=== PATIENT | female | born 1935 | race Caucasian/White ===

== ENCOUNTER → 2016-09-19 | Outpatient (REF) | payer MEDICARE, BC ==
[~2016-09-19] MED LIST: ASPI1TAB PO; CALC600T33 PO; CORE3.12 PO; DEXA2TA PO; Decadron PO; GABA-282 PO; INDA125TA PO; LESC80TA PO; METF1000 PO; MULTCAP PO; NITR4TASL SL; OMEP20CA3 PO; OS-CTAB6 PO; POTA99TA PO; PRAV40TA2 PO; TOLT1CAP PO; TRAN4TAB4 PO
[2016-09-19 13:12] LABS: ALBUMIN 3.3 GM/DL (3.2-5.2); ANION GAP 10 MEQ/L (8-16); BASO # 0.1 K/mm3 (0.0-0.2); BLOOD UREA NITROGEN 23 MG/DL (7-18); CALCIUM LEVEL 9.1 MG/DL (8.8-10.2); CARBON DIOXIDE LEVEL 32 MEQ/L (21-32); CHLORIDE LEVEL 99 MEQ/L (98-107); CREATININE FOR GFR 0.92 MG/DL (0.55-1.02); EOS # 0.2 K/mm3 (0.0-0.50); EOS % 4.2 % (0.0-3.0); GLOMERULAR FILTRATION RATE > 60.0 (>32); GLUCOSE, FASTING 83 MG/DL (83-110); LARGE UNSTAINED CELL # 0.2 K/mm3 (0.0-0.4); LARGE UNSTAINED CELL % 2.8 % (0.0-4.0); LYMPH # 1.7 K/mm3 (1.5-4.5); LYMPH % 27.4 % (24.0-44.0); MEAN CORPUSCULAR HEMOGLOBIN 30.7 pg (27.0-33.0); MEAN CORPUSCULAR HGB CONC 32.5 g/dl (32.0-36.5); MEAN CORPUSCULAR VOLUME 94.6 fl (80.0-96.0); MONO # 0.5 K/mm3 (0.0-0.8); MONO % 8.1 % (0.0-5.0); NEUTROPHILS # 3.2 K/mm3 (1.8-7.7); NEUTROPHILS % 56.5 % (36.0-66.0); PHOSPHORUS LEVEL 3.2 MG/DL (2.5-4.9); PLATELET COUNT, AUTOMATED 249 k/mm3 (150-450); POTASSIUM SERUM 3.8 MEQ/L (3.5-5.1); RED CELL DISTRIBUTION WIDTH 15.3 % (11.5-14.5); SODIUM LEVEL 141 MEQ/L (136-145); WHITE BLOOD COUNT 5.6 K/mm3 (4.0-10.0)
== END ==
LOC: M LABDRAW1 11:30
PROVIDERS: ATTEND Physician Assistant
DX: I49.5 Sick sinus syndrome (principal); I10 Essential (primary) hypertension

== ENCOUNTER 2016-10-15 12:29 | Inpatient (IN) | payer MEDICARE, BC ==
[~2016-10-15] VITALS: Ht 162.6 cm; Wt 70.6 kg
[~2016-10-15 12:29] MED LIST changes: +ASPI32ECTA PO; +ASPIRIN ENTERIC 325 MG TAB PO SCH; +CALCTAB29 PO; +VITA100037 PO
[2016-10-15] MEDS ORDERED: LR 1,000 ML IV ONE (12:45)
[2016-10-15] MEDS ORDERED: ceFAZolin SOD 1 GM in D5W MINI-BAG PLUS 50 ML IV ONE (13:00)
[2016-10-15] MEDS ORDERED: VANCOMYCIN 1000 MG/20 ML VIAL (J3370) As Ordered ONE (14:22)
[2016-10-15] MEDS ORDERED: LIDOCAINE 1% SDV INJ 30 ML VIAL As Ordered ONE (14:22)
[2016-10-15] MEDS ORDERED: ISOVUE-300 61% 50ML VIAL (Q9967) As Ordered ONE (14:22)
[2016-10-15] MEDS ORDERED: NEOSPORIN TOP OINT 15GM As Ordered ONE (14:24)
[2016-10-15] MEDS ORDERED: MIDAZOLAM INJ 2 MG/2 ML VIAL (J2250) As Ordered ONE (15:12)
[2016-10-15] MEDS ORDERED: fentaNYL 100 MCG/2 ML INJECTION (J3010) As Ordered ONE (15:12)
[2016-10-15] MEDS ORDERED: PROPOFOL 200 MG/20 ML VIAL As Ordered ONE (15:13)
[2016-10-15] MEDS ORDERED: LIDOCAINE 2% INJ 100 MG/5 ML SDV (FOR ANES.) As Ordered ONE (15:13)
[2016-10-15] MEDS ORDERED: ONDANSETRON 4MG/2ML VIAL (J2405) IV PRN (17:30)
[2016-10-15] MEDS ORDERED: LR 1,000 ML IV SCH (17:30)
[2016-10-15] MEDS ORDERED: guaiFENesin ER 600 MG TAB PO PRN (17:30)
[2016-10-15] MEDS ORDERED: fentaNYL 100 MCG/2 ML INJECTION (J3010) IV PRN (17:30)
[2016-10-15] MEDS ORDERED: ACETAMINOPHEN TAB 650MG DOSE (2X325MG) PO PRN (17:30)
[2016-10-15] MEDS ORDERED: NITROGLYCERIN 0.4 MG SUBL TABLET SL PRN (17:30)
--- NOTE | 2016-10-15 17:53 | REP ---
CHEST, ONE VIEW: REASON: Postop evaluation. PRIORS: None. There is a dual chamber bipolar pace maker device with leads which appear contiguous and appropriate. There is mild cardiomegaly. The technique utilized in obtaining the radiograph has magnified the cardiac silhouette and accentuated the interstitial markings. There is a diffuse increase in the interstitial markings of the lung gonzalez without a patchy opacity or pleural effusion. The osseous structures are within normal limits for the patient's age. IMPRESSION: 1. Pace maker device as described above. 2. Cardiomegaly. 3. Interstitial fibrotic changes however, correlate clinically to rule out the possibility of acute disease, superimposed on chronic change. Signed by Rehan Duran DO 10/15/2016 06:06 P
[2016-10-15 17:55] VITALS: BP 171/86
--- NOTE | 2016-10-15 17:57 | RO ---
DATE OF PROCEDURE: 10/15/2016 PREPROCEDURE DIAGNOSIS: Sick sinus syndrome. POSTPROCEDURE DIAGNOSIS: Sick sinus syndrome. FINDINGS: Sick sinus syndrome. PROCEDURE: Implantation of a permanent dual-chamber pacemaker ([employer]). SURGEON: Juliocesar Humphrey MD REFERRAL NURSE: None. ANESTHESIA: Lidocaine 1% local/monitored anesthetic care. ESTIMATED BLOOD LOSS: Less than 10 mL. No blood products replaced. No drains. No complications. DESCRIPTION OF PROCEDURE: The patient was prepped and draped over the left pectoral region. 3M Ioban film was applied. Lidocaine 1% was used for local anesthetic. A left subclavian venogram was performed using a total volume of 15 mL consisting of three-quarters contrast and one-quarter normal saline, which was injected by an antecubital vein. The left subclavian venogram was used in real time as a guide to get into the left subclavian vein with the micropuncture needle. This was then guidewire exchanged for a guidewire that came with one of the 8-Italian sheaths. Next, an incision approximately 2-1/2 to 3 inches in length was made with a PEAK PlasmaBlade, 1 cm below the skin entry site of the guidewire and approximately parallel to the left clavicle. The PEAK PlasmaBlade was used to dissect through the fatty layer and the fibrous Tiffanie's fascia. The pacemaker pocket was then formed in a caudal direction using blunt dissection using two fingers to separate the prepectoral fascia from the Tiffanie's fascia. Next, the guidewire was pulled through the skin into the incision site. Next, I used another micropuncture needle and entered the left subclavian vein a few centimeters lateral to the first guidewire at the level of the pectoral muscle using the first guidewire as a fluoroscopic marker. This was then guidewire exchanged for the guidewire that came with the other 8-Italian sheath. An 8-Italian sheath was placed over the more lateral of the guidewires and was used for vein access for the right ventricle lead. The right ventricle lead was placed into the right ventricle apex position under fluoroscopic guidance near the apex and was secured with a total of eight turns. This position was found to be electrically and anatomically satisfactory. No diaphragm stimulation on the ventricle lead at 10 volts high output with palpation of the diaphragm on both sides. Next, the 8-Italian sheath was broken apart and removed, and the ventricle lead was secured using three individual sutures consisting of #0 Ethibond to secure it to the pectoral muscle. Next, the other 8-Italian sheath was placed over the more medial of the guidewires and was used for vein access for the atrial lead. The atrial lead was placed into the right atrial appendage position with the help of a preformed J-stylet and was secured with a total of 10 turns. This position was found to be electrically and anatomically satisfactory. The atrial lead was tested at 10 volts high output and no diaphragm stimulation could be palpated on either side. The 8-Italian sheath was then broken apart and the atrial lead was secured to the pectoral muscle using the supplied tie-down sleeve using three individual sutures consisting of #0 Ethibond. Next, another #0 Ethibond suture was placed to the pectoral muscle to serve as the tie-down for the pacemaker pulse generator. The pacemaker pulse generator was then connected to the respective pins on the pacemaker leads and each one was secured by tightening the set screws with the hex screwdriver. A TYRX antimicrobial sac was cut into six pieces and placed into the bottom of the pacemaker pocket. Next, the excess lead material was coiled underneath the pacemaker pulse generator and placed along with pacemaker pulse generator into the pacemaker pocket with the pulse generator on top and excess lead material below. The pulse generator was then secured to the pectoral muscle with the previously placed #0 Ethibond sutures. The deep layer was closed using individual sutures consisting of #2-0 Vicryl. Some additional #2-0 Vicryl sutures were used to close the more superficial layer. The skin was closed using trini. The patient tolerated the procedure well without any immediate complications. The pacemaker pulse generator implanted was a [employer] MRI, model #[id number] with serial #[id number]. The right atrial lead implanted was a [employer] Tendril MRI with serial #[id number] with serial #[id number]. Final testing in the operating room with the PSA analyzer for the right atrial lead showed a capture threshold of 0.9 volts at 0.4 milliseconds with P wave amplitude of 2.5 millivolts and a lead impedance of 486 ohms. The right ventricle lead implanted was a [employer] Tendril MRI, model [id number] with serial #[id number]. Final testing in the operating room for the right ventricle lead showed a capture threshold of 0.5 volts at 0.4 milliseconds with R wave amplitude of 11.8 millivolts and lead impedance of 746 ohms. Copy To: Dr. Freddy Rubin
--- NOTE | 2016-10-15 18:00 | REP ---
FLUORO GUIDANCE: HISTORY: Sick sinus syndrome. Fluoroscopy of 3 minutes and 34 seconds has been provided to Dr. Juliocesar Humphrey during dual chamber bipolar pacemaker device placement. The image has been submitted to the department of radiology for review. The limited image shows the imaged portion of the leads to be contiguous and appropriate. Unreviewed
[2016-10-15 18:50] VITALS: BP 167/77
[2016-10-15 19:30] VITALS: BP 162/69
[2016-10-15 20:00] VITALS: BP 155/67
[2016-10-15] MEDS: TOLTERODINE TARTRATE 2 MG LA CAP (DETROL LA) PO SCH (20:54)
[2016-10-15] MEDS: ASCORBIC ACID 250 MG TAB PO SCH (20:54)
[2016-10-15] MEDS: VITAMIN D 1,000 INTERNATIONAL UNITS TABLET PO SCH (20:54)
[2016-10-15] MEDS: MULTIVITAMINS/MINERALS THERAP 1 TAB PO SCH (20:54)
[2016-10-15] MEDS: INDAPAMIDE 1.25MG TABLET PO SCH (20:55)
[2016-10-15] MEDS: TRANDOLAPRIL 1 MG TAB PO SCH (20:55)
[2016-10-15] MEDS ORDERED: PRAVASTATIN 20 MG TAB PO SCH (21:00)
[2016-10-15] MEDS: CALCIUM/VITAMIN D 500 MG TAB PO SCH (22:28)
--- NOTE | 2016-10-15 22:42 | ECGEPIP ---
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-T abnormalities. Electronically Signed On 10-15-2016 22:42:19 EDT by Juliocesar Humphrey
--- NOTE | 2016-10-15 23:03 | REP ---
Clinical: Pacemaker placement. Technique: Intraoperative fluoroscopic imaging. Findings: Single fluoroscopic image demonstrates dual lead pacemaker wires overlying the right atrium and ventricle. Fluoroscopic time 3 minutes 34 seconds. Impression: Pacemaker leads overlying the right atrium and ventricle. Signed by Martell Fiore MD 10/15/2016 10:55 P
[2016-10-16] VITALS: BP 133/59
[2016-10-16 04:00] VITALS: BP 142/66
[2016-10-16 07:20] VITALS: BP 149/70
[2016-10-16 08:00] VITALS: BP 149/70
[2016-10-16] MEDS ORDERED: metFORMIN (GLUCOPHAGE) 1000 MG TABLET PO SCH (08:00)
--- NOTE | 2016-10-16 08:49 | REP ---
PA and lateral chest: A comparison is 10/15/2016. The interstitial coarsening identified on the comparison study has improved. There are no focal infiltrates or effusions. There is no pneumothorax. Cardiac size is normal. There is a dual-chamber pacemaker with the pacing tips in satisfactory locations. There are surgical skin trini adjacent to the pacemaker pack. These findings are unchanged. Ya, mediastinum, bony thorax are unremarkable. Impression: No acute cardiopulmonary findings. Signed by Jose A Schaefer MD 10/16/2016 08:40 A
[2016-10-16] MEDS: INDAPAMIDE 1.25MG TABLET PO SCH (08:57)
[2016-10-16] MEDS: TOLTERODINE TARTRATE 2 MG LA CAP (DETROL LA) PO SCH (08:57)
[2016-10-16 08:58] VITALS: BP 149/70
[2016-10-16] MEDS: TRANDOLAPRIL 1 MG TAB PO SCH (08:58)
[2016-10-16] MEDS: ASCORBIC ACID 250 MG TAB PO SCH (08:58)
[2016-10-16] MEDS: CALCIUM/VITAMIN D 500 MG TAB PO SCH (08:58)
[2016-10-16] MEDS: VITAMIN D 1,000 INTERNATIONAL UNITS TABLET PO SCH (08:58)
[2016-10-16] MEDS: MULTIVITAMINS/MINERALS THERAP 1 TAB PO SCH (08:58)
[2016-10-16] MEDS ORDERED: ASPIRIN ENTERIC 325 MG TAB PO SCH (09:00)
[2016-10-16 12:00] VITALS: BP 162/73
== END 2016-10-16 16:59 | disposition home or self-care (01) | DRG 244 ==
LOC: M SDC 12:29 → M ICU 17:45 → M SDC 19:24 → M ICU 19:25
PROVIDERS: ADMIT Internal Medicine Cardiovascular Disease; ATTEND Internal Medicine Cardiovascular Disease
PROC: 02HK0JZ Insertion of Pacemaker Lead into Right Ventricle, Open Approach (ICD-10-PCS; 2016-10-15)
PROC: 0JH606Z Insertion of Pacemaker, Dual Chamber into Chest Subcutaneous Tissue and Fascia, Open Approach (ICD-10-PCS; principal; 2016-10-15 14:00)
DX: I49.5 Sick sinus syndrome (principal)

== ENCOUNTER → 2017-01-07 | Outpatient (REF) | payer MEDICARE, BC ==
[~2017-01-07] MED LIST changes: +ASPI325T24 PO; -ASPI32ECTA PO; -ASPIRIN ENTERIC 325 MG TAB PO SCH; -CALC600T33 PO; +CALC600T36 PO; -METF1000 PO; +METF10004 PO; -TRAN4TAB4 PO; +TRAN4TAB8 PO; -VITA100037 PO; +VITA100067 PO
[2017-01-07 14:19] LABS: CREATININE FOR GFR 0.96 MG/DL (0.55-1.02); GLOMERULAR FILTRATION RATE 59.4 (>32)
== END ==
LOC: M LABDRAW1 13:43
PROVIDERS: ATTEND Psychiatry & Neurology Neurology
DX: N18.9 Chronic kidney disease, unspecified (principal)

== ENCOUNTER → 2017-01-09 | Outpatient (CLI) | payer MEDICARE, BC ==
--- NOTE | 2017-01-09 11:48 | REP ---
MRI BRAIN WITHOUT AND WITH CONTRAST: HISTORY: Meningioma. CONTRAST: ProHance 7 mL. COMPARISON: MR 11/11/[address] 11/13/2014. The patient is status post left parietal craniotomy. A small area of increased signal intensity on T2-weighted images is present in the posterior left parietal lobe. There is dilatation of the overlying cortical sulci. This represents gliosis and encephalomalacia. Scattered punctate areas of increased signal intensity on T2-weighted images are present in the periventricular and subcortical white matter. This represents small vessel ischemic disease. There is no intraparenchymal hemorrhage, infarct or midline shift. The ventricular system and cortical sulci are dilated consistent with minimal volume loss. There is no extracerebral collection. A small focus of extra-axial enhancement is present overlying the posterior left parietal lobe at the vertex. This represents a residual meningioma. The meningioma measures 1.4 cm in transverse by 2.5 cm in AP by 0.6 cm in cephalocaudal dimensions. The meningioma abuts the superior sagittal sinus. The sinuses are clear. IMPRESSION: 1. Left parietal lobe encephalomalacia. 2. Minimal small vessel ischemic disease. 3. Minimal volume loss. 4. Small residual left parietal parasagittal meningioma as described above. Signed by Charlie Coffman MD 01/09/2017 11:59 A
== END ==
LOC: M RAD 09:17
PROVIDERS: ATTEND Psychiatry & Neurology Neurology
DX: D32.0 Benign neoplasm of cerebral meninges (principal); G40.209 Localization-related (focal) (partial) symptomatic epilepsy and epileptic syndromes with complex partial seizures, not intractable, without status epilepticus
CPT/HCPCS: 70553; A9576

== ENCOUNTER → 2019-08-02 | Outpatient (REF) | payer MEDICARE, BC ==
[~2019-08-02] MED LIST changes: +ASPI-255 PO; -ASPI1TAB PO; -ASPI325T24 PO; +ASPI81TA26 PO; +CALCD50TA PO; +CHOL100029 PO; -GABA-282 PO; +GABA-843 PO; +LEVE500T5 PO; +OMEP1CAP73 PO; -OMEP20CA3 PO; -TOLT1CAP PO; +TOLT4CAP3 PO; +TRAN1TAB49 PO; -TRAN4TAB8 PO
[2019-08-02 17:09] LABS: IRON (FE) 132 UG/DL (50-170); PERCENT SATURATION 36.7 % (13.2-45.0); TOTAL IRON BINDING CAPACITY 360 UG/DL (250-450)
[2019-08-02 17:11] LABS: FOLATE > 24.0 NG/ML; VITAMIN B12 LEVEL 540 PG/ML
== END ==
LOC: M LAB REF 15:57
PROVIDERS: ATTEND Family Medicine
DX: D64.9 Anemia, unspecified (principal)

== ENCOUNTER → 2020-01-06 | Outpatient (REF) | payer MEDICARE, BC ==
[~2020-01-06] MED LIST changes: +CYCL5TAB PO; +FLUV80TAB PO; -LESC80TA PO
[2020-01-06 15:09] LABS: BASO # 0.1 10^3/uL (0.0-0.2); BASO % 0.9 % (0.0-1.0); EOS # 0.3 10^3/uL (0.0-0.5); EOS % 3.9 % (0.0-3.0); LYMPH # 2.6 10^3/uL (1.5-5.0); LYMPH % 32.7 % (24.0-44.0); MEAN CORPUSCULAR HGB CONC 32.4 g/dl (32.0-36.5); MEAN CORPUSCULAR VOLUME 95.8 fl (80.0-96.0); NEUTROPHILS % 50.2 % (36.0-66.0); PLATELET COUNT, AUTOMATED 198 10^3/uL (150-450); RED BLOOD COUNT 3.55 10^6/uL (4.00-5.40)
[2020-01-06 15:53] LABS: BILIRUBIN,TOTAL 0.4 MG/DL (0.2-1.0); CHOLESTEROL RISK RATIO 2.789 (<5); CREATININE FOR GFR 1.1 MG/DL (0.55-1.30); GLOMERULAR FILTRATION RATE 50.4 (>32); POTASSIUM SERUM 3.8 MEQ/L (3.5-5.1); TOTAL PROTEIN 6.5 GM/DL (6.4-8.2)
== END ==
LOC: M LABDRWAD 13:31
PROVIDERS: ATTEND Psychiatry & Neurology Neurology
DX: I25.10 Atherosclerotic heart disease of native coronary artery without angina pectoris (principal)

== ENCOUNTER → 2020-05-16 | Outpatient (REF) | payer MEDICARE, BC ==
[2020-05-16 16:59] LABS: CALCIUM LEVEL 10.3 MG/DL (8.8-10.2); CREATININE FOR GFR 1.16 MG/DL (0.55-1.30); GLOMERULAR FILTRATION RATE 47.4 (>32); MAGNESIUM LEVEL 1.7 MG/DL (1.8-2.4); POTASSIUM SERUM 3.9 MEQ/L (3.5-5.1)
== END ==
LOC: M LABDRWAD 16:06
PROVIDERS: ATTEND Physician Assistant
DX: I48.0 Paroxysmal atrial fibrillation (principal); I50.42 Chronic combined systolic (congestive) and diastolic (congestive) heart failure

== ENCOUNTER → 2020-06-12 | Outpatient (REF) | payer MEDICARE, BC ==
[~2020-06-12] MED LIST changes: +GABA-282 PO; -GABA-843 PO; -TRAN1TAB49 PO; +TRAN1TAB56 PO
[2020-06-12 13:51] LABS: CALCIUM LEVEL 10.4 MG/DL (8.8-10.2); CREATININE FOR GFR 1.02 MG/DL (0.55-1.30); MAGNESIUM LEVEL 1.6 MG/DL (1.8-2.4)
== END ==
LOC: M LABDRWAD 12:35
PROVIDERS: ATTEND Physician Assistant
DX: I48.0 Paroxysmal atrial fibrillation (principal); I50.42 Chronic combined systolic (congestive) and diastolic (congestive) heart failure

== ENCOUNTER → 2020-07-26 | Outpatient (REF) | payer MEDICARE, BC ==
[2020-07-26 13:53] LABS: CALCIUM LEVEL 9.6 MG/DL (8.8-10.2); CREATININE FOR GFR 1.17 MG/DL (0.55-1.30); GLOMERULAR FILTRATION RATE 46.8 (>32); MAGNESIUM LEVEL 1.8 MG/DL (1.8-2.4); POTASSIUM SERUM 3.9 MEQ/L (3.5-5.1)
== END ==
LOC: M LABDRWAD 12:22
PROVIDERS: ATTEND Physician Assistant
DX: I48.0 Paroxysmal atrial fibrillation (principal); I50.42 Chronic combined systolic (congestive) and diastolic (congestive) heart failure

== ENCOUNTER → 2020-08-23 | Outpatient (CLI) | payer MEDICARE, BC ==
--- NOTE | 2020-08-23 13:51 | REP ---
INDICATION: SOB. COMPARISON: PA and lateral chest dated 10/16/2016. TECHNIQUE: Upright PA and lateral chest. FINDINGS: There is chronic bilateral interstitial coarsening, not significantly changed taking into consideration differences in radiographic penetration. However, there are new small bilateral pleural effusions as an interval change. There are no focal infiltrates. Cardiac size is normal, unchanged. There is a dual chamber pacemaker, unchanged. IMPRESSION: New small bilateral pleural effusions. Chronic interstitial coarsening. Pacemaker. <Electronically signed by Jose A Schaefer > 08/23/20 [id number]
== END ==
LOC: M ADAMS 12:22
PROVIDERS: ATTEND Physician Assistant
DX: J90 Pleural effusion, not elsewhere classified (principal); R06.02 Shortness of breath; Z95.0 Presence of cardiac pacemaker

== ENCOUNTER → 2020-08-23 | Outpatient (REF) | payer MEDICARE, BC ==
[2020-08-23 17:52] LABS: CALCIUM LEVEL 9.6 MG/DL (8.8-10.2); CREATININE FOR GFR 0.99 MG/DL (0.55-1.30); GLOMERULAR FILTRATION RATE 56.8 (>32); MAGNESIUM LEVEL 1.7 MG/DL (1.8-2.4); POTASSIUM SERUM 4.7 MEQ/L (3.5-5.1)
== END ==
LOC: M LABDRWAD 16:30 → M LAB REF 16:30
PROVIDERS: ATTEND Physician Assistant
DX: R06.02 Shortness of breath (principal)

== ENCOUNTER → 2020-09-18 | Outpatient (REF) | payer MEDICARE, BC ==
[2020-09-18 12:57] LABS: HEMATOCRIT 37.9 % (36.0-47.0); HEMOGLOBIN 11.8 g/dl (12.0-15.5); MEAN CORPUSCULAR HEMOGLOBIN 31.1 pg (27.0-33.0); MEAN CORPUSCULAR HGB CONC 31.1 g/dl (32.0-36.5); PLATELET COUNT, AUTOMATED 209 10^3/uL (150-450); RED BLOOD COUNT 3.79 10^6/uL (4.00-5.40)
[2020-09-18 13:41] LABS: CALCIUM LEVEL 9.9 MG/DL (8.8-10.2); CREATININE FOR GFR 1.06 MG/DL (0.55-1.30); GLOMERULAR FILTRATION RATE 52.4 (>32)
== END ==
LOC: M LABDRWAD 12:26
PROVIDERS: ATTEND Physician Assistant
DX: I48.0 Paroxysmal atrial fibrillation (principal); I50.42 Chronic combined systolic (congestive) and diastolic (congestive) heart failure; R06.02 Shortness of breath

== ENCOUNTER → 2020-12-26 | Outpatient (REF) | payer MEDICARE, BC ==
[~2020-12-26] MED LIST changes: +ATEN50TA2 PO; +DIGO0.123 PO; +ECOT81TA5 PO; +ELIQ5TAB PO; +ENTR1TAB PO; +MAGN400C PO; +MULT1TAB7 PO; +TORS10TA3 PO
[2020-12-26 14:10] LABS: CALCIUM LEVEL 9.3 MG/DL (8.8-10.2); CREATININE FOR GFR 1.02 MG/DL (0.55-1.30); GLOMERULAR FILTRATION RATE 54.8 (>32); MAGNESIUM LEVEL 2.3 MG/DL (1.8-2.4); POTASSIUM SERUM 4.5 MEQ/L (3.5-5.1)
== END ==
LOC: M LABDRWAD 12:39
PROVIDERS: ATTEND Physician Assistant
DX: I48.0 Paroxysmal atrial fibrillation (principal); I50.42 Chronic combined systolic (congestive) and diastolic (congestive) heart failure

== ENCOUNTER → 2021-02-07 | Outpatient (REF) | payer MEDICARE, BC ==
[2021-02-07 15:01] LABS: CREATININE FOR GFR 1.22 MG/DL (0.55-1.30); GLOMERULAR FILTRATION RATE 44.6 (>32)
== END ==
LOC: M LABDRWAD 12:23
PROVIDERS: ATTEND Psychiatry & Neurology Neurology
DX: I10 Essential (primary) hypertension (principal)

== ENCOUNTER → 2021-02-15 | Outpatient (CLI) | payer MEDICARE, BC ==
[~2021-02-15] MED LIST changes: +ISOVUE-370 76% 100ML VIAL As Ordered ONE
--- NOTE | 2021-02-15 13:42 | REPVR ---
PROCEDURE INFORMATION: Exam: CT Head Without And With Contrast Exam date and time: 02/15/2021 1:09 PM Age: 85 years old Clinical indication: Pain; Headache; Additional info: Local-rel symptc epi w cmplx prt seiz, not ntrct, w/. History of surgery for meningioma. TECHNIQUE: Imaging protocol: Computed tomography of the head without and with intravenous contrast. Radiation optimization: All CT scans at this facility use at least one of these dose optimization techniques: automated exposure control; mA and/or kV adjustment per patient size (includes targeted exams where dose is matched to clinical indication); or iterative reconstruction. Contrast material: ISOVUE 370; Contrast volume: 75 ml; Contrast route: INTRAVENOUS (IV); COMPARISON: 1. CT Head W/O FOLL BY WITH CONTR 01/13/2018 10:05 AM 2. MRI-Brain W/O FOLL BY WITH 01/09/2017 9:42:55 AM FINDINGS: Brain: Examination again demonstrates the patient to be status post left parietal craniotomy for surgical resection meningioma with stable appearance of postsurgical hypodense encephalomalacia and gliosis in the adjacent right left parietal lobe. Stable appearance of small residual extra-axial dural-based enhancing meningioma measuring approximately 1.5 x 1.5 x 0.6 cm in the left high parietal parasagittal region abutting the superior sagittal sinus, best appreciated on coronal image 23. No significant mass effect or midline shift is seen. No acute infarction, acute hemorrhage or midline shift is seen. There is mild ill-defined patchy hypodensity within the bilateral cerebral periventricular white matter, consistent with chronic microvascular ischemic changes. There is mild diffuse cerebral atrophy present, consistent with this patient's age. Cerebral ventricles: The ventricular system demonstrates mild diffuse compensatory enlargement. Paranasal sinuses: Visualized sinuses are unremarkable. No fluid levels. Mastoid air cells: Visualized mastoid air cells are well aerated. Vasculature: There is atherosclerotic calcification of the bilateral cavernous carotid arteries. Bones/joints: Unremarkable. No acute fracture. Soft tissues: Unremarkable. IMPRESSION: 1. Examination again demonstrates the patient to be status post left parietal craniotomy for surgical resection meningioma with stable appearance of postsurgical hypodense encephalomalacia and gliosis in the adjacent right left parietal lobe. Stable appearance of small residual extra-axial dural-based enhancing meningioma measuring approximately 1.5 x 1.5 x 0.6 cm in the left high parietal parasagittal region abutting the superior sagittal sinus, best appreciated on coronal image 23. No significant mass effect or midline shift is seen. 2. No acute infarction, acute hemorrhage or midline shift is seen. Electronically signed by: John Mcnally On 02/15/2021 13:42:28 PM
== END ==
LOC: M RAD 12:53
PROVIDERS: ATTEND Psychiatry & Neurology Neurology
DX: G40.209 Localization-related (focal) (partial) symptomatic epilepsy and epileptic syndromes with complex partial seizures, not intractable, without status epilepticus (principal); D32.0 Benign neoplasm of cerebral meninges
CPT/HCPCS: 70470; Q9967

== ENCOUNTER → 2021-02-22 | Outpatient (CLI) | payer MEDICARE, BC ==
[~2021-02-22] MED LIST changes: -ISOVUE-370 76% 100ML VIAL As Ordered ONE
--- NOTE | 2021-02-22 13:30 | REP ---
INDICATION: SOB. COMPARISON: 11/19/2020 TECHNIQUE: PA and lateral FINDINGS: The cardiomediastinal silhouette is unchanged. Dual chamber bipolar pacemaker device status quo. A new right lower lobe opacity has developed since the last exam with CP angle blunting. There is no significant change in appearance of the left lung. The osseous structures are stable and intact. IMPRESSION: Right pleural effusion. Underlying etiology uncertain. Follow-up is recommended. <Electronically signed by Rehan Duran > 02/22/21 [id number]
== END ==
LOC: M WUC 13:04
PROVIDERS: ATTEND Family Medicine
DX: R91.8 Other nonspecific abnormal finding of lung field (principal); J91.8 Pleural effusion in other conditions classified elsewhere; R06.02 Shortness of breath

== ENCOUNTER → 2021-03-09 | Outpatient (CLI) | payer MEDICARE, BC ==
--- NOTE | 2021-03-09 13:36 | REP ---
INDICATION: RT PLEURAL EFFUSION F/U ABN CXR COMPARISON: 10/20/2006 the latest prior TECHNIQUE: Standard helical technique without intravenous contrast FINDINGS: There is no evidence of mediastinal or hilar adenopathy. There is a large right and a small left pleural effusion. There is no pericardial effusion. There is no significant change in appearance of the imaged upper abdomen. The imaged osseous structures shows spinal degenerative changes increased from the prior exam. There is a proximal right 8th rib lesion which is unchanged. Evaluation of the lung gonzalez shows a small amount of intra fissural fluid bilaterally right greater than left. Respiratory motion artifact obscures the fine detail. There is no evidence of a spiculated lung nodule. There is an opacity in the right lower lobe abutting the pleural effusion with air bronchograms consistent with atelectasis. IMPRESSION: Bilateral pleural effusions and other lung field changes as described above. <Electronically signed by Rehan Duran > 03/09/21 [id number]
== END ==
LOC: M PLAIMG 12:30
PROVIDERS: ATTEND Family Medicine
DX: J90 Pleural effusion, not elsewhere classified (principal); R91.8 Other nonspecific abnormal finding of lung field

== ENCOUNTER 2021-03-13 19:36 | Inpatient (IN) | payer MEDICARE, BC ==
[~2021-03-13] VITALS: Ht 157.5 cm; Wt 67.2 kg
--- OUTSIDE RECORDS SUMMARY | 2021-03-13 19:42 | CCD | Continuity of Care Document ---
Author Organization Unknown Address Unknown Phone Unavailable Care Team Providers Care Parts Processor Name Role Phone Freddy Boston MD AUTM [phone] Smith Will MD AUTM [phone] Problems Active Problems Provider Date Coronary arteriosclerosis Juliocesar Humphrey MD Onset: 2011 Old myocardial infarction Juliocesar Humphrey MD Onset: 2011 Benign essential hypertension Juliocesar Humphrey MD Onset: Electrocardiogram abnormal Juliocesar Humphrey MD Onset: 08/27 Mitral valve disorder Delia Dover PA-C Onset: 11/12/2012 Pure hypercholesterolemia Delia Dover PA-C Onset: 2012 Essential hypertension Delia Dover PA-C Onset: 5 Mitral leaflet abnormality Delia Dover PA-C Onset: 05/17 Sinus node dysfunction TERELL StephensP-C Onset: 10/24/19 17 Cardiac pacemaker in situ ZA Mccoy-C Onset: 2016 Dietary management surveillance Delia Dover PA-C Onset: 11/04/2016 Aortic valve disorder Delia Dover PA-C Onset: 06/07/2019 Persistent atrial fibrillation Delia Dover PA-C Onset: 0 09/26/2020 Chronic combined systolic and diastolic heart failure Delia Dover PA-C Onset: 09/26/2020 Social History Type Date Description Comments Sex Unknown Tobacco Use Start: Unknown End: Unknown Former Cigarette Smo ker 1ppd for 35 years, quit 1997 ETOH Use Rarely consumes alcohol Tobacco Use Start: Unknown End: Unknown Patient is a former smoker up to 1ppd from age 26, quit 1997 Smoking Status Reviewed: 12/27/20 Patient is a former smoker up to 1ppd from age 26, quit 1997 Exercise Type/Frequency Does gardening 3 times a week in season Exercise Type/Frequency Does housework daily Exercise Limitations Fatigue in legs whe n walking long distances Exercise Limitations Weakness in legs Allergies and adverse reactions Description No Known Drug Allergies Medications Active Medications SIG Qnty Indications Ordering Provide r Date Torsemide 10mg Tablets 4 by mouth every day 360tabs I50.42 Juliocesar Humphrey MD 08/24/2020 Entresto 24-26mg Tablets 1 by mouth twice a day 180tabs I50.42 Joaquin Alfonso MD 05/24/2020 Magnesium Oxide -MG Supplement 400mg Capsules 1 by mouth twice a day 180caps Joaquin Alfonso MD 03/02/2020 Digoxin 125mcg Tablets 1 by mouth every day 90tabs I48.0 Juliocesar Humphrey MD 02/15/2020 Stool Softener 100mg Capsules 1 by mouth twice every day as needed Unknown 2019 Atenolol 50mg Tablets 1 by mouth every day 90tabs Juliocesar Humphrey MD 02/07/[address] 1 by mouth every day I25.10 Joaquin Alfonso MD 02/03/2020 Eliquis 5mg Tablets 1 by mouth twice a day 180tabs I48.0 Juliocesar Humphrey MD 02/03/2020 Pravastatin Sodium 20mg Tablets 1 by mouth every night at bedtime Freddy Boston MD 05/28/19 18 Levetiracetam 500mg Tablets 1 tablet bid Unknown 05/06/2017 Vitamin D 2000Unit Tablets 1 po qd Unknown 06/16/2013 Calcium 600 + D [id number] Tab lets 1 po bid Unknown 06/16/2013 Metformin HCL 1000mg Tablets 1 po bid Freddy Boston MD 02/14/2011 Multi-Vitamin Tablets 1 PO D Dorian Riojas MD 08/24/2007 Nitrostat 0.4mg Tablets Sub 1 sl every 5min x3 as needed for chest pain 25tabs I25.10 Joaquin Alfonso MD 08/25/2006 Immunizations Description No Information Available Vital Signs Date Vital Result Comment 12/27/2020 9:36am Weight 147.00 lb Height 64 inches 5'4" BMI (Body Mass Index) 25.2 kg/m2 Heart Rate 76 /min Irregular Respiratory Rate 16 /min BP Systolic Right Arm 128 mmHg sitting, regular c uff BP Diastolic Right Arm 76 mmHg sitting, regular cuff 09/26/2020 12:21pm Weight 149.00 lb Home Weight 149lb Height 64 inches 5'4" BMI (Body Mass Index) 25.6 kg/m2 Heart Rate 56 /min Irregular Respiratory Rate 16 /min BP Systolic Right Arm 136 mmHg sitting, regular c uff BP Diastolic Right Arm 64 mmHg sitting, regular cuff BP Systolic Left Arm 132 mmHg sitting BP Diastolic Left Arm 64 mmHg sitting Results Test Acquired Date Facility Test Result H/L Range Note Microalbumin/Creatinine Urine 02/22/2021 [facility] Import Microalbumin Urine 271.5 mg/L High 1.3-20.0 Urine Creatinine 89.5 mg/dL 30.0-125.0 Microalb/Creat Ratio 303.4 ug/mg High 0.0-30.0 Comprehensive Chem Profile 02/22/2021 [facility] CC D Import Glucose 94 mg/dL 74-99 1 BUN 22 mg/dL High 7-18 Creatinine 1.3 mg/dL 0.6-1.3 Sodium 143 mEq/L 136-145 Potassium 3.7 mEq/L 3.5-5.1 Chloride 101 mEq/L 98-107 Carbon Dioxide 36 mEq/L High 21-32 Calcium 9.8 mg/dL 8.5-10.1 Alk. Phosphatase 63 mg/dL 46-116 Total Bilirubin 0.5 mg/dL 0.2-1.0 Ast (Sgot) 22 U/L 15-37 Alt (SGPT) 23 U/L 12-78 Albumin 3.6 g/dL 3.4-5.0 Total Protein 6.3 g/dL Low 6.4-8.2 A/G Ratio 1.33 CALC 1.00-1.90 GFR 39 mL/min Low GFR 47 mL/min Low 2 Basic Metabolic Profile 12/26/2020 [facility] [phone] Glucose, Fasting 131 mg/dL High 70-100 Blood Urea Nitrogen 20 mg/dL High 7-18 Creatinine For GFR 1.02 mg/dL Normal 0.55-1.30 Glomerular Filtration Rate 54.8 Normal >32 3 Sodium Level 140 mEq/L Normal 136-145 Potassium Serum 4.5 mEq/L Normal 3.5-5.1 Chloride Level 105 mEq/L Normal 98-107 Carbon Dioxide Level 30 mEq/L Normal 21-32 Anion Gap 5 mEq/L Low 8-16 Calcium Level 9.3 mg/dL Normal 8.8-10.2 Laboratory test finding 12/26/2020 [facility] [phone] Magnesium Level 2.3 mg/dL Normal 1.8-2.4 NT-Pro BNP 6360 pg/mL High <450 Basic Metabolic Profile 09/18/2020 [facility] [phone] Glucose, Fasting 92 mg/dL Normal 70-100 Blood Urea Nitrogen 22 mg/dL High 7-18 Creatinine For GFR 1.06 mg/dL Normal 0.55-1.30 Glomerular Filtration Rate 52.4 Normal >32 4 Sodium Level 144 mEq/L Normal 136-145 Potassium Serum 4.0 mEq/L Normal 3.5-5.1 Chloride Level 105 mEq/L Normal 98-107 Carbon Dioxide Level 33 mEq/L High 21-32 Anion Gap 6 mEq/L Low 8-16 Calcium Level 9.9 mg/dL Normal 8.8-10.2 Laboratory test finding 09/18/2020 [facility] [phone] Magnesium Level 2.0 mg/dL Normal 1.8-2.4 NT-Pro BNP 4551 pg/mL High <450 Complete Blood Count 09/18/2020 [facility] [phone] White Blood Count 8.0 10 Normal 4.0-10.0 Red Blood Count 3.79 10 Low 4.00-5.40 Hemoglobin 11.8 g/dL Low 12.0-15.5 Hematocrit 37.9 % Normal 36.0-47.0 Mean Corpuscular Volume 100.0 fl High 80.0-96.0 Mean Corpuscular Hemoglobin 31.1 pg Normal 27.0-33.0 Mean Corpuscular HGB Conc 31.1 g/dL Low 32.0-36.5 Red Cell Distribution Width 17.2 % High 11.5-14.5 Platelet Count, Automated 209 10 Normal 150-450 Nucleated Red Blood Cell % 0.0 % Normal 0-0 1 100-125 mg/dL PRE-DIABET ES/FASTING >126 mg/dL DIABETES/FASTING 2 CHRONIC KIDNEY DISEASE STAGI NG PER NKF STAGE I & II GFR >= 60 NORMAL TO MILDLY DECREASED STAGE III GFR 30-59 MODERATELY DECREASED STAGE IV GFR 15-29 SEVERELY DECREASED STAGE V GFR <15 VERY LITTLE GFR LEFT ESRD GFR <15 ON SURFACE SUPERVISOR 3 Units are mL/min/1.73 m2 Chronic Kidney Disease Staging per NKF: Stage I & II GFR >=60 Normal to Mildly Decreased Stage III GFR 30-59 Moderately Decreased Stage IV GFR 15-29 Severely Decreased Stage V GFR <15 Very Little GFR Left ESRD GFR <15 on SURFACE SUPERVISOR 4 Units are mL/min/1.73 m2 Chronic Kidney Disease Staging per NKF: Stage I & II GFR >=60 Normal to Mildly Decreased Stage III GFR 30-59 Moderately Decreased Stage IV GFR 15-29 Severely Decreased Stage V GFR <15 Very Little GFR Left ESRD GFR <15 on SURFACE SUPERVISOR Procedures Date Code Description Status 12/27/2020 88461 Office/Outpatient Established Lo w MDM 20-29 Min Completed 12/27/2020 61254 Pacer Interrogation Any Leads Co mpleted 09/26/2020 54720 Office/Outpatient Established Mo d MDM 30-39 Min Completed 09/26/2020 03464 Echocardiogram 2-D Doppler Color Completed Medical Devices Description No Information Available Encounters Type Date Location Provider Dx Diagnosis Office Visit 12/27/2020 9:30a Main Office Delai Dover PA-C I50.4 2 Chronic combined systolic and diastolic hrt fail I49.5 Sick sinus syndrome Office Visit 09/26/2020 12:30p Main Office Delia Dover PA-C I50.4 2 Chronic combined systolic and diastolic hrt fail I48.11 Longstanding persistent atri al fibrillation I25.10 Athscl heart disease of emily ve coronary artery w/o ang pctrs I25.2 Old myocardial infarction I10 Essential (primary) hyperten jackie I34.0 Nonrheumatic mitral (valve) insufficiency I35.8 Other nonrheumatic aortic va lve disorders R94.31 Abnormal electrocardiogram [ ECG] [EKG] E78.00 Pure hypercholesterolemia, u nspecified I49.5 Sick sinus syndrome Z71.3 Dietary counseling and surve illance Assessments Date Code Description Provider 12/27/2020 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 CHARLES MccoyC 12/27/2020 I49.5 Sick sinus syndrome CHARLES PereraC 09/26/2020 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 CHARLES MccoyC 09/26/2020 I48.11 Longstanding persistent atrial f ibrillation CHARLES MccoyC 09/26/2020 I25.10 Atherosclerotic heart disease of [place] coronary artery with CHARLES MccoyC 09/26/2020 I25.2 Old myocardial infarction CHARLES MccoyC 09/26/2020 I10 Essential (primary) hypertension CHARLES MccoyC 09/26/2020 I34.0 Nonrheumatic mitral (valve) insu fficiency CHARLES MccoyC 09/26/2020 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 CHARLES MccoyC 09/26/2020 R94.31 Abnormal electrocardiogram [ECG] [EKG] CHARLES MccoyC 09/26/2020 E78.00 Pure hypercholesterolemia, unspe cified CHARLES MccoyC 09/26/2020 I49.5 Sick sinus syndrome CHARLES PereraC 09/26/2020 Z71.3 Dietary counseling and surveilla nce Delia Dover PA-C Plan of Treatment Future Appointment(s):* 07/02/2021 12:45 pm - Delia Dover PA-C at Main Office * 03/29/2021 1:30 pm - Delia Dover PA-C at Main Office 12/27/2020 - Delia Dover PA-C* I50.42 Chronic combined systolic (congestive) and diastolic (congestive) heart failure* New Labs:* Basic Metabolic Profile, Scheduled: 03/26/21 * Magnesium Level, Scheduled: 03/26/21 * NT-Pro BNP, Scheduled: 03/26/21 * Recommendations:* Follow a low sodium diet and 1500cc/24 hour fluid restriction and do daily weights. Call the office with weight gain of 3 lbs or more. * I49.5 Sick sinus syndrome * All * Follow up:* 3 month follow up. 6 month pacer/CV. Functional Status Functional Condition Comment Date Status Independent with all ADL's Activ e Mental Status Description No Information Available Referrals Description No Information Available
--- OUTSIDE RECORDS SUMMARY | 2021-03-13 19:42 | CCD | Continuity of Care Document ---
Author Organization Unknown Address Unknown Phone Unavailable Care Team Providers Care Chief Accountant Name Role Phone Freddy Boston MD AUTM [phone] Smith Will MD AUTM [phone] Juliocesar Stewart MD AUTM [phone] Nia Cline MD AUTM [phone] Problems Active Problems Provider Date Trigeminal neuralgia Freddy Boston M.D. Onset: 09/30/2014 Urinary incontinence Onset: 10/11/2008 Thyroid nodule Onset: 05/14/2008 Benign essential hypertension Onset: Vitamin D deficiency Onset: 05/14/2008 Diverticular disease Onset: 12/03/2007 Cartilage disorder Onset: 12/03/2007 Non-Hodgkin's lymphoma (clinical) Onset: Coronary arteriosclerosis Onset: 000 Type 2 diabetes mellitus Onset: 00 Hyperlipidemia Onset: Benign neoplasm of cerebral meninges Freddy Boston M.D. On set: 03/06/2015 Social History Type Date Description Comments Sex Unknown Tobacco Use Start: Unknown End: Unknown Former Cigarette Smo ker 1 Pack Daily Quit in 1981 ETOH Use Never used alcohol Tobacco Use Start: Unknown End: Unknown Patient is a former smoker Allergies and adverse reactions Active Allergies Criticality Reaction | Severity Comments Date Aspirin Unable to assess criticality Mild 08/19/2012 Lipitor Unable to assess criticality muscle aches 09/30/2014 Crestor Unable to assess criticality Moderate 08/19/2012 Pravachol Unable to assess criticality muscle aches 09/30/2014 Zocor Unable to assess criticality Moderate 08/19/2012 Zetia Unable to assess criticality Moderate 08/19/2012 Inactive Allergies NKDA Unable to assess criticality 09/06/2014 Medications Active Medications SIG Qnty Indications Ordering Provide r Date Pravachol 20mg Tablets 1 by mouth every day 90tabs Freddy Boston M.D. 07/01/2017 Nystatin [id number] Suspension swish and spit 1 teaspoon 4 times daily 150ml B37.0 Dave Aguayo [facility] 09/02/2016 Levetiracetam 500mg Tablets P O bid Freddy Boston M.D. 05/29/2016 Calcium 600 600mg Tablets 1 p o bid Freddy Boston M.D. 03/06/2015 Multivitamins Capsules 1 by mouth every day Freddy Boston M.D. 03/06/2015 Metformin HCL 1000mg Tablets take one tablet by mouth twice a day 180tabs Freddy Boston M.D. 09/30/2014 Nitrostat 0.4mg Tablets Sub one under tongue every 5 minutes x 3 as needed for chest discomfort 25tabs Dave Aguayo [facility] 09/06/2014 Vitamin D 2000Unit Capsules 1 by mouth every day Dave Aguayo [facility] 09/06/2014 Entresto 24-26mg Tablets 1 twice daily by mouth Unknown Eliquis 5mg Tablets take one tablet by mouth twice a day Unknown Magnesium Oxide (Elemental) 400mg Tablets take one by mouth three times a day Unknown Torsemide 10mg Tablets 1 by mouth every day Unknown Digoxin 125mcg Tablets 1 by mouth every day Unknown Atenolol 50mg Tablets 1 by mouth every day Unknown Melatonin ER 10mg Tablets ER 1 by mouth at bedtime as needed Unknown Aspirin 81 Low Dose 81mg Chewtabs 1 by mouth every day Unknown Medications Administered in Office Medication SIG Qnty Indications Ordering Provider Date Covid-19 vaccine, Unspecified Inj ection Unknown 08/07/2020 Covid-19 vaccine, Unspecified Inj ection Unknown 07/05/2020 Immunizations CPT Code Status Date Vaccine Lot # U-Flu Refused 02/22/2021 Influenza,Unspecified 70729 Refused 03/14/2014 Influenza Virus Vaccine 37895 Refused 03/03/2013 Influenza Virus Vaccine 08642 Refused 02/05/2012 Pneumovax 23 [id number] Refused 02/05/2012 Influenza Virus Vaccine 41270 Refused 12/27/2010 Influenza Virus Vaccine 06446 Refused 05/19/2004 Adacel- Tetanus Diphtheria P ertussis Vital Signs Date Vital Result Comment 02/22/2021 10:43am BP Systolic 150 mmHg BP Diastolic 60 mmHg BP Systolic Recheck 137 mmHg BP Diastolic Recheck 68 mmHg Heart Rate 51 /min Height 63 inches 5'3" Weight 148.00 lb O2 % BldC Oximetry 96 % RM Air BMI (Body Mass Index) 26.2 kg/m2 10/09/2020 11:47am BP Systolic 160 mmHg BP Diastolic 72 mmHg Heart Rate 78 /min irregular Height 63 inches 5'3" Weight 152.00 lb BMI (Body Mass Index) 26.9 kg/m2 Results Test Acquired Date Facility Test Result H/L Range Note Laboratory test finding 02/22/2021 [facility] [employer] [facility]: [place] [address] [phone] B-Type Natiuretic Peptide <pending> A1c <pending> Basic Metabolic Profile 12/26/[address] [address] [phone] Glucose, Fasting 131 mg/dL High 70-100 Blood Urea Nitrogen 20 mg/dL High 7-18 Creatinine For GFR 1.02 mg/dL Normal 0.55-1.30 Glomerular Filtration Rate 54.8 Normal >32 1 Sodium Level 140 mEq/L Normal 136-145 Potassium Serum 4.5 mEq/L Normal 3.5-5.1 Chloride Level 105 mEq/L Normal 98-107 Carbon Dioxide Level 30 mEq/L Normal 21-32 Anion Gap 5 mEq/L Low 8-16 Calcium Level 9.3 mg/dL Normal 8.8-10.2 Laboratory test finding 12/26/[address] [address] [phone] Magnesium Level 2.3 mg/dL Normal 1.8-2.4 NT-Pro BNP 6360 pg/mL High <450 CBC With Differential 11/06/[address] [address] [phone] White Blood Count 9.6 10 Normal 4.0-10.0 Red Blood Count 3.88 10 Low 4.00-5.40 Hemoglobin 13.2 g/dL Normal 12.0-15.5 Hematocrit 38.2 % Normal 36.0-47.0 Mean Corpuscular Volume 98.5 fl High 80.0-96.0 Mean Corpuscular Hemoglobin 34.0 pg High 27.0-33.0 Mean Corpuscular HGB Conc 34.6 g/dL Normal 32.0-36.5 Red Cell Distribution Width 17.6 % High 11.5-14.5 Platelet Count, Automated 251 10 Normal 150-450 Neutrophils % 67.2 % High 36.0-66.0 Lymph % 19.9 % Low 24.0-44.0 [place] % 9.2 % High 2.0-8.0 Eos % 2.7 % Normal 0.0-3.0 Baso % 0.7 % Normal 0.0-1.0 Immature Granulocyte % 0.3 % Normal 0-3.0 Nucleated Red Blood Cell % 0.0 % Normal 0-0 Neutrophils # 6.4 10 Normal 1.5-8.5 Lymph # 1.9 10 Normal 1.5-5.0 [place] # 0.9 10 High 0.0-0.8 Eos # 0.3 10 Normal 0.0-0.5 Baso # 0.1 10 Normal 0.0-0.2 Comprehensive Metabolic Profil 11/06/2020 [place] [id number] [phone] Glucose, Fasting 103 mg/dL High 70-100 Blood Urea Nitrogen 19 mg/dL High 7-18 Creatinine For GFR 1.10 mg/dL Normal 0.55-1.30 Glomerular Filtration Rate 50.3 Normal >32 2 Sodium Level 143 mEq/L Normal 136-145 Potassium Serum 4.0 mEq/L Normal 3.5-5.1 Chloride Level 104 mEq/L Normal 98-107 Carbon Dioxide Level 32 mEq/L Normal 21-32 Anion Gap 7 mEq/L Low 8-16 Calcium Level 10.0 mg/dL Normal 8.8-10.2 Ast/Sgot 24 U/L Normal 7-37 Alt/SGPT 29 U/L Normal 12-78 Alkaline Phosphatase 66 U/L Normal 45-117 Bilirubin,Total 0.5 mg/dL Normal 0.2-1.0 Total Protein 5.9 GM/DL Low 6.4-8.2 Albumin 3.6 GM/DL Normal 3.2-5.2 Albumin/Globulin Ratio 1.6 Normal 1.2-2.2 Laboratory test finding 11/06/[address] [id number] [phone] LDH Lactate Dehydrogenase 239 U/L Normal 84-246 Immunoglobulin G,A,M 11/06/2020 [facility] [address] [place] [phone] Immunoglobulin A 79.0 mg/dL Normal 70-400 Immunoglobulin G 271 mg/dL Low [phone] Immunoglobulin M 108.0 mg/dL Normal 40-230 Serum Protein Electrophoresis 11/06/[address] [address] [phone] Albumin % 65.1 % Normal 55.8-66.1 Zaebb-3-Iuqsuukj % 5.7 % High 2.9-4.9 Rlsar-6-Zwxegqbwv % 12.5 % High 7.1-11.8 Begj-1-Aqwjsshel % 7.4 % High 4.7-7.2 Vnas-2-Scgqwzvex % 3.9 % Normal 3.2-6.5 Gamma Globulin % 5.4 % Low 11.1-18.8 Albumin 3.84 GM/DL Normal 3.29-5.55 Glkwd-3-Kiwdnhxht 0.34 GM/DL Normal 0.17-0.41 Jwvkv-3-Gmnjonguk 0.74 GM/DL Normal 0.42-0.99 Azyz-1-Fitsxlcqb 0.44 GM/DL Normal 0.28-0.60 Ondr-8-Omvjkcsmp 0.23 GM/DL Normal 0.19-0.55 Gamma Globulins 0.32 GM/DL Low 0.65-1.58 Total Protein 5.9 GM/DL Low 6.4-8.2 Spep Interpretation SEE COMMENT Normal 3 Spep Pathologist Review REV'D BY Terry JUNIOR Normal Laboratory test finding 11/06/[address] [address] [phone] Serum Viscosity 1.6 rel.saline Normal 1.4-2.1 4 Complete Blood Count 10/06/2020 [facility]: [place] [address] [phone] WBC 9.1 x10*3/UL 4.1 - 10.9 RBC 3.72 x10*6/UL Low 4.20 - 6.30 Hemoglobin 11.6 g/dL Low 12.0 - 18.0 5 Hematocrit 35.3 % Low 37.0 - 51.0 MCV 94.9 fL 80.0 - 97.0 MCH 31.3 pg 26.0 - 32.0 MCHC 32.9 g/dL 31.0 - 38.0 RDW 17.3 % High 11.6 - 13.7 PLT 229 x10*3/UL 140 - 440 MPV 9.1 FL 7.8 - 11.0 Lymph % 19.1 % 10.0 - 58.5 Mid % 5.8 % 1.7 - 9.3 Neut % 75.1 % 37.0 - 92.0 Lymph # 1.7 x10*3/UL 0.6 - 4.1 Mid # 0.6 x10*3/UL 0.1 - 0.6 Neut # 6.8 x10*3/UL 2.0 - 7.8 A1c 10/06/2020 [facility]: [place] [address] [phone] Hba1c 6.4 % High <5.7 6 Est Avg Glucose 137 mg/dL High 60 - 110 Comprehensive Chem Profile 10/06/2020 [facility]: [place] [address] [phone] Glucose 140 mg/dL High 74 - 99 7 BUN 25 mg/dL High 7 - 18 Creatinine 1.2 mg/dL 0.6 - 1.3 Sodium 142 mEq/L 136 - 145 Potassium 3.9 mEq/L 3.5 - 5.1 Chloride 105 mEq/L 98 - 107 Carbon Dioxide 30 mEq/L 21 - 32 Calcium 9.3 mg/dL 8.5 - 10.1 Alk. Phosphatase 70 mg/dL 46 - 116 Total Bilirubin 0.6 mg/dL 0.2 - 1.0 Ast (Sgot) 34 U/L 15 - 37 Alt (SGPT) 41 U/L 12 - 78 Albumin 3.7 g/dL 3.4 - 5.0 Total Protein 5.9 g/dL Low 6.4 - 8.2 A/G Ratio 1.68 CALC 1.00 - 1.90 GFR 43 mL/min Low >60 GFR 52 mL/min Low >60 8 Lipid Profile 10/06/2020 [facility]: [place] [address] [phone] Cholesterol 189 mg/dL 131 - 200 Triglycerides 88 mg/dL 30 - 150 HDL Cholesterol 67 mg/dL High 35 - 60 LDL (Calculated) 104 CALC 50 - 159 Laboratory test finding 10/06/2020 [facility]: [place] [address] [phone] Thyroid Stimulating Hormone 1.61 uIU/mL 0.3 6 - 3.74 Basic Metabolic Profile 09/18/[address] [address] [phone] Glucose, Fasting 92 mg/dL Normal 70-100 Blood Urea Nitrogen 22 mg/dL High 7-18 Creatinine For GFR 1.06 mg/dL Normal 0.55-1.30 Glomerular Filtration Rate 52.4 Normal >32 9 Sodium Level 144 mEq/L Normal 136-145 Potassium Serum 4.0 mEq/L Normal 3.5-5.1 Chloride Level 105 mEq/L Normal 98-107 Carbon Dioxide Level 33 mEq/L High 21-32 Anion Gap 6 mEq/L Low 8-16 Calcium Level 9.9 mg/dL Normal 8.8-10.2 Laboratory test finding 09/18/[address] [address] [phone] Magnesium Level 2.0 mg/dL Normal 1.8-2.4 NT-Pro BNP 4551 pg/mL High <450 Complete Blood Count 09/18/2020 [facility] [address] [place] [address] [phone] White Blood Count 8.0 10 Normal 4.0-10.0 [...] Cell % 0.0 % Normal 0-0 1 Units are mL/min/1.73 m2 Chronic Kidney Disease Staging per NKF: Stage I & II GFR >=60 Normal to Mildly Decreased Stage III GFR 30-59 Moderately Decreased Stage IV GFR 15-29 Severely Decreased Stage V GFR <15 Very Little GFR Left ESRD GFR <15 on SENIOR STAFF CONSULTANT 2 Units are mL/min/1.73 m2 Chronic Kidney Disease Staging per NKF: Stage I & II GFR >=60 Normal to Mildly Decreased Stage III GFR 30-59 Moderately Decreased Stage IV GFR 15-29 Severely Decreased Stage V GFR <15 Very Little GFR Left ESRD GFR <15 on SENIOR STAFF CONSULTANT 3 M-SPIKE NOTED IN EARLY GAMMA REGION. CONCENTRATION = 0.08 GM/DL SUGGEST SERUM AND URINE IMMUNOTYPING. 4 Values above 2.7 may indicat e paraproteinemia is present. Performed at: - [address] [id number] [address] [facility]: Ananya Gauthier MD, Phone: [phone] NOTE: RESULT VERIFIED. 6 Lab Result Notes: Pre-Diabetes 5.7 - 6.4 % Diabetes = or > 6.5% 7 100-125 mg/dL PRE-DIABET ES/FASTING >126 mg/dL DIABETES/FASTING 8 CHRONIC KIDNEY DISEASE STAGI NG PER NKF STAGE I & II GFR >= 60 NORMAL TO MILDLY DECREASED STAGE III GFR 30-59 MODERATELY DECREASED STAGE IV GFR 15-29 SEVERELY DECREASED STAGE V GFR <15 VERY LITTLE GFR LEFT ESRD GFR <15 ON SENIOR STAFF CONSULTANT 9 Units are mL/min/1.73 m2 Chronic Kidney Disease Staging per NKF: Stage I & II GFR >=60 Normal to Mildly Decreased Stage III GFR 30-59 Moderately Decreased Stage IV GFR 15-29 Severely Decreased Stage V GFR <15 Very Little GFR Left ESRD GFR <15 on SENIOR STAFF CONSULTANT Procedures Date Code Description Status 10/09/2020 11023 Office/Outpatient Established Mo d MDM 30-39 Min Completed 01/18/2020 908627963 Diabetic Retinal Eye Exam Comple moo 01/14/2019 [id number] Diabetic Retinal Eye Exam Comple moo 01/12/2018 [id number] Diabetic Retinal Eye Exam Comple moo 04/17/2017 960693528 Diabetic Retinal Eye Exam Comple moo 10/19/2015 [id number] Diabetic Retinal Eye Exam Comple moo 07/31/2015 [id number] Mammogram Completed 09/12/2014 [id number] Diabetic Retinal Eye Exam Comple [facility] Medical Devices Description No Information Available Encounters Type Date Location Provider Dx Diagnosis Office Visit 10/09/2020 11:00a [facility] Freddy Boston M.D. 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 02/22/2021 I11.0 Hypertensive heart disease with heart failure Freddy Boston M.D. 02/22/2021 Z95.0 Presence of cardiac pacemaker Gideon Boston M.D. 02/22/2021 I48.91 Unspecified atrial fibrillation Freddy Boston M.D. 02/22/2021 Z79.01 care home (current) use of antic oagulants Freddy Boston M.D. 02/22/2021 E11.9 Type 2 diabetes mellitus without complications Freddy Boston M.D. 02/22/2021 E78.5 Hyperlipidemia, unspecified Lan Boston M.D. 02/22/2021 I25.10 Atherosclerotic hear t disease of [place] coronary artery without angina pectoris Freddy Boston M.D. 02/22/2021 D32.9 Benign neoplasm of meninges, uns elver Boston M.D. 02/22/2021 Z85.71 Personal history of Hodgkin lymp della Boston M.D. 10/09/2020 I11.0 Hypertensive heart disease with heart failure Freddy Boston M.D. 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 10/09/2020 Z95.0 Presence of cardiac pacemaker Gideon Boston M.D. 10/09/2020 I48.91 Unspecified atrial fibrillation Freddy Boston M.D. 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 10/09/2020 E11.9 Type 2 diabetes mellitus without complications Freddy Boston M.D. 10/09/2020 E78.5 Hyperlipidemia, unspecified Lan Boston M.D. 10/09/2020 I25.10 Atherosclerotic hear t disease of [place] coronary artery without angina pectoris Freddy Boston M.D. 10/09/2020 E04.1 Nontoxic single thyroid nodule Missael Boston M.D. 10/09/2020 G40.89 Other seizures Freddy Boston M.D. 10/09/2020 D64.9 Anemia, unspecified Freddy santana M.D. 10/09/2020 D32.9 Benign neoplasm of meninges, uns elver Boston M.D. 10/09/2020 Z85.71 Personal history of Hodgkin lymp della Freddy Boston M.D. 10/06/2020 I48.91 Unspecified atrial fibrillation Freddy Boston M.D. 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 10/06/2020 E11.9 Type 2 diabetes mellitus without complications Lab Schedule 10/06/2020 E78.5 Hyperlipidemia, unspecified Lan Boston M.D. 10/06/2020 E78.5 Hyperlipidemia, unspecified Lab Schedule 10/06/2020 E04.1 Nontoxic single thyroid nodule Missael Boston M.D. 10/06/2020 E04.1 Nontoxic single thyroid nodule L ab Schedule Plan of Treatment Future Appointment(s):* 06/21/2021 9:10 am - Lab Schedule at [facility] * 06/27/2021 1:30 pm - Freddy Boston M.D. at [facility] 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 Weakness: She has some weakness in her lower legs and had evaluation done by Dr. Will at [facility]. I am concerned that this may be part of her cardiac issues and has decreased exercise intolerance. She can take diuretic appropriately and follow up with cardiology. We are checking chest x-ray and labs to evaluate further.2. Chronic combined systolic and diastolic hrt fail: Generally doing well on current regimen. She is not using Torsemide daily. Her pro-BNP level was elevated in December 2020. Patient is following up with Delia at [facility] and will continue to follow up appropriately. We will check BNP on her way out today.3. Hypertensive heart disease with heart failure: On recheck her blood pressure improved, although was high initially. Continue current regimen. She is following up with [facility] and will continue appropriate follow up. We will continue to monitor.4. Presence of cardiac pacemaker: She had a full pacemaker evaluation done in December and is following up with Delia at [facility]. She appears to be doing generally well and will follow up with them for pacer recheck. We will continue to monitor.5. Atrial fibrillation: Rate is controlled on Eliquis. Her pacer was checked last month. She did have EKG in September, which showed atrial fibrillation with appropriate ventricular pacing and sensing. 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 We will continue to monitor her on along with Cardiology.7. Type 2 diabetes mellitus without complications: We will check labs on her way out. She had controlled HgbA1c prior and will continue to watch her diet carefully. Continue current management.8. Hyperlipidemia: She did well on present dose of Pravastatin and has intolerance to number of statin medications. She will continue to work on her diet.9. Athscl heart disease of [place] coronary artery w/o ang pctrs: Following up with Cardiology. She has no acute chest pain. I have reviewed her recent EKGs and she will continue to follow up with Cardiology.10. Benign neoplasm of meninges: Patient is following up with Dr. Will and had a recent evaluation done. She will follow up with him asher may.11. Personal history of Hodgkin lymphoma: She is following up with Dr. Bill at [facility] and will continue appropriate follow up.Ongoing cares: I am going to see her again in 4 months with CMP, CBC, BNP, HgbA1c, lipids and TSH. If she has new problems or issues sooner she will let us know. Functional Status Description No Information Available Mental Status Description No Information Available Referrals Description No Information Available
--- OUTSIDE RECORDS SUMMARY | 2021-03-13 19:42 | CCD | Continuity of Care Document ---
Author Author Nurse #Heather Magallon Organization Unknown Address [address] [facility] [address] [place] [address] Phone Unavailable Care Team Providers Care Hyperion Developer Name Role Phone Freddy Boston MD AUTM [phone] Smith Will MD AUTM [phone] Juliocesar Stewart MD AUTM [phone] Nia Cline MD AUTM [phone] Problems Active Problems Provider Date Trigeminal neuralgia [...] day 90tabs Freddy Boston M.D. 07/01/2017 Nystatin 580254Sqck/ML Suspension swish and spit 1 teaspoon 4 times daily 150ml B37.0 Dave Aguayo [facility] 09/02/2016 Levetiracetam 500mg Tablets P [...] needed for chest discomfort 25tabs Dave Aguayo [facility] 09/06/2014 Vitamin D 2000Unit Capsules 1 by mouth every day Dave Aguayo [facility] 09/06/2014 Entresto 24-26mg Tablets 1 [...] Vaccine Lot # U-[id number] Refused 02/22/2021 Influenza,Unspecified [id number] Refused 03/14/2014 Influenza Virus Vaccine [id number] Refused 03/03/2013 Influenza Virus Vaccine 75898 Refused 02/05/2012 Pneumovax 23 [id number] Refused 02/05/2012 Influenza Virus Vaccine 76733 Refused 12/27/2010 Influenza Virus Vaccine 12048 Refused 05/19/2004 Adacel- Tetanus Diphtheria P ertussis [...] H/L Range Note Laboratory test finding 02/22/2021 [place] [facility] [employer] Irrigationist Designer: [place] [address] [phone] B-Type Natiuretic Peptide <pending> A1c <pending> Basic Metabolic Profile 12/26/[address] [address] [phone] Glucose, Fasting 131 mg/dL High 70-100 Blood [...] mg/dL Normal 8.8-10.2 Laboratory test finding 12/26/[address] [address] [phone] Magnesium Level 2.3 mg/dL Normal 1.8-2.4 NT-Pro BNP 6360 pg/mL High <450 CBC With Differential 11/06/[address] [id number] [phone] White Blood Count 9.6 10 Normal 4.0-10.0 [...] 36.0-66.0 Lymph % 19.9 % Low 24.0-44.0 Graves % 9.2 % High 2.0-8.0 Eos % 2.7 % Normal 0.0-3.0 Baso % 0.7 % Normal 0.0-1.0 Immature Granulocyte % 0.3 % Normal 0-3.0 Nucleated Red Blood Cell % 0.0 % Normal 0-0 Neutrophils # 6.4 10 Normal 1.5-8.5 Lymph # 1.9 10 Normal 1.5-5.0 Graves # 0.9 10 High 0.0-0.8 Eos # 0.3 10 Normal 0.0-0.5 Baso # 0.1 10 Normal 0.0-0.2 Comprehensive Metabolic Profil 11/06/[address] [id number] [phone] Glucose, Fasting 103 mg/dL High 70-100 Blood [...] 1.6 Normal 1.2-2.2 Laboratory test finding 11/06/2020 [facility] [address] [place], [place] [id number] [phone] LDH Lactate Dehydrogenase 239 U/L Normal 84-246 Immunoglobulin G,A,M 11/06/[address] [address] [phone] Immunoglobulin A 79.0 mg/dL Normal 70-400 Immunoglobulin G 271 mg/dL Low 681-1648 Immunoglobulin M 108.0 mg/dL Normal 40-230 Serum Protein Electrophoresis 11/06/[address] [address] [phone] Albumin % 65.1 % Normal 55.8-66.1 Ptdxi-1-Twmuropg % 5.7 % High 2.9-4.9 Govcc-0-Nqebwuzyp % 12.5 % High 7.1-11.8 Epvb-1-Tmsghyqav % 7.4 % High 4.7-7.2 Waao-8-Jnqcxneyo % 3.9 % Normal 3.2-6.5 Gamma Globulin % 5.4 % Low 11.1-18.8 Albumin 3.84 GM/DL Normal 3.29-5.55 Flxzy-0-Fhtzvrqwt 0.34 GM/DL Normal 0.17-0.41 Udfiw-3-Pgjavuhcp 0.74 GM/DL Normal 0.42-0.99 Igwt-4-Dxycvitbg 0.44 GM/DL Normal 0.28-0.60 Rlar-4-Xbplqroyr 0.23 GM/DL Normal 0.19-0.55 Gamma Globulins 0.32 GM/DL Low 0.65-1.58 Total Protein 5.9 GM/DL Low 6.4-8.2 Spep Interpretation SEE COMMENT Normal 3 Spep Pathologist Review REV'D BY Terry JUNIOR Normal Laboratory test finding 11/06/2020 [facility] [address] [place], [place] [id number] [phone] Serum Viscosity 1.6 rel.saline Normal 1.4-2.1 4 Complete Blood Count 10/06/2020 [facility] Irrigationist Designer: [place] [address] [phone] WBC 9.1 x10*3/UL 4.1 - 10.9 RBC [...] 6.8 x10*3/UL 2.0 - 7.8 A1c 10/06/2020 [facility] Irrigationist Designer: [place] [address] [phone] Hba1c 6.4 % High <5.7 6 Est Avg Glucose 137 mg/dL High 60 - 110 Comprehensive Chem Profile 10/06/2020 [facility] Irrigationist Designer: [place] [address] [phone] Glucose 140 mg/dL High 74 - 99 [...] mL/min Low >60 8 Lipid Profile 10/06/2020 [facility] Irrigationist Designer: [place] [address] [phone] Cholesterol 189 mg/dL 131 - 200 Triglycerides 88 mg/dL 30 - 150 HDL Cholesterol 67 mg/dL High 35 - 60 LDL (Calculated) 104 CALC 50 - 159 Laboratory test finding 10/06/2020 [facility] Irrigationist Designer: [place] [address] [phone] Thyroid Stimulating Hormone 1.61 uIU/mL 0.3 6 - 3.74 Basic Metabolic Profile 09/18/[address] [address] [phone] Glucose, Fasting 92 mg/dL Normal 70-100 Blood [...] mg/dL Normal 8.8-10.2 Laboratory test finding 09/18/[address] [address] [phone] Magnesium Level 2.0 mg/dL Normal 1.8-2.4 NT-Pro BNP 4551 pg/mL High <450 Complete Blood Count 09/18/2020 [facility] [address] [place] [address] [phone] White Blood Count 8.0 10 Normal 4.0-10.0 [...] Little GFR Left ESRD GFR <15 on CUSTOMER SECURITY CLERK 2 Units are mL/min/1.73 m2 Chronic Kidney Disease Staging per NKF: Stage I & II GFR >=60 Normal to Mildly Decreased Stage III GFR 30-59 Moderately Decreased Stage IV GFR 15-29 Severely Decreased Stage V GFR <15 Very Little GFR Left ESRD GFR <15 on CUSTOMER SECURITY CLERK 3 M-SPIKE NOTED IN EARLY GAMMA REGION. CONCENTRATION = 0.08 GM/DL SUGGEST SERUM AND URINE IMMUNOTYPING. 4 Values above 2.7 may indicat e paraproteinemia is present. Performed at: [address] [id number] Irrigationist Designer: Ananya Gauthier MD, Phone: [phone] NOTE: RESULT VERIFIED. 6 Lab Result [...] LITTLE GFR LEFT ESRD GFR <15 ON CUSTOMER SECURITY CLERK 9 Units are mL/min/1.73 m2 Chronic Kidney Disease Staging per NKF: Stage I & II GFR >=60 Normal to Mildly Decreased Stage III GFR 30-59 Moderately Decreased Stage IV GFR 15-29 Severely Decreased Stage V GFR <15 Very Little GFR Left ESRD GFR <15 on CUSTOMER SECURITY CLERK Procedures Date Code Description Status 10/09/2020 58765 Office/Outpatient Established Mo d MDM 30-39 Min Completed 01/18/2020 [id number] Diabetic Retinal Eye Exam Comple moo 01/14/2019 [id number] Diabetic Retinal Eye Exam Comple moo 01/12/2018 680832078 Diabetic Retinal Eye Exam Comple moo 04/17/2017 [id number] Diabetic Retinal Eye Exam Comple moo 10/19/2015 [id number] Diabetic Retinal Eye Exam Comple moo 07/31/2015 [id number] Mammogram Completed 09/12/2014 [id number] Diabetic Retinal Eye Exam Comple moo Medical Devices Description No Information Available Encounters Type Date Location Provider Dx Diagnosis Office Visit 10/09/2020 11:00a [facility] Freddy Boston M.D. 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 02/22/2021 Z79.01 correction (current) use of antic oagulants Freddy Boston M.D. 02/22/2021 E11.9 Type 2 diabetes mellitus without complications Freddy Boston M.D. 02/22/2021 E78.5 Hyperlipidemia, unspecified Lan Boston M.D. 02/22/2021 I25.10 Atherosclerotic hear t disease of [place] coronary artery without angina pectoris Freddy Boston M.D. 02/22/2021 D32.9 Benign neoplasm of meninges, uns elver Boston M.D. 02/22/2021 Z85.71 Personal history of Hodgkin lymp della Freddy Boston M.D. 10/09/2020 I11.0 Hypertensive heart disease with heart failure Freddy Boston M.D. 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 10/09/2020 Z95.0 Presence of cardiac pacemaker Gideon Boston M.D. 10/09/2020 I48.91 Unspecified atrial fibrillation Freddy Boston M.D. 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 10/09/2020 E11.9 Type 2 diabetes mellitus without complications Freddy Boston M.D. 10/09/2020 E78.5 Hyperlipidemia, unspecified Lan Boston M.D. 10/09/2020 I25.10 Atherosclerotic hear t disease of [place] coronary artery without angina pectoris Freddy Boston M.D. 10/09/2020 E04.1 Nontoxic single thyroid nodule Missael Boston M.D. 10/09/2020 G40.89 Other seizures Freddy Boston M.D. 10/09/2020 D64.9 Anemia, unspecified Freddy santana M.D. 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 10/09/2020 Z85.71 Personal history of Hodgkin lymp della Freddy Boston M.D. 10/06/2020 I48.91 Unspecified atrial fibrillation Freddy Boston M.D. 10/06/2020 I48.91 Unspecified atrial fibrillation Lab Schedule 10/06/2020 Z79.01 correction (current) use of antic oagulants Freddy Boston M.D. 10/06/2020 Z79.01 correction (current) use of antic oagulants Lab Schedule [...] 06/21/2021 9:10 am - Lab Schedule at [facility] * 06/27/2021 1:30 pm - Freddy Boston M.D. at [facility] 02/22/2021 - Freddy Boston M.D.* R53.1 Weakness * I50.42 Chronic combined systolic and diastolic hrt fail * I11.0 Hypertensive heart disease with heart failure * Z95.0 Presence of cardiac pacemaker * I48.91 Unspecified atrial fibrillation * Z79.01 correction (current) use of anticoagulants * E11.9 Type 2 diabetes mellitus without complications * E78.5 Hyperlipidemia, unspecified * I25.10 Athscl heart disease of [place] coronary artery w/o ang pctrs * D32.9 Benign neoplasm of meninges, unspecified * Z85.71 Personal history of Hodgkin lymphoma * * Comments:* 1. Weakness: She has some weakness in her lower legs and had evaluation done by Dr. Will at [facility]. I am concerned that this may [...] Patient is following up with Delia at [facility] and will continue to follow up appropriately. [...] along with regular follow up with Cardiology.6. correction (current) use of anticoagulants: Tolerating well current [...] on her diet.9. Athscl heart disease of [place] coronary artery w/o ang pctrs: Following up [...] is following up with Dr. Bill at [facility] and will continue appropriate follow up.Ongoing cares: I am going to see her again in 4 months with CMP, CBC, BNP, HgbA1c, lipids and TSH. If she has new problems or issues sooner she will let us know. Functional Status Description No Information Available Mental Status Description No Information Available Referrals Description No Information Available
--- OUTSIDE RECORDS SUMMARY | 2021-03-13 19:42 | CCD | Continuity of Care Document ---
Author Author Heather BOSTON M.D. Organization Unknown Address [address] [facility] [address] [place] [address] Phone [phone] Care Team Providers Care Junior Financial Analyst Name Role Phone Freddy Boston MD AUTM [phone] Smith Will MD AUTM [phone] Juliocesar Stewart MD AUTM [phone] Nia Cline MD AUTM [phone] Problems Active Problems Provider Date Trigeminal neuralgia Freddy Boston M.D. Onset: 09/30/2014 Urinary incontinence Onset: 10/11/2008 Thyroid nodule Onset: 05/14/2008 Benign essential hypertension Onset: Vitamin D deficiency Onset: 05/14/2008 Diverticular disease Onset: 12/03/2007 Cartilage disorder Onset: 12/03/2007 Non-Hodgkin's lymphoma (clinical) Onset: Coronary arteriosclerosis Onset: 0 000 Type 2 diabetes mellitus Onset: 00 [...] day 90tabs Freddy Boston M.D. 07/01/2017 Nystatin [id number]/ML Suspension swish and spit 1 teaspoon 4 times daily 150ml B37.0 Dave Aguayo [facility] 09/02/2016 Levetiracetam 500mg Tablets P O bid [...] needed for chest discomfort 25tabs Dave Aguayo [facility] 09/06/2014 Vitamin D 2000Unit Capsules 1 by mouth every day Dave Aguayo [facility] 09/06/2014 Entresto 24-26mg Tablets 1 twice daily [...] Vaccine Lot # U-Flu Refused 02/22/2021 Influenza,Unspecified 68763 Refused 03/14/2014 Influenza Virus Vaccine 80679 Refused 03/03/2013 Influenza Virus Vaccine 75207 Refused 02/05/2012 Pneumovax 23 [id number] Refused 02/05/2012 Influenza Virus Vaccine 38635 Refused 12/27/2010 Influenza Virus Vaccine 61073 Refused 05/19/2004 Adacel- Tetanus Diphtheria P ertussis [...] H/L Range Note Laboratory test finding 02/22/2021 [facility] [employer] Admissions Advisor: [place] [address] [phone] B-Type Natiuretic Peptide <pending> A1c <pending> Basic Metabolic Profile 12/26/[address] [address] [phone] Glucose, Fasting 131 mg/dL High 70-100 Blood [...] mg/dL Normal 8.8-10.2 Laboratory test finding 12/26/[address] [address] [phone] Magnesium Level 2.3 mg/dL Normal 1.8-2.4 NT-Pro BNP 6360 pg/mL High <450 CBC With Differential 11/06/[address] [place] [address] [place] [address] [phone] White Blood Count 9.6 10 Normal 4.0-10.0 [...] 36.0-66.0 Lymph % 19.9 % Low 24.0-44.0 Ralls % 9.2 % High 2.0-8.0 Eos % 2.7 % Normal 0.0-3.0 Baso % 0.7 % Normal 0.0-1.0 Immature Granulocyte % 0.3 % Normal 0-3.0 Nucleated Red Blood Cell % 0.0 % Normal 0-0 Neutrophils # 6.4 10 Normal 1.5-8.5 Lymph # 1.9 10 Normal 1.5-5.0 Ralls # 0.9 10 High 0.0-0.8 Eos # 0.3 10 Normal 0.0-0.5 Baso # 0.1 10 Normal 0.0-0.2 Comprehensive Metabolic Profil 11/06/[address] [address] [phone] Glucose, Fasting 103 mg/dL High 70-100 Blood [...] 1.6 Normal 1.2-2.2 Laboratory test finding 11/06/2020 [place] [id number] [phone] LDH Lactate Dehydrogenase 239 U/L Normal 84-246 Immunoglobulin G,A,M 11/06/[address] [address] [phone] Immunoglobulin A 79.0 mg/dL Normal 70-400 Immunoglobulin G 271 mg/dL Low 681-1648 Immunoglobulin M 108.0 mg/dL Normal 40-230 Serum Protein Electrophoresis 11/06/[address] [address] [phone] Albumin % 65.1 % Normal 55.8-66.1 Pshzh-7-Kokibrce % 5.7 % High 2.9-4.9 Gnxjg-7-Bdvqryplm % 12.5 % High 7.1-11.8 Srtv-5-Ailumtovi % 7.4 % High 4.7-7.2 Fobh-0-Mgubfttmx % 3.9 % Normal 3.2-6.5 Gamma Globulin % 5.4 % Low 11.1-18.8 Albumin 3.84 GM/DL Normal 3.29-5.55 Lhcjf-9-Vjwfuftak 0.34 GM/DL Normal 0.17-0.41 Muqjk-2-Zlqiqgkmj 0.74 GM/DL Normal 0.42-0.99 Khxn-2-Qvfsmlznc 0.44 GM/DL Normal 0.28-0.60 Vkgo-9-Xktbukgsp 0.23 GM/DL Normal 0.19-0.55 Gamma Globulins 0.32 GM/DL Low 0.65-1.58 Total Protein 5.9 GM/DL Low 6.4-8.2 Spep Interpretation SEE COMMENT Normal 3 Spep Pathologist Review REV'D BY S SANDI Normal Laboratory test finding 11/06/[address] [facility] [address] [place] [address] [phone] Serum Viscosity 1.6 rel.saline Normal 1.4-2.1 4 Complete Blood Count 10/06/2020 [facility] [employer] unique mejia Admissions Advisor: [place] [address] [phone] WBC 9.1 x10*3/UL 4.1 - 10.9 RBC [...] 6.8 x10*3/UL 2.0 - 7.8 A1c 10/06/2020 [facility] [employer] Admissions Advisor: [place] [address] [phone] Hba1c 6.4 % High <5.7 6 Est Avg Glucose 137 mg/dL High 60 - 110 Comprehensive Chem Profile 10/06/2020 [facility] adams Admissions Advisor: [place] [address] [phone] Glucose 140 mg/dL High 74 - 99 [...] mL/min Low >60 8 Lipid Profile 10/06/2020 [facility] Admissions Advisor: Dr Jeff Luislogg [place] [id number] [phone] Cholesterol 189 mg/dL 131 - 200 Triglycerides 88 mg/dL 30 - 150 HDL Cholesterol 67 mg/dL High 35 - 60 LDL (Calculated) 104 CALC 50 - 159 Laboratory test finding 10/06/2020 [facility] Admissions Advisor: Dr Jeff Hall [place] [id number] [phone] Thyroid Stimulating Hormone 1.61 uIU/mL 0.3 6 - 3.74 Basic Metabolic Profile 09/18/2020 [place] 1779694 [phone] Glucose, Fasting 92 mg/dL Normal 70-100 Blood [...] mg/dL Normal 8.8-10.2 Laboratory test finding 09/18/[address] [address] [phone] Magnesium Level 2.0 mg/dL Normal 1.8-2.4 NT-Pro BNP 4551 pg/mL High <450 Complete Blood Count 09/18/2020 [facility] enter [address] [place] [address] [phone] White Blood Count 8.0 10 Normal 4.0-10.0 [...] Little GFR Left ESRD GFR <15 on TICKET WRITER 2 Units are mL/min/1.73 m2 Chronic Kidney Disease Staging per NKF: Stage I & II GFR >=60 Normal to Mildly Decreased Stage III GFR 30-59 Moderately Decreased Stage IV GFR 15-29 Severely Decreased Stage V GFR <15 Very Little GFR Left ESRD GFR <15 on TICKET WRITER 3 M-SPIKE NOTED IN EARLY GAMMA REGION. CONCENTRATION = 0.08 GM/DL SUGGEST SERUM AND URINE IMMUNOTYPING. 4 Values above 2.7 may indicat e paraproteinemia is present. Performed at: - [address] [id number] Admissions Advisor: Ananya Gauthier MD, Phone: [phone] NOTE: RESULT VERIFIED. 6 Lab Result [...] LITTLE GFR LEFT ESRD GFR <15 ON TICKET WRITER 9 Units are mL/min/1.73 m2 Chronic Kidney Disease Staging per NKF: Stage I & II GFR >=60 Normal to Mildly Decreased Stage III GFR 30-59 Moderately Decreased Stage IV GFR 15-29 Severely Decreased Stage V GFR <15 Very Little GFR Left ESRD GFR <15 on TICKET WRITER Procedures Date Code Description Status 10/09/2020 85034 Office/Outpatient Established Mo d MDM 30-39 Min Completed 01/18/2020 [id number] Diabetic Retinal Eye Exam Comple moo 01/14/2019 [id number] Diabetic Retinal Eye Exam Comple moo 01/12/2018 182575710 Diabetic Retinal Eye Exam Comple moo 04/17/2017 032725701 Diabetic Retinal Eye Exam Comple moo 10/19/2015 868686053 Diabetic Retinal Eye Exam Comple moo 07/31/2015 [id number] Mammogram Completed 09/12/2014 825199758 Diabetic Retinal Eye Exam Comple [facility] Medical Devices Description No Information Available Encounters Type Date Location Provider Dx Diagnosis Office Visit 10/09/2020 11:00a [facility] Freddy Boston M.D. 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 02/22/2021 Z79.01 senior living (current) use of antic oagulants Freddy Boston M.D. 02/22/2021 E11.9 Type 2 diabetes mellitus without complications Freddy Boston M.D. 02/22/2021 E78.5 Hyperlipidemia, unspecified Lan Boston M.D. 02/22/2021 I25.10 Atherosclerotic hear t disease of [place] coronary artery without angina pectoris Freddy Boston M.D. 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 02/22/2021 Z85.71 Personal history of Hodgkin lymp della Freddy Boston M.D. 10/09/2020 I11.0 Hypertensive heart disease with heart failure Freddy Boston M.D. 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 10/09/2020 Z95.0 Presence of cardiac pacemaker Gideon Boston M.D. 10/09/2020 I48.91 Unspecified atrial fibrillation Freddy Boston M.D. 10/09/2020 Z79.01 senior living (current) use of antic oagulants Freddy Boston M.D. 10/09/2020 E11.9 Type 2 diabetes mellitus without complications Freddy Boston M.D. 10/09/2020 E78.5 Hyperlipidemia, unspecified Lan Boston M.D. 10/09/2020 I25.10 Atherosclerotic hear t disease of [place] coronary artery without angina pectoris Freddy Boston M.D. 10/09/2020 E04.1 Nontoxic single thyroid nodule Missael Boston M.D. 10/09/2020 G40.89 Other seizures Freddy Boston M.D. 10/09/2020 D64.9 Anemia, unspecified Freddy santana M.D. 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 10/09/2020 Z85.71 Personal history of Hodgkin lymp della Freddy Boston M.D. 10/06/2020 I48.91 Unspecified atrial fibrillation Freddy Boston M.D. 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 10/06/2020 Z79.01 terminal manager (current) use of antic oagulants Lab Schedule [...] 06/21/2021 9:10 am - Lab Schedule at [facility] * 06/27/2021 1:30 pm - Freddy Boston M.D. at [facility] 02/22/2021 - Freddy Boston M.D.* R53.1 Weakness * I50.42 Chronic combined systolic and diastolic hrt fail * I11.0 Hypertensive heart disease with heart failure * Z95.0 Presence of cardiac pacemaker * I48.91 Unspecified atrial fibrillation * Z79.01 terminal manager (current) use of anticoagulants * E11.9 Type 2 diabetes mellitus without complications * E78.5 Hyperlipidemia, unspecified * I25.10 Athscl heart disease of [place] coronary artery w/o ang pctrs * D32.9 Benign neoplasm of meninges, unspecified * Z85.71 Personal history of Hodgkin lymphoma * * Comments:* 1. Weakness: She has some weakness in her lower legs and had evaluation done by Dr. Will at [facility] Neurology. I am concerned that [...] Patient is following up with Delia at [facility] and will continue to follow up appropriately. [...] is following up with Delia at [facility]. She appears to be doing generally well [...] along with regular follow up with Cardiology.6. senior living (current) use of anticoagulants: Tolerating well current [...] on her diet.9. Athscl heart disease of [place] coronary artery w/o ang pctrs: Following up [...] is following up with Dr. Bill at [facility] and will continue appropriate follow up.Ongoing cares: I am going to see her again in 4 months with CMP, CBC, BNP, HgbA1c, lipids and TSH. If she has new problems or issues sooner she will let us know. Functional Status Description No Information Available Mental Status Description No Information Available Referrals Description No Information Available
--- OUTSIDE RECORDS SUMMARY | 2021-03-13 19:42 | CCD | Continuity of Care Document ---
Author Author Heather BOSTON M.D. Organization Unknown Address [address] [facility] [address] [place] [address] Phone [phone] Care Team Providers Care 6Th Grade Teacher Name Role Phone Freddy Boston MD AUTM [phone] Smith Will MD AUTM [phone] Juliocesar Stewart MD AUTM [phone] Nia Cline MD AUTM [phone] Problems Active Problems Provider Date Trigeminal neuralgia [...] day 90tabs Freddy Boston M.D. 07/01/2017 Nystatin [id number]/ML Suspension swish and spit 1 teaspoon 4 times daily 150ml B37.0 Dave Aguayo [facility] 09/02/2016 Levetiracetam 500mg Tablets P O [...] needed for chest discomfort 25tabs Dave Aguayo [facility] 09/06/2014 Vitamin D 2000Unit Capsules 1 by mouth every day Dave Aguayo [facility] 09/06/2014 Entresto 24-26mg Tablets 1 twice [...] Vaccine Lot # U-Flu Refused 02/22/2021 Influenza,Unspecified [id number] Refused 03/14/2014 Influenza Virus Vaccine 21872 Refused 03/03/2013 Influenza Virus Vaccine 64718 Refused 02/05/2012 Pneumovax 23 [id number] Refused 02/05/2012 Influenza Virus Vaccine 52525 Refused 12/27/2010 Influenza Virus Vaccine 45042 Refused 05/19/2004 Adacel- Tetanus Diphtheria P ertussis [...] H/L Range Note Laboratory test finding 02/22/2021 [facility], Boardinghouse Keeper: [place] [address] [phone] B-Type Natriuretic Peptide 1840.0 pg/mL High 0.0 - 100.0 Microalbumin/Creatinine Urine 02/22/2021 [facility], Boardinghouse Keeper: [place] [address] [phone] Microalbumin Urine 271.5 mg/L High 1.3 - 20.0 Urine Creatinine 89.5 mg/dL 30.0 - 125.0 Microalb/Creat Ratio 303.4 ug/mg High 0.0 - 30.0 A1c 02/22/2021 [facility] Boardinghouse Keeper: [place] [address] [phone] Hba1c 6.5 % High <5.7 1 Est Avg Glucose 140 mg/dL High 60 - 110 Complete Blood Count 02/22/2021 [facility] Boardinghouse Keeper: [place] [address] [phone] WBC 8.6 x10*3/UL 4.1 - 10.9 RBC 4.08 x10*6/UL Low 4.20 - 6.30 Hemoglobin 12.7 g/dL 12.0 - 18.0 Hematocrit 37.9 % 37.0 - 51.0 MCV 92.8 fL 80.0 - 97.0 MCH 31.0 pg 26.0 - 32.0 MCHC 33.4 g/dL 31.0 - 38.0 RDW 17.1 % High 11.6 - 13.7 PLT 290 x10*3/UL 140 - 440 MPV 9.3 FL 7.8 - 11.0 Lymph % 20.6 % 10.0 - 58.5 Mid % 5.7 % 1.7 - 9.3 Neut % 73.7 % 37.0 - 92.0 Lymph # 1.7 x10*3/UL 0.6 - 4.1 Mid # 0.5 x10*3/UL 0.1 - 0.6 Neut # 6.4 x10*3/UL 2.0 - 7.8 Comprehensive Chem Profile 02/22/2021 [facility] Boardinghouse Keeper: [place] [address] [phone] Glucose 94 mg/dL 74 - 99 2 BUN 22 mg/dL High 7 - 18 Creatinine 1.3 mg/dL 0.6 - 1.3 Sodium 143 mEq/L 136 - 145 Potassium 3.7 mEq/L 3.5 - 5.1 Chloride 101 mEq/L 98 - 107 Carbon Dioxide 36 mEq/L High 21 - 32 Calcium 9.8 mg/dL 8.5 - 10.1 Alk. Phosphatase 63 mg/dL 46 - 116 Total Bilirubin 0.5 mg/dL 0.2 - 1.0 Ast (Sgot) 22 U/L 15 - 37 Alt (SGPT) 23 U/L 12 - 78 Albumin 3.6 g/dL 3.4 - 5.0 Total Protein 6.3 g/dL Low 6.4 - 8.2 A/G Ratio 1.33 CALC 1.00 - 1.90 GFR 39 mL/min Low >60 GFR 47 mL/min Low >60 3 Laboratory test finding 12/26/2020 [facility] [address] [place] [address] [phone] Magnesium Level 2.3 mg/dL Normal 1.8-2.4 NT-Pro BNP 6360 pg/mL High <450 Basic Metabolic Profile 12/26/[address] [address] [phone] Glucose, Fasting 131 mg/dL High 70-100 Blood Urea Nitrogen 20 mg/dL High 7-18 Creatinine For GFR 1.02 mg/dL Normal 0.55-1.30 Glomerular Filtration Rate 54.8 Normal >32 4 Sodium Level 140 mEq/L Normal 136-145 Potassium Serum 4.5 mEq/L Normal 3.5-5.1 Chloride Level 105 mEq/L Normal 98-107 Carbon Dioxide Level 30 mEq/L Normal 21-32 Anion Gap 5 mEq/L Low 8-16 Calcium Level 9.3 mg/dL Normal 8.8-10.2 CBC With Differential 11/06/[address] [address] [phone] White Blood Count 9.6 10 Normal 4.0-10.0 [...] 36.0-66.0 Lymph % 19.9 % Low 24.0-44.0 [place] % 9.2 % High 2.0-8.0 Eos % 2.7 % Normal 0.0-3.0 Baso % 0.7 % Normal 0.0-1.0 Immature Granulocyte % 0.3 % Normal 0-3.0 Nucleated Red Blood Cell % 0.0 % Normal 0-0 Neutrophils # 6.4 10 Normal 1.5-8.5 Lymph # 1.9 10 Normal 1.5-5.0 [place] # 0.9 10 High 0.0-0.8 Eos # 0.3 10 Normal 0.0-0.5 Baso # 0.1 10 Normal 0.0-0.2 Comprehensive Metabolic Profil 11/06/2020 [place] [address] [place] [address] [phone] Glucose, Fasting 103 mg/dL High 70-100 Blood Urea Nitrogen 19 mg/dL High 7-18 Creatinine For GFR 1.10 mg/dL Normal 0.55-1.30 Glomerular Filtration Rate 50.3 Normal >32 5 Sodium Level 143 mEq/L Normal 136-145 Potassium [...] 1.6 Normal 1.2-2.2 Laboratory test finding 11/06/2020 [facility] [address] [place] [address] [phone] LDH Lactate Dehydrogenase 239 U/L Normal 84-246 Immunoglobulin G,A,M 11/06/2020 [facility] [address] [place] [address] [phone] Immunoglobulin A 79.0 mg/dL Normal 70-400 Immunoglobulin G 271 mg/dL Low [phone] Immunoglobulin M 108.0 mg/dL Normal 40-230 Serum Protein Electrophoresis 11/06/[address] [address] [phone] Albumin % 65.1 % Normal 55.8-66.1 Gptqa-3-Uiogimar % 5.7 % High 2.9-4.9 Cqoxq-5-Ztphkiefl % 12.5 % High 7.1-11.8 Lfnm-2-Zdftcoqha % 7.4 % High 4.7-7.2 Luso-2-Ruwqksoyk % 3.9 % Normal 3.2-6.5 Gamma Globulin % 5.4 % Low 11.1-18.8 Albumin 3.84 GM/DL Normal 3.29-5.55 Fnojc-7-Bqqengosf 0.34 GM/DL Normal 0.17-0.41 Dstep-7-Feuqwduwc 0.74 GM/DL Normal 0.42-0.99 Gaaz-0-Qomezjpal 0.44 GM/DL Normal 0.28-0.60 Igko-7-Xaxczrdzy 0.23 GM/DL Normal 0.19-0.55 Gamma Globulins 0.32 GM/DL Low 0.65-1.58 Total Protein 5.9 GM/DL Low 6.4-8.2 Spep Interpretation SEE COMMENT Normal 6 Spep Pathologist Review REV'D BY Roberto JUNIOR Normal Laboratory test finding 11/06/2020 [facility] [address] [place] [address] [phone] Serum Viscosity 1.6 rel.saline Normal 1.4-2.1 7 Complete Blood Count 10/06/2020 [facility] Boardinghouse Keeper: [place] [address] [phone] WBC 9.1 x10*3/UL 4.1 - 10.9 RBC 3.72 x10*6/UL Low 4.20 - 6.30 Hemoglobin 11.6 g/dL Low 12.0 - 18.0 8 Hematocrit 35.3 % Low 37.0 - 51.0 [...] 6.8 x10*3/UL 2.0 - 7.8 A1c 10/06/2020 [facility] Boardinghouse Keeper: [place] [address] [phone] Hba1c 6.4 % High <5.7 9 Est Avg Glucose 137 mg/dL High 60 - 110 Comprehensive Chem Profile 10/06/2020 [facility] Boardinghouse Keeper: [place] [address] [phone] Glucose 140 mg/dL High 74 - 99 10 BUN 25 mg/dL High 7 - 18 [...] Low >60 GFR 52 mL/min Low >60 11 Lipid Profile 10/06/2020 [facility] Boardinghouse Keeper: [place] [address] [phone] Cholesterol 189 mg/dL 131 - 200 Triglycerides 88 mg/dL 30 - 150 HDL Cholesterol 67 mg/dL High 35 - 60 LDL (Calculated) 104 CALC 50 - 159 Laboratory test finding 10/06/2020 [facility] Boardinghouse Keeper: [place] [address] [phone] Thyroid Stimulating Hormone 1.61 uIU/mL 0.3 6 - 3.74 Basic Metabolic Profile 09/18/2020 [facility] [address] [place] [address] [phone] Glucose, Fasting 92 mg/dL Normal 70-100 Blood Urea Nitrogen 22 mg/dL High 7-18 Creatinine For GFR 1.06 mg/dL Normal 0.55-1.30 Glomerular Filtration Rate 52.4 Normal >32 1 2 Sodium Level 144 mEq/L Normal 136-145 Potassium Serum 4.0 mEq/L Normal 3.5-5.1 Chloride Level 105 mEq/L Normal 98-107 Carbon Dioxide Level 33 mEq/L High 21-32 Anion Gap 6 mEq/L Low 8-16 Calcium Level 9.9 mg/dL Normal 8.8-10.2 Laboratory test finding 09/18/2020 [facility] [address], [place] [id number] [phone] Magnesium Level 2.0 mg/dL Normal 1.8-2.4 NT-Pro BNP 4551 pg/mL High <450 Complete Blood Count 09/18/2020 [facility] [address], [place] [id number] [phone] White Blood Count 8.0 10 Normal 4.0-10.0 [...] Cell % 0.0 % Normal 0-0 1 Lab Result Notes: Pre-Diabetes 5.7 - 6.4 % Diabetes = or > 6.5% 2 100-125 mg/dL PRE-DIABET ES/FASTING >126 mg/dL DIABETES/FASTING 3 CHRONIC KIDNEY DISEASE STAGI NG PER NKF STAGE I & II GFR >= 60 NORMAL TO MILDLY DECREASED STAGE III GFR 30-59 MODERATELY DECREASED STAGE IV GFR 15-29 SEVERELY DECREASED STAGE V GFR <15 VERY LITTLE GFR LEFT ESRD GFR <15 ON REFRACTORY GRINDER OPERATOR 4 Units are mL/min/1.73 m2 Chronic Kidney Disease Staging per NKF: Stage I & II GFR >=60 Normal to Mildly Decreased Stage III GFR 30-59 Moderately Decreased Stage IV GFR 15-29 Severely Decreased Stage V GFR <15 Very Little GFR Left ESRD GFR <15 on REFRACTORY GRINDER OPERATOR 5 Units are mL/min/1.73 m2 Chronic Kidney Disease Staging per NKF: Stage I & II GFR >=60 Normal to Mildly Decreased Stage III GFR 30-59 Moderately Decreased Stage IV GFR 15-29 Severely Decreased Stage V GFR <15 Very Little GFR Left ESRD GFR <15 on REFRACTORY GRINDER OPERATOR 6 M-SPIKE NOTED IN EARLY GAMMA REGION. CONCENTRATION = 0.08 GM/DL SUGGEST SERUM AND URINE IMMUNOTYPING. 7 Values above 2.7 may indicat e paraproteinemia is present. Performed at: - [facility] [id number] Boardinghouse Keeper: Ananya Gauthier MD, Phone: [phone] NOTE: RESULT VERIFIED. 9 Lab Result Notes: Pre-Diabetes 5.7 - 6.4 % Diabetes = or > 6.5% 10 100-125 mg/dL PRE-DIABET ES/FASTING >126 mg/dL DIABETES/FASTING 11 CHRONIC KIDNEY DISEASE STAGI NG PER NKF STAGE I & II GFR >= 60 NORMAL TO MILDLY DECREASED STAGE III GFR 30-59 MODERATELY DECREASED STAGE IV GFR 15-29 SEVERELY DECREASED STAGE V GFR <15 VERY LITTLE GFR LEFT ESRD GFR <15 ON REFRACTORY GRINDER OPERATOR 12 Units are mL/min/1.73 m2 Chronic Kidney Disease Staging per NKF: Stage I & II GFR >=60 Normal to Mildly Decreased Stage III GFR 30-59 Moderately Decreased Stage IV GFR 15-29 Severely Decreased Stage V GFR <15 Very Little GFR Left ESRD GFR <15 on REFRACTORY GRINDER OPERATOR Procedures Date Code Description Status 10/09/2020 [id number] Office/Outpatient Established Mo d MDM 30-39 Min Completed 01/18/2020 [id number] Diabetic Retinal Eye Exam [facility] 01/14/2019 [id number] Diabetic Retinal Eye Exam [facility] 01/12/2018 [id number] Diabetic Retinal Eye Exam [facility] 04/17/2017 [id number] Diabetic Retinal Eye Exam [facility] 10/19/2015 [id number] Diabetic Retinal Eye Exam [facility] 07/31/2015 [id number] Mammogram Completed 09/12/2014 [id number] Diabetic Retinal Eye Exam [facility] Medical Devices Description No Information Available Encounters Type Date Location Provider Dx Diagnosis Office Visit 10/09/2020 11:00a [facility] Freddy Boston M.D. 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 02/22/2021 Z79.01 senior care (current) use of antic oagulants Freddy Boston M.D. 02/22/2021 E11.9 Type 2 diabetes mellitus without complications Freddy Boston M.D. 02/22/2021 E78.5 Hyperlipidemia, unspecified Lan Boston M.D. 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 02/22/2021 Z85.71 Personal history of Hodgkin lymp della Freddy Boston M.D. 10/09/2020 I11.0 Hypertensive heart disease with heart failure Freddy Boston M.D. 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 10/09/2020 Z95.0 Presence of cardiac pacemaker Gideon Boston M.D. 10/09/2020 I48.91 Unspecified atrial fibrillation Freddy Boston M.D. 10/09/2020 Z79.01 salvage determiner (current) use of antic oagulants Freddy Boston M.D. 10/09/2020 E11.9 Type 2 diabetes mellitus without complications Freddy Boston M.D. 10/09/2020 E78.5 Hyperlipidemia, unspecified Lan Boston M.D. 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 10/06/2020 Z79.01 salvage determiner (current) use of antic oagulants Lab Schedule 10/06/2020 E11.9 Type 2 diabetes mellitus without complications Freddy Boston M.D. 10/06/2020 E11.9 Type 2 diabetes mellitus without complications Lab Schedule 10/06/2020 E78.5 Hyperlipidemia, unspecified Lan Boston M.D. 10/06/2020 E78.5 Hyperlipidemia, unspecified Lab Schedule 10/06/2020 E04.1 Nontoxic single thyroid nodule J naomy Boston M.D. 10/06/2020 E04.1 Nontoxic single thyroid nodule L ab Schedule Plan of Treatment Future Appointment(s):* 06/21/2021 9:10 am - Lab Schedule at [facility] * 06/27/2021 1:30 pm - Freddy Boston M.D. at [facility] 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 and will continue to follow up appropriately. [...] along with regular follow up with Cardiology.6. salvage determiner (current) use of anticoagulants: Tolerating well current [...] on her diet.9. 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 Bill at [facility] and will continue appropriate follow up.Ongoing cares: I am going to see her again in 4 months with CMP, CBC, BNP, HgbA1c, lipids and TSH. If she has new problems or issues sooner she will let us know. Functional Status Description No Information Available Mental Status Description No Information Available Referrals Description No Information Available
--- OUTSIDE RECORDS SUMMARY | 2021-03-13 19:42 | CCD | Continuity of Care Document ---
Author Author Heather BOSTON M.D. Organization Unknown Address [address] [facility] [address] [place] [address] Phone [phone] Care Team Providers Care Communications Director Name Role Phone Freddy Boston MD AUTM [phone] Smith Will MD AUTM [phone] Juliocesar Stewart MD AUTM [phone] Nia Cline MD AUTM [phone] Problems Active Problems Provider Date Trigeminal neuralgia [...] day 90tabs Freddy Boston M.D. 07/01/2017 Nystatin [id number] Suspension swish and spit 1 teaspoon 4 times daily 150ml B37.0 Dave Aguayo [facility] 09/02/2016 Levetiracetam 500mg Tablets P O bid [...] needed for chest discomfort 25tabs Dave Aguayo [facility] 09/06/2014 Vitamin D 2000Unit Capsules 1 by mouth every day Dave Aguayo [facility] 09/06/2014 Entresto 24-26mg Tablets 1 twice daily [...] Vaccine Lot # U-Flu Refused 02/22/2021 Influenza,Unspecified [id number] Refused 03/14/2014 Influenza Virus Vaccine 33612 Refused 03/03/2013 Influenza Virus Vaccine 26997 Refused 02/05/2012 Pneumovax 23 [id number] Refused 02/05/2012 Influenza Virus Vaccine 36101 Refused 12/27/2010 Influenza Virus Vaccine 06409 Refused 05/19/2004 Adacel- Tetanus Diphtheria P ertussis [...] H/L Range Note Laboratory test finding 02/22/2021 [facility], Early Morning Babysitter: [place] [address] [phone] B-Type Natriuretic Peptide 1840.0 pg/mL High 0.0 - 100.0 Microalbumin/Creatinine Urine 02/22/2021 [facility], Early Morning Babysitter: [place] [address] [phone] Microalbumin Urine 271.5 mg/L High 1.3 - 20.0 Urine Creatinine 89.5 mg/dL 30.0 - 125.0 Microalb/Creat Ratio 303.4 ug/mg High 0.0 - 30.0 A1c 02/22/2021 [facility] Early Morning Babysitter: [place] [address] [phone] Hba1c 6.5 % High <5.7 1 Est Avg Glucose 140 mg/dL High 60 - 110 Complete Blood Count 02/22/2021 [facility] Early Morning Babysitter: [place] [address] [phone] WBC 8.6 x10*3/UL 4.1 - 10.9 RBC [...] 2.0 - 7.8 Comprehensive Chem Profile 02/22/2021 [facility] Early Morning Babysitter: [place] [address] [phone] Glucose 94 mg/dL 74 - 99 2 [...] >60 3 Laboratory test finding 12/26/2020 [facility] [address] [place] [address] [phone] Magnesium Level 2.3 mg/dL Normal 1.8-2.4 NT-Pro BNP 6360 pg/mL High <450 Basic Metabolic Profile 12/26/[address] [address] [phone] Glucose, Fasting 131 mg/dL High 70-100 Blood [...] mg/dL Normal 8.8-10.2 CBC With Differential 11/06/[address] [address] [phone] White Blood Count 9.6 10 Normal 4.0-10.0 [...] 36.0-66.0 Lymph % 19.9 % Low 24.0-44.0 [place] % 9.2 % High 2.0-8.0 Eos % 2.7 % Normal 0.0-3.0 Baso % 0.7 % Normal 0.0-1.0 Immature Granulocyte % 0.3 % Normal 0-3.0 Nucleated Red Blood Cell % 0.0 % Normal 0-0 Neutrophils # 6.4 10 Normal 1.5-8.5 Lymph # 1.9 10 Normal 1.5-5.0 [place] # 0.9 10 High 0.0-0.8 Eos # 0.3 10 Normal 0.0-0.5 Baso # 0.1 10 Normal 0.0-0.2 Comprehensive Metabolic Profil 11/06/2020 [address] [place] [address] [phone] Glucose, Fasting 103 mg/dL High 70-100 Blood [...] Normal 1.2-2.2 Laboratory test finding 11/06/2020 [facility] [address] [place] [address] [phone] LDH Lactate Dehydrogenase 239 U/L Normal 84-246 Immunoglobulin G,A,M 11/06/2020 [facility] [address] [place] [address] [phone] Immunoglobulin A 79.0 mg/dL Normal 70-400 Immunoglobulin G 271 mg/dL Low 681-1648 Immunoglobulin M 108.0 mg/dL Normal 40-230 Serum Protein Electrophoresis 11/06/[address] [address] [phone] Albumin % 65.1 % Normal 55.8-66.1 Wbawo-9-Byfzcasw % 5.7 % High 2.9-4.9 Qbfgv-7-Clilmwrld % 12.5 % High 7.1-11.8 Oykg-2-Fdvvfvbqb % 7.4 % High 4.7-7.2 Zbqy-2-Djlekrgzh % 3.9 % Normal 3.2-6.5 Gamma Globulin % 5.4 % Low 11.1-18.8 Albumin 3.84 GM/DL Normal 3.29-5.55 Umedc-7-Likbjrqco 0.34 GM/DL Normal 0.17-0.41 Gvruv-4-Arxpharqv 0.74 GM/DL Normal 0.42-0.99 Zpwz-8-Msmgtbmfw 0.44 GM/DL Normal 0.28-0.60 Pwmq-0-Ksedpyait 0.23 GM/DL Normal 0.19-0.55 Gamma Globulins 0.32 GM/DL Low 0.65-1.58 Total Protein 5.9 GM/DL Low 6.4-8.2 Spep Interpretation SEE COMMENT Normal 6 Spep Pathologist Review REV'D BY Roberto JUNIOR Normal Laboratory test finding 11/06/2020 [facility] [address] [place] [address] [phone] Serum Viscosity 1.6 rel.saline Normal 1.4-2.1 7 Complete Blood Count 10/06/2020 [facility] Early Morning Babysitter: [place] [address] [phone] WBC 9.1 x10*3/UL 4.1 - 10.9 RBC [...] 6.8 x10*3/UL 2.0 - 7.8 A1c 10/06/2020 [facility] Early Morning Babysitter: [place] [address] [phone] Hba1c 6.4 % High <5.7 9 Est Avg Glucose 137 mg/dL High 60 - 110 Comprehensive Chem Profile 10/06/2020 [facility] Early Morning Babysitter: [place] [address] [phone] Glucose 140 mg/dL High 74 - 99 [...] mL/min Low >60 11 Lipid Profile 10/06/2020 [facility] Early Morning Babysitter: [place] [address] [phone] Cholesterol 189 mg/dL 131 - 200 Triglycerides 88 mg/dL 30 - 150 HDL Cholesterol 67 mg/dL High 35 - 60 LDL (Calculated) 104 CALC 50 - 159 Laboratory test finding 10/06/2020 [facility] Early Morning Babysitter: [place] [address] [phone] Thyroid Stimulating Hormone 1.61 uIU/mL 0.3 6 - 3.74 Basic Metabolic Profile 09/18/2020 [facility] [address] [place] [address] [phone] Glucose, Fasting 92 mg/dL Normal 70-100 Blood [...] Normal 8.8-10.2 Laboratory test finding 09/18/2020 [facility] [address] [place], [place] [address] [phone] Magnesium Level 2.0 mg/dL Normal 1.8-2.4 NT-Pro BNP 4551 pg/mL High <450 Complete Blood Count 09/18/2020 [facility] [address] [place], [place] [address] [phone] White Blood Count 8.0 10 Normal 4.0-10.0 [...] LITTLE GFR LEFT ESRD GFR <15 ON ACROBATIC DANCER 4 Units are mL/min/1.73 m2 Chronic Kidney Disease Staging per NKF: Stage I & II GFR >=60 Normal to Mildly Decreased Stage III GFR 30-59 Moderately Decreased Stage IV GFR 15-29 Severely Decreased Stage V GFR <15 Very Little GFR Left ESRD GFR <15 on ACROBATIC DANCER 5 Units are mL/min/1.73 m2 Chronic Kidney Disease Staging per NKF: Stage I & II GFR >=60 Normal to Mildly Decreased Stage III GFR 30-59 Moderately Decreased Stage IV GFR 15-29 Severely Decreased Stage V GFR <15 Very Little GFR Left ESRD GFR <15 on ACROBATIC DANCER 6 M-SPIKE NOTED IN EARLY GAMMA REGION. CONCENTRATION = 0.08 GM/DL SUGGEST SERUM AND URINE IMMUNOTYPING. 7 Values above 2.7 may indicat e paraproteinemia is present. Performed at: [facility] [id number] Early Morning Babysitter: Ananya Gauthier MD, Phone: [phone] NOTE: RESULT VERIFIED. 9 Lab Result [...] LITTLE GFR LEFT ESRD GFR <15 ON ACROBATIC DANCER 12 Units are mL/min/1.73 m2 Chronic Kidney Disease Staging per NKF: Stage I & II GFR >=60 Normal to Mildly Decreased Stage III GFR 30-59 Moderately Decreased Stage IV GFR 15-29 Severely Decreased Stage V GFR <15 Very Little GFR Left ESRD GFR <15 on ACROBATIC DANCER Procedures Date Code Description Status 02/22/2021 28332 Office/Outpatient Established Mo d MDM 30-39 Min Completed 10/09/2020 42802 Office/Outpatient Established Mo d MDM 30-39 Min Completed 01/18/2020 [id number] Diabetic Retinal Eye Exam [facility] 01/14/2019 [id number] Diabetic Retinal Eye Exam [facility] 01/12/2018 [id number] Diabetic Retinal Eye Exam [facility] 04/17/2017 [id number] Diabetic Retinal Eye Exam [facility] 10/19/2015 [id number] Diabetic Retinal Eye Exam [facility] 07/31/2015 [id number] Mammogram Completed 09/12/2014 202470104 Diabetic Retinal Eye Exam [facility] Medical Devices Description No Information Available Encounters Type Date Location Provider Dx Diagnosis Office Visit 02/22[facility]2021 [facility] 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 02/22/2021 I11.0 Hypertensive heart disease with heart failure Freddy Boston M.D. 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 02/22/2021 Z95.0 Presence of cardiac pacemaker Gideon Boston M.D. 02/22/2021 I48.91 Unspecified atrial fibrillation Freddy Boston M.D. 02/22/2021 Z79.01 longterm (current) use of antic oagulants Freddy Boston M.D. 02/22/2021 E11.9 Type 2 diabetes mellitus without complications Freddy Boston M.D. 02/22/2021 E78.5 Hyperlipidemia, unspecified Lan Boston M.D. 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 02/22/2021 Z85.71 Personal history of Hodgkin lymp della Freddy Boston M.D. 02/22/2021 Z13.89 Encounter for screening for othe r disorder Freddy Boston M.D. 10/09/2020 I11.0 Hypertensive heart disease with heart failure Freddy Boston M.D. 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 10/09/2020 Z95.0 Presence of cardiac pacemaker Gideon Boston M.D. 10/09/2020 I48.91 Unspecified atrial fibrillation Freddy Boston M.D. 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 10/09/2020 E11.9 Type 2 diabetes mellitus without complications Freddy Boston M.D. 10/09/2020 E78.5 Hyperlipidemia, unspecified Lan Boston M.D. 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 10/06/2020 Z79.01 longterm (current) use of antic oagulants Lab Schedule [...] 06/21/2021 9:10 am - Lab Schedule at [facility] * 06/27/2021 1:30 pm - Freddy Boston M.D. at [facility] 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 Weakness: She has some weakness in her lower legs and had evaluation done by Dr. Will at [facility]. I am concerned that this [...] Patient is following up with Delia at [facility] and will continue to follow [...] is following up with Delia at Cardiology [facility]. She appears to be doing generally well [...] with regular follow up with Cardiology.6. intermediate manager (current) use of anticoagulants: Tolerating well current [...] on her diet.9. 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 Bill at [facility] and will continue appropriate follow up.Ongoing cares: I am going to see her again in 4 months with CMP, CBC, BNP, HgbA1c, lipids and TSH. If she has new problems or issues sooner she will let us know. Functional Status Description No Information Available Mental Status Description No Information Available Referrals Description No Information Available
--- OUTSIDE RECORDS SUMMARY | 2021-03-13 19:43 | CCD | Continuity of Care Document ---
Author Author Heather BOSTON M.D. Organization Unknown Address [address] [facility] [address] [place] [address] Phone [phone] Care Team Providers Care Correspondence Section Supervisor Name Role Phone Freddy Boston MD AUTM [phone] Smith Will MD AUTM [phone] Juliocesar Stewart MD AUTM [phone] Nia Cline MD AUTM [phone] Problems Active Problems Provider Date Trigeminal neuralgia [...] 1 by mouth every day 90tabs Freddy oBston M.D. 07/01/2017 Nystatin [id number]/ML Suspension swish and spit 1 teaspoon 4 times daily 150ml B37.0 Dave Aguayo [facility] 09/02/2016 Levetiracetam 500mg Tablets P [...] needed for chest discomfort 25tabs Dave Aguayo [facility] 09/06/2014 Vitamin D 2000Unit Capsules 1 by mouth every day Dave Aguayo [facility] 09/06/2014 Entresto 24-26mg Tablets 1 [...] Vaccine Lot # U-Flu Refused 02/22/2021 Influenza,Unspecified 62978 Refused 03/14/2014 Influenza Virus Vaccine 99147 Refused 03/03/2013 Influenza Virus Vaccine 37046 Refused 02/05/2012 Pneumovax 23 90315 Refused 02/05/2012 Influenza Virus Vaccine 48534 Refused 12/27/2010 Influenza Virus Vaccine 07227 Refused 05/19/2004 Adacel- Tetanus Diphtheria P ertussis [...] H/L Range Note Laboratory test finding 02/22/2021 [facility] [employer] [facility] [employer] Supervisor Delivery Department: [place] [address] [phone] B-Type Natiuretic Peptide <pending> A1c <pending> Basic Metabolic Profile 12/26/[address] [address] [phone] Glucose, Fasting 131 mg/dL High 70-100 Blood [...] Normal 8.8-10.2 Laboratory test finding 12/26/[address] [address] [phone] Magnesium Level 2.3 mg/dL Normal 1.8-2.4 NT-Pro BNP 6360 pg/mL High <450 CBC With Differential 11/06/2020 [address] [place] [address] [phone] White Blood Count 9.6 10 Normal 4.0-10.0 [...] 36.0-66.0 Lymph % 19.9 % Low 24.0-44.0 [place] % 9.2 % High 2.0-8.0 Eos % 2.7 % Normal 0.0-3.0 Baso % 0.7 % Normal 0.0-1.0 Immature Granulocyte % 0.3 % Normal 0-3.0 Nucleated Red Blood Cell % 0.0 % Normal 0-0 Neutrophils # 6.4 10 Normal 1.5-8.5 Lymph # 1.9 10 Normal 1.5-5.0 [place] # 0.9 10 High 0.0-0.8 Eos # 0.3 10 Normal 0.0-0.5 Baso # 0.1 10 Normal 0.0-0.2 Comprehensive Metabolic Profil 11/06/[address] [address] [phone] Glucose, Fasting 103 mg/dL High 70-100 Blood [...] 1.6 Normal 1.2-2.2 Laboratory test finding 11/06/2020 [place] [address] [phone] LDH Lactate Dehydrogenase 239 U/L Normal 84-246 Immunoglobulin G,A,M 11/06/[address] [address] [phone] Immunoglobulin A 79.0 mg/dL Normal 70-400 Immunoglobulin G 271 mg/dL Low 681-1648 Immunoglobulin M 108.0 mg/dL Normal 40-230 Serum Protein Electrophoresis 11/06/[address] [address] [phone] Albumin % 65.1 % Normal 55.8-66.1 Xfprj-2-Buqztdup % 5.7 % High 2.9-4.9 Mnsvh-6-Ocurdqpif % 12.5 % High 7.1-11.8 Koaa-0-Egisaqbmx % 7.4 % High 4.7-7.2 Orlr-5-Zslulroyi % 3.9 % Normal 3.2-6.5 Gamma Globulin % 5.4 % Low 11.1-18.8 Albumin 3.84 GM/DL Normal 3.29-5.55 Wgunp-0-Hbwattlsh 0.34 GM/DL Normal 0.17-0.41 Pdmhm-6-Sfmjotzai 0.74 GM/DL Normal 0.42-0.99 Ukez-9-Rbdbiuhge 0.44 GM/DL Normal 0.28-0.60 Bxac-2-Gmyfnikpa 0.23 GM/DL Normal 0.19-0.55 Gamma Globulins 0.32 GM/DL Low 0.65-1.58 Total Protein 5.9 GM/DL Low 6.4-8.2 Spep Interpretation SEE COMMENT Normal 3 Spep Pathologist Review REV'D BY S SANDI Normal Laboratory test finding 11/06/2020 [facility] [address] [place] [address] [phone] Serum Viscosity 1.6 rel.saline Normal 1.4-2.1 4 Complete Blood Count 10/06/2020 [facility] [employer] [facility] mejia Supervisor Delivery Department: [place] [address] [phone] WBC 9.1 x10*3/UL 4.1 - 10.9 RBC [...] 6.8 x10*3/UL 2.0 - 7.8 A1c 10/06/2020 [facility] [place] Supervisor Delivery Department: [place] [address] [phone] Hba1c 6.4 % High <5.7 6 Est Avg Glucose 137 mg/dL High 60 - 110 Comprehensive Chem Profile 10/06/2020 [facility] adams Supervisor Delivery Department: [place] [address] [phone] Glucose 140 mg/dL High 74 - 99 [...] mL/min Low >60 8 Lipid Profile 10/06/2020 [facility] Supervisor Delivery Department: Dr Jeff Luislogg [place] [id number] [phone] Cholesterol 189 mg/dL 131 - 200 Triglycerides 88 mg/dL 30 - 150 HDL Cholesterol 67 mg/dL High 35 - 60 LDL (Calculated) 104 CALC 50 - 159 Laboratory test finding 10/06/2020 [facility] Supervisor Delivery Department: Dr Jeff Hall [place] [id number] [phone] Thyroid Stimulating Hormone 1.61 uIU/mL 0.3 6 - 3.74 Basic Metabolic Profile 09/18/2020 [place] [address] [phone] Glucose, Fasting 92 mg/dL Normal 70-100 Blood [...] Normal 8.8-10.2 Laboratory test finding 09/18/[address] [address] [phone] Magnesium Level 2.0 mg/dL Normal 1.8-2.4 NT-Pro BNP 4551 pg/mL High <450 Complete Blood Count 09/18/2020 [facility] [address] [place] [address] [phone] White Blood Count 8.0 10 Normal 4.0-10.0 [...] Little GFR Left ESRD GFR <15 on TECHNICAL SALES SUPPORT SPECIALIST 2 Units are mL/min/1.73 m2 Chronic Kidney Disease Staging per NKF: Stage I & II GFR >=60 Normal to Mildly Decreased Stage III GFR 30-59 Moderately Decreased Stage IV GFR 15-29 Severely Decreased Stage V GFR <15 Very Little GFR Left ESRD GFR <15 on TECHNICAL SALES SUPPORT SPECIALIST 3 M-SPIKE NOTED IN EARLY GAMMA REGION. CONCENTRATION = 0.08 GM/DL SUGGEST SERUM AND URINE IMMUNOTYPING. 4 Values above 2.7 may indicat e paraproteinemia is present. Performed at: - [facility] [id number] Supervisor Delivery Department: Ananya Gauthier MD, Phone: [phone] NOTE: RESULT VERIFIED. 6 Lab Result [...] LITTLE GFR LEFT ESRD GFR <15 ON TECHNICAL SALES SUPPORT SPECIALIST 9 Units are mL/min/1.73 m2 Chronic Kidney Disease Staging per NKF: Stage I & II GFR >=60 Normal to Mildly Decreased Stage III GFR 30-59 Moderately Decreased Stage IV GFR 15-29 Severely Decreased Stage V GFR <15 Very Little GFR Left ESRD GFR <15 on TECHNICAL SALES SUPPORT SPECIALIST Procedures Date Code Description Status 10/09/2020 37633 Office/Outpatient Established Mo d MDM 30-39 Min Completed 01/18/2020 [id number] Diabetic Retinal Eye Exam Comple [facility] 01/14/2019 [id number] Diabetic Retinal Eye Exam Comple [facility] 01/12/2018 814796089 Diabetic Retinal Eye Exam Comple moo 04/17/2017 032150136 Diabetic Retinal Eye Exam Comple moo 10/19/2015 [id number] Diabetic Retinal Eye Exam Comple moo 07/31/2015 [id number] Mammogram Completed 09/12/2014 [id number] Diabetic Retinal Eye Exam [facility] Medical Devices Description No Information Available Encounters Type Date Location Provider Dx Diagnosis Office Visit 10/09/2020 11:00a [facility] Freddy Boston M.D. 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 02/22/2021 Z79.01 [facility]FP (current) use of antic oagulants Freddy Boston M.D. 02/22/2021 E11.9 Type 2 diabetes mellitus without complications Freddy Boston M.D. 02/22/2021 E78.5 Hyperlipidemia, unspecified Lan Boston M.D. 02/22/2021 I25.10 Atherosclerotic hear t disease of [place] coronary artery without angina pectoris Freddy Boston [...] atrial fibrillation Freddy Boston M.D. 10/09/2020 Z79.01 [facility]FP (current) use of antic oagulants Freddy Boston M.D. 10/09/2020 E11.9 Type 2 diabetes mellitus without complications Freddy Boston M.D. 10/09/2020 E78.5 Hyperlipidemia, unspecified Lan Boston M.D. 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 10/06/2020 Z79.01 sulfonation equipment operator (current) use of antic oagulants Lab Schedule [...] 06/21/2021 9:10 am - Lab Schedule at [facility] * 06/27/2021 1:30 pm - Freddy Boston M.D. at [facility] 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 Weakness: She has some weakness in her lower legs and had evaluation done by Dr. Will at [facility]. I am concerned that this [...] Patient is following up with Delia at [facility] and will continue to follow [...] is following up with Delia at Cardiology [facility]. She appears to be doing generally [...] along with regular follow up with Cardiology.6. [facility]FP (current) use of anticoagulants: Tolerating well current [...] on her diet.9. Athscl heart disease of [place] coronary artery w/o ang pctrs: Following up [...] is following up with Dr. Bill at [facility] and will continue appropriate follow up.Ongoing cares: I am going to see her again in 4 months with CMP, CBC, BNP, HgbA1c, lipids and TSH. If she has new problems or issues sooner she will let us know. Functional Status Description No Information Available Mental Status Description No Information Available Referrals Description No Information Available
--- OUTSIDE RECORDS SUMMARY | 2021-03-13 19:43 | CCD | Continuity of Care Document ---
Author Author Nurse #Heather Magallon Organization Unknown Address [address] [facility] [address] [place] [address] Phone Unavailable Care Team Providers Care Crop Farmers Name Role Phone Freddy Boston MD AUTM [phone] Smith Will MD AUTM [phone] Juloicesar Stewart MD AUTM [phone] Nia Cline MD AUTM [phone] Problems Active Problems Provider Date Trigeminal neuralgia [...] day 90tabs Freddy Boston M.D. 07/01/2017 Nystatin [id number]/ML Suspension swish and spit 1 teaspoon 4 times daily 150ml B37.0 Dave Aguayo [facility] 09/02/2016 Levetiracetam 500mg Tablets P O [...] needed for chest discomfort 25tabs Dave Aguayo [facility] 09/06/2014 Vitamin D 2000Unit Capsules 1 by mouth every day Dave Aguayo [facility] 09/06/2014 Entresto 24-26mg Tablets 1 twice [...] Vaccine Lot # U-[id number] Refused 02/22/2021 Influenza,Unspecified [id number] Refused 03/14/2014 Influenza Virus Vaccine 46052 Refused 03/03/2013 Influenza Virus Vaccine 67499 Refused 02/05/2012 Pneumovax 23 [id number] Refused 02/05/2012 Influenza Virus Vaccine 08549 Refused 12/27/2010 Influenza Virus Vaccine 54957 Refused 05/19/2004 Adacel- Tetanus Diphtheria P ertussis [...] H/L Range Note Laboratory test finding 02/22/2021 [facility] [employer] Food Runners: [place] [address] [phone] B-Type Natiuretic Peptide <pending> A1c <pending> Basic Metabolic Profile 12/26/[address] [address] [phone] Glucose, Fasting 131 mg/dL High 70-100 Blood [...] mg/dL Normal 8.8-10.2 Laboratory test finding 12/26/[address] [address] [phone] Magnesium Level 2.3 mg/dL Normal 1.8-2.4 NT-Pro BNP 6360 pg/mL High <450 CBC With Differential 11/06/[address] [id number] [phone] White Blood Count 9.6 10 Normal 4.0-10.0 [...] 36.0-66.0 Lymph % 19.9 % Low 24.0-44.0 [place] % 9.2 % High 2.0-8.0 Eos % 2.7 % Normal 0.0-3.0 Baso % 0.7 % Normal 0.0-1.0 Immature Granulocyte % 0.3 % Normal 0-3.0 Nucleated Red Blood Cell % 0.0 % Normal 0-0 Neutrophils # 6.4 10 Normal 1.5-8.5 Lymph # 1.9 10 Normal 1.5-5.0 [place] # 0.9 10 High 0.0-0.8 Eos # 0.3 10 Normal 0.0-0.5 Baso # 0.1 10 Normal 0.0-0.2 Comprehensive Metabolic Profil 11/06/[address] [id number] [phone] Glucose, Fasting 103 mg/dL High 70-100 Blood [...] 1.6 Normal 1.2-2.2 Laboratory test finding 11/06/2020 [facility] [address] [place], [place] [id number] [phone] LDH Lactate Dehydrogenase 239 U/L Normal 84-246 Immunoglobulin G,A,M 11/06/[address] [address] [phone] Immunoglobulin A 79.0 mg/dL Normal 70-400 Immunoglobulin G 271 mg/dL Low [phone] Immunoglobulin M 108.0 mg/dL Normal 40-230 Serum Protein Electrophoresis 11/06/[address] [address] [phone] Albumin % 65.1 % Normal 55.8-66.1 Ypqju-1-Sgmibeiu % 5.7 % High 2.9-4.9 Raile-0-Ljbtlhrat % 12.5 % High 7.1-11.8 Djwq-9-Jswmbrkop % 7.4 % High 4.7-7.2 Gnbp-3-Qofwvletv % 3.9 % Normal 3.2-6.5 Gamma Globulin % 5.4 % Low 11.1-18.8 Albumin 3.84 GM/DL Normal 3.29-5.55 Gwzik-2-Jdmxrymxa 0.34 GM/DL Normal 0.17-0.41 Kxcoq-5-Ckvrmunqk 0.74 GM/DL Normal 0.42-0.99 Hlto-0-Ilugxaxwr 0.44 GM/DL Normal 0.28-0.60 Ogva-5-Cgwiboaji 0.23 GM/DL Normal 0.19-0.55 Gamma Globulins 0.32 GM/DL Low 0.65-1.58 Total Protein 5.9 GM/DL Low 6.4-8.2 Spep Interpretation SEE COMMENT Normal 3 Spep Pathologist Review REV'D BY Terry JUNIOR Normal Laboratory test finding 11/06/2020 [facility] [address] [place], [place] [id number] [phone] Serum Viscosity 1.6 rel.saline Normal 1.4-2.1 4 Complete Blood Count 10/06/2020 [facility] [employer]: [place] [address] [phone] WBC 9.1 x10*3/UL 4.1 - 10.9 RBC [...] 6.8 x10*3/UL 2.0 - 7.8 A1c 10/06/2020 [facility] [employer]: [place] [address] [phone] Hba1c 6.4 % High <5.7 6 Est Avg Glucose 137 mg/dL High 60 - 110 Comprehensive Chem Profile 10/06/2020 [facility] [employer]: [place] [address] [phone] Glucose 140 mg/dL High 74 - 99 [...] mL/min Low >60 8 Lipid Profile 10/06/2020 [facility] [employer]: [place] [address] [phone] Cholesterol 189 mg/dL 131 - 200 Triglycerides 88 mg/dL 30 - 150 HDL Cholesterol 67 mg/dL High 35 - 60 LDL (Calculated) 104 CALC 50 - 159 Laboratory test finding 10/06/2020 [facility] [employer]: [place] [address] [phone] Thyroid Stimulating Hormone 1.61 uIU/mL 0.3 6 - 3.74 Basic Metabolic Profile 09/18/[address] [address] [phone] Glucose, Fasting 92 mg/dL Normal 70-100 Blood [...] mg/dL Normal 8.8-10.2 Laboratory test finding 09/18/[address] [address] [phone] Magnesium Level 2.0 mg/dL Normal 1.8-2.4 NT-Pro BNP 4551 pg/mL High <450 Complete Blood Count 09/18/2020 [facility] enter [address] [place] [address] [phone] White Blood Count 8.0 10 Normal 4.0-10.0 [...] Little GFR Left ESRD GFR <15 on DEPOT AGENT 2 Units are mL/min/1.73 m2 Chronic Kidney Disease Staging per NKF: Stage I & II GFR >=60 Normal to Mildly Decreased Stage III GFR 30-59 Moderately Decreased Stage IV GFR 15-29 Severely Decreased Stage V GFR <15 Very Little GFR Left ESRD GFR <15 on DEPOT AGENT 3 M-SPIKE NOTED IN EARLY GAMMA REGION. CONCENTRATION = 0.08 GM/DL SUGGEST SERUM AND URINE IMMUNOTYPING. 4 Values above 2.7 may indicat e paraproteinemia is present. Performed at: [address] [id number] [employer]: Ananya Gauthier MD, Phone: [phone] 5 NOTE: RESULT VERIFIED. 6 Lab Result [...] LITTLE GFR LEFT ESRD GFR <15 ON DEPOT AGENT 9 Units are mL/min/1.73 m2 Chronic Kidney Disease Staging per NKF: Stage I & II GFR >=60 Normal to Mildly Decreased Stage III GFR 30-59 Moderately Decreased Stage IV GFR 15-29 Severely Decreased Stage V GFR <15 Very Little GFR Left ESRD GFR <15 on DEPOT AGENT Procedures Date Code Description Status 10/09/2020 32778 Office/Outpatient Established Mo d MDM 30-39 Min Completed 01/18/2020 [id number] Diabetic Retinal Eye Exam Comple moo 01/14/2019 [id number] Diabetic Retinal Eye Exam Comple moo 01/12/2018 [id number] Diabetic Retinal Eye Exam Comple moo 04/17/2017 [id number] Diabetic Retinal Eye Exam Comple moo 10/19/2015 [id number] Diabetic Retinal Eye Exam Comple moo 07/31/2015 [id number] Mammogram Completed 09/12/2014 [id number] Diabetic Retinal Eye Exam Comple moo Medical Devices Description No Information Available Encounters Type Date Location Provider Dx Diagnosis Office Visit 10/09/2020 11:00a [facility] Freddy Boston M.D. 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 02/22/2021 Z79.01 group home (current) use of antic oagulants Freddy Boston M.D. 02/22/2021 E11.9 Type 2 diabetes mellitus without complications Freddy Boston M.D. 02/22/2021 E78.5 Hyperlipidemia, unspecified Lan Boston M.D. 02/22/2021 I25.10 Atherosclerotic hear t disease of [place] coronary artery without angina pectoris Freddy Boston [...] atrial fibrillation Freddy Boston M.D. 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 10/09/2020 E11.9 Type 2 diabetes mellitus without complications Freddy Boston M.D. 10/09/2020 E78.5 Hyperlipidemia, unspecified Lan Boston M.D. 10/09/2020 I25.10 Atherosclerotic hear t disease of [place] coronary artery without angina pectoris Freddy Boston M.D. 10/09/2020 E04.1 Nontoxic single thyroid nodule Missael Boston M.D. 10/09/2020 G40.89 Other seizures rFeddy Boston M.D. 10/09/2020 D64.9 Anemia, unspecified Freddy santana M.D. 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 10/09/2020 Z85.71 Personal history of Hodgkin lymp della Freddy Boston M.D. 10/06/2020 I48.91 Unspecified atrial fibrillation Freddy Boston M.D. 10/06/2020 I48.91 Unspecified atrial fibrillation Lab Schedule 10/06/2020 Z79.01 group home (current) use of antic oagulants Freddy Boston M.D. 10/06/2020 Z79.01 group home (current) use of antic oagulants Lab Schedule [...] 06/21/2021 9:10 am - Lab Schedule at [facility] * 06/27/2021 1:30 pm - Freddy Boston M.D. at [facility] 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 Weakness: She has some weakness in her lower legs and had evaluation done by Dr. Will at [facility]. I am concerned that this [...] Patient is following up with Delia at [employer] [facility] and will continue to follow up appropriately. [...] along with regular follow up with Cardiology.6. group home (current) use of anticoagulants: Tolerating well current [...] on her diet.9. Athscl heart disease of [place] coronary artery w/o ang pctrs: Following up [...] is following up with Dr. Bill at [facility] and will continue appropriate follow up.Ongoing cares: I am going to see her again in 4 months with CMP, CBC, BNP, HgbA1c, lipids and TSH. If she has new problems or issues sooner she will let us know. Functional Status Description No Information Available Mental Status Description No Information Available Referrals Description No Information Available
--- OUTSIDE RECORDS SUMMARY | 2021-03-13 19:43 | CCD | Continuity of Care Document ---
Author Author Heather BOSTON M.D. Organization Unknown Address [address] [facility] [address] [place] [address] Phone [phone] Care Team Providers Care Warehouse Traffic Supervisor Name Role Phone Freddy Boston MD AUTM [phone] Smith Will MD AUTM [phone] Juliocesar Stewart MD AUTM [phone] Nia Cline MD AUTM [phone] Problems Active Problems Provider Date Trigeminal neuralgia [...] day 90tabs Freddy Boston M.D. 07/01/2017 Nystatin [id number]/ML Suspension swish and spit 1 teaspoon 4 times daily 150ml B37.0 Dave Aguayo [facility] 09/02/2016 Levetiracetam 500mg Tablets P [...] needed for chest discomfort 25tabs Dave Aguayo [facility] 09/06/2014 Vitamin D 2000Unit Capsules 1 by mouth every day Dave Aguayo [facility] 09/06/2014 Entresto 24-26mg Tablets 1 [...] Vaccine Lot # U-Flu Refused 02/22/2021 Influenza,Unspecified [id number] Refused 03/14/2014 Influenza Virus Vaccine 36238 Refused 03/03/2013 Influenza Virus Vaccine 56445 Refused 02/05/2012 Pneumovax 23 [id number] Refused 02/05/2012 Influenza Virus Vaccine 26757 Refused 12/27/2010 Influenza Virus Vaccine 83952 Refused 05/19/2004 Adacel- Tetanus Diphtheria P ertussis [...] H/L Range Note Laboratory test finding 02/22/2021 [place] [employer] Heavy Equipment Sales Associate: [place] [address] [phone] B-Type Natiuretic Peptide <pending> A1c <pending> Basic Metabolic Profile 12/26/[address] [address] [phone] Glucose, Fasting 131 mg/dL High 70-100 Blood [...] mg/dL Normal 8.8-10.2 Laboratory test finding 12/26/[address] [address] [phone] Magnesium Level 2.3 mg/dL Normal 1.8-2.4 NT-Pro BNP 6360 pg/mL High <450 CBC With Differential 11/06/2020 [place] [address] [place] [address] [phone] White Blood Count 9.6 10 Normal 4.0-10.0 [...] 36.0-66.0 Lymph % 19.9 % Low 24.0-44.0 [place] % 9.2 % High 2.0-8.0 Eos % 2.7 % Normal 0.0-3.0 Baso % 0.7 % Normal 0.0-1.0 Immature Granulocyte % 0.3 % Normal 0-3.0 Nucleated Red Blood Cell % 0.0 % Normal 0-0 Neutrophils # 6.4 10 Normal 1.5-8.5 Lymph # 1.9 10 Normal 1.5-5.0 Boundary # 0.9 10 High 0.0-0.8 Eos # 0.3 10 Normal 0.0-0.5 Baso # 0.1 10 Normal 0.0-0.2 Comprehensive Metabolic Profil 11/06/[address] [address] [phone] Glucose, Fasting 103 mg/dL High 70-100 Blood [...] 1.6 Normal 1.2-2.2 Laboratory test finding 11/06/2020 [place] [id number] [phone] LDH Lactate Dehydrogenase 239 U/L Normal 84-246 Immunoglobulin G,A,M 11/06/[address] [address] [phone] Immunoglobulin A 79.0 mg/dL Normal 70-400 Immunoglobulin G 271 mg/dL Low 681-1648 Immunoglobulin M 108.0 mg/dL Normal 40-230 Serum Protein Electrophoresis 11/06/[address] [address] [phone] Albumin % 65.1 % Normal 55.8-66.1 Iizvb-4-Pregdzgs % 5.7 % High 2.9-4.9 Irbrm-8-Zjiazpnii % 12.5 % High 7.1-11.8 Kpdg-8-Sidadrosc % 7.4 % High 4.7-7.2 Vcyj-3-Wqrctlvmi % 3.9 % Normal 3.2-6.5 Gamma Globulin % 5.4 % Low 11.1-18.8 Albumin 3.84 GM/DL Normal 3.29-5.55 Icvip-6-Mvnbpqyoo 0.34 GM/DL Normal 0.17-0.41 Vczcl-7-Gsvejsnry 0.74 GM/DL Normal 0.42-0.99 Ecyy-3-Uemoacuwp 0.44 GM/DL Normal 0.28-0.60 Tlyy-1-Ktaaeihqt 0.23 GM/DL Normal 0.19-0.55 Gamma Globulins 0.32 GM/DL Low 0.65-1.58 Total Protein 5.9 GM/DL Low 6.4-8.2 Spep Interpretation SEE COMMENT Normal 3 Spep Pathologist Review REV'D BY S SANDI Normal Laboratory test finding 11/06/2020 [facility] [address] [place] [address] [phone] Serum Viscosity 1.6 rel.saline Normal 1.4-2.1 4 Complete Blood Count 10/06/2020 [place] [employer] Operations Officer [employer] Heavy Equipment Sales Associate: [place] [address] [phone] WBC 9.1 x10*3/UL 4.1 - 10.9 RBC [...] 6.8 x10*3/UL 2.0 - 7.8 A1c 10/06/2020 [place] [facility] [employer] Heavy Equipment Sales Associate: [place] [address] [phone] Hba1c 6.4 % High <5.7 6 Est Avg Glucose 137 mg/dL High 60 - 110 Comprehensive Chem Profile 10/06/2020 [place] [facility] [employer] Heavy Equipment Sales Associate: [place] [address] [phone] Glucose 140 mg/dL High 74 - 99 [...] mL/min Low >60 8 Lipid Profile 10/06/2020 [facility] Heavy Equipment Sales Associate: Dr Jeff [place]log[address] [place] [id number] [phone] Cholesterol 189 mg/dL 131 - 200 Triglycerides 88 mg/dL 30 - 150 HDL Cholesterol 67 mg/dL High 35 - 60 LDL (Calculated) 104 CALC 50 - 159 Laboratory test finding 10/06/2020 [place] [facility] Heavy Equipment Sales Associate: Dr Jeff Hall [place] [id number] [phone] Thyroid Stimulating Hormone 1.61 uIU/mL 0.3 6 - 3.74 Basic Metabolic Profile 09/18/2020 [place] [address]0012 [phone] Glucose, Fasting 92 mg/dL Normal 70-100 Blood [...] mg/dL Normal 8.8-10.2 Laboratory test finding 09/18/[address] [address] [phone] Magnesium Level 2.0 mg/dL Normal 1.8-2.4 NT-Pro BNP 4551 pg/mL High <450 Complete Blood Count 09/18/2020 [facility] [address] [place] [address] [phone] White Blood Count 8.0 10 Normal 4.0-10.0 [...] Little GFR Left ESRD GFR <15 on INHALATION THERAPY TEACHER 2 Units are mL/min/1.73 m2 Chronic Kidney Disease Staging per NKF: Stage I & II GFR >=60 Normal to Mildly Decreased Stage III GFR 30-59 Moderately Decreased Stage IV GFR 15-29 Severely Decreased Stage V GFR <15 Very Little GFR Left ESRD GFR <15 on INHALATION THERAPY TEACHER 3 M-SPIKE NOTED IN EARLY GAMMA REGION. CONCENTRATION = 0.08 GM/DL SUGGEST SERUM AND URINE IMMUNOTYPING. 4 Values above 2.7 may indicat e paraproteinemia is present. Performed at: - [address] [id number] Heavy Equipment Sales Associate: Ananya Gauthier MD, Phone: [phone] NOTE: RESULT VERIFIED. 6 Lab Result [...] LITTLE GFR LEFT ESRD GFR <15 ON INHALATION THERAPY TEACHER 9 Units are mL/min/1.73 m2 Chronic Kidney Disease Staging per NKF: Stage I & II GFR >=60 Normal to Mildly Decreased Stage III GFR 30-59 Moderately Decreased Stage IV GFR 15-29 Severely Decreased Stage V GFR <15 Very Little GFR Left ESRD GFR <15 on INHALATION THERAPY TEACHER Procedures Date Code Description Status 10/09/2020 88879 Office/Outpatient Established Mo d MDM 30-39 Min Completed 01/18/2020 [id number] Diabetic Retinal Eye Exam Comple moo 01/14/2019 593398586 Diabetic Retinal Eye Exam Comple moo 01/12/2018 934467784 Diabetic Retinal Eye Exam Comple moo 04/17/2017 793007925 Diabetic Retinal Eye Exam Comple moo 10/19/2015 059726255 Diabetic Retinal Eye Exam Comple moo 07/31/2015 [id number] Mammogram Completed 09/12/2014 013047026 Diabetic Retinal Eye Exam [facility] Medical Devices Description No Information Available Encounters Type Date Location Provider Dx Diagnosis Office Visit 10/09/2020 11:00a [facility] Freddy Boston M.D. 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 02/22/2021 Z79.01 FDC (current) use of antic oagulants Freddy Boston M.D. 02/22/2021 E11.9 Type 2 diabetes mellitus without complications Freddy Boston M.D. 02/22/2021 E78.5 Hyperlipidemia, unspecified Lan Boston M.D. 02/22/2021 I25.10 Atherosclerotic hear t disease of [place] coronary artery without angina pectoris Freddy Boston [...] atrial fibrillation Freddy Boston M.D. 10/09/2020 Z79.01 FDC (current) use of antic oagulants Freddy Boston M.D. 10/09/2020 E11.9 Type 2 diabetes mellitus without complications Freddy Boston M.D. 10/09/2020 E78.5 Hyperlipidemia, unspecified Lan Boston M.D. 10/09/2020 I25.10 Atherosclerotic hear t disease of [place] coronary artery without angina pectoris Freddy Boston [...] atrial fibrillation Lab Schedule 10/06/2020 Z79.01 intermediate card tender (current) use of antic oagulants Freddy Boston M.D. 10/06/2020 Z79.01 intermediate card tender (current) use of antic oagulants Lab Schedule [...] 06/21/2021 9:10 am - Lab Schedule at [facility] * 06/27/2021 1:30 pm - Freddy Boston M.D. at [facility] 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 Weakness: She has some weakness in her lower legs and had evaluation done by Dr. Will at [facility]. I am concerned that this [...] Patient is following up with Delia at [employer] [facility] and will continue to follow [...] is following up with Delia at [facility]. She appears to be doing generally well [...] along with regular follow up with Cardiology.6. FDC (current) use of anticoagulants: Tolerating well current [...] on her diet.9. Athscl heart disease of [place] coronary artery w/o ang pctrs: Following up [...] is following up with Dr. Bill at [facility] and will continue appropriate follow up.Ongoing cares: I am going to see her again in 4 months with CMP, CBC, BNP, HgbA1c, lipids and TSH. If she has new problems or issues sooner she will let us know. Functional Status Description No Information Available Mental Status Description No Information Available Referrals Description No Information Available
--- OUTSIDE RECORDS SUMMARY | 2021-03-13 19:43 | CCD | Continuity of Care Document ---
Author Organization Unknown Address Unknown Phone Unavailable Care Team Providers Care Fly Setter Name Role Phone Freddy Boston MD AUT[facility] [phone] Smith Will MD [facility] [phone] Juliocesar Stewart MD [facility] [phone] Nia Cline MD [facility] [phone] Problems Active Problems Provider Date Trigeminal neuralgia [...] End: Unknown Patient is a former smoker Allergies, Adverse Reactions, Alerts Active Allergies Criticality Reaction | Severity Comments [...] SIG Qnty Indications Ordering Provide r Date Cyclobenzaprine HCL 5mg Tablets 1 by mouth twice daily as needed for low back pain/sciatic pain 60tabs M54.41 Jeff Hall MD 11/03/2019 Pravachol 20mg Tablets 1 by mouth every day 90tabs Freddy Boston M.D. 07/01/2017 Nystatin [id number] Suspension swish and spit 1 teaspoon 4 times daily 150ml B37.0 Dave Aguayo [facility] 09/02/2016 Levetiracetam 500mg Tablets P O bid Freddy Boston M.D. 05/29/2016 Acyclovir 5% Ointment apply q2h while awake 5gm Freddy Boston M.D. 06/07/2015 Calcium 600 600mg Tablets 1 p o bid Freddy Boston M.D. 03/06/2015 Multivitamins Capsules 1 by mouth every day Freddy Boston M.D. 03/06/2015 Metformin HCL 1000mg Tablets take one tablet by mouth twice a day 180tabs Freddy Boston M.D. 09/30/2014 Nitrostat 0.4mg Tablets Sub one under tongue every 5 minutes x 3 as needed for chest discomfort 25tabs Dave Aguayo [facility] 09/06/2014 Vitamin D 2000Unit Capsules 1 by mouth every day Dave Aguayo [facility] 09/06/[address] 1 by mouth every day 100tabs Dave Aguayo [facility] 09/06/2014 Carvedilol 3.125mg Tablets take one tablet by mouth twice a day 60tabs Freddy Boston M.D. 2014 Entresto 24-26mg Tablets 1 twice daily by [...] by mouth at bedtime as needed Unknown Medications Administered in Office Medication SIG Qnty Indications Ordering Provider Date Covid-19 vaccine, Unspecified Inj ection Unknown 08/07/2020 Covid-19 vaccine, Unspecified Inj ection Unknown 07/05/2020 Immunizations CPT Code Status Date Vaccine Lot # [id number] Refused 03/14/2014 Influenza Virus Vaccine [id number] Refused 03/03/2013 Influenza Virus Vaccine 70713 Refused 02/05/2012 Pneumovax 23 [id number] Refused 02/05/2012 Influenza Virus Vaccine 35029 Refused 12/27/2010 Influenza Virus Vaccine 40121 Refused 05/19/2004 Adacel- Tetanus Diphtheria P ertussis (Age64 & Under) Vital Signs Date Vital Result Comment 10/09/2020 11:47am BP Systolic 160 mmHg BP Diastolic 72 mmHg Heart Rate 78 /min irregular Height 63 inches 5'3" Weight 152.00 lb BMI (Body Mass Index) 26.9 kg/m2 05/31/2020 12:57pm BP Systolic 154 mmHg BP Diastolic 90 mmHg BP Systolic Recheck 130 mmHg BP Diastolic Recheck 65 mmHg Heart Rate 86 /min Height 63 inches 5'3" Weight 154.00 lb BMI (Body Mass Index) 27.3 kg/m2 Results Test Acquired Date Facility Test Result H/L Range Note Laboratory test finding 12/26/[address] [id number] [phone] Magnesium Level 2.3 mg/dL Normal 1.8-2.4 NT-Pro BNP 6360 pg/mL High <450 Basic Metabolic Profile 12/26/[address] [id number] [phone] Glucose, Fasting 131 mg/dL High 70-100 Blood [...] mg/dL Normal 8.8-10.2 CBC With Differential 11/06/[address] [address] [phone] White Blood Count 9.6 10 Normal 4.0-10.0 [...] 36.0-66.0 Lymph % 19.9 % Low 24.0-44.0 Preble % 9.2 % High 2.0-8.0 Eos % 2.7 % Normal 0.0-3.0 Baso % 0.7 % Normal 0.0-1.0 Immature Granulocyte % 0.3 % Normal 0-3.0 Nucleated Red Blood Cell % 0.0 % Normal 0-0 Neutrophils # 6.4 10 Normal 1.5-8.5 Lymph # 1.9 10 Normal 1.5-5.0 Preble # 0.9 10 High 0.0-0.8 Eos # 0.3 10 Normal 0.0-0.5 Baso # 0.1 10 Normal 0.0-0.2 Comprehensive Metabolic Profil 11/06/[address] [address] [phone] Glucose, Fasting 103 mg/dL High 70-100 Blood [...] 1.6 Normal 1.2-2.2 Laboratory test finding 11/06/2020 [place] [id number] [phone] LDH Lactate Dehydrogenase 239 U/L Normal 84-246 Immunoglobulin G,A,M 11/06/[address] [address] [phone] Immunoglobulin A 79.0 mg/dL Normal 70-400 Immunoglobulin G 271 mg/dL Low [phone] Immunoglobulin M 108.0 mg/dL Normal 40-230 Serum Protein Electrophoresis 11/06/[address] [address] [phone] Albumin % 65.1 % Normal 55.8-66.1 Raxki-7-Emsbnhfx % 5.7 % High 2.9-4.9 Sndcg-6-Kpfpxjfiq % 12.5 % High 7.1-11.8 Ezwv-5-Ylwxdowns % 7.4 % High 4.7-7.2 Kxcx-3-Vgliewpvz % 3.9 % Normal 3.2-6.5 Gamma Globulin % 5.4 % Low 11.1-18.8 Albumin 3.84 GM/DL Normal 3.29-5.55 Wnkbx-6-Dbdhjlmuq 0.34 GM/DL Normal 0.17-0.41 Nskir-9-Mmqazsehz 0.74 GM/DL Normal 0.42-0.99 Oufz-1-Aguixfgih 0.44 GM/DL Normal 0.28-0.60 Evhf-2-Hikvkemie 0.23 GM/DL Normal 0.19-0.55 Gamma Globulins 0.32 GM/DL Low 0.65-1.58 Total Protein 5.9 GM/DL Low 6.4-8.2 Spep Interpretation SEE COMMENT Normal 3 Spep Pathologist Review REV'D BY S SANDI Normal Laboratory test finding 11/06/2020 [facility] [address] [place] [address] [phone] Serum Viscosity 1.6 rel.saline Normal 1.4-2.1 4 A1c 10/06/2020 [facility] Heat Treater Head: [place] [address] [phone] Hba1c 6.4 % High <5.7 5 Est Avg Glucose 137 mg/dL High 60 - 110 Laboratory test finding 10/06/2020 [facility] Heat Treater Head: [place] [address] [phone] Thyroid Stimulating Hormone 1.61 uIU/mL 0.3 6 - 3.74 Lipid Profile 10/06/2020 [facility] Heat Treater Head: [place] [address] [phone] Cholesterol 189 mg/dL 131 - 200 Triglycerides 88 mg/dL 30 - 150 HDL Cholesterol 67 mg/dL High 35 - 60 LDL (Calculated) 104 CALC 50 - 159 Comprehensive Chem Profile 10/06/2020 [facility] Heat Treater Head: [place] [address] [phone] Glucose 140 mg/dL High 74 - 99 6 BUN 25 mg/dL High 7 - 18 [...] Low >60 GFR 52 mL/min Low >60 7 Complete Blood Count 10/06/2020 [facility] Heat Treater Head: [place] [address] [phone] WBC 9.1 x10*3/UL 4.1 - 10.9 RBC [...] Neut # 6.8 x10*3/UL 2.0 - 7.8 Basic Metabolic Profile 09/18/[address] [address] [phone] Glucose, Fasting 92 mg/dL Normal 70-100 Blood [...] mg/dL Normal 8.8-10.2 Laboratory test finding 09/18/[address] [address] [phone] Magnesium Level 2.0 mg/dL Normal 1.8-2.4 NT-Pro BNP 4551 pg/mL High <450 Complete Blood Count 09/18/[address] [address] [phone] White Blood Count 8.0 10 Normal 4.0-10.0 [...] Blood Cell % 0.0 % Normal 0-0 Basic Metabolic Profile 08/23/[address] [address] [phone] Glucose, Fasting 106 mg/dL High 70-100 Blood Urea Nitrogen 19 mg/dL High 7-18 Creatinine For GFR 0.99 mg/dL Normal 0.55-1.30 Glomerular Filtration Rate 56.8 Normal >32 1 0 Sodium Level 144 mEq/L Normal 136-145 Potassium Serum 4.7 mEq/L Normal 3.5-5.1 Chloride Level 107 mEq/L Normal 98-107 Carbon Dioxide Level 31 mEq/L Normal 21-32 Anion Gap 6 mEq/L Low 8-16 Calcium Level 9.6 mg/dL Normal 8.8-10.2 Laboratory test finding 08/23/[address] [address] [phone] Magnesium Level 1.7 mg/dL Low 1.8-2.4 NT-Pro BNP 8524 pg/mL High <450 1 Units are mL/min/1.73 m2 Chronic Kidney Disease Staging per NKF: Stage I & II GFR >=60 Normal to Mildly Decreased Stage III GFR 30-59 Moderately Decreased Stage IV GFR 15-29 Severely Decreased Stage V GFR <15 Very Little GFR Left ESRD GFR <15 on MANAGER SEARCH 2 Units are mL/min/1.73 m2 Chronic Kidney Disease Staging per NKF: Stage I & II GFR >=60 Normal to Mildly Decreased Stage III GFR 30-59 Moderately Decreased Stage IV GFR 15-29 Severely Decreased Stage V GFR <15 Very Little GFR Left ESRD GFR <15 on MANAGER SEARCH 3 M-SPIKE NOTED IN EARLY GAMMA REGION. CONCENTRATION = 0.08 GM/DL SUGGEST SERUM AND URINE IMMUNOTYPING. 4 Values above 2.7 may indicat e paraproteinemia is present. Performed at: - [address] [id number] 61 Heat Treater Head: Ananya Gautiher MD, Phone: [phone] Lab Result Notes: Pre-Diabetes 5.7 - 6.4 % Diabetes = or > 6.5% 6 100-125 mg/dL PRE-DIABET ES/FASTING >126 mg/dL DIABETES/FASTING 7 CHRONIC KIDNEY DISEASE STAGI NG PER NKF STAGE I & II GFR >= 60 NORMAL TO MILDLY DECREASED STAGE III GFR 30-59 MODERATELY DECREASED STAGE IV GFR 15-29 SEVERELY DECREASED STAGE V GFR <15 VERY LITTLE GFR LEFT ESRD GFR <15 ON MANAGER SEARCH 8 NOTE: RESULT VERIFIED. 9 Units are mL/min/1.73 m2 Chronic Kidney Disease Staging per NKF: Stage I & II GFR >=60 Normal to Mildly Decreased Stage III GFR 30-59 Moderately Decreased Stage IV GFR 15-29 Severely Decreased Stage V GFR <15 Very Little GFR Left ESRD GFR <15 on MANAGER SEARCH 10 Units are mL/min/1.73 m2 Chronic Kidney Disease Staging per NKF: Stage I & II GFR >=60 Normal to Mildly Decreased Stage III GFR 30-59 Moderately Decreased Stage IV GFR 15-29 Severely Decreased Stage V GFR <15 Very Little GFR Left ESRD GFR <15 on MANAGER SEARCH Procedures Date Code Description Status 10/09/2020 53148 Office/Outpatient Established Mo d MDM 30-39 Min Completed 01/18/2020 [id number] Diabetic Retinal Eye Exam Comple moo 01/14/2019 [id number] Diabetic Retinal Eye Exam Comple moo 01/12/2018 [id number] Diabetic Retinal Eye Exam Comple moo 04/17/2017 [id number] Diabetic Retinal Eye Exam Comple moo 10/19/2015 [id number] Diabetic Retinal Eye Exam Comple moo 07/31/2015 [id number] Mammogram Completed 09/12/2014 [id number] Diabetic Retinal Eye Exam Comple [facility] Medical Devices Description No Information Available Encounters Type Date Location Provider Dx Diagnosis Office Visit 10/09/2020 11:00a [facility] Freddy Boston M.D. 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 10/09/2020 Z95.0 Presence of cardiac pacemaker Gideon Boston M.D. 10/09/2020 I48.91 Unspecified atrial fibrillation Freddy Boston M.D. 10/09/2020 Z79.01 assisted (current) use of antic oagulants Freddy Boston M.D. 10/09/2020 E11.9 Type 2 diabetes mellitus without complications Freddy Boston M.D. 10/09/2020 E78.5 Hyperlipidemia, unspecified Lan Boston M.D. 10/09/2020 I25.10 Atherosclerotic hear t disease of [place] coronary artery without angina pectoris Freddy Boston M.D. 10/09/2020 E04.1 Nontoxic single thyroid nodule J naomy Boston M.D. 10/09/2020 G40.89 Other seizures Freddy Boston M.D. 10/09/2020 D64.9 Anemia, unspecified Freddy santana M.D. 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 10/09/2020 Z85.71 Personal history of Hodgkin lymp della Freddy Boston M.D. 10/06/2020 I48.91 Unspecified atrial fibrillation Freddy Boston M.D. 10/06/2020 I48.91 Unspecified atrial fibrillation Lab Schedule 10/06/2020 Z79.01 assisted (current) use of antic oagulants Freddy Boston M.D. 10/06/2020 Z79.01 assisted (current) use of antic oagulants Lab Schedule [...] ab Schedule Plan of Treatment Future Appointment(s):* 02/22/2021 11:00 am - Freddy Boston M.D. at [facility] * 02/22/2021 10:40 am - Nurse #2 at [facility] 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 Chronic combined systolic and diastolic heart failure: Doing well on current regimen. Patient is on Torsemide. Patient is following up with Delia at [facility] and will continue to follow up appropriately.2. Presence of cardiac pacemaker: Improved breathing with the adjustment of her pacemaker last month and can walk without exertion. Follow up as above.3. Atrial fibrillation: Rate is controlled on Eliquis, will continue and monitor.4. ad terminal makeup operator (current) use of anticoagulants: Tolerating well with no evidence of bleeding, continue current regimen. Follow up as above. We will monitor.5. Type 2 diabetes mellitus without complications: Controlled with HgbA1c is at 6.4. Continue current regimen and will watch her diet carefully.6. Hyperlipidemia: Doing well on present dose of Pravastatin, intolerant to number of statin medications. She will continue to work on diet.7. Athscl heart disease of [place] coronary artery w/o ang pctrs: Patient is asymptomatic. No red flag symptoms. Follow up as above.8. Nontoxic single thyroid nodule: No issues. We will continue to mon itor thyroid functions.9. Hypertensive heart disease with heart failure: Stable, on current regimen. She is following up with [facility] and will continue appropriate follow up. We will monitor.10. Other seizures: Doing well on Keppra without any issues. She will continue to follow up with Dr. Will at [facility] appropriately.11. Anemia: Generally stable. We will continue to monitor.12. Benign neoplasm of meninges: Stable. She will continue to follow up with Dr. Will [facility] appropriately.13. Personal history of Hodgkin lymphoma: No new concerns or issues. She will follow up with [facility] appropriately. Ongoing cares: I am going to see her again in 4 months with CMP, lipids, HgbA1c, CBC, BNP and TREY. If she has new problems or issues sooner she will let us know. Functional Status Description No Information Available Mental Status Description No Information Available Referrals Description No Information Available
--- OUTSIDE RECORDS SUMMARY | 2021-03-13 19:43 | CCD | Continuity of Care Document ---
Author Author Nurse #Heather Magallon Organization Unknown Address [address] [facility] [address] [place] [address] Phone Unavailable Care Team Providers Care Procurement Professional Logistics Name Role Phone Freddy Boston MD AUTM [phone] Smith Will MD AUTM [phone] Juliocesar Stewart MD AUTM [phone] Nia Cline MD AUTM [phone] Problems Active Problems Provider Date Trigeminal neuralgia [...] day 90tabs Freddy Boston M.D. 07/01/2017 Nystatin [id number] Suspension swish and spit 1 teaspoon 4 times daily 150ml B37.0 Dave Aguayo [facility] 09/02/2016 Levetiracetam 500mg Tablets P O bid [...] needed for chest discomfort 25tabs Dave Aguayo [facility] 09/06/2014 Vitamin D 2000Unit Capsules 1 by mouth every day Dave Aguayo [facility] 09/06/2014 Entresto 24-26mg Tablets 1 twice daily [...] Vaccine Lot # U-[id number] Refused 02/22/2021 Influenza,Unspecified [id number] Refused 03/14/2014 Influenza Virus Vaccine [id number] Refused 03/03/2013 Influenza Virus Vaccine 41266 Refused 02/05/2012 Pneumovax 23 [id number] Refused 02/05/2012 Influenza Virus Vaccine 65425 Refused 12/27/2010 Influenza Virus Vaccine 88149 Refused 05/19/2004 Adacel- Tetanus Diphtheria P ertussis [...] H/L Range Note Laboratory test finding 02/22/2021 [facility] [employer] Assembly Supervisor: [place] [address] [phone] B-Type Natiuretic Peptide <pending> A1c <pending> Basic Metabolic Profile 12/26/[address] [address] [phone] Glucose, Fasting 131 mg/dL High 70-100 Blood [...] mg/dL Normal 8.8-10.2 Laboratory test finding 12/26/[address] [address] [phone] Magnesium Level 2.3 mg/dL Normal 1.8-2.4 NT-Pro BNP 6360 pg/mL High <450 CBC With Differential 11/06/[address] [id number] [phone] White Blood Count 9.6 10 Normal 4.0-10.0 [...] 36.0-66.0 Lymph % 19.9 % Low 24.0-44.0 [place] % 9.2 % High 2.0-8.0 Eos % 2.7 % Normal 0.0-3.0 Baso % 0.7 % Normal 0.0-1.0 Immature Granulocyte % 0.3 % Normal 0-3.0 Nucleated Red Blood Cell % 0.0 % Normal 0-0 Neutrophils # 6.4 10 Normal 1.5-8.5 Lymph # 1.9 10 Normal 1.5-5.0 [place] # 0.9 10 High 0.0-0.8 Eos # 0.3 10 Normal 0.0-0.5 Baso # 0.1 10 Normal 0.0-0.2 Comprehensive Metabolic Profil 11/06/[address] 6856208 [phone] Glucose, Fasting 103 mg/dL High 70-100 Blood [...] 1.6 Normal 1.2-2.2 Laboratory test finding 11/06/2020 [facility] [address] [place], [place] [id number] [phone] LDH Lactate Dehydrogenase 239 U/L Normal 84-246 Immunoglobulin G,A,M 11/06/[address] [address] [phone] Immunoglobulin A 79.0 mg/dL Normal 70-400 Immunoglobulin G 271 mg/dL Low [phone] Immunoglobulin M 108.0 mg/dL Normal 40-230 Serum Protein Electrophoresis 11/06/[address] [address] [phone] Albumin % 65.1 % Normal 55.8-66.1 Tiqzw-7-Jjpyseoq % 5.7 % High 2.9-4.9 Anaho-1-Ghbjrclhw % 12.5 % High 7.1-11.8 Kfwa-2-Hpapdgcey % 7.4 % High 4.7-7.2 Chvf-9-Lkqcagemo % 3.9 % Normal 3.2-6.5 Gamma Globulin % 5.4 % Low 11.1-18.8 Albumin 3.84 GM/DL Normal 3.29-5.55 Hbpzq-3-Nixrsyume 0.34 GM/DL Normal 0.17-0.41 Hfoqm-3-Xmqktxpwm 0.74 GM/DL Normal 0.42-0.99 Sbux-8-Nkclhcwwv 0.44 GM/DL Normal 0.28-0.60 Btay-1-Guovxbmjm 0.23 GM/DL Normal 0.19-0.55 Gamma Globulins 0.32 GM/DL Low 0.65-1.58 Total Protein 5.9 GM/DL Low 6.4-8.2 Spep Interpretation SEE COMMENT Normal 3 Spep Pathologist Review REV'D BY Terry JUNIOR Normal Laboratory test finding 11/06/2020 [facility] [address] [place], [place] [id number] [phone] Serum Viscosity 1.6 rel.saline Normal 1.4-2.1 4 Complete Blood Count 10/06/2020 [facility] Firearms Assembly Supervisor: [place] [address] [phone] WBC 9.1 x10*3/UL 4.1 - 10.9 RBC [...] 6.8 x10*3/UL 2.0 - 7.8 A1c 10/06/2020 [facility] Firearms Assembly Supervisor: [place] [address] [phone] Hba1c 6.4 % High <5.7 6 Est Avg Glucose 137 mg/dL High 60 - 110 Comprehensive Chem Profile 10/06/2020 [facility] Firearms Assembly Supervisor: [place] [address] [phone] Glucose 140 mg/dL High 74 - 99 [...] mL/min Low >60 8 Lipid Profile 10/06/2020 [facility] Firearms Assembly Supervisor: [place] [address] [phone] Cholesterol 189 mg/dL 131 - 200 Triglycerides 88 mg/dL 30 - 150 HDL Cholesterol 67 mg/dL High 35 - 60 LDL (Calculated) 104 CALC 50 - 159 Laboratory test finding 10/06/2020 [facility] Firearms Assembly Supervisor: [place] [address] [phone] Thyroid Stimulating Hormone 1.61 uIU/mL 0.3 6 - 3.74 Basic Metabolic Profile 09/18/[address] [address] [phone] Glucose, Fasting 92 mg/dL Normal 70-100 Blood [...] mg/dL Normal 8.8-10.2 Laboratory test finding 09/18/[address] [address] [phone] Magnesium Level 2.0 mg/dL Normal 1.8-2.4 NT-Pro BNP 4551 pg/mL High <450 Complete Blood Count 09/18/2020 [facility] [address] [place] [address] [phone] White Blood Count 8.0 10 Normal 4.0-10.0 [...] Little GFR Left ESRD GFR <15 on SUPERINTENDENT POLICE 2 Units are mL/min/1.73 m2 Chronic Kidney Disease Staging per NKF: Stage I & II GFR >=60 Normal to Mildly Decreased Stage III GFR 30-59 Moderately Decreased Stage IV GFR 15-29 Severely Decreased Stage V GFR <15 Very Little GFR Left ESRD GFR <15 on SUPERINTENDENT POLICE 3 M-SPIKE NOTED IN EARLY GAMMA REGION. CONCENTRATION = 0.08 GM/DL SUGGEST SERUM AND URINE IMMUNOTYPING. 4 Values above 2.7 may indicat e paraproteinemia is present. Performed at: [address] [id number] Firearms Assembly Supervisor: Ananya Gauthier MD, Phone: [phone] NOTE: RESULT VERIFIED. 6 Lab Result [...] LITTLE GFR LEFT ESRD GFR <15 ON SUPERINTENDENT POLICE 9 Units are mL/min/1.73 m2 Chronic Kidney Disease Staging per NKF: Stage I & II GFR >=60 Normal to Mildly Decreased Stage III GFR 30-59 Moderately Decreased Stage IV GFR 15-29 Severely Decreased Stage V GFR <15 Very Little GFR Left ESRD GFR <15 on SUPERINTENDENT [employer] Procedures Date Code Description Status 10/09/2020 13293 Office/Outpatient Established Mo d MDM 30-39 Min Completed 01/18/2020 [id number] Diabetic Retinal Eye Exam Comple moo 01/14/2019 [id number] Diabetic Retinal Eye Exam Comple moo 01/12/2018 [id number] Diabetic Retinal Eye Exam Comple moo 04/17/2017 [id number] Diabetic Retinal Eye Exam Comple moo 10/19/2015 874992485 Diabetic Retinal Eye Exam Comple moo 07/31/2015 [id number] Mammogram Completed 09/12/2014 [id number] Diabetic Retinal Eye Exam Comple moo Medical Devices Description No Information Available Encounters Type Date Location Provider Dx Diagnosis Office Visit 10/09/2020 11:00a [facility] Freddy Boston M.D. I11.0 Hypertensive heart disease with heart fa ilure I50.42 Chronic combined systolic an d diastolic hrt fail Z95.0 Presence of cardiac pacemake r I48.91 Unspecified atrial fibrillat ion Z79.01 long term care phlebotomist (current) use of a nticoagulants E11.9 Type [...] atrial fibrillation Freddy Boston M.D. 02/22/2021 Z79.01 snf (current) use of antic oagulants Freddy Boston M.D. 02/22/2021 E11.9 Type 2 diabetes mellitus without complications Freddy Boston M.D. 02/22/2021 E78.5 Hyperlipidemia, unspecified Lan Boston M.D. 02/22/2021 I25.10 Atherosclerotic hear t disease of [place] coronary artery without angina pectoris Freddy Boston [...] atrial fibrillation Freddy Boston M.D. 10/09/2020 Z79.01 long term care phlebotomist (current) use of antic oagulants Freddy Boston M.D. 10/09/2020 E11.9 Type 2 diabetes mellitus without complications Freddy Boston M.D. 10/09/2020 E78.5 Hyperlipidemia, unspecified Lan Boston M.D. 10/09/2020 I25.10 Atherosclerotic hear t disease of [place] coronary artery without angina pectoris Freddy Boston [...] Unspecified atrial fibrillation Lab Schedule 10/06/2020 Z79.01 snf (current) use of antic oagulants Freddy Boston M.D. 10/06/2020 Z79.01 snf (current) use of antic oagulants Lab Schedule [...] 06/21/2021 9:10 am - Lab Schedule at [facility] * 06/27/2021 1:30 pm - Freddy Boston M.D. at [facility] 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 Weakness: She has some weakness in her lower legs and had evaluation done by Dr. Will at [facility]. I am concerned that this [...] Patient is following up with Delia at [facility] and will continue [...] along with regular follow up with Cardiology.6. snf (current) use of anticoagulants: Tolerating well current [...] on her diet.9. Athscl heart disease of [place] coronary artery w/o ang pctrs: Following up [...] is following up with Dr. Bill at [facility] and will continue appropriate follow up.Ongoing cares: I am going to see her again in 4 months with CMP, CBC, BNP, HgbA1c, lipids and TSH. If she has new problems or issues sooner she will let us know. Functional Status Description No Information Available Mental Status Description No Information Available Referrals Description No Information Available
--- OUTSIDE RECORDS SUMMARY | 2021-03-13 19:43 | CCD | Continuity of Care Document ---
Author Author Heather BOSTON M.D. Organization Unknown Address [address] [facility] [address] [place] [address] Phone [phone] Care Team Providers Care Supervisor P[employer] Name Role Phone Freddy Boston MD AUTM [phone] Smith Will MD AUTM [phone] Juliocesar Stewart MD AUTM [phone] Nia Cline MD AUTM [phone] Problems Active Problems Provider Date Trigeminal neuralgia [...] day 90tabs Freddy Boston M.D. 07/01/2017 Nystatin [id number] Suspension swish and spit 1 teaspoon 4 times daily 150ml B37.0 Dave Aguayo [facility] 09/02/2016 Levetiracetam 500mg Tablets P O [...] needed for chest discomfort 25tabs Dave Aguayo [facility] 09/06/2014 Vitamin D 2000Unit Capsules 1 by mouth every day Dave Aguayo [facility] 09/06/2014 Entresto 24-26mg Tablets 1 twice [...] Vaccine Lot # U-Flu Refused 02/22/2021 Influenza,Unspecified 35345 Refused 03/14/2014 Influenza Virus Vaccine 14292 Refused 03/03/2013 Influenza Virus Vaccine 56831 Refused 02/05/2012 Pneumovax 23 09222 Refused 02/05/2012 Influenza Virus Vaccine 61346 Refused 12/27/2010 Influenza Virus Vaccine 40940 Refused 05/19/2004 Adacel- Tetanus Diphtheria P ertussis [...] H/L Range Note Laboratory test finding 02/22/2021 [facility] Counsel[facility] [employer] Materials Scientist: [place] [address] [phone] B-Type Natiuretic Peptide <pending> A1c <pending> Basic Metabolic Profile 12/26/[address] [address] [phone] Glucose, Fasting 131 mg/dL High 70-100 Blood [...] mg/dL Normal 8.8-10.2 Laboratory test finding 12/26/[address] [address] [phone] Magnesium Level 2.3 mg/dL Normal 1.8-2.4 NT-Pro BNP 6360 pg/mL High <450 CBC With Differential 11/06/2020 [place] [address] [place] [address] [phone] White Blood Count 9.6 10 Normal 4.0-10.0 [...] 36.0-66.0 Lymph % 19.9 % Low 24.0-44.0 [place] % 9.2 % High 2.0-8.0 Eos % 2.7 % Normal 0.0-3.0 Baso % 0.7 % Normal 0.0-1.0 Immature Granulocyte % 0.3 % Normal 0-3.0 Nucleated Red Blood Cell % 0.0 % Normal 0-0 Neutrophils # 6.4 10 Normal 1.5-8.5 Lymph # 1.9 10 Normal 1.5-5.0 [place] # 0.9 10 High 0.0-0.8 Eos # 0.3 10 Normal 0.0-0.5 Baso # 0.1 10 Normal 0.0-0.2 Comprehensive Metabolic Profil 11/06/[address] [address] [phone] Glucose, Fasting 103 mg/dL High 70-100 Blood [...] 1.6 Normal 1.2-2.2 Laboratory test finding 11/06/2020 [place] 4409537 [phone] LDH Lactate Dehydrogenase 239 U/L Normal 84-246 Immunoglobulin G,A,M 11/06/[address] [address] [phone] Immunoglobulin A 79.0 mg/dL Normal 70-400 Immunoglobulin G 271 mg/dL Low 681-1648 Immunoglobulin M 108.0 mg/dL Normal 40-230 Serum Protein Electrophoresis 11/06/[address] [address] [phone] Albumin % 65.1 % Normal 55.8-66.1 Szxye-7-Uqethopf % 5.7 % High 2.9-4.9 Kozyk-1-Gukqfydjw % 12.5 % High 7.1-11.8 Lztt-9-Byucbhzlh % 7.4 % High 4.7-7.2 Tawu-8-Tpnawzobn % 3.9 % Normal 3.2-6.5 Gamma Globulin % 5.4 % Low 11.1-18.8 Albumin 3.84 GM/DL Normal 3.29-5.55 Spvds-5-Nerelczqa 0.34 GM/DL Normal 0.17-0.41 Bwxmc-2-Pkjvneivo 0.74 GM/DL Normal 0.42-0.99 Cdna-9-Oncdaevuj 0.44 GM/DL Normal 0.28-0.60 Atlp-5-Whqbjwoqn 0.23 GM/DL Normal 0.19-0.55 Gamma Globulins 0.32 GM/DL Low 0.65-1.58 Total Protein 5.9 GM/DL Low 6.4-8.2 Spep Interpretation SEE COMMENT Normal 3 Spep Pathologist Review REV'D BY S SANDI Normal Laboratory test finding 11/06/2020 [facility] [address] [place] [address] [phone] Serum Viscosity 1.6 rel.saline Normal 1.4-2.1 4 Complete Blood Count 10/06/2020 [facility] [employer]ia Materials Scientist: [place] [address] [phone] WBC 9.1 x10*3/UL 4.1 - 10.9 RBC [...] 6.8 x10*3/UL 2.0 - 7.8 A1c 10/06/2020 [facility] [employer] Materials Scientist: [place] [address] [phone] Hba1c 6.4 % High <5.7 6 Est Avg Glucose 137 mg/dL High 60 - 110 Comprehensive Chem Profile 10/06/2020 [facility] Materials Scientist: [place] [address] [phone] Glucose 140 mg/dL High 74 - 99 [...] mL/min Low >60 8 Lipid Profile 10/06/2020 [facility] Materials Scientist: Dr Jeff [place] [place] [id number] [phone] Cholesterol 189 mg/dL 131 - 200 Triglycerides 88 mg/dL 30 - 150 HDL Cholesterol 67 mg/dL High 35 - 60 LDL (Calculated) 104 CALC 50 - 159 Laboratory test finding 10/06/2020 [facility] Materials Scientist: Dr Jeff Hall [place] [id number] [phone] Thyroid Stimulating Hormone 1.61 uIU/mL 0.3 6 - 3.74 Basic Metabolic Profile 09/18/2020 [place] 4409564 [phone] Glucose, Fasting 92 mg/dL Normal 70-100 Blood [...] mg/dL Normal 8.8-10.2 Laboratory test finding 09/18/[address] [address] [phone] Magnesium Level 2.0 mg/dL Normal 1.8-2.4 NT-Pro BNP 4551 pg/mL High <450 Complete Blood Count 09/18/2020 [facility] enter [address] [place] [address] [phone] White Blood Count 8.0 10 Normal 4.0-10.0 [...] Little GFR Left ESRD GFR <15 on MECHANICAL MAINTENANCE WORKER 2 Units are mL/min/1.73 m2 Chronic Kidney Disease Staging per NKF: Stage I & II GFR >=60 Normal to Mildly Decreased Stage III GFR 30-59 Moderately Decreased Stage IV GFR 15-29 Severely Decreased Stage V GFR <15 Very Little GFR Left ESRD GFR <15 on MECHANICAL MAINTENANCE WORKER 3 M-SPIKE NOTED IN EARLY GAMMA REGION. CONCENTRATION = 0.08 GM/DL SUGGEST SERUM AND URINE IMMUNOTYPING. 4 Values above 2.7 may indicat e paraproteinemia is present. Performed at: - [address] [id number] Materials Scientist: Ananya Gauthier MD, Phone: [phone] NOTE: RESULT VERIFIED. 6 Lab Result [...] LITTLE GFR LEFT ESRD GFR <15 ON MECHANICAL MAINTENANCE WORKER 9 Units are mL/min/1.73 m2 Chronic Kidney Disease Staging per NKF: Stage I & II GFR >=60 Normal to Mildly Decreased Stage III GFR 30-59 Moderately Decreased Stage IV GFR 15-29 Severely Decreased Stage V GFR <15 Very Little GFR Left ESRD GFR <15 on MECHANICAL MAINTENANCE WORKER Procedures Date Code Description Status 10/09/2020 78920 Office/Outpatient Established Mo d MDM 30-39 Min Completed 01/18/2020 [id number] Diabetic Retinal Eye Exam Comple moo 01/14/2019 734666516 Diabetic Retinal Eye Exam Comple moo 01/12/2018 321630555 Diabetic Retinal Eye Exam Comple moo 04/17/2017 625776575 Diabetic Retinal Eye Exam Comple moo 10/19/2015 988640052 Diabetic Retinal Eye Exam Comple moo 07/31/2015 [id number] Mammogram Completed 09/12/2014 [id number] Diabetic Retinal Eye Exam Comple [facility] Medical Devices Description No Information Available Encounters Type Date Location Provider Dx Diagnosis Office Visit 10/09/2020 11:00a [facility] Freddy Boston M.D. 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 02/22/2021 Z79.01 detention (current) use of antic oagulants Freddy Boston M.D. 02/22/2021 E11.9 Type 2 diabetes mellitus without complications Freddy Boston M.D. 02/22/2021 E78.5 Hyperlipidemia, unspecified Lan Boston M.D. 02/22/2021 I25.10 Atherosclerotic hear t disease of [place] coronary artery without angina pectoris Freddy Boston [...] atrial fibrillation Freddy Boston M.D. 10/09/2020 Z79.01 detention (current) use of antic oagulants Freddy Boston M.D. 10/09/2020 E11.9 Type 2 diabetes mellitus without complications Freddy Boston M.D. 10/09/2020 E78.5 Hyperlipidemia, unspecified Lan Boston M.D. 10/09/2020 I25.10 Atherosclerotic hear t disease of [place] coronary artery without angina pectoris Freddy Boston [...] Unspecified atrial fibrillation Lab Schedule 10/06/2020 Z79.01 bed bug exterminator (current) use of antic oagulants Freddy Boston M.D. 10/06/2020 Z79.01 bed bug exterminator (current) use of antic oagulants Lab Schedule [...] 06/21/2021 9:10 am - Lab Schedule at [facility] * 06/27/2021 1:30 pm - Freddy Boston M.D. at [facility] 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 Weakness: She has some weakness in her lower legs and had evaluation done by Dr. Will at [facility]. I am concerned that this [...] Patient is following up with Delia at [facility] and will continue to follow up [...] is following up with Delia at [facility]. She appears to be doing generally well [...] along with regular follow up with Cardiology.6. detention (current) use of anticoagulants: Tolerating well current [...] on her diet.9. Athscl heart disease of [place] coronary artery w/o ang pctrs: Following up [...] is following up with Dr. Bill at [facility] and will continue appropriate follow up.Ongoing cares: I am going to see her again in 4 months with CMP, CBC, BNP, HgbA1c, lipids and TSH. If she has new problems or issues sooner she will let us know. Functional Status Description No Information Available Mental Status Description No Information Available Referrals Description No Information Available
--- OUTSIDE RECORDS SUMMARY | 2021-03-13 19:43 | CCD | Continuity of Care Document ---
Author Author Heather BOSTON M.D. Organization Unknown Address [address] [facility] [address] [place] [address] Phone [phone] Care Team Providers Care Financial Specialist Name Role Phone Freddy Boston MD AUTM [phone] Smith Will MD AUTM [phone] Juliocesar Stewart MD AUTM [phone] Nia Cline MD AUTM [phone] Problems Active Problems Provider Date Trigeminal neuralgia [...] day 90tabs Freddy Boston M.D. 07/01/2017 Nystatin [id number] Suspension swish and spit 1 teaspoon 4 times daily 150ml B37.0 Dave Aguayo [facility] 09/02/2016 Levetiracetam 500mg Tablets P O [...] needed for chest discomfort 25tabs Dave Aguayo [facility] 09/06/2014 Vitamin D 2000Unit Capsules 1 by mouth every day Dave Aguayo [facility] 09/06/2014 Entresto 24-26mg Tablets 1 twice [...] Vaccine Lot # U-Flu Refused 02/22/2021 Influenza,Unspecified [id number] Refused 03/14/2014 Influenza Virus Vaccine 28149 Refused 03/03/2013 Influenza Virus Vaccine 10321 Refused 02/05/2012 Pneumovax 23 [id number] Refused 02/05/2012 Influenza Virus Vaccine 28187 Refused 12/27/2010 Influenza Virus Vaccine 88717 Refused 05/19/2004 Adacel- Tetanus Diphtheria P ertussis [...] H/L Range Note Laboratory test finding 02/22/2021 [place] Materials Planner unique tinoco Grinder Set Up Operator External: [place] [address] [phone] B-Type Natiuretic Peptide <pending> A1c <pending> Basic Metabolic Profile 12/26/[address] [address] [phone] Glucose, Fasting 131 mg/dL High 70-100 Blood [...] mg/dL Normal 8.8-10.2 Laboratory test finding 12/26/[address] [address] [phone] Magnesium Level 2.3 mg/dL Normal 1.8-2.4 NT-Pro BNP 6360 pg/mL High <450 CBC With Differential 11/06/2020 [place] [address] [place] [address] [phone] White Blood Count 9.6 10 Normal 4.0-10.0 [...] 36.0-66.0 Lymph % 19.9 % Low 24.0-44.0 Barron % 9.2 % High 2.0-8.0 Eos % 2.7 % Normal 0.0-3.0 Baso % 0.7 % Normal 0.0-1.0 Immature Granulocyte % 0.3 % Normal 0-3.0 Nucleated Red Blood Cell % 0.0 % Normal 0-0 Neutrophils # 6.4 10 Normal 1.5-8.5 Lymph # 1.9 10 Normal 1.5-5.0 Barron # 0.9 10 High 0.0-0.8 Eos # 0.3 10 Normal 0.0-0.5 Baso # 0.1 10 Normal 0.0-0.2 Comprehensive Metabolic Profil 11/06/[address] [address] [phone] Glucose, Fasting 103 mg/dL High 70-100 Blood [...] 1.6 Normal 1.2-2.2 Laboratory test finding 11/06/2020 [place] [id number] [phone] LDH Lactate Dehydrogenase 239 U/L Normal 84-246 Immunoglobulin G,A,M 11/06/[address] [address] [phone] Immunoglobulin A 79.0 mg/dL Normal 70-400 Immunoglobulin G 271 mg/dL Low 681-1648 Immunoglobulin M 108.0 mg/dL Normal 40-230 Serum Protein Electrophoresis 11/06/[address] [address] [phone] Albumin % 65.1 % Normal 55.8-66.1 Oxain-0-Wwzemdkk % 5.7 % High 2.9-4.9 Pakmb-7-Tkuaeuvik % 12.5 % High 7.1-11.8 Xwya-2-Ktaafpmdw % 7.4 % High 4.7-7.2 Fpek-3-Narhawhnp % 3.9 % Normal 3.2-6.5 Gamma Globulin % 5.4 % Low 11.1-18.8 Albumin 3.84 GM/DL Normal 3.29-5.55 Fkted-4-Zfvspstij 0.34 GM/DL Normal 0.17-0.41 Hrbew-3-Lxrnbhahj 0.74 GM/DL Normal 0.42-0.99 Tcsj-6-Senuoduuk 0.44 GM/DL Normal 0.28-0.60 Wxdq-0-Ubskdbkin 0.23 GM/DL Normal 0.19-0.55 Gamma Globulins 0.32 GM/DL Low 0.65-1.58 Total Protein 5.9 GM/DL Low 6.4-8.2 Spep Interpretation SEE COMMENT Normal 3 Spep Pathologist Review REV'D BY S SANDI Normal Laboratory test finding 11/06/2020 [facility] [address] [place] [address] [phone] Serum Viscosity 1.6 rel.saline Normal 1.4-2.1 4 Complete Blood Count 10/06/2020 [place] Clinical Therapist unique mejia Grinder Set Up Operator External: [place] [address] [phone] WBC 9.1 x10*3/UL 4.1 - 10.9 RBC [...] 6.8 x10*3/UL 2.0 - 7.8 A1c 10/06/2020 [place] unique Truong Grinder Set Up Operator External: [place] [address] [phone] Hba1c 6.4 % High <5.7 6 Est Avg Glucose 137 mg/dL High 60 - 110 Comprehensive Chem Profile 10/06/2020 [place] Int unique adams Grinder Set Up Operator External: [place] [address] [phone] Glucose 140 mg/dL High 74 - 99 [...] mL/min Low >60 8 Lipid Profile 10/06/2020 [facility] Grinder Set Up Operator External: Dr Jeff Luislogg [place] [id number] [phone] Cholesterol 189 mg/dL 131 - 200 Triglycerides 88 mg/dL 30 - 150 HDL Cholesterol 67 mg/dL High 35 - 60 LDL (Calculated) 104 CALC 50 - 159 Laboratory test finding 10/06/2020 [place] [facility] Grinder Set Up Operator External: Dr Jeff Hall [place] [id number] [phone] Thyroid Stimulating Hormone 1.61 uIU/mL 0.3 6 - 3.74 Basic Metabolic Profile 09/18/2020 [place] [address] [phone] Glucose, Fasting 92 mg/dL Normal 70-100 Blood [...] mg/dL Normal 8.8-10.2 Laboratory test finding 09/18/[address] [address] [phone] Magnesium Level 2.0 mg/dL Normal 1.8-2.4 NT-Pro BNP 4551 pg/mL High <450 Complete Blood Count 09/18/2020 [facility] enter [address] [place] [address] [phone] White Blood Count 8.0 10 Normal 4.0-10.0 [...] Little GFR Left ESRD GFR <15 on BARIATRIC SURGEON 2 Units are mL/min/1.73 m2 Chronic Kidney Disease Staging per NKF: Stage I & II GFR >=60 Normal to Mildly Decreased Stage III GFR 30-59 Moderately Decreased Stage IV GFR 15-29 Severely Decreased Stage V GFR <15 Very Little GFR Left ESRD GFR <15 on BARIATRIC SURGEON 3 M-SPIKE NOTED IN EARLY GAMMA REGION. CONCENTRATION = 0.08 GM/DL SUGGEST SERUM AND URINE IMMUNOTYPING. 4 Values above 2.7 may indicat e paraproteinemia is present. Performed at: - Lab[address] [id number] 61 Grinder Set Up Operator External: Ananya Gauthier MD, Phone: [phone] 5 NOTE: RESULT VERIFIED. 6 Lab Result [...] LITTLE GFR LEFT ESRD GFR <15 ON BARIATRIC SURGEON 9 Units are mL/min/1.73 m2 Chronic Kidney Disease Staging per NKF: Stage I & II GFR >=60 Normal to Mildly Decreased Stage III GFR 30-59 Moderately Decreased Stage IV GFR 15-29 Severely Decreased Stage V GFR <15 Very Little GFR Left ESRD GFR <15 on BARIATRIC SURGEON Procedures Date Code Description Status 10/09/2020 [address]9547 Office/Outpatient Established Mo d MDM 30-39 Min Completed 01/18/2020 [id number] Diabetic Retinal Eye Exam Comple moo 01/14/2019 [id number] Diabetic Retinal Eye Exam Comple moo 01/12/2018 [id number] Diabetic Retinal Eye Exam Comple moo 04/17/2017 [id number] Diabetic Retinal Eye Exam Comple moo 10/19/2015 [id number] Diabetic Retinal Eye Exam Comple moo 07/31/2015 [id number] Mammogram Completed 09/12/2014 [id number] Diabetic Retinal Eye Exam Comple [facility] Medical Devices Description No Information Available Encounters Type Date Location Provider Dx Diagnosis Office Visit 10/09/2020 11:00a [facility] Freddy Boston M.D. 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 02/22/2021 Z79.01 [facility] (current) use of antic oagulants Freddy Boston M.D. 02/22/2021 E11.9 Type 2 diabetes mellitus without complications Freddy Boston M.D. 02/22/2021 E78.5 Hyperlipidemia, unspecified Lan Boston M.D. 02/22/2021 I25.10 Atherosclerotic hear t disease of [place] coronary artery without angina pectoris Freddy Boston [...] atrial fibrillation Freddy Boston M.D. 10/09/2020 Z79.01 [facility] (current) use of antic oagulants Freddy Boston M.D. 10/09/2020 E11.9 Type 2 diabetes mellitus without complications Freddy Boston M.D. 10/09/2020 E78.5 Hyperlipidemia, unspecified Lan Boston M.D. 10/09/2020 I25.10 Atherosclerotic hear t disease of [place] coronary artery without angina pectoris Freddy Boston [...] atrial fibrillation Lab Schedule 10/06/2020 Z79.01 terminal supervisor (current) use of antic oagulants Freddy Boston M.D. 10/06/2020 Z79.01 terminal supervisor (current) use of antic oagulants Lab Schedule [...] 06/21/2021 9:10 am - Lab Schedule at [facility] * 06/27/2021 1:30 pm - Freddy Boston M.D. at [facility] 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 Weakness: She has some weakness in her lower legs and had evaluation done by Dr. Will at [facility]. I am concerned that this [...] is following up with Delia at [facility] and will continue to follow up [...] is following up with Delia at Cardiology [facility]. She appears to be doing generally well [...] along with regular follow up with Cardiology.6. [facility] (current) use of anticoagulants: Tolerating well current [...] on her diet.9. Athscl heart disease of [place] coronary artery w/o ang pctrs: Following up [...] is following up with Dr. Bill at [facility] and will continue appropriate follow [...]
--- OUTSIDE RECORDS SUMMARY | 2021-03-13 19:43 | CCD | Continuity of Care Document ---
Author Author Heather BOSTON M.D. Organization Unknown Address [address] [facility] [address] [place] [address] Phone [phone] Care Team Providers Care Fiberglass Boat Assembly Supervisor Name Role Phone Freddy Boston MD AUTM [phone] Smith Will MD AUTM [phone] Juliocesar Stewart MD AUTM [phone] Nia Cline MD AUTM [phone] Problems Active Problems Provider Date Trigeminal neuralgia [...] day 90tabs Freddy Boston M.D. 07/01/2017 Nystatin [id number] Suspension swish and spit 1 teaspoon 4 times daily 150ml B37.0 Dave Aguayo [facility] 09/02/2016 Levetiracetam 500mg Tablets P O bid [...] needed for chest discomfort 25tabs Dave Aguayo [facility] 09/06/2014 Vitamin D 2000Unit Capsules 1 by mouth every day Dave Aguayo [facility] 09/06/2014 Entresto 24-26mg Tablets 1 twice daily [...] Vaccine Lot # U-Flu Refused 02/22/2021 Influenza,Unspecified 47863 Refused 03/14/2014 Influenza Virus Vaccine 09450 Refused 03/03/2013 Influenza Virus Vaccine 11590 Refused 02/05/2012 Pneumovax 23 70071 Refused 02/05/2012 Influenza Virus Vaccine 46698 Refused 12/27/2010 Influenza Virus Vaccine 41819 Refused 05/19/2004 Adacel- Tetanus Diphtheria P ertussis [...] H/L Range Note Laboratory test finding 02/22/2021 [facility] [employer] Professor unique tincoo Grain Drier: [place] [address] [phone] B-Type Natiuretic Peptide <pending> A1c <pending> Basic Metabolic Profile 12/26/[address] [address] [phone] Glucose, Fasting 131 mg/dL High 70-100 Blood [...] mg/dL Normal 8.8-10.2 Laboratory test finding 12/26/[address] [address] [phone] Magnesium Level 2.3 mg/dL Normal 1.8-2.4 NT-Pro BNP 6360 pg/mL High <450 CBC With Differential 11/06/2020 [place] [address] [place] [address] [phone] White Blood Count 9.6 10 Normal 4.0-10.0 [...] 36.0-66.0 Lymph % 19.9 % Low 24.0-44.0 Bond % 9.2 % High 2.0-8.0 Eos % 2.7 % Normal 0.0-3.0 Baso % 0.7 % Normal 0.0-1.0 Immature Granulocyte % 0.3 % Normal 0-3.0 Nucleated Red Blood Cell % 0.0 % Normal 0-0 Neutrophils # 6.4 10 Normal 1.5-8.5 Lymph # 1.9 10 Normal 1.5-5.0 Bond # 0.9 10 High 0.0-0.8 Eos # 0.3 10 Normal 0.0-0.5 Baso # 0.1 10 Normal 0.0-0.2 Comprehensive Metabolic Profil 11/06/[address] [address] [phone] Glucose, Fasting 103 mg/dL High 70-100 Blood [...] 1.6 Normal 1.2-2.2 Laboratory test finding 11/06/2020 [place] [address]42 [phone] LDH Lactate Dehydrogenase 239 U/L Normal 84-246 Immunoglobulin G,A,M 11/06/[address] [address] [phone] Immunoglobulin A 79.0 mg/dL Normal 70-400 Immunoglobulin G 271 mg/dL Low 681-1648 Immunoglobulin M 108.0 mg/dL Normal 40-230 Serum Protein Electrophoresis 11/06/[address] [address] [phone] Albumin % 65.1 % Normal 55.8-66.1 Lintd-2-Ndfhxbjy % 5.7 % High 2.9-4.9 Nkdxp-9-Spxqiksjg % 12.5 % High 7.1-11.8 Aezt-8-Oqxrhlejh % 7.4 % High 4.7-7.2 Ewqj-3-Sqpxhjmtl % 3.9 % Normal 3.2-6.5 Gamma Globulin % 5.4 % Low 11.1-18.8 Albumin 3.84 GM/DL Normal 3.29-5.55 Oyqwj-6-Jwhyzmwpu 0.34 GM/DL Normal 0.17-0.41 Gpggc-5-Wlxzjgxii 0.74 GM/DL Normal 0.42-0.99 Jbrc-1-Dlasbwtqu 0.44 GM/DL Normal 0.28-0.60 Wnuv-1-Pprnxxuuk 0.23 GM/DL Normal 0.19-0.55 Gamma Globulins 0.32 GM/DL Low 0.65-1.58 Total Protein 5.9 GM/DL Low 6.4-8.2 Spep Interpretation SEE COMMENT Normal 3 Spep Pathologist Review REV'D BY S SANDI Normal Laboratory test finding 11/06/2020 [facility] [address] [place] [address] [phone] Serum Viscosity 1.6 rel.saline Normal 1.4-2.1 4 Complete Blood Count 10/06/2020 [facility] [employer] Repairer unique mejia Grain Drier: [place] [address] [phone] WBC 9.1 x10*3/UL 4.1 - 10.9 RBC [...] 6.8 x10*3/UL 2.0 - 7.8 A1c 10/06/2020 [facility] unique Truong Grain Drier: [place] [address] [phone] Hba1c 6.4 % High <5.7 6 Est Avg Glucose 137 mg/dL High 60 - 110 Comprehensive Chem Profile 10/06/2020 [facility] unique adams Grain Drier: [place] [address] [phone] Glucose 140 mg/dL High 74 - 99 [...] mL/min Low >60 8 Lipid Profile 10/06/2020 [facility] Grain Drier: Dr Jeff Luislogg [place] [id number] [phone] Cholesterol 189 mg/dL 131 - 200 Triglycerides 88 mg/dL 30 - 150 HDL Cholesterol 67 mg/dL High 35 - 60 LDL (Calculated) 104 CALC 50 - 159 Laboratory test finding 10/06/2020 [facility] [employer] [facility] Grain Drier: Dr Jeff Hall [place] [id number] [phone] Thyroid Stimulating Hormone 1.61 uIU/mL 0.3 6 - 3.74 Basic Metabolic Profile 09/18/2020 [place] [address]87 [phone] Glucose, Fasting 92 mg/dL Normal 70-100 Blood [...] mg/dL Normal 8.8-10.2 Laboratory test finding 09/18/[address] [address] [phone] Magnesium Level 2.0 mg/dL Normal 1.8-2.4 NT-Pro BNP 4551 pg/mL High <450 Complete Blood Count 09/18/2020 [facility] enter [address] [place] [address] [phone] White Blood Count 8.0 10 Normal 4.0-10.0 [...] Little GFR Left ESRD GFR <15 on TEMPERATURE REGULATOR 2 Units are mL/min/1.73 m2 Chronic Kidney Disease Staging per NKF: Stage I & II GFR >=60 Normal to Mildly Decreased Stage III GFR 30-59 Moderately Decreased Stage IV GFR 15-29 Severely Decreased Stage V GFR <15 Very Little GFR Left ESRD GFR <15 on TEMPERATURE REGULATOR 3 M-SPIKE NOTED IN EARLY GAMMA REGION. CONCENTRATION = 0.08 GM/DL SUGGEST SERUM AND URINE IMMUNOTYPING. 4 Values above 2.7 may indicat e paraproteinemia is present. Performed at: - [address] [id number] 61 Grain Drier: Ananya Gauthier MD, Phone: [phone] 5 NOTE: RESULT VERIFIED. 6 Lab Result [...] LITTLE GFR LEFT ESRD GFR <15 ON TEMPERATURE REGULATOR 9 Units are mL/min/1.73 m2 Chronic Kidney Disease Staging per NKF: Stage I & II GFR >=60 Normal to Mildly Decreased Stage III GFR 30-59 Moderately Decreased Stage IV GFR 15-29 Severely Decreased Stage V GFR <15 Very Little GFR Left ESRD GFR <15 on TEMPERATURE REGULATOR Procedures Date Code Description Status 10/09/2020 69921 Office/Outpatient Established Mo d MDM 30-39 Min Completed 01/18/2020 [id number] Diabetic Retinal Eye Exam Comple moo 01/14/2019 [id number] Diabetic Retinal Eye Exam Comple moo 01/12/2018 109114859 Diabetic Retinal Eye Exam Comple moo 04/17/2017 065436588 Diabetic Retinal Eye Exam Comple moo 10/19/2015 [id number] Diabetic Retinal Eye Exam Comple moo 07/31/2015 [id number] Mammogram Completed 09/12/2014 696763123 Diabetic Retinal Eye Exam Comple [facility] Medical Devices Description No Information Available Encounters Type Date Location Provider Dx Diagnosis Office Visit 10/09/2020 11:00a [facility] Freddy Boston M.D. 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 02/22/2021 Z79.01 penitentiary (current) use of antic oagulants Freddy Boston M.D. 02/22/2021 E11.9 Type 2 diabetes mellitus without complications Freddy Boston M.D. 02/22/2021 E78.5 Hyperlipidemia, unspecified Lan Boston M.D. 02/22/2021 I25.10 Atherosclerotic hear t disease of [place] coronary artery without angina pectoris Freddy Boston [...] atrial fibrillation Freddy Boston M.D. 10/09/2020 Z79.01 penitentiary (current) use of antic oagulants Freddy Boston M.D. 10/09/2020 E11.9 Type 2 diabetes mellitus without complications Freddy Boston M.D. 10/09/2020 E78.5 Hyperlipidemia, unspecified Lan Boston M.D. 10/09/2020 I25.10 Atherosclerotic hear t disease of [place] coronary artery without angina pectoris Freddy Boston M.D. 10/09/2020 E04.1 Nontoxic single thyroid nodule Missael Boston M.D. 10/09/2020 G40.89 Other seizures Freddy Boston M.D. 10/09/2020 D64.9 Anemia, unspecified Freddy santnaa M.D. 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 10/09/2020 Z85.71 Personal history of Hodgkin lymp della Freddy Boston M.D. 10/06/2020 I48.91 Unspecified atrial fibrillation Freddy Boston M.D. 10/06/2020 I48.91 Unspecified atrial fibrillation Lab Schedule 10/06/2020 Z79.01 assistant terminal manager (current) use of antic oagulants Fredyd Boston M.D. 10/06/2020 Z79.01 assistant terminal manager (current) use of antic oagulants [...] 06/21/2021 9:10 am - Lab Schedule at [facility] * 06/27/2021 1:30 pm - Freddy Boston M.D. at [facility] 02/22/2021 - Freddy Boston M.D.* R53.1 Weakness * I50.42 Chronic combined systolic and diastolic hrt fail * I11.0 Hypertensive heart disease with heart failure * Z95.0 Presence of cardiac pacemaker * I48.91 Unspecified atrial fibrillation * Z79.01 assistant terminal manager (current) use of anticoagulants * E11.9 Type 2 diabetes mellitus without complications * E78.5 Hyperlipidemia, unspecified * I25.10 Athscl heart disease of [place] coronary artery w/o ang pctrs * D32.9 [...] Patient is following up with Delia at [facility] and will continue to follow [...] is following up with Delia at Cardiology [facility]. She appears to be doing [...] along with regular follow up with Cardiology.6. penitentiary (current) use of anticoagulants: Tolerating well current [...] on her diet.9. Athscl heart disease of [place] coronary artery w/o ang pctrs: Following up [...] is following up with Dr. Bill at [facility] and will continue appropriate follow [...]
--- OUTSIDE RECORDS SUMMARY | 2021-03-13 19:44 | CCD | Continuity of Care Document ---
Author Author Heather WILL M.D. Organization Unknown Address [address] [place] [address] Phone [phone] Care Team Providers Care Primary Therapist Name Role Phone Freddy Boston M.D. AUTM [phone] Problems Active Problems Provider Date Paresthesia Smith Will M.D. Onset: 09/28/2014 Cervical radiculopathy Smith Will M.D. 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 Onset: 04/05/2015 Neck pain Smith Will M.D. Onset: 01/07/2018 Complex partial epileptic seizure Smith Will M.D. Onset: 01/03/2017 Social History Type Date Description Comments Sex Unknown ETOH Use Denies alcohol use Tobacco Use Start: Unknown Patient has never smoked Recreational Drug Use Never Used Drugs Allergies, Adverse Reactions, Alerts Description No Known Drug Allergies Medications Active Medications SIG Qnty Indications Ordering Provide r Date Levetiracetam 500mg Tablets Take One Tablet By Mouth Twice A Day 60tabs Smiht Will M.D. Diazepam 2mg Tablets 1 tab by mouth half an hour before mri. may repeat once if needed. 2tabs Porter Will M.D. 09/28/2014 Immunizations Description No Information Available Vital Signs Date Vital Result Comment 01/03/2015 12:06pm BP Systolic 135 mmHg BP Diastolic 80 mmHg Heart Rate 70 /min Respiratory Rate 16 /min Height 64 inches 5'4" Weight 160.00 lb BMI (Body Mass Index) 27.5 kg/m2 [place] Body Weight 120 lb 11/03/2014 12:10pm BP Systolic 145 mmHg BP Diastolic 80 mmHg Heart Rate 74 /min Respiratory Rate 16 /min Height 64 inches 5'4" Weight 160.00 lb BMI (Body Mass Index) 27.5 kg/m2 [place] Body Weight 120 lb Results Description No Information Available Procedures Description No Information Available Medical Devices Description No Information Available Encounters Description No Information Available Assessments Description No Information Available Plan of Treatment No Information Available Functional Status Description No Information Available Mental Status Description No Information Available Referrals Description No Information Available
--- OUTSIDE RECORDS SUMMARY | 2021-03-13 19:44 | CCD | Continuity of Care Document ---
Author Author Heather PETERSON-C Organization Unknown Address [address], [place] [address] Phone [phone] Care Team Providers Care Sales Solutions Representative Name Role Phone Freddy Boston MD AUTM [phone] Smith Will MD AUTM [phone] Problems Active Problems Provider Date Coronary arteriosclerosis Juliocesar Humphrey MD Onset: 2011 Old myocardial infarction Juliocesar Humphrey MD Onset: 2011 Benign essential hypertension Juliocesar Humphrey MD Onset: Electrocardiogram abnormal Juliocesar Humphrey MD Onset: 08/27 Mitral valve disorder ZA Mccoy-C Onset: 11/12/2012 Pure hypercholesterolemia ZA Mccoy-C Onset: 2012 Essential hypertension Delia Peterson PA-C Onset: 5 Mitral leaflet abnormality ZA Mccoy-C Onset: 05/17 Sinus node dysfunction OTTONIEL Stephens-C Onset: 10/24/19 17 Cardiac pacemaker in situ ZA Mccoy-C Onset: 2016 Dietary management surveillance ZA Mccoy-C Onset: 11/04/2016 Aortic valve disorder ZA Mccoy-C Onset: 06/07/2019 Persistent atrial fibrillation Delia Peterson PA-C Onset: 0 09/26/2020 Chronic combined systolic and diastolic heart failure Delia Peterson PA-C Onset: 09/26/2020 Social History Type Date Description Comments Sex Unknown Tobacco Use Start: Unknown End: Unknown Former Cigarette Smo ker 1ppd for 35 years, quit 1997 ETOH Use Rarely consumes alcohol Tobacco Use Start: Unknown End: Unknown Patient is a former smoker up to 1ppd from age 26, quit 1997 Smoking Status Reviewed: 09/26/20 Patient is a former smoker up to 1ppd from age 26, quit 1997 Exercise Type/Frequency Does gardening 3 times a week in season Exercise Type/Frequency Does housework daily Exercise Limitations Fatigue in legs whe n walking long distances Exercise Limitations Weakness in legs Allergies, Adverse Reactions, Alerts Description No Known [...] 1 by mouth every day 90tabs I48.0 Joaquin Alfonso MD 02/15/2020 Stool Softener 100mg Capsules 1 by mouth twice every day as needed Unknown 2019 Atenolol 50mg Tablets 1 by mouth every day 90tabs Joaquin Alfonso MD 02/07/[address] 1 by mouth every day I25.10 Joaquin Alfonso MD 02/03/2020 Eliquis 5mg Tablets 1 by mouth twice a day 180tabs I48.0 Joaquin Alfonso MD 02/03/2020 Pravastatin Sodium 20mg Tablets 1 by mouth every night at bedtime Freddy Boston MD 05/28/19 18 Levetiracetam 500mg Tablets 1 tablet bid Unknown 05/06/2017 Vitamin D 2000Unit Tablets 1 po qd Unknown 06/16/2013 Calcium 600 + D [id number] Tab lets 1 po bid Unknown 06/16/2013 Metformin HCL 1000mg Tablets 1 po bid Freddy Boston MD 02/14/2011 Multi-Vitamin Tablets 1 PO D Dorian Riojas MD 08/24/2007 Nitrostat 0.4mg Tablets Sub 1 sl every 5min x3 as needed for chest pain 25tabs I25.10 Joaquin Alfonso MD 08/25/2006 Immunizations Description No Information Available Vital Signs Date Vital Result Comment 09/26/2020 12:21pm Weight 149.00 lb Home Weight 149lb Height 64 inches 5'4" BMI (Body Mass Index) 25.6 kg/m2 Heart Rate 56 /min Irregular Respiratory Rate 16 /min BP Systolic Right Arm 136 mmHg sitting, regular c uff BP Diastolic Right Arm 64 mmHg sitting, regular cuff BP Systolic Left Arm 132 mmHg sitting BP Diastolic Left Arm 64 mmHg sitting 08/23/2020 10:53am Weight 152.00 lb Home Weight 151lb last evening Height 64 inches 5'4" BMI (Body Mass Index) 26.1 kg/m2 Heart Rate 76 /min Irregular Respiratory Rate 16 /min BP Systolic Right Arm 138 mmHg sitting, regular c uff BP Diastolic Right Arm 70 mmHg sitting, regular cuff Results Test Acquired Date Facility Test Result H/L Range Note Basic Metabolic Profile 12/26/2020 [facility] [phone] Glucose, Fasting 131 mg/dL High 70-100 Blood [...] mg/dL Normal 8.8-10.2 Laboratory test finding 12/26/2020 [facility] [phone] Magnesium Level 2.3 mg/dL Normal 1.8-2.4 NT-Pro BNP 6360 pg/mL High <450 Basic Metabolic Profile 09/18/2020 [facility] [phone] Glucose, Fasting 92 mg/dL Normal 70-100 Blood Urea Nitrogen 22 mg/dL High 7-18 Creatinine For GFR 1.06 mg/dL Normal 0.55-1.30 Glomerular Filtration Rate 52.4 Normal >32 2 Sodium Level 144 mEq/L Normal 136-145 Potassium Serum 4.0 mEq/L Normal 3.5-5.1 Chloride Level 105 mEq/L Normal 98-107 Carbon Dioxide Level 33 mEq/L High 21-32 Anion Gap 6 mEq/L Low 8-16 Calcium Level 9.9 mg/dL Normal 8.8-10.2 Laboratory test finding 09/18/2020 [facility] [phone] Magnesium Level 2.0 mg/dL Normal 1.8-2.4 NT-Pro BNP 4551 pg/mL High <450 Complete Blood Count 09/18/2020 [facility] [phone] White Blood Count 8.0 10 Normal 4.0-10.0 [...] % Normal 0-0 Basic Metabolic Profile 08/23/2020 [facility] [phone] Glucose, Fasting 106 mg/dL High 70-100 Blood Urea Nitrogen 19 mg/dL High 7-18 Creatinine For GFR 0.99 mg/dL Normal 0.55-1.30 Glomerular Filtration Rate 56.8 Normal >32 3 Sodium Level 144 mEq/L Normal 136-145 Potassium Serum 4.7 mEq/L Normal 3.5-5.1 Chloride Level 107 mEq/L Normal 98-107 Carbon Dioxide Level 31 mEq/L Normal 21-32 Anion Gap 6 mEq/L Low 8-16 Calcium Level 9.6 mg/dL Normal 8.8-10.2 Laboratory test finding 08/23/2020 [facility] [phone] Magnesium Level 1.7 mg/dL Low 1.8-2.4 NT-Pro BNP 8524 pg/mL High <450 Basic Metabolic Profile 07/26/2020 [facility] [phone] Glucose, Fasting 119 mg/dL High 70-100 Blood Urea Nitrogen 22 mg/dL High 7-18 Creatinine For GFR 1.17 mg/dL Normal 0.55-1.30 Glomerular Filtration Rate 46.8 Normal >32 4 Sodium Level 142 mEq/L Normal 136-145 Potassium Serum 3.9 mEq/L Normal 3.5-5.1 Chloride Level 102 mEq/L Normal 98-107 Carbon Dioxide Level 36 mEq/L High 21-32 Anion Gap 4 mEq/L Low 8-16 Calcium Level 9.6 mg/dL Normal 8.8-10.2 Laboratory test finding 07/26/2020 [facility] [phone] Magnesium Level 1.8 mg/dL Normal 1.8-2.4 NT-Pro BNP 5967 pg/mL High <450 1 Units are mL/min/1.73 m2 Chronic Kidney Disease Staging per NKF: Stage I & II GFR >=60 Normal to Mildly Decreased Stage III GFR 30-59 Moderately Decreased Stage IV GFR 15-29 Severely Decreased Stage V GFR <15 Very Little GFR Left ESRD GFR <15 on GLOBAL HUMAN RESOURCES DIRECTOR 2 Units are mL/min/1.73 m2 Chronic Kidney Disease Staging per NKF: Stage I & II GFR >=60 Normal to Mildly Decreased Stage III GFR 30-59 Moderately Decreased Stage IV GFR 15-29 Severely Decreased Stage V GFR <15 Very Little GFR Left ESRD GFR <15 on G[employer] HUM[employer] RESOURCES DIRECTOR 3 Units are mL/min/1.73 m2 Chronic Kidney Disease Staging per NKF: Stage I & II GFR >=60 Normal to Mildly Decreased Stage III GFR 30-59 Moderately Decreased Stage IV GFR 15-29 Severely Decreased Stage V GFR <15 Very Little GFR Left ESRD GFR <15 on G[employer] HUM[employer] RESOURCES DIRECTOR 4 Units are mL/min/1.73 m2 Chronic Kidney Disease Staging per NKF: Stage I & II GFR >=60 Normal to Mildly Decreased Stage III GFR 30-59 Moderately Decreased Stage IV GFR 15-29 Severely Decreased Stage V GFR <15 Very Little GFR Left ESRD GFR <15 on GLOBAL HUM[employer] RESOURCES DIRECTOR Procedures Date Code Description Status 09/26/2020 17287 Office/Outpatient Established Mo d MDM 30-39 Min Completed 09/26/2020 27089 Echocardiogram 2-D Doppler Color Completed 08/23/2020 52921 Office/Outpatient Established Mo d MDM 30-39 Min Completed 08/23/2020 56880 Echocardiogram 2-D Doppler Color Completed 08/23/2020 94201 ECG 12-Lead Completed 07/25/2020 61870 Office/Outpatient Established Lo w MDM 20-29 Min Completed Medical Devices Description No Information Available Encounters Type Date Location Provider Dx Diagnosis Office Visit 09/26/2020 12:30p Main Office Delia Peterson PA-C I50.4 2 Chronic combined systolic and [...] syndrome Z71.3 Dietary counseling and surve illance Office Visit 08/23/2020 11:15a Main Office Delia Peterson PA-C R06.0 2 Shortness of breath G47.00 Insomnia, unspecified Office Visit 07/25/2020 11:15a Main Office Delia Peterson PA-C I50.4 2 Chronic combined systolic and diastolic hrt fail Assessments Date Code Description Provider 09/26/2020 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 Delia Peterson PA-C 09/26/2020 I48.11 Longstanding persistent atrial f ibrillation CHARLES MccoyC 09/26/2020 I25.10 Atherosclerotic heart disease of [place] coronary artery with Delia Peterson PA-C 09/26/2020 I25.2 Old myocardial infarction CHARLES MccoyC 09/26/2020 I10 Essential (primary) hypertension CHARLES MccoyC 09/26/2020 I34.0 Nonrheumatic mitral (valve) insu fficiency CHARLES MccoyC 09/26/2020 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 CHARLES MccoyC 09/26/2020 R94.31 Abnormal electrocardiogram [ECG] [EKG] CHARLES MccoyC 09/26/2020 E78.00 Pure hypercholesterolemia, unspe cified CHARLES MccoyC 09/26/2020 I49.5 Sick sinus syndrome Delia Connors CHARLES mckeonC 09/26/2020 Z71.3 Dietary counseling and surveilla nce Delia Lizzie Peterson PA-C 08/25/2020 I49.5 Sick sinus syndrome Delia Connors mike, CHARLESC 08/23/2020 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 ECHO 08/23/2020 R06.02 Shortness of breath Delia Samuel Dory mckeon, CHARLESC 08/23/2020 G47.00 Insomnia, unspecified Delia cantrell, CHARLESC 07/25/2020 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 Delia Peterson PA-C Plan of Treatment 09/26/2020 - Delia Peterson PA-C* I50.42 Chronic combined systolic (congestive) and diastolic (congestive) heart failure* Recommendations:* Follow a low sodium diet and 1500cc/24 hour fluid restriction and do daily weights. Call the office with weight gain of 3 lbs or more. * I48.11 Longstanding persistent atrial fibrillation * I25.10 Atherosclerotic heart disease of [place] coronary artery with * I25.2 Old myocardial infarction * I10 Essential (primary) hypertension * I34.0 Nonrheumatic mitral (valve) insufficiency * 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 * R94.31 Abnormal electrocardiogram [ECG] [EKG] * E78.00 Pure hypercholesterolemia, unspecified * I49.5 Sick sinus syndrome * Z71.3 Dietary counseling and surveillance * All * Follow up:* 3 month CV/CHF check. Functional Status Functional Condition Comment Date Status Independent with all ADL's Activ e Mental Status Description No Information Available Referrals Description No Information Available
--- OUTSIDE RECORDS SUMMARY | 2021-03-13 19:44 | CCD | Continuity of Care Document ---
Author Author Heather PETERSON-C Organization Unknown Address [address], [place] [address] Phone [phone] Care Team Providers Care Python Engineer Name Role Phone Freddy Boston MD AUTM [phone] Smith Will MD AUTM [phone] Problems Active Problems Provider Date Coronary arteriosclerosis [...] by mouth every night at bedtime Freddy oBston MD 05/28/19 18 Levetiracetam 500mg Tablets 1 tablet bid Unknown 05/06/2017 Vitamin D 2000Unit Tablets 1 po qd Unknown 06/16/2013 Calcium 600 + D [id number] Tab lets 1 po bid Unknown 06/16/2013 [...] H/L Range Note Basic Metabolic Profile 12/26/2020 [facility] [phone] Glucose, Fasting 131 mg/dL High 70-100 Blood [...] mg/dL Normal 8.8-10.2 Laboratory test finding 12/26/2020 [facility] [phone] Magnesium Level 2.3 mg/dL Normal 1.8-2.4 NT-Pro BNP 6360 pg/mL High <450 Basic Metabolic Profile 09/18/2020 [facility] [phone] Glucose, Fasting 92 mg/dL Normal 70-100 Blood [...] mg/dL Normal 8.8-10.2 Laboratory test finding 09/18/2020 [facility] [phone] Magnesium Level 2.0 mg/dL Normal 1.8-2.4 NT-Pro BNP 4551 pg/mL High <450 Complete Blood Count 09/18/2020 [facility] [phone] White Blood Count 8.0 10 Normal 4.0-10.0 [...] % Normal 0-0 Basic Metabolic Profile 08/23/2020 [facility] [phone] Glucose, Fasting 106 mg/dL High 70-100 Blood [...] mg/dL Normal 8.8-10.2 Laboratory test finding 08/23/2020 [facility] [phone] Magnesium Level 1.7 mg/dL Low 1.8-2.4 NT-Pro BNP 8524 pg/mL High <450 Basic Metabolic Profile 07/26/2020 [facility] [phone] Glucose, Fasting 119 mg/dL High 70-100 Blood [...] mg/dL Normal 8.8-10.2 Laboratory test finding 07/26/2020 [facility] [phone] Magnesium Level 1.8 mg/dL Normal 1.8-2.4 NT-Pro BNP 5967 pg/mL High <450 1 Units are mL/min/1.73 m2 Chronic Kidney Disease Staging per NKF: Stage I & II GFR >=60 Normal to Mildly Decreased Stage III GFR 30-59 Moderately Decreased Stage IV GFR 15-29 Severely Decreased Stage V GFR <15 Very Little GFR Left ESRD GFR <15 on [employer]PER[employer] FINISHING 2 Units are mL/min/1.73 m2 Chronic Kidney Disease Staging per NKF: Stage I & II GFR >=60 Normal to Mildly Decreased Stage III GFR 30-59 Moderately Decreased Stage IV GFR 15-29 Severely Decreased Stage V GFR <15 Very Little GFR Left ESRD GFR <15 on [employer]PER[employer] FINISHING 3 Units are mL/min/1.73 m2 Chronic Kidney Disease Staging per NKF: Stage I & II GFR >=60 Normal to Mildly Decreased Stage III GFR 30-59 Moderately Decreased Stage IV GFR 15-29 Severely Decreased Stage V GFR <15 Very Little GFR Left ESRD GFR <15 on [employer]PER[employer] FINISHING 4 Units are mL/min/1.73 m2 Chronic Kidney Disease Staging per NKF: Stage I & II GFR >=60 Normal to Mildly Decreased Stage III GFR 30-59 Moderately Decreased Stage IV GFR 15-29 Severely Decreased Stage V GFR <15 Very Little GFR Left ESRD GFR <15 on [employer]PER[employer]ISHING Procedures Date Code Description Status 12/27/2020 61009 Office/Outpatient Established Lo w MDM 20-29 Min Completed 12/27/2020 49125 Pacer Interrogation Any Leads Co mpleted 09/26/2020 04277 Office/Outpatient Established Mo d MDM 30-39 Min Completed 09/26/2020 12964 Echocardiogram 2-D Doppler Color Completed 08/23/2020 69207 Office/Outpatient Established Mo d MDM 30-39 Min Completed 08/23/2020 15004 Echocardiogram 2-D Doppler Color Completed 08/23/2020 71683 ECG 12-Lead Completed 07/25/2020 68273 Office/Outpatient Established Lo w MDM 20-29 Min Completed Medical Devices Description No Information Available Encounters Type Date Location Provider Dx Diagnosis Office Visit 12/27/2020 9:30a Main Office Delia Peterson PA-C I50.4 2 [...] hrt fail Assessments Date Code Description Provider 12/27/2020 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 Delia Peterson PA-C 12/27/2020 I49.5 Sick sinus syndrome Delia mckeon PA-C 09/26/2020 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 Delia Peterson PA-C 09/26/2020 I48.11 Longstanding persistent atrial f ibrillation Delia Peterson PA-C 09/26/2020 I25.10 Atherosclerotic heart disease of [place] coronary artery with Delia Peterson PA-C 09/26/2020 I25.2 Old myocardial infarction Delia Peterson PA-C 09/26/2020 I10 Essential (primary) hypertension Delia Peterson, PA-C 09/26/2020 I34.0 Nonrheumatic mitral (valve) insu fficiency Delia Spencertamia, PA-C 09/26/2020 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 Delia Peterson, PA-C 09/26/2020 R94.31 Abnormal electrocardiogram [ECG] [EKG] Delia Spencertamia, PA-C 09/26/2020 E78.00 Pure hypercholesterolemia, unspe cified Delia Peterson, PA-C 09/26/2020 I49.5 Sick sinus syndrome Delia mckeon, PA-C 09/26/2020 Z71.3 Dietary counseling and surveilla nce Delia Spencertamia, PA-C 08/25/2020 I49.5 Sick sinus syndrome Delia Connors mike, PA-C 08/23/2020 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
--- OUTSIDE RECORDS SUMMARY | 2021-03-13 19:44 | CCD | Continuity of Care Document ---
Author Author Heather PETERSON-C Organization Unknown Address [address], [place] [address] Phone [phone] Care Team Providers Care Microfiche Camera Operator Name Role Phone Freddy Boston MD AUTM [phone] Smith Will MD AUTM [phone] Problems Active Problems Provider Date Coronary arteriosclerosis [...] qd Unknown 06/16/2013 Calcium 600 + D [id number] Tab lets 1 po bid Unknown 06/16/2013 Metformin HCL 1000mg Tablets 1 po bid Freddy Botson MD 02/14/2011 Multi-Vitamin Tablets 1 PO D [...] H/L Range Note Basic Metabolic Profile 12/26/2020 [facility] [phone] Glucose, Fasting 131 mg/dL High 70-100 Blood [...] mg/dL Normal 8.8-10.2 Laboratory test finding 12/26/2020 [facility] [phone] Magnesium Level 2.3 mg/dL Normal 1.8-2.4 NT-Pro BNP 6360 pg/mL High <450 Basic Metabolic Profile 09/18/2020 [facility] [phone] Glucose, Fasting 92 mg/dL Normal 70-100 Blood [...] mg/dL Normal 8.8-10.2 Laboratory test finding 09/18/2020 [facility] [phone] Magnesium Level 2.0 mg/dL Normal 1.8-2.4 NT-Pro BNP 4551 pg/mL High <450 Complete Blood Count 09/18/2020 [facility] [phone] White Blood Count 8.0 10 Normal 4.0-10.0 [...] % Normal 0-0 Basic Metabolic Profile 08/23/2020 [facility] [phone] Glucose, Fasting 106 mg/dL High 70-100 Blood [...] mg/dL Normal 8.8-10.2 Laboratory test finding 08/23/2020 [facility] [phone] Magnesium Level 1.7 mg/dL Low 1.8-2.4 NT-Pro BNP 8524 pg/mL High <450 Basic Metabolic Profile 07/26/2020 [facility] [phone] Glucose, Fasting 119 mg/dL High 70-100 Blood [...] mg/dL Normal 8.8-10.2 Laboratory test finding 07/26/2020 [facility] [phone] Magnesium Level 1.8 mg/dL Normal 1.8-2.4 NT-Pro BNP 5967 pg/mL High <450 1 Units are mL/min/1.73 m2 Chronic Kidney Disease Staging per NKF: Stage I & II GFR >=60 Normal to Mildly Decreased Stage III GFR 30-59 Moderately Decreased Stage IV GFR 15-29 Severely Decreased Stage V GFR <15 Very Little GFR Left ESRD GFR <15 on CLOTH HAULER 2 Units are mL/min/1.73 m2 Chronic Kidney Disease Staging per NKF: Stage I & II GFR >=60 Normal to Mildly Decreased Stage III GFR 30-59 Moderately Decreased Stage IV GFR 15-29 Severely Decreased Stage V GFR <15 Very Little GFR Left ESRD GFR <15 on CLOTH HAULER 3 Units are mL/min/1.73 m2 Chronic Kidney Disease Staging per NKF: Stage I & II GFR >=60 Normal to Mildly Decreased Stage III GFR 30-59 Moderately Decreased Stage IV GFR 15-29 Severely Decreased Stage V GFR <15 Very Little GFR Left ESRD GFR <15 on CLOTH HAULER 4 Units are mL/min/1.73 m2 Chronic Kidney Disease Staging per NKF: Stage I & II GFR >=60 Normal to Mildly Decreased Stage III GFR 30-59 Moderately Decreased Stage IV GFR 15-29 Severely Decreased Stage V GFR <15 Very Little GFR Left ESRD GFR <15 on CLOTH HAULER Procedures Date Code Description Status 12/27/2020 70059 Office/Outpatient Established Lo w MDM 20-29 Min Completed 12/27/2020 06974 Pacer Interrogation Any Leads Co mpleted 09/26/2020 44174 Office/Outpatient Established Mo d MDM 30-39 Min Completed 09/26/2020 45520 Echocardiogram 2-D Doppler Color Completed 08/23/2020 95902 Office/Outpatient Established Mo d MDM 30-39 Min Completed 08/23/2020 58024 Echocardiogram 2-D Doppler Color Completed 08/23/2020 21430 ECG 12-Lead Completed 07/25/2020 12080 Office/Outpatient Established Lo w MDM 20-29 Min [...] PA-C 09/26/2020 I25.10 Atherosclerotic heart disease of [place] coronary artery with Delia Peterson PA-C 09/26/2020 [...]
--- OUTSIDE RECORDS SUMMARY | 2021-03-13 19:44 | CCD | Continuity of Care Document ---
Author Author Heather WILL M.D. Organization Unknown Address [address] [place] [address] Phone [phone] Care Team Providers Care Lunchroom Worker Name Role Phone Freddy Boston M.D. AUTM [phone] Problems Active Problems Provider Date Paresthesia Smith Will M.D. Onset: 09/28/2014 Cervical radiculopathy Smith Will M.D. 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 Onset: 04/05/2015 Complex partial epileptic seizure Smith Will M.D. Onset: 01/03/2017 Neck pain Smith Will M.D. Onset: 01/07/2018 Social History Type Date Description Comments Sex Unknown ETOH Use Denies alcohol use Tobacco Use Start: Unknown Patient has never smoked Recreational Drug Use Never Used Drugs Allergies, Adverse Reactions, Alerts Description No Known Drug Allergies Medications Active Medications SIG Qnty Indications Ordering Provide r Date Levetiracetam 500mg Tablets take one tablet by mouth twice a day 60tabs Smith Will M.D. Diazepam 2mg Tablets 1 tab [...] lb BMI (Body Mass Index) 27.5 kg/m2 [place] Body Weight 120 lb 11/03/2014 12:10pm BP Systolic 145 mmHg BP Diastolic 80 mmHg Heart Rate 74 /min Respiratory Rate 16 /min Height 64 inches 5'4" Weight 160.00 lb BMI (Body Mass Index) 27.5 kg/m2 [place] Body Weight 120 lb Results Description No Information Available Procedures Date Code Description Status 12/22/2020 55328 Phone Evaluation/Management Phys ician 11-20 Mins Completed Medical Devices Description No Information Available Encounters Type Date Location Provider Dx Diagnosis Office Visit 12/22/2020 10:00a [facility] Gabriel Croft 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 12/22/2020 M43.02 Spondylolysis, cervical region M richelle Will M.D. 12/22/2020 M54.2 Cervicalgia Smith Will M.D. Plan of Treatment Future Appointment(s):* 12/14/2021 11:00 am - Smith Will M.D. at [facility] Functional Status Description No Information Available Mental Status Description No Information Available Referrals Description No Information Available
--- OUTSIDE RECORDS SUMMARY | 2021-03-13 19:45 | CCD ---
Author Author [facility] Organization [facility] Address Unknown Phone Unavailable Care Team Providers Care Director Medical Economics Name Role Phone Claudette Boston MD Unavailable Unavailable Claudette Boston MD Unavailable Unavailable Claudette Boston MD Unavailable Unavailable Claudette Boston MD Unavailable Unavailable Claudette Boston MD Unavailable Unavailable Claudette Boston MD Unavailable Unavailable Claudette Boston MD Unavailable Unavailable Claudette Boston MD Unavailable Unavailable Claudette Boston MD Unavailable Unavailable Claudette Boston MD Unavailable Unavailable Claudette Boston MD Unavailable Unavailable Claudette Boston MD Unavailable Unavailable Claudette Boston MD Unavailable Unavailable Claudette Boston MD Unavailable Unavailable Claudette Boston MD Unavailable Unavailable Claudette Boston MD Unavailable Unavailable Claudette Boston MD Unavailable Unavailable Claudette Boston MD Unavailable Unavailable Claudette Boston MD Unavailable Unavailable Claudette Boston MD Unavailable Unavailable Claudette Boston MD Unavailable Unavailable Claudette Boston MD Unavailable Unavailable Claudette Boston MD Unavailable Unavailable Claudette Boston MD Unavailable Unavailable Claudette Boston MD Unavailable Unavailable Claudette Boston MD Unavailable Unavailable White F Freddy Unavailable Unavailable White F Freddy Unavailable Unavailable White, F Freddy MD Unavailable Unavailable White F Freddy Unavailable Unavailable White F Freddy Unavailable Unavailable White F Freddy Unavailable Unavailable White F Freddy Unavailable Unavailable White F Freddy Unavailable Unavailable White F Freddy Unavailable Unavailable White F Freddy Unavailable Unavailable White F Freddy Unavailable Unavailable White F Freddy Unavailable Unavailable White F Freddy Unavailable Unavailable White F Freddy Unavailable Unavailable White F Freddy Unavailable Unavailable White, F Freddy Unavailable Unavailable White, F Freddy Unavailable Unavailable White, F Freddy Unavailable Unavailable White, F Freddy Unavailable Unavailable White F Freddy Unavailable Unavailable White F Freddy Unavailable Unavailable White F Freddy TIM Unavailable Unavailable White F Freddy Unavailable Unavailable White F Freddy TIM Unavailable Unavailable White F Freddy TIM Unavailable Unavailable White F Freddy TIM Unavailable Unavailable Ludy F Freddy TIM Unavailable Unavailable White F Freddy TIM Unavailable Unavailable White F Freddy TIM Unavailable Unavailable White F Freddy TIM Unavailable Unavailable White F Freddy TIM Unavailable Unavailable White F Freddy TIM Unavailable Unavailable White F Freddy TIM Unavailable Unavailable White F Freddy TIM Unavailable Unavailable Ludy F Freddy TIM Unavailable Unavailable Ludy F Freddy TIM Unavailable Unavailable Ludy F Freddy TIM Unavailable Unavailable White F Freddy TIM Unavailable Unavailable White F Freddy TIM Unavailable Unavailable White F Freddy TIM Unavailable Unavailable White F Freddy TIM Unavailable Unavailable Ludy F Freddy TIM Unavailable Unavailable Ludy F Freddy TIM Unavailable Unavailable Ludy F Freddy TIM Unavailable Unavailable Ludy F Freddy TIM Unavailable Unavailable White F Freddy TIM Unavailable Unavailable White F Freddy TIM Unavailable Unavailable White F Freddy TIM Unavailable Unavailable White F Freddy Unavailable Unavailable White F Freddy Unavailable Unavailable Ludy F Freddy TIM Unavailable Unavailable Symenow, Gris Delia PA Unavailable Unavailable Symenow, Gris Delia PA Unavailable Unavailable Symenow, Gris Delia PA Unavailable Unavailable Symenow, Gris Delia PA Unavailable Unavailable Symenow, Gris Delia PA Unavailable Unavailable Symenow, Gris Delia PA Unavailable Unavailable Symenow, Gris Delia PA Unavailable Unavailable Symenow, Gris Delia PA Unavailable Unavailable Symenow, Gris Delia PA Unavailable Unavailable Symenow, Gris Delia PA Unavailable Unavailable Symenow, Gris Delia PA Unavailable Unavailable Symenow, Gris Delia PA Unavailable Unavailable Symenow, Gris Delia PA Unavailable Unavailable Symenow, Gris Delia PA Unavailable Unavailable Symenow, Gris Delia PA Unavailable Unavailable Symenow, Gris Delia PA Unavailable Unavailable Symenow, Gris Delia PA Unavailable Unavailable Symenow, Gris Delia PA Unavailable Unavailable Symenow, Gris Delia PA Unavailable Unavailable Symenow, Gris Delia PA Unavailable Unavailable Symenow, Grsi Delia PA Unavailable Unavailable Symenow, Gris Delia PA Unavailable Unavailable Symenow, Gris Delia PA Unavailable Unavailable Symenow, Gris Delia PA Unavailable Unavailable Symenow, Gris Dleia PA Unavailable Unavailable Symenow, Gris Delia PA Unavailable Unavailable Symenow, Gris Delia PA Unavailable Unavailable Symenow, Gris Delia PA Unavailable Unavailable Symenow, Gris Delia PA Unavailable Unavailable Symenow, Gris Delia PA Unavailable Unavailable Symenow, Gris Delia PA Unavailable Unavailable Symenow, Gris Delia PA Unavailable Unavailable Symenow, Gris Delia PA Unavailable Unavailable Symenow, Gris Delia PA Unavailable Unavailable Smith Will MD Unavailable Unavailable Smith Will MD Unavailable Unavailable Smith Will MD Unavailable Unavailable Smith Will MD Unavailable Unavailable Smith Will MD Unavailable Unavailable Smith Will MD Unavailable Unavailable Smith Will MD Unavailable Unavailable Smith Will MD Unavailable Unavailable Smith Will MD Unavailable Unavailable Smith Will MD Unavailable Unavailable Smith Will MD Unavailable Unavailable Smith Will MD Unavailable Unavailable Smith Will MD Unavailable Unavailable Smith Will MD Unavailable Unavailable Smith Will MD Unavailable Unavailable Smith Will MD Unavailable Unavailable Smith Will MD Unavailable Unavailable Smith Will MD Unavailable Unavailable Smith Will MD Unavailable Unavailable Smith Will MD Unavailable Unavailable Smith Will MD Unavailable Unavailable Ali, Smith MD Unavailable Unavailable Ali, Smith MD Unavailable Unavailable Ali, Smith MD Unavailable Unavailable Ali, Smith MD Unavailable Unavailable Ali, Smith MD Unavailable Unavailable Ali, Smith MD Unavailable Unavailable Ali, Smith MD Unavailable Unavailable Ali, Smith MD Unavailable Unavailable Ali, Smith MD Unavailable Unavailable Ali, Smith MD Unavailable Unavailable Ali, Smith MD Unavailable Unavailable Ali, Smith MD Unavailable Unavailable Ali, Smith MD Unavailable Unavailable Ali, Smith MD Unavailable Unavailable Ali, Smith MD Unavailable Unavailable Ali, Smith MD Unavailable Unavailable Ali, Smith MD Unavailable Unavailable Ali, Smith MD Unavailable Unavailable Ali, Smith MD Unavailable Unavailable Ali, Smith MD Unavailable Unavailable Ali, Smith MD Unavailable Unavailable Ali, Smith MD Unavailable Unavailable Ali, Smith MD Unavailable Unavailable Ali, Smith MD Unavailable Unavailable Ali, Smith MD Unavailable Unavailable Ali, Smith MD Unavailable Unavailable Ali, Smith MD Unavailable Unavailable Ali, Smith MD Unavailable Unavailable Ali, Smith MD Unavailable Unavailable Hollis Cuellar, Johnnie Gandara MD, FACS Unavailable Unavailable Hollis Cuellar, Johnnie Gandara MD, FACS Unavailable Unavailable Hollis Cuellar, Johnnie Gandara MD, FACS Unavailable Unavailable Hollis Cuellar, Johnnie Gandara MD, FACS Unavailable Unavailable Hollis Cuellar, Johnnie Gandara MD, FACS Unavailable Unavailable Hollis Cuellar, Johnnie Gandara MD, FACS Unavailable Unavailable Hollis Cuellar, Johnnie Gandara MD, FACS Unavailable Unavailable Hollis Cuellar, Johnnie Gandara MD, FACS Unavailable Unavailable Hollis Cuellar, Johnnie Gandara MD, FACS Unavailable Unavailable Hollis Cuellar, Johnnie Gandara MD, FACS Unavailable Unavailable Hollis Cuellar, Johnnie Gandara MD, FACS Unavailable Unavailable Hollis Cuellar, Johnnie Gandara MD, FACS Unavailable Unavailable Hollis Cuellar, Johnnie Gandara MD, FACS Unavailable Unavailable Hollis Cuellar, Johnnie Gandara MD, FACS Unavailable Unavailable Hollis Cuellar, Johnnie Gandara MD, FACS Unavailable Unavailable Hollis Cuellar, Johnnie Gandara MD, FACS Unavailable Unavailable Hollis Cuellar, Johnnie Gandara MD, FACS Unavailable Unavailable Hollis Cuellar, Johnnie Gandara MD, FACS Unavailable Unavailable Hollis Cuellar, Johnnie Gandara MD, FACS Unavailable Unavailable Hollis Cuellar, Johnnie Gandara MD, FACS Unavailable Unavailable Hollis Cuellar, Johnnei Gandara MD, FACS Unavailable Unavailable Hollis Cuellar, Johnnie Gandara MD, FACS Unavailable Unavailable Hollis Cuellar, Johnnie Gandara MD, FACS Unavailable Unavailable Hollis Cuellar, Johnnie Gandara MD, FACS Unavailable Unavailable Hollis Cuellar, Johnnie Gandara MD, FACS Unavailable Unavailable Hollis Cuellar, Johnnie Gandara MD, FACS Unavailable Unavailable Hollis Cuellar, Johnnie Gandara MD, FACS Unavailable Unavailable Hollis Cuellar, Johnnie Gandara MD, FACS Unavailable Unavailable Hollis Cuellar, Johnnie Gandara MD, FACS Unavailable Unavailable Hollis Cuellar, Johnnie Gandara MD, FACS Unavailable Unavailable Hollis Cuellar, Johnnie Gandara MD, FACS Unavailable Unavailable Hollis Cuellar, Johnnie Gandara MD, FACS Unavailable Unavailable Hollis Cuellar, Johnnie Gandara MD, FACS Unavailable Unavailable Hollis Cuellar, Johnnie Gandara MD, FACS Unavailable Unavailable Hollis Cuellar, Johnnie Gandara MD, FACS Unavailable Unavailable Hollis Cuellar, Johnnie Gandara MD, FACS Unavailable Unavailable Hollis Cuellar, Johnnie Gandara MD, FACS Unavailable Unavailable Hollis Cuellar, Johnnie Gandara MD, FACS Unavailable Unavailable Hollis Cuellar, Johnnie Gandara MD, FACS Unavailable Unavailable Re-disclosure Warning The records that you are about to access may contain information from federally-assisted alcohol or drug abuse programs. If such information is present, then the following federally mandated warning applies: This information has been disclosed to you from records protected by federal confidentiality rules (42 CFR part 2). The federal rules prohibit you from making any further disclosure of this information unless further disclosure is expressly permitted by the written consent of the person to whom it pertains or as otherwise permitted by 42 CFR part 2. A general authorization for the release of medical or other information is NOT sufficient for this purpose. The Federal rules restrict any use of the information to criminally investigate or prosecute any alcohol or drug abuse patient.The records that you are about to access may contain highly sensitive health information, the redisclosure of which is protected by Article 27-F of the [facility] Public Health law. If you continue you may have access to information: Regarding HIV / AIDS; Provided by facilities licensed or operated by the [facility] Office of Mental Health; or Provided by the [facility] Office for People With Developmental Disabilities. If such information is present, then the following [facility] mandated warning applies: This information has been disclosed to you from confidential records which are protected by state law. State law prohibits you from making any further disclosure of this information without the specific written consent of the person to whom it pertains, or as otherwise permitted by law. Any unauthorized further disclosure in violation of state law may result in a fine or detention sentence or both. A general authorization for the release of medical or other information is NOT sufficient authorization for further disc losure. Allergies and Adverse Reactions Type Description Substance Reaction Status Data Source(s ) Allergy to substance No Known Allergies No known allergies (situation ) [place] (Juliocesar Cuellar MD [facility]) Family History Family Member Name Family Member Gender Family Member Status Date o f Status Description Data Source(s) Unknown Unknown Problem [facility] ([facility]) Unknown Male Problem [facility] ([facility] Encounters Encounter Providers Location Date Indications Data Source(s ) Outpatient Attender: Freddy Cohn 02/22 11:00:00 AM EDT [facility] ([facility] ) Outpatient Attender: Delia MENDENHALL Main Office 12/27/2020 09:30:00 AM EDT [facility] ([facility]) Office Visit Attender: Smith Will MD Main office - [place] 12/22/2020 10:00:00 AM EDT [facility] ([facility] ) Outpatient Attender: Freddy Cohn 10/09 11:00:00 AM EDT [facility] ([facility] ) Outpatient Attender: Delia MENDENHALL Main Office 09/26/2020 12:30:00 PM EDT [facility] ([facility]) Outpatient Attender: Delia MENDENHALL Main Office 08/23/2020 11:15:00 AM EDT [facility] ([facility]) Outpatient Attender: Delia MENDENHALL Main Office 07/25/2020 10:15:00 AM EST [facility] ([facility]) Outpatient Attender: Delia MENDENHALL Main Office 06/28/2020 10:15:00 AM EST [facility] ([facility]) Outpatient Attender: Freddy Cohn 05/31 12:00:00 PM EST [facility] ([facility] ) Outpatient Attender: Delia MENDENHALL Main Office 05/24/2020 11:30:00 AM EST [facility] ([facility]) Outpatient Attender: Delia MENDENHALL Main Office 03/15/2020 08:00:00 AM EDT [facility] ([facility]) Outpatient Attender: Delia MENDENHALL Main Office 02/29/2020 08:45:00 AM EDT [facility] ([facility]) Outpatient Attender: Delia MENDENHALL Main Office 02/15/2020 08:45:00 AM EDT [facility] ([facility]) <td ID="encounterTypeDescriptionID0">1 Y ear Follow-Up</td><td>Juliocesar Cuellar MD, [place]</td><td>Juliocesar Stewart MD [facility]</td><td>01/18/2020</td><td>12:18PM</td><td>01/15/2019 11:59PM</td><td> <content ID="encounterDiagnosisID0-0">Essential Hypertension</content>, <content ID="encounterDiagnosisID0-1">Pseudophakia</content>, <content ID="encounterDiagnosisID0-2">Assessment of Taking Medication For Diabetes Long- term Use of Oral Hypoglycemics</content>, <content ID="encounterDiagnosisID0- 3">Posterior Capsule Opacification Eccentric Capsule Right Eye</content>, <content ID="encounterDiagnosisID0-4">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</content>, <content ID="encounterDiagnosisID0-5">Macular Degeneration Nonexudative Bilateral Early Dry Stage</content></td>Outpatient Attender: Juliocesar Cuellar MD, FACS Juliocesar Stewart MD [facility] 01/18/2020 12:18:00 PM EDT - 01/15/2019 11:59:00 PM ED T Macular Degeneration Nonexudative Bilateral Early Dry StagePosterior Capsule Opacification Eccentric Capsule Right EyeAssessment of Taking Medication For Diabetes Long-term Use of Oral HypoglycemicsPseudophakiaEssential Hypertension 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 [place] (Juliocesar Cuellar MD [facility]) Macular Degeneration Nonexudative Bilate ral Early Dry Stage Posterior Capsule Opacification Eccentri c Capsule Right Eye Assessment of Taking Medication For Diab etes Long-term Use of Oral Hypoglycemics Pseudophakia Essential Hypertension Type 2 Diab W/ Diab Retinopathy Mild Non prolif Without Macular Edema Immunizations Vaccine Date Status Description Data Source(s) This CVX code allows reporting of a vacc ination when formulation is unknown (for example, when recording a Influenza vaccination when noted on a vaccination card) 02/22/2021 11:02:00 AM EDT completed [facility]EN T ([facility]) COVID-19 VACCINE Moderna 08/07/2020 12:00:00 AM EDT completed [facility] Vaccine Series Complete: YESThis Data wa s Submitted to [facility] Via [employer]. COVID-19 VACCINE, MRNA-1273, LNP-S (MODERNA)/PF 08/07/2020 1 2:00:00 AM EDT completed [facility] COVID-19 VACCINE, MRNA-1273, LNP-S (MODERNA)/PF 07/06/2020 1 2:00:00 AM EST completed [facility] COVID-19 VACCINE Moderna 07/05/2020 12:00:00 AM EST completed [facility] Vaccine Series Complete: NOThis Data was Submitted to [facility] Via [employer]. Medications Medication Brand Name Start Date Product Form Dose Route Admi nistrative Instructions Pharmacy Instructions Status Indications Reaction Description Data Source(s) 5 mg 01/19/2021 12:00:00 AM EDT tablet 60 TAKE ONE TABLET BY MOUTH TWICE A DAY TAKE ONE TABLET BY MOUTH TWICE A DAY SOLD: 02/21/2021 [facility] Digoxin 0.125 MG Oral Tablet 125 mcg (0.125 mg) DIGOXIN 01/19/2021 12:00:00 AM EDT tablet 30 TAKE ONE TABLET BY MOUTH MEGA DAY TAKE ONE TABLET BY MOUTH EVERY DAY SOLD: 02/21/2021 [facility] 50 mg 01/19/2021 12:00:00 AM EDT tablet 30 TAKE ONE TABLET BY MOUTH EVERY DAY TAKE ONE TABLET BY MOUTH EVERY DAY SOLD: 02/21/2021 [facility] 50 mg 01/19/2021 12:00:00 AM EDT tablet 30 TAKE ONE TABLET BY MOUTH EVERY DAY TAKE ONE TABLET BY MOUTH EVERY DAY SOLD: 01/22/2021 [facility] Digoxin 0.125 MG Oral Tablet 125 mcg (0.125 mg) DIGOXIN 01/19/2021 12:00:00 AM EDT tablet 30 TAKE ONE TABLET BY MOUTH MEGA DAY TAKE ONE TABLET BY MOUTH EVERY DAY SOLD: 01/22/2021 [facility] 5 mg 01/19/2021 12:00:00 AM EDT tablet 60 TAKE ONE TABLET BY MOUTH TWICE A DAY TAKE ONE TABLET BY MOUTH TWICE A DAY SOLD: 01/22/2021 [facility] 500 mg 01/18/2021 12:00:00 AM EDT tablet 60 TAKE ONE TABLET BY MOUTH TWICE A DAY TAKE ONE TABLET BY MOUTH TWICE A DAY SOLD: 01/22/2021 [facility] 500 mg 01/18/2021 12:00:00 AM EDT tablet 60 TAKE ONE TABLET BY MOUTH TWICE A DAY TAKE ONE TABLET BY MOUTH TWICE A DAY SOLD: 02/21/2021 [facility] 500 mg 11/19/2020 12:00:00 AM EDT tablet 60 TAKE ONE TABLET BY MOUTH TWICE A DAY TAKE ONE TABLET BY MOUTH TWICE A DAY SOLD: 11/22/2020 [facility] 500 mg 11/19/2020 12:00:00 AM EDT tablet 60 TAKE ONE TABLET BY MOUTH TWICE A DAY TAKE ONE TABLET BY MOUTH TWICE A DAY SOLD: 12/24/2020 [facility] 10 mg 10/20/2020 12:00:00 AM EDT tablet 120 TAKE FOUR TABLETS BY MOUTH EVERY DAY TAKE FOUR TABLETS BY MOUTH EVERY DAY SOLD: 10/23/2020 [facility] 10 mg 10/20/2020 12:00:00 AM EDT tablet 120 TAKE FOUR TABLETS BY MOUTH EVERY DAY TAKE FOUR TABLETS BY MOUTH EVERY DAY SOLD: 12/24/2020 [facility] 10 mg 10/20/2020 12:00:00 AM EDT tablet 120 TAKE FOUR TABLETS BY MOUTH EVERY DAY TAKE FOUR TABLETS BY MOUTH EVERY DAY SOLD: 02/21/2021 [facility] 10 mg 10/20/2020 12:00:00 AM EDT tablet 120 TAKE FOUR TABLETS BY MOUTH EVERY DAY TAKE FOUR TABLETS BY MOUTH EVERY DAY SOLD: 01/22/2021 [facility] 10 mg 10/20/2020 12:00:00 AM EDT tablet 120 TAKE FOUR TABLETS BY MOUTH EVERY DAY TAKE FOUR TABLETS BY MOUTH EVERY DAY SOLD: 11/22/2020 [facility] 1,000 mg 09/21/2020 12:00:00 AM EDT tablet 60 TAKE ONE TABLET BY MOUTH TWICE A DAY TAKE ONE TABLET BY MOUTH TWICE A DAY SOLD: 01/22/2021 [facility] 1,000 mg 09/21/2020 12:00:00 AM EDT tablet 60 TAKE ONE TABLET BY MOUTH TWICE A DAY TAKE ONE TABLET BY MOUTH TWICE A DAY SOLD: 12/24/2020 [facility] 1,000 mg 09/21/2020 12:00:00 AM EDT tablet 60 TAKE ONE TABLET BY MOUTH TWICE A DAY TAKE ONE TABLET BY MOUTH TWICE A DAY SOLD: 02/21/2021 [facility] 1,000 mg 09/21/2020 12:00:00 AM EDT tablet 180 TAKE ONE TABLET BY MOUTH TWICE A DAY TAKE ONE TABLET BY MOUTH TWICE A DAY SOLD: 09/22/2020 [facility] torsemide 10 MG Oral Tablet Torsemide 08/24/2020 12:00:00 AM EDT ORAL active [facility] ([facility]) 20 mg 08/22/2020 12:00:00 AM EDT tablet 30 TAKE ONE TABLET BY MOUTH EVERY DAY TAKE ONE TABLET BY MOUTH EVERY DAY SOLD: 10/23/2020 [facility] 20 mg 08/22/2020 12:00:00 AM EDT tablet 30 TAKE ONE TABLET BY MOUTH EVERY DAY TAKE ONE TABLET BY MOUTH EVERY DAY SOLD: 02/21/2021 [facility] 20 mg 08/22/2020 12:00:00 AM EDT tablet 30 TAKE ONE TABLET BY MOUTH EVERY DAY TAKE ONE TABLET BY MOUTH EVERY DAY SOLD: 09/22/2020 [facility] 20 mg 08/22/2020 12:00:00 AM EDT tablet 30 TAKE ONE TABLET BY MOUTH EVERY DAY TAKE ONE TABLET BY MOUTH EVERY DAY SOLD: 01/22/2021 [facility] 20 mg 08/22/2020 12:00:00 AM EDT tablet 30 TAKE ONE TABLET BY MOUTH EVERY DAY TAKE ONE TABLET BY MOUTH EVERY DAY SOLD: 12/24/2020 [facility] 20 mg 08/22/2020 12:00:00 AM EDT tablet 30 TAKE ONE TABLET BY MOUTH EVERY DAY TAKE ONE TABLET BY MOUTH EVERY DAY SOLD: 08/25/2020 [facility] 20 mg 08/22/2020 12:00:00 AM EDT tablet 30 TAKE ONE TABLET BY MOUTH EVERY DAY TAKE ONE TABLET BY MOUTH EVERY DAY SOLD: 11/22/2020 [facility] Covid-19 vaccine, Unspecified 08/07/2020 12:00:00 AM EDT completed [facility] ([facility]) Medication administered onsite 10 mg 07/20/2020 12:00:00 AM EST tablet 90 TAKE THREE TABLETS BY MOUTH EVERY DAY TAKE THREE TABLETS BY MOUTH EVERY DAY SOLD: 09/22/2020 [facility] 10 mg 07/20/2020 12:00:00 AM EST tablet 90 TAKE THREE TABLETS BY MOUTH EVERY DAY TAKE THREE TABLETS BY MOUTH EVERY DAY SOLD: 08/25/2020 [facility] 10 mg 07/20/2020 12:00:00 AM EST tablet 90 TAKE THREE TABLETS BY MOUTH EVERY DAY TAKE THREE TABLETS BY MOUTH EVERY DAY SOLD: 07/26/2020 [facility] Covid-19 vaccine, Unspecified 07/05/2020 12:00:00 AM EST completed [facility] ([place] [facility]) Medication administered onsite torsemide 10 MG Oral Tablet Torsemide 06/28/2020 12:00:00 AM EST ORAL completed [facility] ([facility]) 24-26 mg 05/26/2020 12:00:00 AM EST tablet 60 TAKE ONE TABLET BY MOUTH TWICE A DAY TAKE ONE TABLET BY MOUTH TWICE A DAY SOLD: 10/23/2020 [facility] 24-26 mg 05/26/2020 12:00:00 AM EST tablet 60 TAKE ONE TABLET BY MOUTH TWICE A DAY TAKE ONE TABLET BY MOUTH TWICE A DAY SOLD: 02/21/2021 [facility] 24-26 mg 05/26/2020 12:00:00 AM EST tablet 60 TAKE ONE TABLET BY MOUTH TWICE A DAY TAKE ONE TABLET BY MOUTH TWICE A DAY SOLD: 07/26/2020 [facility] 24-26 mg 05/26/2020 12:00:00 AM EST tablet 60 TAKE ONE TABLET BY MOUTH TWICE A DAY TAKE ONE TABLET BY MOUTH TWICE A DAY SOLD: 11/22/2020 [facility] 24-26 mg 05/26/2020 12:00:00 AM EST tablet 60 TAKE ONE TABLET BY MOUTH TWICE A DAY TAKE ONE TABLET BY MOUTH TWICE A DAY SOLD: 08/25/2020 [facility] 24-26 mg 05/26/2020 12:00:00 AM EST tablet 60 TAKE ONE TABLET BY MOUTH TWICE A DAY TAKE ONE TABLET BY MOUTH TWICE A DAY SOLD: 12/24/2020 [facility] 24-26 mg 05/26/2020 12:00:00 AM EST tablet 50 TAKE ONE TABLET BY MOUTH TWICE A DAY TAKE ONE TABLET BY MOUTH TWICE A DAY SOLD: 09/27/2020 [facility] 24-26 mg 05/26/2020 12:00:00 AM EST tablet 60 TAKE ONE TABLET BY MOUTH TWICE A DAY TAKE ONE TABLET BY MOUTH TWICE A DAY SOLD: 01/22/2021 [facility] 24-26 mg 05/26/2020 12:00:00 AM EST tablet 60 TAKE ONE TABLET BY MOUTH TWICE A DAY TAKE ONE TABLET BY MOUTH TWICE A DAY SOLD: 05/26/2020 [facility] sacubitril 24 MG / valsartan 26 MG Oral Tablet [Entresto] En tresto 05/24/2020 12:00:00 AM EST ORAL active M [facility] ([facility]) 500 mg 03/26/2020 12:00:00 AM EST tablet 60 TAKE ONE TABLET BY MOUTH TWICE A DAY TAKE ONE TABLET BY MOUTH TWICE A DAY SOLD: 09/22/2020 [facility] 500 mg 03/26/2020 12:00:00 AM EST tablet 60 TAKE ONE TABLET BY MOUTH TWICE A DAY TAKE ONE TABLET BY MOUTH TWICE A DAY SOLD: 05/26/2020 [facility] 500 mg 03/26/2020 12:00:00 AM EST tablet 60 TAKE ONE TABLET BY MOUTH TWICE A DAY TAKE ONE TABLET BY MOUTH TWICE A DAY SOLD: 03/31/2020 [facility] 500 mg 03/26/2020 12:00:00 AM EST tablet 60 TAKE ONE TABLET BY MOUTH TWICE A DAY TAKE ONE TABLET BY MOUTH TWICE A DAY SOLD: 10/23/2020 [facility] 500 mg 03/26/2020 12:00:00 AM EST tablet 60 TAKE ONE TABLET BY MOUTH TWICE A DAY TAKE ONE TABLET BY MOUTH TWICE A DAY SOLD: 06/22/2020 [facility] 500 mg 03/26/2020 12:00:00 AM EST tablet 60 TAKE ONE TABLET BY MOUTH TWICE A DAY TAKE ONE TABLET BY MOUTH TWICE A DAY SOLD: 05/02/2020 [facility] 500 mg 03/26/2020 12:00:00 AM EST tablet 60 TAKE ONE TABLET BY MOUTH TWICE A DAY TAKE ONE TABLET BY MOUTH TWICE A DAY SOLD: 07/26/2020 [facility] 500 mg 03/26/2020 12:00:00 AM EST tablet 60 TAKE ONE TABLET BY MOUTH TWICE A DAY TAKE ONE TABLET BY MOUTH TWICE A DAY SOLD: 08/25/2020 [facility] Magnesium Oxide 400 MG Oral Capsule Magnesium Oxide -MG Supp lement 03/02/2020 12:00:00 AM EDT ORAL active M [facility] ([facility]) 10 mg 02/29/2020 12:00:00 AM EDT tablet 60 TAKE TWO TABLETS BY MOUTH EVERY MORNING TAKE TWO TABLETS BY MOUTH EVERY MORNING SOLD: 03/01/2020 [facility] torsemide 10 MG Oral Tablet Torsemide 02/29/2020 12:00:00 AM EDT ORAL completed [facility] ([facility]) 10 mg 02/29/2020 12:00:00 AM EDT tablet 60 TAKE TWO TABLETS BY MOUTH EVERY MORNING TAKE TWO TABLETS BY MOUTH EVERY MORNING SOLD: 05/02/2020 [facility] 10 mg 02/29/2020 12:00:00 AM EDT tablet 60 TAKE TWO TABLETS BY MOUTH EVERY MORNING TAKE TWO TABLETS BY MOUTH EVERY MORNING SOLD: 06/22/2020 [facility] 10 mg 02/29/2020 12:00:00 AM EDT tablet 60 TAKE TWO TABLETS BY MOUTH EVERY MORNING TAKE TWO TABLETS BY MOUTH EVERY MORNING SOLD: 03/31/2020 [facility] 0.4 mg 02/29/2020 12:00:00 AM EDT tablet, sublingual 25 PLACE ONE TABLET UNDER THE TONGUE EVERY 5 MINUTES FOR UP TO 3 DOSES NEEDED FOR CHEST PAIN PLACE ONE TABLET UNDER THE TONGUE EVERY 5 MINUTES FOR UP TO 3 DOSES NEEDED FOR CHEST PAIN SOLD: 03/01/2020 [facility] 10 mg 02/29/2020 12:00:00 AM EDT tablet 60 TAKE TWO TABLETS BY MOUTH EVERY MORNING TAKE TWO TABLETS BY MOUTH EVERY MORNING SOLD: 05/26/2020 [facility] Digoxin 0.125 MG Oral Tablet 125 mcg (0.125 mg) DIGOXIN 02/15/2020 12:00:00 AM EDT tablet 30 TAKE ONE TABLET BY MOUTH MEGA DAY TAKE ONE TABLET BY MOUTH EVERY DAY SOLD: 09/22/2020 [facility] Digoxin 0.125 MG Oral Tablet 125 mcg (0.125 mg) DIGOXIN 02/15/2020 12:00:00 AM EDT tablet 30 TAKE ONE TABLET BY MOUTH MEGA RY DAY TAKE ONE TABLET BY MOUTH EVERY DAY SOLD: 05/26/2020 [facility] 50 mg 02/15/2020 12:00:00 AM EDT tablet 30 TAKE ONE TABLET BY MOUTH EVERY DAY TAKE ONE TABLET BY MOUTH EVERY DAY SOLD: 12/24/2020 [facility] Digoxin 0.125 MG Oral Tablet 125 mcg (0.125 mg) DIGOXIN 02/15/2020 12:00:00 AM EDT tablet 30 TAKE ONE TABLET BY MOUTH MEGA RY DAY TAKE ONE TABLET BY MOUTH EVERY DAY SOLD: 03/31/2020 [facility] Atenolol 50 MG Oral Tablet ATENOLOL 02/15/2020 12:00:00 AM EDT tablet 30 TAKE ONE TABLET BY MOUTH EVERY DAY TAKE ONE TABLET BY MOUTH EVERY DAY SOLD: 05/02/2020 [facility] Digoxin 0.125 MG Oral Tablet 125 mcg (0.125 mg) DIGOXIN 02/15/2020 12:00:00 AM EDT tablet 30 TAKE ONE TABLET BY MOUTH MEGA DAY TAKE ONE TABLET BY MOUTH EVERY DAY SOLD: 12/24/2020 [facility] Digoxin 0.125 MG Oral Tablet 125 mcg (0.125 mg) DIGOXIN 02/15/2020 12:00:00 AM EDT tablet 30 TAKE ONE TABLET BY MOUTH MEGA DAY TAKE ONE TABLET BY MOUTH EVERY DAY SOLD: 08/25/2020 [facility] 50 mg 02/15/2020 12:00:00 AM EDT tablet 30 TAKE ONE TABLET BY MOUTH EVERY DAY TAKE ONE TABLET BY MOUTH EVERY DAY SOLD: 09/22/2020 [facility] Atenolol 50 MG Oral Tablet ATENOLOL 02/15/2020 12:00:00 AM EDT tablet 30 TAKE ONE TABLET BY MOUTH EVERY DAY TAKE ONE TABLET BY MOUTH EVERY DAY SOLD: 03/01/2020 [facility] Atenolol 50 MG Oral Tablet ATENOLOL 02/15/2020 12:00:00 AM EDT tablet 30 TAKE ONE TABLET BY MOUTH EVERY DAY TAKE ONE TABLET BY MOUTH EVERY DAY SOLD: 08/25/2020 [facility] Digoxin 0.125 MG Oral Tablet 125 mcg (0.125 mg) DIGOXIN 02/15/2020 12:00:00 AM EDT tablet 30 TAKE ONE TABLET BY MOUTH MEGA DAY TAKE ONE TABLET BY MOUTH EVERY DAY SOLD: 03/01/2020 [facility] Digoxin 0.125 MG Oral Tablet 125 mcg (0.125 mg) DIGOXIN 02/15/2020 12:00:00 AM EDT tablet 30 TAKE ONE TABLET BY MOUTH MEGA RY DAY TAKE ONE TABLET BY MOUTH EVERY DAY SOLD: 11/22/2020 [facility] Digoxin 0.125 MG Oral Tablet 125 mcg (0.125 mg) DIGOXIN 02/15/2020 12:00:00 AM EDT tablet 30 TAKE ONE TABLET BY MOUTH MEGA RY DAY TAKE ONE TABLET BY MOUTH EVERY DAY SOLD: 07/26/2020 [facility] 50 mg 02/15/2020 12:00:00 AM EDT tablet 30 TAKE ONE TABLET BY MOUTH EVERY DAY TAKE ONE TABLET BY MOUTH EVERY DAY SOLD: 10/23/2020 [facility] 50 mg 02/15/2020 12:00:00 AM EDT tablet 30 TAKE ONE TABLET BY MOUTH EVERY DAY TAKE ONE TABLET BY MOUTH EVERY DAY SOLD: 06/22/2020 [facility] Atenolol 50 MG Oral Tablet ATENOLOL 02/15/2020 12:00:00 AM EDT tablet 30 TAKE ONE TABLET BY MOUTH EVERY DAY TAKE ONE TABLET BY MOUTH EVERY DAY SOLD: 05/26/2020 [facility] Digoxin 0.125 MG Oral Tablet 125 mcg (0.125 mg) DIGOXIN 02/15/2020 12:00:00 AM EDT tablet 30 TAKE ONE TABLET BY MOUTH MEGA RY DAY TAKE ONE TABLET BY MOUTH EVERY DAY SOLD: 10/23/2020 [facility] Digoxin 0.125 MG Oral Tablet 125 mcg (0.125 mg) DIGOXIN 02/15/2020 12:00:00 AM EDT tablet 30 TAKE ONE TABLET BY MOUTH MEGA DAY TAKE ONE TABLET BY MOUTH EVERY DAY SOLD: 06/22/2020 [facility] 50 mg 02/15/2020 12:00:00 AM EDT tablet 30 TAKE ONE TABLET BY MOUTH EVERY DAY TAKE ONE TABLET BY MOUTH EVERY DAY SOLD: 11/22/2020 [facility] Digoxin 0.125 MG Oral Tablet Digoxin 02/15/2020 12:00:00 AM EDT ORAL active [facility] ([facility]) Digoxin 0.125 MG Oral Tablet 125 mcg (0.125 mg) DIGOXIN 02/15/2020 12:00:00 AM EDT tablet 30 TAKE ONE TABLET BY MOUTH MEGA RY DAY TAKE ONE TABLET BY MOUTH EVERY DAY SOLD: 05/02/2020 [facility] 50 mg 02/15/2020 12:00:00 AM EDT tablet 30 TAKE ONE TABLET BY MOUTH EVERY DAY TAKE ONE TABLET BY MOUTH EVERY DAY SOLD: 07/26/2020 [facility] Atenolol 50 MG Oral Tablet ATENOLOL 02/15/2020 12:00:00 AM EDT tablet 30 TAKE ONE TABLET BY MOUTH EVERY DAY TAKE ONE TABLET BY MOUTH EVERY DAY SOLD: 03/31/2020 [facility] Digoxin 0.125 MG Oral Tablet 125 mcg (0.125 mg) DIGOXIN 02/15/2020 12:00:00 AM EDT tablet 18 TAKE ONE TABLET BY MOUTH MEGA DAY TAKE ONE TABLET BY MOUTH EVERY DAY SOLD: 02/15/2020 [facility] Atenolol 50 MG Oral Tablet ATENOLOL 02/15/2020 12:00:00 AM EDT tablet 18 TAKE ONE TABLET BY MOUTH EVERY DAY TAKE ONE TABLET BY MOUTH EVERY DAY SOLD: 02/15/2020 [facility] Docusate Sodium 100 MG Oral Capsule Stool Softener 02/14/2020 12:00 :00 AM EDT ORAL active [facility] ([facility]) Atenolol 50 MG Oral Tablet Atenolol 02/07/2020 12:00:00 AM EDT ORAL active [facility] ([facility] 5 mg 02/03/2020 12:00:00 AM EDT tablet 60 TAKE ONE TABLET BY MOUTH TWICE A DAY TAKE ONE TABLET BY MOUTH TWICE A DAY SOLD: 02/03/2020 [facility] 5 mg 02/03/2020 12:00:00 AM EDT tablet 60 TAKE ONE TABLET BY MOUTH TWICE A DAY TAKE ONE TABLET BY MOUTH TWICE A DAY SOLD: 05/02/2020 [facility] 5 mg 02/03/2020 12:00:00 AM EDT tablet 60 TAKE ONE TABLET BY MOUTH TWICE A DAY TAKE ONE TABLET BY MOUTH TWICE A DAY SOLD: 11/22/2020 [facility] 5 mg 02/03/2020 12:00:00 AM EDT tablet 60 TAKE ONE TABLET BY MOUTH TWICE A DAY TAKE ONE TABLET BY MOUTH TWICE A DAY SOLD: 07/26/2020 [facility] 5 mg 02/03/2020 12:00:00 AM EDT tablet 60 TAKE ONE TABLET BY MOUTH TWICE A DAY TAKE ONE TABLET BY MOUTH TWICE A DAY SOLD: 03/31/2020 [facility] 25 mg 02/03/2020 12:00:00 AM EDT tablet 30 TAKE ONE TABLET BY MOUTH EVERY DAY TAKE ONE TABLET BY MOUTH EVERY DAY SOLD: 02/03/2020 [facility] 5 mg 02/03/2020 12:00:00 AM EDT tablet 60 TAKE ONE TABLET BY MOUTH TWICE A DAY TAKE ONE TABLET BY MOUTH TWICE A DAY SOLD: 10/23/2020 [facility] 5 mg 02/03/2020 12:00:00 AM EDT tablet 60 TAKE ONE TABLET BY MOUTH TWICE A DAY TAKE ONE TABLET BY MOUTH TWICE A DAY SOLD: 06/22/2020 [facility] 5 mg 02/03/2020 12:00:00 AM EDT tablet 50 TAKE ONE TABLET BY MOUTH TWICE A DAY TAKE ONE TABLET BY MOUTH TWICE A DAY SOLD: 09/27/2020 [facility] apixaban 5 MG Oral Tablet [Eliquis] Eliquis 02/03/2020 12:00:00 AM E DT ORAL active [facility] ([facility] Aspirin 81 MG Delayed Release Oral Tablet Aspirin 81 2019 12:00:00 AM EDT ORAL active [facility] ( [facility]) 5 mg 02/03/2020 12:00:00 AM EDT tablet 60 TAKE ONE TABLET BY MOUTH TWICE A DAY TAKE ONE TABLET BY MOUTH TWICE A DAY SOLD: 05/26/2020 [facility] 5 mg 02/03/2020 12:00:00 AM EDT tablet 60 TAKE ONE TABLET BY MOUTH TWICE A DAY TAKE ONE TABLET BY MOUTH TWICE A DAY SOLD: 08/25/2020 [facility] 5 mg 02/03/2020 12:00:00 AM EDT tablet 60 TAKE ONE TABLET BY MOUTH TWICE A DAY TAKE ONE TABLET BY MOUTH TWICE A DAY SOLD: 12/24/2020 [facility] 5 mg 02/03/2020 12:00:00 AM EDT tablet 60 TAKE ONE TABLET BY MOUTH TWICE A DAY TAKE ONE TABLET BY MOUTH TWICE A DAY SOLD: 03/01/2020 [facility] Atenolol 25 MG Oral Tablet Atenolol 02/02/2020 12:00:00 AM EDT ORAL completed [facility] ([facility]) 4 mg 01/04/2020 12:00:00 AM EDT capsule,extended releas e 24hr 30 TAKE ONE CAPSULE BY MOUTH EVERY DAY TAKE ONE CAPSULE BY MOUTH EVERY DAY SOLD: 03/01/2020 [facility] 4 mg 01/04/2020 12:00:00 AM EDT capsule,extended releas e 24hr 30 TAKE ONE CAPSULE BY MOUTH EVERY DAY TAKE ONE CAPSULE BY MOUTH EVERY DAY SOLD: 02/03/2020 [facility] 4 mg 01/04/2020 12:00:00 AM EDT capsule,extended releas e 24hr 30 TAKE ONE CAPSULE BY MOUTH EVERY DAY TAKE ONE CAPSULE BY MOUTH EVERY DAY SOLD: 03/31/2020 [facility] 1.25 mg 01/02/2020 12:00:00 AM EDT tablet 30 TAKE ONE TABLET BY MOUTH EVERY DAY TAKE ONE TABLET BY MOUTH EVERY DAY SOLD: 02/03/2020 [facility] 500 mg 12/31/2019 12:00:00 AM EDT tablet 60 TAKE ONE TABLET BY MOUTH TWICE A DAY TAKE ONE TABLET BY MOUTH TWICE A DAY SOLD: 02/03/2020 [facility] 500 mg 12/31/2019 12:00:00 AM EDT tablet 60 TAKE ONE TABLET BY MOUTH TWICE A DAY TAKE ONE TABLET BY MOUTH TWICE A DAY SOLD: 03/01/2020 [facility] 20 mg 09/09/2019 12:00:00 AM EDT tablet 30 TAKE ONE TABLET BY MOUTH EVERY DAY TAKE ONE TABLET BY MOUTH EVERY DAY SOLD: 07/26/2020 [facility] Metformin hydrochloride 1000 MG Oral Tablet 1,000 mg METFORM IN HCL 09/09/2019 12:00:00 AM EDT tablet 60 TAKE ONE TABLET BY MOUTH TWICE A DAY TAKE ONE TABLET BY MOUTH TWICE A DAY SOLD: 05/26/2020 [facility] 4 mg 09/09/2019 12:00:00 AM EDT tablet 60 TAKE ONE TABLET BY MOUTH TWICE A DAY TAKE ONE TABLET BY MOUTH TWICE A DAY SOLD: 03/01/2020 [facility] Metformin hydrochloride 1000 MG Oral Tablet 1,000 mg METFORM IN HCL 09/09/2019 12:00:00 AM EDT tablet 60 TAKE ONE TABLET BY MOUTH TWICE A DAY TAKE ONE TABLET BY MOUTH TWICE A DAY SOLD: 03/31/2020 [facility] 20 mg 09/09/2019 12:00:00 AM EDT tablet 30 TAKE ONE TABLET BY MOUTH EVERY DAY TAKE ONE TABLET BY MOUTH EVERY DAY SOLD: 05/26/2020 [facility] 20 mg 09/09/2019 12:00:00 AM EDT tablet 30 TAKE ONE TABLET BY MOUTH EVERY DAY TAKE ONE TABLET BY MOUTH EVERY DAY SOLD: 03/01/2020 [facility] Metformin hydrochloride 1000 MG Oral Tablet 1,000 mg METFORM IN HCL 09/09/2019 12:00:00 AM EDT tablet 60 TAKE ONE TABLET BY MOUTH TWICE A DAY TAKE ONE TABLET BY MOUTH TWICE A DAY SOLD: 06/22/2020 [facility] Metformin hydrochloride 1000 MG Oral Tablet 1,000 mg METFORM IN HCL 09/09/2019 12:00:00 AM EDT tablet 60 TAKE ONE TABLET BY MOUTH TWICE A DAY TAKE ONE TABLET BY MOUTH TWICE A DAY SOLD: 05/02/2020 [facility] Metformin hydrochloride 1000 MG Oral Tablet 1,000 mg METFORM IN HCL 09/09/2019 12:00:00 AM EDT tablet 60 TAKE ONE TABLET BY MOUTH TWICE A DAY TAKE ONE TABLET BY MOUTH TWICE A DAY SOLD: 02/03/2020 [facility] 4 mg 09/09/2019 12:00:00 AM EDT tablet 60 TAKE ONE TABLET BY MOUTH TWICE A DAY TAKE ONE TABLET BY MOUTH TWICE A DAY SOLD: 02/03/2020 [facility] 4 mg 09/09/2019 12:00:00 AM EDT tablet 60 TAKE ONE TABLET BY MOUTH TWICE A DAY TAKE ONE TABLET BY MOUTH TWICE A DAY SOLD: 05/02/2020 [facility] 20 mg 09/09/2019 12:00:00 AM EDT tablet 30 TAKE ONE TABLET BY MOUTH EVERY DAY TAKE ONE TABLET BY MOUTH EVERY DAY SOLD: 03/31/2020 [facility] Metformin hydrochloride 1000 MG Oral Tablet 1,000 mg METFORM IN HCL 09/09/2019 12:00:00 AM EDT tablet 60 TAKE ONE TABLET BY MOUTH TWICE A DAY TAKE ONE TABLET BY MOUTH TWICE A DAY SOLD: 07/26/2020 [facility] 4 mg 09/09/2019 12:00:00 AM EDT tablet 60 TAKE ONE TABLET BY MOUTH TWICE A DAY TAKE ONE TABLET BY MOUTH TWICE A DAY SOLD: 03/31/2020 [facility] 20 mg 09/09/2019 12:00:00 AM EDT tablet 30 TAKE ONE TABLET BY MOUTH EVERY DAY TAKE ONE TABLET BY MOUTH EVERY DAY SOLD: 06/22/2020 [facility] Metformin hydrochloride 1000 MG Oral Tablet 1,000 mg METFORM IN HCL 09/09/2019 12:00:00 AM EDT tablet 60 TAKE ONE TABLET BY MOUTH TWICE A DAY TAKE ONE TABLET BY MOUTH TWICE A DAY SOLD: 03/01/2020 [facility] 20 mg 09/09/2019 12:00:00 AM EDT tablet 30 TAKE ONE TABLET BY MOUTH EVERY DAY TAKE ONE TABLET BY MOUTH EVERY DAY SOLD: 05/02/2020 [facility] 20 mg 09/09/2019 12:00:00 AM EDT tablet 30 TAKE ONE TABLET BY MOUTH EVERY DAY TAKE ONE TABLET BY MOUTH EVERY DAY SOLD: 02/03/2020 [facility] Insurance Providers Payer name Policy type / Coverage type Policy ID Covered libertarian ID Covered libertarian's relationship to dominguez Policy Dominguez Plan Information MEDICARE A [id number] Self [id number] Medicare (Part B) Medicare Primary [id number] Self [id number] MEDICARE [id number] SP [id number] Medicare (Part B) Medicare Primary [id number] Self [id number] Medicare (Part B) Medicare Primary [id number] Self Medicare Natl Govt Servic Medicare Primary [id number] Self Medicare (Part B) Medicare Primary [id number] Self [id number] Medicare (Part B) Medicare Primary [id number] Self [id number] Medicare Medicare Primary [id number] Self Medicare Medicare Primary [id number] Self [id number] Medicare (Part B) Medicare Primary [id number] Self [id number] Medicare Natl Govt Servic Medicare Primary [id number] Self [id number] MEDICARE A [id number] Self [id number] A Medicare Natl Govt Servic Medicare Primary [id number] Self [id number] Medicare (Part B) Medicare Primary [id number] Self [id number] Medicare Natl Govt Servic Medicare Primary [id number] Self [id number] MEDICARE [id number] SP [id number] A Medicare Natl Govt Serv Medicare Primary [id number] Self [id number] Medicare (Part B) Medicare Primary [id number] Self [id number] Medicare Natl Govt Servic Medicare Primary [id number] Self [id number] Medicare Natl Govt Serv Medicare Primary [id number] Self [id number] BC/BS [place] Medigap Part B [id number] Self BCBS [place] Ppo U/W Medigap Part B [id number] Self [id number] BCBS [place] Ppo U/W Medigap Part B [id number] Self BCBS [place] U/W Medigap Part B [id number] Self [id number] BS [place] Trad/MX Commercial [id number] Self [id number] [place] Trad/[place] Medigap Part B [id number] Self V [id number] Excell[place] BCBS Medigap Part B [id number] Self BCBS [place] PPO 302/307 [id number] SP [id number] EXCELLUS C [id number] Self [id number] [place]BS [place] PPO 302/307 [id number] SP [id number] MEDICARE P [id number] S [id number] A BCBS OF [place] 306/806 [id number] SP [id number] A MEDICARE C [id number] S [id number] EXCELLUS BCBS B [id number] S [id number] BCBS of [facility] Other 0 [id number] Self 0 Medicare Part B of [place] Other 0 [id number] Self 0 BCBS Excell MCR Supp U/W Medigap Part B [id number] Self [id number] BCBS Excell[place] U/W Medigap Part B [id number] Self [id number] BCBS Excell MCR Supp U/W Medigap Part B [id number] Self [id number] BCBS Excell MCR Supp U/W Medigap Part B [id number] Self [id number] [id number] BS [place] Medigap Part B [id number] Self [id number] BCBS [place] PPO 302/307 [id number] SP [id number] Aetna [place] Medigap Part B [id number] Self [id number] BCBS Excell MCR Supp U/W Medigap Part B [id number] Self [id number] [id number] BCBS Excell MCR Supp U/W Medigap Part B [id number] Self [id number] [id number] BCBS Excell[place] Ppo U/W Medigap Part B [id number] Self [id number] [id number] BCBS Excell MCR Supp U/W Medigap Part B [id number] Self [id number] [id number] MEDICARE C [id number] S [id number] A [facility] [place] [facility] [id number] Self [id number] [employer] [place] [facility] [id number] Self [id number] [employer] [place] [facility] [id number] Self [id number] [employer] [place] [facility] [id number] Self [id number] [employer] [place] [facility] [id number] Self [id number] BCBS [place] PPO 302/307 [id number] SP [id number] BCBS Excell MCR Supp U/W Medigap Part B [id number] Self VY [id number] BCBS Excell MCR Supp U/W Medigap Part B [id number] Self BCBS Excell[place] Ppo U/W Medigap Part B [id number] Self Aetna [place] Medigap Part B [id number] Self BLUE CROSS BLUE SHIELD-O/P [id number] 18 [id number] MEDICARE -O/P [id number] 18 [id number] BC/BS [place] Medigap Part B [id number] Self EXCELLUS BCBS S [id number] S [id number] Problems, Conditions, and Diagnoses Code Display Name Description Problem Type Effective Dates Data Source(s) 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 Problem 09/26/2020 12:00:00 AM EDT [facility] ([facility]) I48.11 Persistent atrial fibrillation Persistent atrial fibri llation Problem 09/26/2020 12:00:00 AM EDT [facility] Surgeries/Procedures Procedure Description Date Indications Data Source(s) OFFICE OUTPATIENT VISIT 25 MINUTES 02/22/2021 12:00:00 AM EDT [facility] ([facility]) 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 2020 12:00:00 AM EDT [facility] ([facility]) OFFICE OUTPATIENT VISIT 15 MINUTES 12/27/2020 12:00:00 AM EDT [facility] ([facility]) PHYSICIAN TELEPHONE EVALUATION 11-20 MIN 12/22/2020 12 :00:00 AM EDT [facility] ([facility]) OFFICE OUTPATIENT VISIT 25 MINUTES 10/09/2020 12:00:00 AM EDT [facility] ([facility]) ECHO TTHRC R-T 2D W/WOM-MODE COMPL SPEC&COLR DOP 09/26 12:00:00 AM EDT [facility] ([facility]) OFFICE OUTPATIENT VISIT 25 MINUTES 09/26/2020 12:00:00 AM EDT [facility] ([facility]) PROGRAM EVAL IMPLANTABLE IN PERSN DUAL LD PACER 2020 12:00:00 AM EDT [facility] ([facility]) ECG ROUTINE ECG W/LEAST 12 LDS W/I&R 08/23/2020 12:00: 00 AM EDT [facility] ([facility]) ECHO TTHRC R-T 2D W/WOM-MODE COMPL SPEC&COLR DOP 08/23 12:00:00 AM EDT [facility] ([facility]) OFFICE OUTPATIENT VISIT 25 MINUTES 08/23/2020 12:00:00 AM EDT [facility] ([facility]) OFFICE OUTPATIENT VISIT 15 MINUTES 07/25/2020 12:00:00 AM EST [facility] ([facility]) 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 2020 12:00:00 AM EST [facility] ([facility]) OFFICE OUTPATIENT VISIT 25 MINUTES 05/31/2020 12:00:00 AM EST [facility] ([facility]) ECHO TTHRC R-T 2D W/WOM-MODE COMPL SPEC&COLR DOP 05/22 12:00:00 AM EST [facility] ([facility]) XTRNL ECG < 48 HR RECORDING 02/24/2020 12:00:00 AM EDT [facility] ([facility]) XTRNL ECG CONTINUOUS RHYTHM PHYS REVIEW&INTERPJ 2019 12:00:00 AM EDT [facility] ([facility]) ECG ROUTINE ECG W/LEAST 12 LDS W/I&R 02/15/2020 12:00: 00 AM EDT [facility] ([facility]) ECHO TTHRC R-T 2D W/WOM-MODE COMPL SPEC&COLR DOP 02/03 12:00:00 AM EDT [facility] ([facility]) ECG ROUTINE ECG W/LEAST 12 LDS W/I&R 02/02/2020 12:00: 00 AM EDT [facility] ([facility]) Diabetic Retinal Eye Exam 01/18/2020 12:00:00 AM EDT [facility] ([facility]) Surgical / procedural history 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, 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, Pacemaker Surgical / procedural history Removal of brain tumor November 2014, 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, Pacemaker 01/18/2020 12:00:00 AM EDT [place] ([facility] Telma Cuellar MD [facility]) Intermediate Eye Exam Established Patient Intermediate Eye Exam Established Patient 01/18/2020 12:00:00 AM EDT [place] ([facility] Tel[facility] Cuellar MD [facility]) Results ID Date Data Source [id number] 02/22/2021 11:56:00 AM EDT [facility] ([facility]) Name Value Range Interpretation Code Description Data Patricia rce(s) Supporting Document(s) Urea nitrogen [Mass/volume] in Serum or Plasma 22 mg/dL 7-18 [facility] ([facility]) Glucose [Mass/volume] in Serum or Plasma 94 mg/dL 74-99 [facility] ([facility]) 100-125 mg/dL PRE-DIABETES/FASTING >126 mg/dL DIABETES/FASTING Sodium [Moles/volume] in Serum or Plasma 143 meq/L 136-145 [facility] ([facility]) Creatinine 1.3 mg/dL 0.6-1.3 [facility] ([facility]) Potassium [Moles/volume] in Serum or Plasma 3.7 meq/L 3.5-5.1 [facility] ([facility]) Chloride [Moles/volume] in Serum or Plasma 101 meq/L 98-107 [facility] ([facility]) Carbon dioxide, total [Moles/volume] in Serum or Plasma 36 meq/L 21 -32 [facility] ([facility]) Total Bilirubin 0.5 mg/dL 0.2-1.0 [facility] ([facility]) Alkaline phosphatase isoenzyme [Units/volume] in Serum or Pl asma 63 mg/dL 46-116 [facility] ([facility]) Calcium [Mass/volume] in Serum or Plasma 9.8 mg/dL 8.5-10.1 [facility] ([facility]) Proteinase 3 Ab [Units/volume] in Serum 6.3 g/dL 6.4-8.2 [facility] ([facility]) Aspartate aminotransferase [Enzymatic activity/volume] in Serum or Plasma 22 U/L 15-37 [facility] ([facility] ) Alanine aminotransferase [Enzymatic activity/volume] in Seru m or Plasma 23 U/L 12-78 [facility] ([facility]) Albumin [Mass/volume] in Serum or Plasma 3.6 g/dL 3.4-5.0 [facility] ([facility]) Glomerular filtration rate/1.73 sq M pre dicted among non-blacks [Volume Rate/Area] in Serum or Plasma by Creatinine-based formula (MDRD) 39 mL/min [facility] A/G Ratio 1.33 CALC 1.00-1.90 [facility] Glomerular filtration rate/1.73 sq M pre dicted among blacks [Volume Rate/Area] in Serum or Plasma by Creatinine-based formula (MDRD) 47 mL/min [facility]) <content>CHRONIC KIDNEY DISEASE STAGING PER NKF</content>
<content></content>
<content>STAGE I & II GFR >= 60 NORMAL TO MILDLY DECREASED</content>
<content>STAGE III GFR 30-59 MODERATELY DECREASED</content>
<content>STAGE IV GFR 15-29 SEVERELY DECREASED</content>
<content>STAGE V GFR <15 VERY LITTLE GFR LEFT</content>
<content>ESRD GFR <15 ON SHOE PACKER</content>
<content></content> ID Date Data Source [id number] 02/22/2021 11:56:00 AM EDT [facility] ([facility]) Name Value Range Interpretation Code Description Data Patricia rce(s) Supporting Document(s) Hemoglobin [Mass/volume] in Blood 12.7 g/dL 12.0-18.0 [facility] ([facility]) Leukocytes [#/volume] in Blood by Automated count 8.6 x10*3/UL 4.1-10 .9 [facility] ([facility]) Erythrocytes [#/volume] in Blood by Automated count 4.08 x10*6/UL 4.2 0-6.30 [facility] ([facility]) MCV 92.8 fL 80.0-97.0 [facility] ([facility]) Hematocrit [Volume Fraction] of Blood by Automated count 37.9 % 3 7.0-51.0 [facility] MCH 31.0 pg 26.0-32.0 [facility] ([facility]) MCHC 33.4 g/dL 31.0-38.0 [facility] ([facility]) Erythrocyte distribution width [Ratio] by Automated count 17.1 % 11.6-13.7 [facility] Lymph % 20.6 % 10.0-58.5 [facility] ([facility]) Platelets [#/volume] in Blood by Automated count 290 x10*3/UL 140-440 [facility] MPV 9.3 FL 7.8-11.0 [facility] ([facility]) Lymph # 1.7 x10*3/UL 0.6-4.1 [facility] ([facility]) Neut % 73.7 % 37.0-92.0 [facility] ([facility]) Mid % 5.7 % 1.7-9.3 [facility] ([facility]) Neut # 6.4 x10*3/UL 2.0-7.8 [facility] ([facility]) Mid # 0.5 x10*3/UL 0.1-0.6 [facility] ([facility]) ID Date Data Source [id number] 02/22/2021 11:56:00 AM EDT [facility] Name Value Range Interpretation Code Description Data Patricia rce(s) Supporting Document(s) Hemoglobin A1c/Hemoglobin.total in Blood 6.5 % [facility] ([facility] Lab Result Notes: Pre-Diabetes 5.7 - 6.4 % Diabetes = or > 6.5% Glucose mean value [Mass/volume] in Blood Estimated fr om glycated hemoglobin 140 mg/dL 60-110 [facility] ID Date Data Source [id number] 02/22/2021 11:56:00 AM EDT [facility] ([facility]) Name Value Range Interpretation Code Description Data Patricia rce(s) Supporting Document(s) Urine Creatinine 89.5 mg/dL 30.0-125.0 [facility] ([facility]) Microalbumin Urine 271.5 mg/L 1.3-20.0 [facility] ([facility]) Microalb/Creat Ratio 303.4 ug/mg 0.0-30.0 [facility] ([facility]) ID Date Data Source [id number] 02/22/2021 11:56:00 AM EDT [facility] ([facility]) Name Value Range Interpretation Code Description Data Patricia rce(s) Supporting Document(s) Hemoglobin A1c/Hemoglobin.total in Blood Laboratory test result [facility] Natriuretic peptide B [Mass/volume] in Serum or Plasma 1840.0 pg/mL 0.0-100.0 [facility] ([facility]) ID Date Data Source [id number] 02/22/2021 11:56:00 AM EDT [facility] ([facility]) Name Value Range Interpretation Code Description Data Patricia rce(s) Supporting Document(s) Glucose [Mass/volume] in Serum or Plasma 94 mg/dL 74-99 [facility] ([facility]) 100-125 mg/dL PRE-DIABETES/FASTING >126 mg/dL DIABETES/FASTING Creatinine 1.3 mg/dL 0.6-1.3 [facility] ([facility]) Sodium [Moles/volume] in Serum or Plasma 143 meq/L 136-145 [facility] ([facility]) Urea nitrogen [Mass/volume] in Serum or Plasma 22 mg/dL 7-18 [facility] ([facility]) Carbon dioxide, total [Moles/volume] in Serum or Plasma 36 meq/L 21 -32 [facility] ([facility]) Potassium [Moles/volume] in Serum or Plasma 3.7 meq/L 3.5-5.1 [facility] ([facility]) Chloride [Moles/volume] in Serum or Plasma 101 meq/L 98-107 [facility] ([facility]) Calcium [Mass/volume] in Serum or Plasma 9.8 mg/dL 8.5-10.1 [facility] ([facility]) Alkaline phosphatase isoenzyme [Units/volume] in Serum or Pl asma 63 mg/dL 46-116 [facility] ([facility]) Total Bilirubin 0.5 mg/dL 0.2-1.0 [facility] ([facility]) Aspartate aminotransferase [Enzymatic activity/volume] in Serum or Plasma 22 U/L 15-37 [facility] ([employer] [facility]) Alanine aminotransferase [Enzymatic activity/volume] in Seru m or Plasma 23 U/L 12-78 [facility] ([facility]) Proteinase 3 Ab [Units/volume] in Serum 6.3 g/dL 6.4-8.2 [facility] ([facility]) Albumin [Mass/volume] in Serum or Plasma 3.6 g/dL 3.4-5.0 [facility] ([facility]) Glomerular filtration rate/1.73 sq M pre dicted among non-blacks [Volume Rate/Area] in Serum or Plasma by Creatinine-based formula (MDRD) 39 mL/min [facility] ([facility]) Glomerular filtration rate/1.73 sq M pre dicted among blacks [Volume Rate/Area] in Serum or Plasma by Creatinine-based formula (MDRD) 47 mL/min [facility] ([facility]) <content>CHRONIC KIDNEY DISEASE STAGING PER NKF</content>
<content></content>
<content>STAGE I & II GFR >= 60 NORMAL TO MILDLY DECREASED</content>
<content>STAGE III GFR 30-59 MODERATELY DECREASED</content>
<content>STAGE IV GFR 15-29 SEVERELY DECREASED</content>
<content>STAGE V GFR <15 VERY LITTLE GFR LEFT</content>
<content>ESRD GFR <15 ON SHOE PACKER</content>
<content></content>
<content></content> A/G Ratio 1.33 CALC 1.00-1.90 [facility]) ID Date Data Source [id number] 02/22/2021 11:56:00 AM EDT [facility] ([facility]) Name Value Range Interpretation Code Description Data Patricia rce(s) Supporting Document(s) Microalbumin Urine 271.5 mg/L 1.3-20.0 [facility] ([facility]) Urine Creatinine 89.5 mg/dL 30.0-125.0 [facility] ( [facility]) Microalb/Creat Ratio 303.4 ug/mg 0.0-30.0 [facility] ([facility]) ID Date Data Source [id number] 12/26/2020 09:15:00 AM EDT [facility] ([facility]) Name Value Range Interpretation Code Description Data Patricia rce(s) Supporting Document(s) Glucose, Fasting 131 mg/dL 70-100 [facility] ([facility]) Blood Urea Nitrogen 20 mg/dL 7-18 [facility] ([facility]) Creatinine For GFR 1.02 mg/dL 0.55-1.30 [facility] ([facility]) Glomerular Filtration Rate 54.8 [facility] ([facility]) <content>Units are mL/min/1.73 m2</content>
<content></content>
<content>Chronic Kidney Disease Staging per NKF:</content>
<content></content>
<content>Stage I & II GFR >=60 Normal to Mildly Decreased</content>
<content>Stage III GFR 30-59 Moderately Decreased</content>
<content>Stage IV GFR 15-29 Severely Decreased</content>
<content>Stage V GFR <15 Very Little GFR Left</content>
<content>ESRD GFR <15 on SHOE PACKER</content>
<content></content> Sodium Level 140 meq/L 136-145 [facility] ([facility]) Potassium Serum 4.5 meq/L 3.5-5.1 [facility] ([facility]) Carbon Dioxide Level 30 meq/L 21-32 [facility] Chloride Level 105 meq/L 98-107 [facility] ([facility]) Anion Gap 5 meq/L 8-16 [facility] [facility]) Calcium Level 9.3 mg/dL 8.8-10.2 [facility] ([facility]) ID Date Data Source [id number] 12/26/2020 09:15:00 AM EDT [facility] ([facility]) Name Value Range Interpretation Code Description Data Patricia rce(s) Supporting Document(s) Natriuretic peptide.B prohormone N-Terminal [Mass/volu me] in Serum or Plasma 6360 pg/mL [facility] ([facility] ) Magnesium [Moles/volume] in Serum or Plasma 2.3 mg/dL 1.8-2.4 [facility] ([facility]) ID Date Data Source [id number] 12/26/2020 09:15:00 AM EDT [facility] Name Value Range Interpretation Code Description Data Patricia rce(s) Supporting Document(s) Magnesium [Mass/volume] in Serum or Plasma 2.3 mg/dL 1.8-2.4 [facility] ([facility]) Natriuretic peptide.B prohormone N-Terminal [Mass/volu me] in Serum or Plasma 6360 pg/mL [facility] ([employer] [facility]) ID Date Data Source [id number] 12/26/2020 09:15:00 AM EDT [facility] ([facility]) Name Value Range Interpretation Code Description Data Patricia rce(s) Supporting Document(s) Blood Urea Nitrogen 20 mg/dL 7-18 [facility] ([facility]) Glucose, Fasting 131 mg/dL 70-100 [facility] Creatinine For GFR 1.02 mg/dL 0.55-1.30 [facility] ([facility]) Glomerular Filtration Rate 54.8 [facility] ([facility]) <content>Units are mL/min/1.73 m2</content>
<content></content>
<content>Chronic Kidney Disease Staging per NKF:</content>
<content></content>
<content>Stage I & II GFR >=60 Normal to Mildly Decreased</content>
<content>Stage III GFR 30- 59 Moderately Decreased</content>
<content>Stage IV GFR 15-29 Severely Decreased</content>
<content>Stage V GFR <15 Very Little GFR Left</content>
<content>ESRD GFR <15 on SHOE PACKER</content>
<content></content> Potassium Serum 4.5 meq/L 3.5-5.1 [facility] ([facility]) Sodium Level 140 meq/L 136-145 [facility] ([facility]) Chloride Level 105 meq/L 98-107 [facility] ([facility]) Carbon Dioxide Level 30 meq/L 21-32 [facility] ([facility]) Anion Gap 5 meq/L 8-16 [facility] Calcium Level 9.3 mg/dL 8.8-10.2 [facility] ([facility]) ID Date Data Source [id number] 11/06/2020 11:44:00 AM EDT [facility] ([facility]) Name Value Range Interpretation Code Description Data Patricia rce(s) Supporting Document(s) Viscosity of Serum 1.6 rel.saline 1.4-2.1 [facility] ([facility]) Values above 2.7 may indicate paraprotei nemia is present. Performed at: [address] [id number] Tender: Ananya Gauthier MD, Phone: [phone] ID Date Data Source [id number] 11/06/2020 11:44:00 AM EDT [facility] ([facility]) Name Value Range Interpretation Code Description Data Patricia rce(s) Supporting Document(s) Albumin % 65.1 % 55.8-66.1 [facility]) Aoalc-3-Qyjatfxm % 5.7 % 2.9-4.9 [facility] ([facility] Fhpjg-1-Ammlszqsd % 12.5 % 7.1-11.8 [facility] ([facility] Mavh-9-Kiisnbswu % 7.4 % 4.7-7.2 [facility] ([facility] Nxvb-0-Bbvmuusff % 3.9 % 3.2-6.5 [facility] ([facility]) Gamma Globulin % 5.4 % 11.1-18.8 [facility] ([facility]) Albumin 3.84 GM/DL 3.29-5.55 [facility] ([facility]) Htdxe-4-Wcnhppyfv 0.74 GM/DL 0.42-0.99 [facility] ([facility]) Aasnb-6-Rkpprjdyq 0.34 GM/DL 0.17-0.41 [facility] ([facility]) Gamma Globulins 0.32 GM/DL 0.65-1.58 [facility] ([facility]) Ybzy-8-Niitgcydf 0.44 GM/DL 0.28-0.60 [facility] ([facility]) Mkxu-1-Dfbuetqps 0.23 GM/DL 0.19-0.55 [facility] ([facility]) Spep Interpretation Laboratory test result [facility] ([facility]) M-SPIKE NOTED IN EARLY GAMMA REGION. CONCENTRATION = 0.08 GM/DL SUGGEST SERUM AND URINE IMMUNOTYPING. Laboratory test finding (navigational concept) Laboratory test result [facility] ([facility]) Total Protein 5.9 GM/DL 6.4-8.2 [facility] ([facility]) ID Date Data Source [id number] 11/06/2020 11:44:00 AM EDT [facility] ([facility]) Name Value Range Interpretation Code Description Data Patricia rce(s) Supporting Document(s) Immunoglobulin A 79.0 mg/dL 70-400 [facility] ([facility]) Immunoglobulin G 271 mg/dL 681-1648 [facility] ([facility]) Immunoglobulin M 108.0 mg/dL 40-230 [facility] ([facility]) ID Date Data Source [id number] 11/06/2020 11:44:00 AM EDT [facility] ([facility]) Name Value Range Interpretation Code Description Data Patricia rce(s) Supporting Document(s) Lactate dehydrogenase [Enzymatic activit y/volume] in Serum or Plasma by Lactate to pyruvate reaction 239 U/L 84-246 [facility] ([facility]) ID Date Data Source [id number] 11/06/2020 11:44:00 AM EDT [facility] ([facility]) Name Value Range Interpretation Code Description Data Patricia rce(s) Supporting Document(s) Glucose, Fasting 103 mg/dL 70-100 [facility] ([facility]) Blood Urea Nitrogen 19 mg/dL 7-18 [facility] ([facility]) Creatinine For GFR 1.10 mg/dL 0.55-1.30 [facility] ([facility] Glomerular Filtration Rate 50.3 [facility] ([facility]) <content>Units are mL/min/1.73 m2</content>
<content></content>
<content>Chronic Kidney Disease Staging per NKF:</content>
<content></content>
<content>Stage I & II GFR >=60 Normal to Mildly Decreased</content>
<content>Stage III GFR 30-59 Moderately Decreased</content>
<content>Stage IV GFR 15-29 Severely Decreased</content>
<content>Stage V GFR <15 Very Little GFR Left</content>
<content>ESRD GFR <15 on SHOE PACKER</content>
<content></content> Sodium Level 143 meq/L 136-145 [facility] ([facility]) Chloride Level 104 meq/L 98-107 [facility] ([facility]) Potassium Serum 4.0 meq/L 3.5-5.1 [facility] ([facility]) Anion Gap 7 meq/L 8-16 [facility] ([facility]) Carbon Dioxide Level 32 meq/L 21-32 [facility] ([facility]) Calcium Level 10.0 mg/dL 8.8-10.2 [facility] ([facility]) Alt/SGPT 29 U/L 12-78 [facility] ([facility]) Alkaline Phosphatase 66 U/L 45-117 [facility] ([facility]) Ast/Sgot 24 U/L 7-37 [facility] ([facility]) Total Protein 5.9 GM/DL 6.4-8.2 [facility] ([facility]) Bilirubin,Total 0.5 mg/dL 0.2-1.0 [facility] ([facility]) Albumin 3.6 GM/DL 3.2-5.2 [facility]) Albumin/Globulin Ratio 1.6 1.2-2.2 [facility] ([facility]) ID Date Data Source [id number] 11/06/2020 11:44:00 AM EDT [facility] ([facility]) Name Value Range Interpretation Code Description Data Patricia [facility](s) Supporting Document(s) White Blood Count 9.6 10 4.0-10.0 [facility] ([facility]) Red Blood Count 3.88 10 4.00-5.40 [facility] ([facility]) Hematocrit 38.2 % 36.0-47.0 [facility] [facility] Mean Corpuscular Volume 98.5 fl 80.0-96.0 [facility] ([facility]) Hemoglobin 13.2 g/dL 12.0-15.5 [facility] Mean Corpuscular Hemoglobin 34.0 pg 27.0-33.0 ME DENT ([facility]) Mean Corpuscular HGB Conc 34.6 g/dL 32.0-36.5 MEDE NT ([facility]) Red Cell Distribution Width 17.6 % 11.5-14.5 ME D[facility] ([facility]) Platelet Count, Automated 251 10 150-450 MEDE NT ([facility]) Neutrophils % 67.2 % 36.0-66.0 [facility] ([facility]) [place] % 9.2 % 2.0-8.0 [facility] [facility]) Eos % 2.7 % 0.0-3.0 [facility]) Lymph % 19.9 % 24.0-44.0 [facility]) Baso % 0.7 % 0.0-1.0 [facility]) Nucleated Red Blood Cell % 0.0 % 0-0 [facility] ([facility]) Immature Granulocyte % 0.3 % 0-3.0 [facility] ([facility]) [place] # 0.9 10 0.0-0.8 [facility]) Neutrophils # 6.4 10 1.5-8.5 [facility] ([facility]) Lymph # 1.9 10 1.5-5.0 [facility]) Eos # 0.3 10 0.0-0.5 [facility]) Baso # 0.1 10 0.0-0.2 [facility]) ID Date Data Source [id number] 10/06/2020 09:03:00 AM EDT [facility] ([facility]) Name Value Range Interpretation Code Description Data Patricia rce(s) Supporting Document(s) Thyrotropin [Units/volume] in Serum or Plasma by Detec tion limit <= 0.05 mIU/L 1.61 uIU/mL 0.36-3.74 [facility] ([facility] ) ID Date Data Source [id number] 10/06/2020 09:03:00 AM EDT [facility] ([facility]) Name Value Range Interpretation Code Description Data Patricia rce(s) Supporting Document(s) Cholesterol in HDL [Mass/volume] in Serum or Plasma 67 mg/dL 35-60 [facility] ([facility]) Triglyceride [Mass/volume] in Serum or Plasma 88 mg/dL 30-150 [facility] ([facility]) Cholesterol [Mass/volume] in Serum or Plasma 189 mg/dL 131-200 [facility] ([facility]) Cholesterol in LDL [Mass/volume] in Serum or Plasma by calcu lation 104 CALC 50-159 [facility] ([facility]) ID Date Data Source [id number] 10/06/2020 09:03:00 AM EDT [facility] ([facility]) Name Value Range Interpretation Code Description Data Patricia rce(s) Supporting Document(s) Creatinine 1.2 mg/dL 0.6-1.3 [facility] Urea nitrogen [Mass/volume] in Serum or Plasma 25 mg/dL 7-18 [facility] ([facility]) Glucose [Mass/volume] in Serum or Plasma 140 mg/dL 74-99 [facility] ([facility]) 100-125 mg/dL PRE-DIABETES/FASTING >126 mg/dL DIABETES/FASTING Potassium [Moles/volume] in Serum or Plasma 3.9 meq/L 3.5-5.1 [facility] ([facility]) Sodium [Moles/volume] in Serum or Plasma 142 meq/L 136-145 [facility] ([facility]) Carbon dioxide, total [Moles/volume] in Serum or Plasma 30 meq/L 21 -32 [facility] ([facility]) Chloride [Moles/volume] in Serum or Plasma 105 meq/L 98-107 [facility] ([facility]) Calcium [Mass/volume] in Serum or Plasma 9.3 mg/dL 8.5-10.1 [facility] ([facility]) Total Bilirubin 0.6 mg/dL 0.2-1.0 [facility] ([facility]) Alkaline phosphatase isoenzyme [Units/volume] in Serum or Pl asma 70 mg/dL 46-116 [facility] ([facility]) Albumin [Mass/volume] in Serum or Plasma 3.7 g/dL 3.4-5.0 [facility] ([facility]) Alanine aminotransferase [Enzymatic activity/volume] in Seru m or Plasma 41 U/L 12-78 [facility] ([facility]) Aspartate aminotransferase [Enzymatic activity/volume] in Serum or Plasma 34 U/L 15-37 [facility] ([facility] ) A/G Ratio 1.68 CALC 1.00-1.90 [facility] [facility]) Proteinase 3 Ab [Units/volume] in Serum 5.9 g/dL 6.4-8.2 [facility] ([facility]) Glomerular filtration rate/1.73 sq M pre dicted among blacks [Volume Rate/Area] in Serum or Plasma by Creatinine-based formula (MDRD) 52 mL/min [facility] <content>CHRONIC KIDNEY DISEASE STAGING PER NKF</content>
<content></content>
<content>STAGE I & II GFR >= 60 NORMAL TO MILDLY DECREASED</content>
<content>STAGE III GFR 30-59 MODERATELY DECREASED</content>
<content>STAGE IV GFR 15-29 SEVERELY DECREASED</content>
<content>STAGE V GFR <15 VERY LITTLE GFR LEFT</content>
<content>ESRD GFR <15 ON SHOE PACKER</content>
<content></content> Glomerular filtration rate/1.73 sq M pre dicted among non-blacks [Volume Rate/Area] in Serum or Plasma by Creatinine-based formula (MDRD) 43 mL/min [facility] ([facility]) ID Date Data Source [id number] 10/06/2020 09:03:00 AM EDT [facility]) Name Value Range Interpretation Code Description Data Patricia rce(s) Supporting Document(s) Hemoglobin A1c/Hemoglobin.total in Blood 6.4 % [facility] ([facility]) Lab Result Notes: Pre-Diabetes 5.7 - 6.4 % Diabetes = or > 6.5% Glucose mean value [Mass/volume] in Blood Estimated fr om glycated hemoglobin 137 mg/dL 60-110 [facility] ([facility] ) ID Date Data Source [id number] 10/06/2020 09:03:00 AM EDT [facility]) Name Value Range Interpretation Code Description Data Patricia rce(s) Supporting Document(s) Leukocytes [#/volume] in Blood by Automated count 9.1 x10*3/UL 4.1-10 .9 [facility] ([facility]) Erythrocytes [#/volume] in Blood by Automated count 3.72 x10*6/UL 4.2 0-6.30 [facility] Hemoglobin [Mass/volume] in Blood 11.6 g/dL 12.0-18.0 [facility] ([facility]) NOTE: RESULT VERIFIED. MCV 94.9 fL 80.0-97.0 [facility] [facility]) Hematocrit [Volume Fraction] of Blood by Automated count 35.3 % 3 7.0-51.0 [facility] ([facility]) MCH 31.3 pg 26.0-32.0 [facility] [facility]) Erythrocyte distribution width [Ratio] by Automated count 17.3 % 11.6-13.7 [facility] ([facility]) MCHC 32.9 g/dL 31.0-38.0 [facility] [facility]) MPV 9.1 FL 7.8-11.0 [facility] [facility]) Platelets [#/volume] in Blood by Automated count 229 x10*3/UL 140-440 [facility] ([facility]) Mid % 5.8 % 1.7-9.3 [facility] [facility] Neut % 75.1 % 37.0-92.0 [facility] [facility] Lymph % 19.1 % 10.0-58.5 [facility] [facility] Mid # 0.6 x10*3/UL 0.1-0.6 [facility] ([facility]) Lymph # 1.7 x10*3/UL 0.6-4.1 [facility] ([facility]) Neut # 6.8 x10*3/UL 2.0-7.8 [facility] ([facility]) ID Date Data Source [id number] 10/06/2020 09:03:00 AM EDT [facility] ([facility]) Name Value Range Interpretation Code Description Data Patricia rce(s) Supporting Document(s) Hemoglobin A1c/Hemoglobin.total in Blood Laboratory test result [facility]) ID Date Data Source [id number] 09/18/2020 10:15:00 AM EDT [facility] ([facility]) Name Value Range Interpretation Code Description Data Patricia rce(s) Supporting Document(s) Hemoglobin 11.8 g/dL 12.0-15.5 [facility] ([facility]) White Blood Count 8.0 10 4.0-10.0 [facility] ([facility]) Red Blood Count 3.79 10 4.00-5.40 [facility] ([facility]) Mean Corpuscular Volume 100.0 fl 80.0-96.0 [facility] ([facility]) Hematocrit 37.9 % 36.0-47.0 [facility] [facility]) Mean Corpuscular Hemoglobin 31.1 pg 27.0-33.0 [facility] ([facility]) Mean Corpuscular HGB Conc 31.1 g/dL 32.0-36.5 [facility] ([facility]) Red Cell Distribution Width 17.2 % 11.5-14.5 [facility] ([facility]) Platelet Count, Automated 209 10 150-450 [facility] ([facility]) Nucleated Red Blood Cell % 0.0 % 0-0 [facility] ([facility]) ID Date Data Source [id number] 09/18/2020 10:15:00 AM EDT [facility] ([facility]) Name Value Range Interpretation Code Description Data Patricia rce(s) Supporting Document(s) Magnesium [Moles/volume] in Serum or Plasma 2.0 mg/dL 1.8-2.4 [facility] Natriuretic peptide.B prohormone N-Terminal [Mass/volu me] in Serum or Plasma 4551 pg/mL [facility] ID Date Data Source [id number] 09/18/2020 10:15:00 AM EDT [facility] ([facility] Name Value Range Interpretation Code Description Data Patricia rce(s) Supporting Document(s) Glucose, Fasting 92 mg/dL 70-100 [facility] ([facility]) Blood Urea Nitrogen 22 mg/dL 7-18 [facility] ([facility] [facility]) Creatinine For GFR 1.06 mg/dL 0.55-1.30 MED[facility] ([facility]) Glomerular Filtration Rate 52.4 MED ENT ([facility]) <content>Units are mL/min/1.73 m2</content>
<content></content>
<content>Chronic Kidney Disease Staging per NKF:</content>
<content></content>
<content>Stage I & II GFR >=60 Normal to Mildly Decreased</content>
<content>Stage III GFR 30- 59 Moderately Decreased</content>
<content>Stage IV GFR 15-29 Severely Decreased</content>
<content>Stage V GFR <15 Very Little GFR Left</content>
<content>ESRD GFR <15 on SHOE PACKER</content>
<content></content> Sodium Level 144 meq/L 136-145 [facility] ([facility]) Chloride Level 105 meq/L 98-107 [facility] ([facility]) Carbon Dioxide Level 33 meq/L 21-32 [facility] ([facility]) Potassium Serum 4.0 meq/L 3.5-5.1 [facility] ([facility]) Calcium Level 9.9 mg/dL 8.8-10.2 [facility] ([facility]) Anion Gap 6 meq/L 8-16 [facility] ([facility]) ID Date Data Source [id number] 09/18/2020 10:15:00 AM EDT [facility] ([facility]) Name Value Range Interpretation Code Description Data Patricia rce(s) Supporting Document(s) White Blood Count 8.0 10 4.0-10.0 [facility] ([facility]) Hematocrit 37.9 % 36.0-47.0 [facility] ([facility]) Hemoglobin 11.8 g/dL 12.0-15.5 [facility] ([facility]) Red Blood Count 3.79 10 4.00-5.40 [facility] ([facility]) Mean Corpuscular Volume 100.0 fl 80.0-96.0 M EDENT ([facility]) Mean Corpuscular Hemoglobin 31.1 pg 27.0-33.0 [facility] ([facility]) Mean Corpuscular HGB Conc 31.1 g/dL 32.0-36.5 [facility] ([facility]) Platelet Count, Automated 209 10 150-450 MED[facility] ([facility]) Nucleated Red Blood Cell % 0.0 % 0-0 MED ENT ([facility]) Red Cell Distribution Width 17.2 % 11.5-14.5 [facility] ([facility]) ID Date Data Source [id number] 09/18/2020 10:15:00 AM EDT MED[facility] ([facility]) Name Value Range Interpretation Code Description Data Patricia rce(s) Supporting Document(s) Magnesium [Mass/volume] in Serum or Plasma 2.0 mg/dL 1.8-2.4 [facility] ([facility]) Natriuretic peptide.B prohormone N-Terminal [Mass/volu me] in Serum or Plasma 4551 pg/mL MED[facility] ([facility] [employer] [facility]) ID Date Data Source [id number] 09/18/2020 10:15:00 AM EDT MED[facility] ([facility]) Name Value Range Interpretation Code Description Data Patricia rce(s) Supporting Document(s) Glucose, Fasting 92 mg/dL 70-100 [facility] ([facility]) Creatinine For GFR 1.06 mg/dL 0.55-1.30 [facility] ([facility]) Blood Urea Nitrogen 22 mg/dL 7-18 [facility] ([facility]) Sodium Level 144 meq/L 136-145 [facility] ([facility]) Glomerular Filtration Rate 52.4 MED ENT ([facility]) <content>Units are mL/min/1.73 m2</content>
<content></content>
<content>Chronic Kidney Disease Staging per NKF:</content>
<content></content>
<content>Stage I & II GFR >=60 Normal to Mildly Decreased</content>
<content>Stage III GFR 30- 59 Moderately Decreased</content>
<content>Stage IV GFR 15-29 Severely Decreased</content>
<content>Stage V GFR <15 Very Little GFR Left</content>
<content>ESRD GFR <15 on SHOE PACKER</content>
<content></content> Chloride Level 105 meq/L 98-107 [facility] ([facility]) Potassium Serum 4.0 meq/L 3.5-5.1 [facility] ([facility]) Carbon Dioxide Level 33 meq/L 21-32 [facility] ([facility]) Anion Gap 6 meq/L 8-16 [facility] ([facility]) Calcium Level 9.9 mg/dL 8.8-10.2 [facility] ([facility]) ID Date Data Source [id number] 08/23/2020 01:10:00 PM EDT MED[facility] ([facility]) Name Value Range Interpretation Code Description Data Patricia rce(s) Supporting Document(s) Natriuretic peptide.B prohormone N-Terminal [Mass/volu me] in Serum or Plasma 8524 pg/mL MED[facility] ([facility] ) Magnesium [Moles/volume] in Serum or Plasma 1.7 mg/dL 1.8-2.4 [facility] ([facility]) ID Date Data Source [id number] 08/23/2020 01:10:00 PM EDT MED[facility] ([facility]) Name Value Range Interpretation Code Description Data Patricia rce(s) Supporting Document(s) Glucose, Fasting 106 mg/dL 70-100 [facility] ([facility]) Creatinine For GFR 0.99 mg/dL 0.55-1.30 [facility] ([facility]) Blood Urea Nitrogen 19 mg/dL 7-18 [facility] ([facility]) Sodium Level 144 meq/L 136-145 [facility] ([facility]) Glomerular Filtration Rate 56.8 [facility] <content>Units are mL/min/1.73 m2</content>
<content></content>
<content>Chronic Kidney Disease Staging per NKF:</content>
<content></content>
<content>Stage I & II GFR >=60 Normal to Mildly Decreased</content>
<content>Stage III GFR 30- 59 Moderately Decreased</content>
<content>Stage IV GFR 15-29 Severely Decreased</content>
<content>Stage V GFR <15 Very Little GFR Left</content>
<content>ESRD GFR <15 on SHOE PACKER</content>
<content></content> Chloride Level 107 meq/L 98-107 [facility] Potassium Serum 4.7 meq/L 3.5-5.1 [facility] ([facility]) Anion Gap 6 meq/L 8-16 [facility]) Carbon Dioxide Level 31 meq/L 21-32 [facility] ([facility]) Calcium Level 9.6 mg/dL 8.8-10.2 [facility] ([facility]) ID Date Data Source [id number] 08/23/2020 01:10:00 PM EDT [facility] Name Value Range Interpretation Code Description Data Patricia rce(s) Supporting Document(s) Natriuretic peptide.B prohormone N-Terminal [Mass/volu me] in Serum or Plasma 8524 pg/mL MED[facility] ([facility]) Magnesium [Mass/volume] in Serum or Plasma 1.7 mg/dL 1.8-2.4 [facility] ([facility]) ID Date Data Source [id number] 08/23/2020 01:10:00 PM EDT [facility] Name Value Range Interpretation Code Description Data Patricia rce(s) Supporting Document(s) Glucose, Fasting 106 mg/dL 70-100 [facility] Creatinine For GFR 0.99 mg/dL 0.55-1.30 [facility] ([facility]) Blood Urea Nitrogen 19 mg/dL 7-18 [facility] ([facility]) Glomerular Filtration Rate 56.8 MED ENT ([facility]) <content>Units are mL/min/1.73 m2</content>
<content></content>
<content>Chronic Kidney Disease Staging per NKF:</content>
<content></content>
<content>Stage I & II GFR >=60 Normal to Mildly Decreased</content>
<content>Stage III GFR 30- 59 Moderately Decreased</content>
<content>Stage IV GFR 15-29 Severely Decreased</content>
<content>Stage V GFR <15 Very Little GFR Left</content>
<content>ESRD GFR <15 on SHOE PACKER</content>
<content></content> Sodium Level 144 meq/L 136-145 [facility] ([facility]) Potassium Serum 4.7 meq/L 3.5-5.1 [facility] ([facility]) Carbon Dioxide Level 31 meq/L 21-32 [facility] ([facility]) Chloride Level 107 meq/L 98-107 [facility] ([facility]) Calcium Level 9.6 mg/dL 8.8-10.2 [facility] ([facility]) Anion Gap 6 meq/L 8-16 [facility] ID Date Data Source [id number] 07/26/2020 10:20:00 AM EST MED[facility] ([facility]) Name Value Range Interpretation Code Description Data Patricia rce(s) Supporting Document(s) Natriuretic peptide.B prohormone N-Terminal [Mass/volu me] in Serum or Plasma 5967 pg/mL [facility] ([facility]) Magnesium [Mass/volume] in Serum or Plasma 1.8 mg/dL 1.8-2.4 [facility] ([facility]) ID Date Data Source [id number] 07/26/2020 10:20:00 AM EST MED[facility] ([facility]) Name Value Range Interpretation Code Description Data Patricia rce(s) Supporting Document(s) Glucose, Fasting 119 mg/dL 70-100 MED[facility] ([facility]i [facility]) Blood Urea Nitrogen 22 mg/dL 7-18 [facility] ([facility]) Glomerular Filtration Rate 46.8 MED ENT ([facility]) <content>Units are mL/min/1.73 m2</content>
<content></content>
<content>Chronic Kidney Disease Staging per NKF:</content>
<content></content>
<content>Stage I & II GFR >=60 Normal to Mildly Decreased</content>
<content>Stage III GFR 30- 59 Moderately Decreased</content>
<content>Stage IV GFR 15-29 Severely Decreased</content>
<content>Stage V GFR <15 Very Little GFR Left</content>
<content>ESRD GFR <15 on SHOE PACKER</content>
<content></content> Creatinine For GFR 1.17 mg/dL 0.55-1.30 [facility] ([facility]) Sodium Level 142 meq/L 136-145 [facility] ([facility]) Potassium Serum 3.9 meq/L 3.5-5.1 [facility] ([facility]) Chloride Level 102 meq/L 98-107 [facility] ([facility]) Anion Gap 4 meq/L 8-16 [facility] Carbon Dioxide Level 36 meq/L 21-32 [facility] ([facility]) Calcium Level 9.6 mg/dL 8.8-10.2 [facility] ([facility]) ID Date Data Source [id number] 06/12/2020 11:30:00 AM EST MEDENT ([facility]) Name Value Range Interpretation Code Description Data Patricia rce(s) Supporting Document(s) Magnesium [Moles/volume] in Serum or Plasma 1.6 mg/dL 1.8-2.4 MED[facility] ([facility]) Natriuretic peptide.B prohormone N-Terminal [Mass/volu me] in Serum or Plasma 6163 pg/mL MED[facility] ([facility] ) ID Date Data Source [id number] 06/12/2020 11:30:00 AM EST MED[facility] ([facility]) Name Value Range Interpretation Code Description Data Patricia rce(s) Supporting Document(s) Glucose, Fasting 89 mg/dL 70-100 [facility] ([facility]) Blood Urea Nitrogen 21 mg/dL 7-18 [facility] ([facility]) Creatinine For GFR 1.02 mg/dL 0.55-1.30 [facility] ([facility]) Potassium Serum 4.0 meq/L 3.5-5.1 [facility] ([facility]) Sodium Level 143 meq/L 136-145 MED[facility] ([facility]) Glomerular Filtration Rate 55.0 MED ENT ([facility]) <content>Units are mL/min/1.73 m2</content>
<content></content>
<content>Chronic Kidney Disease Staging per NKF:</content>
<content></content>
<content>Stage I & II GFR >=60 Normal to Mildly Decreased</content>
<content>Stage III GFR 30- 59 Moderately Decreased</content>
<content>Stage IV GFR 15-29 Severely Decreased</content>
<content>Stage V GFR <15 Very Little GFR Left</content>
<content>ESRD GFR <15 on SHOE PACKER</content>
<content></content> Chloride Level 105 meq/L 98-107 [facility] ([facility]) Carbon Dioxide Level 34 meq/L 21-32 [facility]) Anion Gap 4 meq/L 8-16 [facility] [facility]) Calcium Level 10.4 mg/dL 8.8-10.2 [facility] ([facility]) ID Date Data Source [id number] 06/12/2020 11:30:00 AM EST MED[facility] ([facility]) Name Value Range Interpretation Code Description Data Patricia rce(s) Supporting Document(s) Magnesium [Mass/volume] in Serum or Plasma 1.6 mg/dL 1.8-2.4 [facility] ([facility]) Natriuretic peptide.B prohormone N-Terminal [Mass/volu me] in Serum or Plasma 6163 pg/mL [facility] ([facility]) ID Date Data Source [id number] 06/12/2020 11:30:00 AM EST MED[facility] ([facility]) Name Value Range Interpretation Code Description Data Patricia rce(s) Supporting Document(s) Glucose, Fasting 89 mg/dL 70-100 [facility] Blood Urea Nitrogen 21 mg/dL 7-18 [facility] ([facility]) Creatinine For GFR 1.02 mg/dL 0.55-1.30 [facility] ([facility]) Glomerular Filtration Rate 55.0 MED ENT ([facility]) <content>Units are mL/min/1.73 m2</content>
<content></content>
<content>Chronic Kidney Disease Staging per NKF:</content>
<content></content>
<content>Stage I & II GFR >=60 Normal to Mildly Decreased</content>
<content>Stage III GFR 30- 59 Moderately Decreased</content>
<content>Stage IV GFR 15-29 Severely Decreased</content>
<content>Stage V GFR <15 Very Little GFR Left</content>
<content>ESRD GFR <15 on SHOE PACKER</content>
<content></content> Sodium Level 143 meq/L 136-145 [facility] ([facility]) Potassium Serum 4.0 meq/L 3.5-5.1 [facility] ([facility]) Chloride Level 105 meq/L 98-107 [facility] ([facility]) Anion Gap 4 meq/L 8-16 [facility] ([facility]) Carbon Dioxide Level 34 meq/L 21-32 [facility] ([facility]) Calcium Level 10.4 mg/dL 8.8-10.2 [facility] ([facility]) ID Date Data Source [id number] 05/31/2020 12:42:00 PM EST MEDENT ([facility]) Name Value Range Interpretation Code Description Data Patricia rce(s) Supporting Document(s) Glucose [Mass/volume] in Serum or Plasma 95 mg/dL 74-99 MED[facility] ([facility]) 100-125 mg/dL PRE-DIABETES/FASTING >126 mg/dL DIABETES/FASTING Urea nitrogen [Mass/volume] in Serum or Plasma 13 mg/dL 7-18 [facility] ([facility]) Sodium [Moles/volume] in Serum or Plasma 143 meq/L 136-145 [facility] ([facility]) Potassium [Moles/volume] in Serum or Plasma 4.0 meq/L 3.5-5.1 [facility] ([facility]) Creatinine 1.0 mg/dL 0.6-1.3 [facility] Chloride [Moles/volume] in Serum or Plasma 103 meq/L 98-107 [facility] ([facility]) Calcium [Mass/volume] in Serum or Plasma 10.4 mg/dL 8.5-10.1 [facility] ([facility]) NOTE: RESULT VERIFIED. Carbon dioxide, total [Moles/volume] in Serum or Plasma 28 meq/L 21 -32 MED[facility] ([facility]) Alkaline phosphatase isoenzyme [Units/volume] in Serum or Pl asma 65 mg/dL 46-116 MED[facility] ([facility]) Total Bilirubin 0.6 mg/dL 0.2-1.0 [facility] ([facility]) Aspartate aminotransferase [Enzymatic activity/volume] in Serum or Plasma 20 U/L 15-37 MED[facility] ([facility] ) Albumin [Mass/volume] in Serum or Plasma 3.5 g/dL 3.4-5.0 [facility] ([facility]) Alanine aminotransferase [Enzymatic activity/volume] in Seru m or Plasma 23 U/L 12-78 [facility] ([facility]) Proteinase 3 Ab [Units/volume] in Serum 6.0 g/dL 6.4-8.2 [facility] ([facility]) A/G Ratio 1.40 CALC 1.00-1.90 [facility] ([place] [facility]) Glomerular filtration rate/1.73 sq M pre dicted among blacks [Volume Rate/Area] in Serum or Plasma by Creatinine-based formula (MDRD) Laboratory test result [facility] <content>CHRONIC KIDNEY DISEASE STAGING PER NKF</content>
<content></content>
<content>STAGE I & II GFR >= 60 NORMAL TO MILDLY DECREASED</content>
<content>STAGE III GFR 30-59 MODERATELY DECREASED</content>
<content>STAGE IV GFR 15-29 SEVERELY DECREASED</content>
<content>STAGE V GFR <15 VERY LITTLE GFR LEFT</content>
<content>ESRD GFR <15 ON SHOE PACKER</content>
<content></content> Glomerular filtration rate/1.73 sq M pre dicted among non-blacks [Volume Rate/Area] in Serum or Plasma by Creatinine-based formula (MDRD) 53 mL/min MED[facility] ([facility]) ID Date Data Source [id number] 05/31/2020 12:42:00 PM EST MED[facility] ([facility]) Name Value Range Interpretation Code Description Data Patricia rce(s) Supporting Document(s) Hemoglobin [Mass/volume] in Blood 12.2 g/dL 12.0-18.0 [facility] ([facility]) Leukocytes [#/volume] in Blood by Automated count 8.5 x10*3/UL 4.1-10 .9 [facility] ([facility]) Erythrocytes [#/volume] in Blood by Automated count 4.14 x10*6/UL 4.2 0-6.30 [facility] MCV 91.2 fL 80.0-97.0 [facility] [facility]) Hematocrit [Volume Fraction] of Blood by Automated count 37.8 % 3 7.0-51.0 [facility] ([facility]) MCHC 32.3 g/dL 31.0-38.0 [facility] [facility]) MCH 29.5 pg 26.0-32.0 [facility] [facility] Erythrocyte distribution width [Ratio] by Automated count 18.9 % 11.6-13.7 [facility] ([facility]) MPV 9.2 FL 7.8-11.0 [facility] [facility]) Platelets [#/volume] in Blood by Automated count 258 x10*3/UL 140-440 [facility] ([facility]) Mid % 6.5 % 1.7-9.3 [facility] [facility] Lymph % 27.2 % 10.0-58.5 [facility] [facility] Neut % 66.3 % 37.0-92.0 [facility] [facility]) Lymph # 2.3 x10*3/UL 0.6-4.1 [facility] ([facility]) Neut # 5.6 x10*3/UL 2.0-7.8 [facility] ([facility]) Mid # 0.6 x10*3/UL 0.1-0.6 [facility] ([facility]) ID Date Data Source [id number] 05/31/2020 12:42:00 PM EST [facility] ([facility]) Name Value Range Interpretation Code Description Data Patricia rce(s) Supporting Document(s) Leukocytes [#/volume] in Blood by Automated count 8.5 x10*3/UL 4.1-10 .9 [facility] ([facility]) Hemoglobin [Mass/volume] in Blood 12.2 g/dL 12.0-18.0 [facility] ([facility]) Hematocrit [Volume Fraction] of Blood by Automated count 37.8 % 3 7.0-51.0 [facility] ([facility]) Erythrocytes [#/volume] in Blood by Automated count 4.14 x10*6/UL 4.2 0-6.30 [facility] ([facility]) MCH 29.5 pg 26.0-32.0 [facility] ([facility]) MCV 91.2 fL 80.0-97.0 [facility] ([facility]) Platelets [#/volume] in Blood by Automated count 258 x10*3/UL 140-440 [facility] ([facility]) Erythrocyte distribution width [Ratio] by Automated count 18.9 % 11.6-13.7 [facility] ([facility]) MCHC 32.3 g/dL 31.0-38.0 [facility] ([facility]) Lymphocytes/100 leukocytes in Blood by Automated count 27.2 % 10. 0-58.5 [facility] ([facility]) Platelet mean volume [Entitic volume] in Blood by [place] 9.2 FL 7.8-11.0 [facility] ([facility]) Mid % 6.5 % 1.7-9.3 [facility] ([facility]) Lymph # 2.3 x10*3/UL 0.6-4.1 [facility] ([facility]) Neut % 66.3 % 37.0-92.0 [facility] ([facility]) Neutrophils [#/volume] in [place]en by Manual count 5.6 x10*3/UL 2.0-7.8 [facility] ([facility]) Mid # 0.6 x10*3/UL 0.1-0.6 [facility] ([facility]) ID Date Data Source [id number] 05/31/2020 12:42:00 PM EST [facility] ([facility]) Name Value Range Interpretation Code Description Data Patricia rce(s) Supporting Document(s) Urea nitrogen [Mass/volume] in Serum or Plasma 13 mg/dL 7-18 [facility] ([facility]) Glucose [Mass/volume] in Serum or Plasma 95 mg/dL 74-99 [facility] ([facility]) 100-125 mg/dL PRE-DIABETES/FASTING >126 mg/dL DIABETES/FASTING Sodium [Moles/volume] in Serum or Plasma 143 meq/L 136-145 [facility] ([facility]) Creatinine 1.0 mg/dL 0.6-1.3 [facility] ([facility]) Chloride [Moles/volume] in Serum or Plasma 103 meq/L 98-107 [facility] ([facility]) Potassium [Moles/volume] in Serum or Plasma 4.0 meq/L 3.5-5.1 [facility] ([facility]) Calcium [Mass/volume] in Serum or Plasma 10.4 mg/dL 8.5-10.1 [facility] ([facility]) NOTE: RESULT VERIFIED. Carbon dioxide, total [Moles/volume] in Serum or Plasma 28 meq/L 21 -32 [facility] ([facility]) Aspartate aminotransferase [Enzymatic activity/volume] in Serum or Plasma 20 U/L 15-37 [facility] ([facility]) Total Bilirubin 0.6 mg/dL 0.2-1.0 [facility] ([facility]) Alkaline phosphatase isoenzyme [Units/volume] in Serum or Pl asma 65 mg/dL 46-116 [facility] ([facility]) Alanine aminotransferase [Enzymatic activity/volume] in Seru m or Plasma 23 U/L 12-78 [facility] ([facility]) Albumin [Mass/volume] in Serum or Plasma 3.5 g/dL 3.4-5.0 [facility] ([facility]) Proteinase 3 Ab [Units/volume] in Serum 6.0 g/dL 6.4-8.2 [facility] A/G Ratio 1.40 CALC 1.00-1.90 [facility] (Cardiology A [facility]) Glomerular filtration rate/1.73 sq M pre dicted among non-blacks [Volume Rate/Area] in Serum or Plasma by Creatinine-based formula (MDRD) 53 mL/min [facility]) Glomerular filtration rate/1.73 sq M pre dicted among blacks [Volume Rate/Area] in Serum or Plasma by Creatinine-based formula (MDRD) Laboratory test result [facility]) <content>CHRONIC KIDNEY DISEASE STAGING PER NKF</content>
<content></content>
<content>STAGE I & II GFR >= 60 NORMAL TO MILDLY DECREASED</content>
<content>STAGE III GFR 30-59 MODERATELY DECREASED</content>
<content>STAGE IV GFR 15-29 SEVERELY DECREASED</content>
<content>STAGE V GFR <15 VERY LITTLE GFR LEFT</content>
<content>ESRD GFR <15 ON SHOE PACKER</content>
<content></content>
<content></content> ID Date Data Source [id number] 05/16/2020 01:10:00 PM EST MED[facility] Name Value Range Interpretation Code Description Data Patricia rce(s) Supporting Document(s) Natriuretic peptide.B prohormone N-Terminal [Mass/volu me] in Serum or Plasma 5869 pg/mL [facility] ([place] [facility] Magnesium [Moles/volume] in Serum or Plasma 1.7 mg/dL 1.8-2.4 [facility]) ID Date Data Source [id number] 05/16/2020 01:10:00 PM EST [facility] ([facility] Name Value Range Interpretation Code Description Data Patricia rce(s) Supporting Document(s) Blood Urea Nitrogen 15 mg/dL 7-18 [facility] ([facility]) Glucose, Fasting 120 mg/dL 70-100 [facility] ([facility]) Creatinine For GFR 1.16 mg/dL 0.55-1.30 [facility] ([facility]) Sodium Level 140 meq/L 136-145 [facility] ([facility]) Glomerular Filtration Rate 47.4 [facility] ([facility]) <content>Units are mL/min/1.73 m2</content>
<content></content>
<content>Chronic Kidney Disease Staging per NKF:</content>
<content></content>
<content>Stage I & II GFR >=60 Normal to Mildly Decreased</content>
<content>Stage III GFR 30- 59 Moderately Decreased</content>
<content>Stage IV GFR 15-29 Severely Decreased</content>
<content>Stage V GFR <15 Very Little GFR Left</content>
<content>ESRD GFR <15 on SHOE PACKER</content>
<content></content> Potassium Serum 3.9 meq/L 3.5-5.1 [facility] ([facility]) Chloride Level 101 meq/L 98-107 [facility] ([facility]) Carbon Dioxide Level 34 meq/L 21-32 [facility] ([facility]) Anion Gap 5 meq/L 8-16 [facility] ([place] [facility]) Calcium Level 10.3 mg/dL 8.8-10.2 [facility] ([facility]) ID Date Data Source [id number] 05/16/2020 01:10:00 PM EST [facility] ([facility]) Name Value Range Interpretation Code Description Data Patricia rce(s) Supporting Document(s) Magnesium [Mass/volume] in Serum or Plasma 1.7 mg/dL 1.8-2.4 [facility] ([facility]) Natriuretic peptide.B prohormone N-Terminal [Mass/volu me] in Serum or Plasma 5869 pg/mL [facility] ([facility]) ID Date Data Source [id number] 05/16/2020 01:10:00 PM EST [facility] Name Value Range Interpretation Code Description Data Patricia rce(s) Supporting Document(s) Blood Urea Nitrogen 15 mg/dL 7-18 [facility] ([facility]) Glucose, Fasting 120 mg/dL 70-100 [facility] ([facility]) Creatinine For GFR 1.16 mg/dL 0.55-1.30 [facility] ([facility]) Glomerular Filtration Rate 47.4 [facility] ([facility]) <content>Units are mL/min/1.73 m2</content>
<content></content>
<content>Chronic Kidney Disease Staging per NKF:</content>
<content></content>
<content>Stage I & II GFR >=60 Normal to Mildly Decreased</content>
<content>Stage III GFR 30- 59 Moderately Decreased</content>
<content>Stage IV GFR 15-29 Severely Decreased</content>
<content>Stage V GFR <15 Very Little GFR Left</content>
<content>ESRD GFR <15 on SHOE PACKER</content>
<content></content> Sodium Level 140 meq/L 136-145 [facility] ([facility]) Chloride Level 101 meq/L 98-107 [facility] ([facility]) Potassium Serum 3.9 meq/L 3.5-5.1 [facility] ([facility]) Calcium Level 10.3 mg/dL 8.8-10.2 [facility] ([facility]) Carbon Dioxide Level 34 meq/L 21-32 [facility] ([facility]) Anion Gap 5 meq/L 8-16 [facility] ID Date Data Source [id number] 03/13/2020 10:32:00 AM EDT [facility] ([facility]) Name Value Range Interpretation Code Description Data Patricia rce(s) Supporting Document(s) Glucose 116 mg/dL 65-99 [facility] Urea nitrogen [Mass/volume] in Serum or Plasma 16 mg/dL 8-27 [facility] ([facility]) Creatinine 1.11 mg/dL 0.57-1.00 [facility] ([facility]) eGFR If NonAfricn Am 46 mL/min/1.73 MEDE NT ([facility]) eGFR If Africn Am 53 mL/min/1.73 [facility] ([facility]) Urea nitrogen/Creatinine [Mass Ratio] in Serum or Plasma 14 1 2-28 [facility] ([facility]) Sodium 138 mmol/L 134-144 [facility] ([facility]) Potassium [Moles/volume] in Serum or Plasma 4.1 mmol/L 3.5-5.2 [facility] ([facility]) Carbon dioxide, total [Moles/volume] in Serum or Plasma 27 mmol/L 20 -29 [facility] ([facility]) Chloride [Moles/volume] in Serum or Plasma 96 mmol/L 96-106 [facility] ([facility]) Calcium [Mass/volume] in Serum or Plasma 9.5 mg/dL 8.7-10.3 [facility] ([facility]) ID Date Data Source [id number] 03/13/2020 10:32:00 AM EDT [facility] ([facility]) Name Value Range Interpretation Code Description Data Patricia rce(s) Supporting Document(s) Magnesium [Mass/volume] in Serum or Plasma 1.8 mg/dL 1.6-2.3 [facility] ([facility]) Natriuretic peptide.B prohormone N-Terminal [Mass/volu me] in Serum or Plasma 5080 pg/mL 0-738 [facility] ([facility]) <content>The following cut-points have b een suggested for the</content>
<content>use of proBNP for the diagnostic evaluation of heart</content>
<content>failure (HF) in patients with acute dy spnea:</content>
<content>Modality Age Optimal Cut</content>
<content>(years) Point</content>
<content> ---</content>
<content>Diagnosis (rule in HF) <50 450 pg/mL</content>
<content>50 - 75 900 pg/mL</content>
<content>>75 1800 pg/mL</content>
<content> Exclusion (rule out HF) Age independent 300 pg/mL</content>
<content></content> Laboratory test finding (navigational concept) Laboratory test result [facility] ([facility]) ID Date Data Source [id number] 03/14/2020 08:06:00 AM EDT [facility] Name Value Range Interpretation Code Description Data Patricia rce(s) Supporting Document(s) Glucose 116 mg/dL 65-99 Above high normal [facility] BUN 16 mg/dL 8-27 [facility] Creatinine 1.11 mg/dL 0.57-1.00 Above high normal [facility] eGFR If NonAfricn Am 46 mL/min/1.73 >59 Below low normal [facility] eGFR If Africn Am 53 mL/min/1.73 >59 Below low normal [facility] BUN/Creatinine Ratio 14 12-28 [facility] Sodium 138 mmol/L 134-144 [facility] Potassium 4.1 mmol/L 3.5-5.2 [facility] Chloride 96 mmol/L 96-106 [facility] Carbon Dioxide, Total 27 mmol/L 20-29 [facility] Calcium 9.5 mg/dL 8.7-10.3 [facility] ID Date Data Source [id number] 03/15/2020 06:05:00 AM EDT [facility] Name Value Range Interpretation Code Description Data Patricia rce(s) Supporting Document(s) NT-proBNP 5080 pg/mL 0-738 Above high normal [facility] The following cut-points have been suggested for the use of proBNP for the diagnostic evaluation of heart failure (HF) in patients with acute dyspnea: Modality Age Optimal Cut (years) Point Diagnosis (rule in HF) <50 450 pg/mL 50 - 75 900 pg/mL > 75 1800 pg/mL Exclusion (rule out HF) Age independent 300 pg/mL ID Date Data Source [id number] 03/14/2020 08:06:00 AM EDT [facility] Name Value Range Interpretation Code Description Data Patricia rce(s) Supporting Document(s) Magnesium 1.8 mg/dL 1.6-2.3 [facility] ID Date Data Source [id number] 02/29/2020 09:59:00 AM EDT [facility] ([facility]) Name Value Range Interpretation Code Description Data Patricia rce(s) Supporting Document(s) Laboratory test finding (navigational concept) Laboratory test result [facility] ([facility]) ID Date Data Source [id number] 02/29/2020 09:59:00 AM EDT [facility] ([facility]) Name Value Range Interpretation Code Description Data Patricia rce(s) Supporting Document(s) Glucose 142 mg/dL 65-99 [facility] ([facility]) Urea nitrogen [Mass/volume] in Serum or Plasma 17 mg/dL 8-27 [facility] ([facility]) Creatinine 1.12 mg/dL 0.57-1.00 [facility] ([facility]) eGFR If NonAfricn Am 45 mL/min/1.73 MEDE NT ([facility]) eGFR If Africn Am 52 mL/min/1.73 [facility] ([facility]) Urea nitrogen/Creatinine [Mass Ratio] in Serum or Plasma 15 1 2-28 [facility] ([facility]) Sodium 137 mmol/L 134-144 [facility] ([facility]) Potassium [Moles/volume] in Serum or Plasma 4.1 mmol/L 3.5-5.2 [facility] ([facility]) Chloride [Moles/volume] in Serum or Plasma 94 mmol/L 96-106 [facility] ([facility]) Carbon dioxide, total [Moles/volume] in Serum or Plasma 28 mmol/L 20 -29 [facility] ([facility]) ID Date Data Source [id number] 02/29/2020 09:59:00 AM EDT [facility] ([facility]) Name Value Range Interpretation Code Description Data Patricia e(s) Supporting Document(s) WBC 9.6 x10E3/uL 3.4-10.8 [facility] ([facility]) RBC 3.89 x10E6/uL 3.77-5.28 [facility] ([facility]) Hemoglobin [Mass/volume] in Blood 11.3 g/dL 11.1-15.9 [facility] ([facility]) Hematocrit [Volume Fraction] of Blood by Automated count 35.0 % 3 4.0-46.6 [facility] ([facility]) Erythrocyte mean corpuscular volume [Entitic volume] by Auto mated count 90 fL 79-97 [facility] ([facility]) Erythrocyte mean corpuscular hemoglobin [Entitic mass] by Automated count 29.0 pg 26.6-33.0 [facility] ([facility]) Erythrocyte mean corpuscular hemoglobin concentration [Mass/volume] by Automated count 32.3 g/dL 31.5-35.7 [facility] ([facility]) Erythrocyte distribution width [Ratio] by Automated count 16.4 % 11.7-15.4 [facility] ([facility]) Platelets [#/volume] in Blood by Automated count 232 x10E3/uL 150-450 [facility] ([facility]) Neutrophils/100 leukocytes in Blood by Automated count 73 % [facility] ([facility]) Lymphocytes/100 leukocytes in Blood by Automated count 15 % [facility] ([facility]) Monocytes/100 leukocytes in Blood by Automated count 10 % [facility] ([facility]) Eosinophils/100 leukocytes in Blood by Automated count 1 % [facility] ([facility]) Basophils/100 leukocytes in Blood by Automated count 1 % [facility] ([facility]) Immature cells [#/volume] in Blood Laboratory test result [facility] ([facility]) Neutrophils [#/volume] in Blood by Automated count 7.0 x10E3/uL 1.4-7 .0 [facility] ([facility]) Lymphocytes [#/volume] in Blood 1.4 x10E3/uL 0.7-3.1 [facility] ([facility]) Eosinophils [#/volume] in Blood by Automated count 0.1 x10E3/uL 0.0-0 .4 [facility] ([facility]) Monocytes [#/volume] in Blood 0.9 x10E3/uL 0.1-0.9 [facility] ([facility]) Basophils [#/volume] in Blood by Automated count 0.1 x10E3/uL 0.0-0.2 [facility] ([facility]) Immature granulocytes/100 leukocytes in Blood by Automated count 0 % [facility] ([facility]) Immature granulocytes [#/volume] in Blood by Automated count 0.0 x10E3/uL 0.0-0.1 [facility] ([facility]) Nucleated erythrocytes/100 leukocytes [Ratio] in Blood by Automated count Laboratory test result [facility] ([facility]) Morphology [Interpretation] in Blood Narrative Laboratory test result [facility] ([facility]) ID Date Data Source [id number] 02/29/2020 09:59:00 AM EDT [facility] ([facility]) Name Value Range Interpretation Code Description Data Patricia rce(s) Supporting Document(s) Magnesium [Mass/volume] in Serum or Plasma 1.2 mg/dL 1.6-2.3 [facility] ([facility]) Natriuretic peptide.B prohormone N-Terminal [Mass/volu me] in Serum or Plasma 8182 pg/mL 0-738 [facility] ([facility]) <content>The following cut-points have b een suggested for the</content>
<content>use of proBNP for the diagnostic evaluation of heart</content>
<content>failure (HF) in patients with acute dy spnea:</content>
<content>Modality Age Optimal Cut</content>
<content>(years) Point</content>
<content> ---</content>
<content>Diagnosis (rule in HF) <50 450 pg/mL</content>
<content>50 - 75 900 pg/mL</content>
<content>>75 1800 pg/mL</content>
<content> Exclusion (rule out HF) Age independent 300 pg/mL</content>
<content></content> ID Date Data Source [id number] 03/01/2020 08:06:00 AM EDT [facility] Name Value Range Interpretation Code Description Data Patricia rce(s) Supporting Document(s) WBC 9.6 x10E3/uL 3.4-10.8 [facility] RBC 3.89 x10E6/uL 3.77-5.28 [facility] Hemoglobin 11.3 g/dL 11.1-15.9 [facility] Hematocrit 35.0 % 34.0-46.6 [facility] MCV 90 fL 79-97 [facility] MCH 29.0 pg 26.6-33.0 [facility] MCHC 32.3 g/dL 31.5-35.7 [facility] RDW 16.4 % 11.7-15.4 Above high normal [facility] Platelets 232 x10E3/uL 150-450 [facility] Neutrophils 73 % Not Estab. [facility] Lymphs 15 % Not Estab. [facility] Monocytes 10 % Not Estab. [facility] Eos 1 % Not Estab. [facility] Basos 1 % Not Estab. [facility] Neutrophils (Absolute) 7.0 x10E3/uL 1.4-7.0 [facility] Lymphs (Absolute) 1.4 x10E3/uL 0.7-3.1 [facility] Monocytes(Absolute) 0.9 x10E3/uL 0.1-0.9 [facility] Eos (Absolute) 0.1 x10E3/uL 0.0-0.4 [facility] Baso (Absolute) 0.1 x10E3/uL 0.0-0.2 [facility] Immature Granulocytes 0 % Not Estab. [facility] Immature Grans (Abs) 0.0 x10E3/uL 0.0-0.1 [facility] ID Date Data Source [id number] 03/02/2020 08:06:00 AM EDT [facility] Name Value Range Interpretation Code Description Data Patricia rce(s) Supporting Document(s) NT-proBNP 8182 pg/mL 0-738 Above high normal [facility] The following cut-points have been suggested for the use of proBNP for the diagnostic evaluation of heart failure (HF) in patients with acute dyspnea: Modality Age Optimal Cut (years) Point Diagnosis (rule in HF) <50 450 pg/mL 50 - 75 900 pg/mL > 75 1800 pg/mL Exclusion (rule out HF) Age independent 300 pg/mL ID Date Data Source [id number] 03/01/2020 08:06:00 AM EDT [facility] Name Value Range Interpretation Code Description Data Patricia rce(s) Supporting Document(s) Glucose 142 mg/dL 65-99 Above high normal [facility] BUN 17 mg/dL 8-27 [facility] Creatinine 1.12 mg/dL 0.57-1.00 Above high normal [facility] eGFR If NonAfricn Am 45 mL/min/1.73 >59 Below low normal [facility] eGFR If Africn Am 52 mL/min/1.73 >59 Below low normal [facility] BUN/Creatinine Ratio 15 12-28 [facility] Sodium 137 mmol/L 134-144 [facility] Potassium 4.1 mmol/L 3.5-5.2 [facility] Chloride 94 mmol/L 96-106 Below low normal [facility] Carbon Dioxide, Total 28 mmol/L 20-29 [facility] ID Date Data Source [id number] 03/01/2020 08:06:00 AM EDT [facility] Name Value Range Interpretation Code Description Data Patricia rce(s) Supporting Document(s) Magnesium 1.2 mg/dL 1.6-2.3 Below low normal [facility] ID Date Data Source [id number] 01/27/2020 11:44:00 AM EDT [facility] ([facility] Name Value Range Interpretation Code Description Data Patricia rce(s) Supporting Document(s) Albumin [Mass/volume] in Serum or Plasma 3.8 [facility] ([facility]) Alanine aminotransferase [Enzymatic activity/volume] in Serum or Pl asma 15 [facility] ([facility]) Calcium [Mass/volume] in Serum or Plasma 9.8 [facility] ([facility]) Carbon dioxide, total [Moles/volume] in Serum or Plasma 26 [facility] ([facility]) Chloride [Moles/volume] in Serum or Plasma 104 [facility] ([facility]) Alkaline phosphatase [Enzymatic activity/volume] in Serum or Plasma 4 9 [facility] ([facility]) Protein [Mass/volume] in Serum or Plasma 6.4 [facility] ([facility]) Potassium [Moles/volume] in Serum or Plasma 3.8 [facility] ([facility]) Sodium 143 [facility] ([facility] Aspartate aminotransferase [Enzymatic activity/volume] in Serum or Plasma 18 [facility] ([facility]) Urea nitrogen [Mass/volume] in Serum or Plasma 29 [facility] ([facility]) Creatinine For GFR 1.3 [facility] ([facility]) Glucose 112 74-106 [facility] ([facility] ID Date Data Source [id number] 01/27/2020 11:44:00 AM EDT [facility] ([facility]) Name Value Range Interpretation Code Description Data Patricia rce(s) Supporting Document(s) White Blood Count 7.2 4.1-10.9 [facility] ([facility]) Red Blood Count 3.81 4.2-6.30 [facility] ([facility]) Platelets 244 140-440 [facility] ([facility] Hemoglobin 11.6 12.0-18.0 [facility] ([facility]) Hematocrit 34.2 37.0-51.0 [facility] ([facility]) ID Date Data Source [id number] 01/27/2020 11:44:00 AM EDT [facility] ([facility]) Name Value Range Interpretation Code Description Data Patricia rce(s) Supporting Document(s) Thyroid Stimulating Hormone 2.35 0.34-4.82 [facility] ([facility]) ID Date Data Source [id number] 01/27/2020 11:44:00 AM EDT [facility] ([facility]) Name Value Range Interpretation Code Description Data Patricia rce(s) Supporting Document(s) Cholesterol 210 131-200 [facility] ([facility]) Triglycerides 90 30-150 [facility] ([facility]) HDL 73 35-60 [facility] ([facility]) Chol/HDL Ratio Laboratory test result [facility] ([facility]) Cholesterol in LDL [Mass/volume] in Serum or Plasma by calculati on 119 50-159 [facility] ([facility]) ID Date Data Source [id number] 01/27/2020 08:08:00 AM EDT [facility] ([facility]) Name Value Range Interpretation Code Description Data Patricia rce(s) Supporting Document(s) Microalbumin Urine 61.2 mg/L 1.3-20.0 [facility] ([facility]) Microalb/Creat Ratio 81.7 ug/mg 0.0-30.0 [facility] ( [facility]) Urine Creatinine 74.9 mg/dL 30.0-125.0 [facility] ([facility]) ID Date Data Source [id number] 01/27/2020 08:08:00 AM EDT [facility] ([facility]) Name Value Range Interpretation Code Description Data Patricia rce(s) Supporting Document(s) Thyrotropin [Units/volume] in Serum or Plasma by Detec tion limit <= 0.05 mIU/L 2.35 uIU/mL 0.36-3.74 [facility] ([facility] ) ID Date Data Source [id number] 01/27/2020 08:08:00 AM EDT [facility] ([facility]) Name Value Range Interpretation Code Description Data Patricia rce(s) Supporting Document(s) Cholesterol [Mass/volume] in Serum or Plasma 210 mg/dL 131-200 [facility] ([facility]) Triglyceride [Mass/volume] in Serum or Plasma 90 mg/dL 30-150 [facility] ([facility]) Cholesterol in HDL [Mass/volume] in Serum or Plasma 73 mg/dL 35-60 [facility] ([facility]) Cholesterol in LDL [Mass/volume] in Serum or Plasma by calcu lation 119 CALC 50-159 [facility] ([facility]) ID Date Data Source [id number] 01/27/2020 08:08:00 AM EDT [facility] ([facility]) Name Value Range Interpretation Code Description Data Patricia rce(s) Supporting Document(s) Urea nitrogen [Mass/volume] in Serum or Plasma 29 mg/dL 7-18 [facility] ([facility]) Glucose [Mass/volume] in Serum or Plasma 112 mg/dL 74-99 [facility] ([facility]) 100-125 mg/dL PRE-DIABETES/FASTING >126 mg/dL DIABETES/FASTING Creatinine 1.3 mg/dL 0.6-1.3 [facility] ([facility]) Sodium [Moles/volume] in Serum or Plasma 143 meq/L 136-145 [facility] ([facility]) Potassium [Moles/volume] in Serum or Plasma 3.8 meq/L 3.5-5.1 [facility] ([facility]) Carbon dioxide, total [Moles/volume] in Serum or Plasma 26 meq/L 21 -32 [facility] ([facility]) Chloride [Moles/volume] in Serum or Plasma 104 meq/L 98-107 [facility] ([facility]) Total Bilirubin 0.5 mg/dL 0.2-1.0 [facility] ([facility]) Alkaline phosphatase isoenzyme [Units/volume] in Serum or Pl asma 49 mg/dL 46-116 [facility] ([facility]) Aspartate aminotransferase [Enzymatic activity/volume] in Serum or Plasma 18 U/L 15-37 [facility] ([facility] ) Calcium [Mass/volume] in Serum or Plasma 9.8 mg/dL 8.5-10.1 [facility] ([facility]) Alanine aminotransferase [Enzymatic activity/volume] in Seru m or Plasma 15 U/L 12-78 [facility] ([facility]) Proteinase 3 Ab [Units/volume] in Serum 6.4 g/dL 6.4-8.2 [facility] ([facility]) Albumin [Mass/volume] in Serum or Plasma 3.8 g/dL 3.4-5.0 [facility] ([facility]) Glomerular filtration rate/1.73 sq M pre dicted among blacks [Volume Rate/Area] in Serum or Plasma by Creatinine-based formula (MDRD) 47 mL/min [facility] <content>CHRONIC KIDNEY DISEASE STAGING PER NKF</content>
<content></content>
<content>STAGE I & II GFR >= 60 NORMAL TO MILDLY DECREASED</content>
<content>STAGE III GFR 30-59 MODERATELY DECREASED</content>
<content>STAGE IV GFR 15-29 SEVERELY DECREASED</content>
<content>STAGE V GFR <15 VERY LITTLE GFR LEFT</content>
<content>ESRD GFR <15 ON SHOE PACKER</content>
<content></content> Glomerular filtration rate/1.73 sq M pre dicted among non-blacks [Volume Rate/Area] in Serum or Plasma by Creatinine-based formula (MDRD) 39 mL/min [facility] A/G Ratio 1.46 CALC 1.00-1.90 [facility] ([place] [facility]) ID Date Data Source [id number] 01/27/2020 08:08:00 AM EDT [facility] ([facility]) Name Value Range Interpretation Code Description Data Patricia rce(s) Supporting Document(s) Hemoglobin A1c/Hemoglobin.total in Blood 6.0 g/dL 4.8-5.6 [facility] Lab Result Notes: Pre-Diabetes 5.7 - 6.4 % Diabetes = or > 6.5% Glucose mean value [Mass/volume] in Blood Estimated fr om glycated hemoglobin 125 mg/dL 60-110 [facility] ID Date Data Source [id number] 01/27/2020 08:08:00 AM EDT [facility] Name Value Range Interpretation Code Description Data Patricia rce(s) Supporting Document(s) Leukocytes [#/volume] in Blood by Automated count 7.2 x10*3/UL 4.1-10 .9 [facility] Erythrocytes [#/volume] in Blood by Automated count 3.81 x10*6/UL 4.2 0-6.30 [facility] Hemoglobin [Mass/volume] in Blood 11.6 g/dL 12.0-18.0 [facility] ([facility]) NOTE: RESULT VERIFIED. Hematocrit [Volume Fraction] of Blood by Automated count 34.2 % 3 7.0-51.0 [facility] ([facility]) MCV 89.8 fL 80.0-97.0 [facility] [facility] MCHC 34.0 g/dL 31.0-38.0 [facility] [facility] Erythrocyte distribution width [Ratio] by Automated count 17.0 % 11.6-13.7 [facility] ([facility]) MCH 30.5 pg 26.0-32.0 [facility] [facility] Lymph % 42.5 % 10.0-58.5 [facility] MPV 9.1 FL 7.8-11.0 [facility] Platelets [#/volume] in Blood by Automated count 244 x10*3/UL 140-440 [facility] ([facility]) Mid % 7.6 % 1.7-9.3 [facility] Lymph # 3.0 x10*3/UL 0.6-4.1 [facility] ([facility]) Neut % 49.9 % 37.0-92.0 [facility] Mid # 0.6 x10*3/UL 0.1-0.6 [facility] ([facility]) Neut # 3.6 x10*3/UL 2.0-7.8 [facility] ([facility]) ID Date Data Source [id number] 01/19/2020 12:00:00 AM EDT [facility] Smith Will MD Patient Name: MADDIE ARGUETA[address] [place] [address] Date of : 1935[place] [address] Date of Exam: 01/19/2020#: Fax: [phone] EXAM: CT BRAIN WITHOUT& WITH CONTRASTPROCEDURE INFORMATION:Exam: CT Head Without And With ContrastExam date and time: 01/19/2020 11:17 AM Age: 84 years oldClinical indication: Condition or disease; Other: 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 Radiation optimization: [facility] use at least one of these dose optimization techniques: automatedexposure control; mA and/or kV adjustment per patient size (includestargeted exams where dose is matched to clinical indication); or iterativereconstruction. 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 No abnormal contrastenhancement is seen to suggest residual or recurrent mass. No acuteinfarction, masses or hemorrhage is seen. No acute intracranial abnormalityis identified. No abnormal contrast enhancement is seen. There is mildill-defined patchy hypodensity within the bilateral cerebralperiventricular white matter, consistent with chronic microvascularischemic changes. There is mild diffuse cerebral atrophy present,consistent with this patient's age.Ventricles: The ventricular system demonstrates mild diffuse compensatoryenlargement. Bones/joints: Stable craniotomy changes are noted in the leftparietal bone.Sinuses: Visualized sinuses are unremarkable. No fluid levels.Mastoid air cells: Visualized mastoid air cells are well aerated.Vasculature: There is atherosclerotic calcification of the bilateralcavernous carotid arteries.Soft tissues: Unremarkable.Other findings: No abnormal contrast enhancement is seen.IMPRESSION:1. 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 No abnormal contrastenhancement is seen to suggest residual or recurrent mass.2. No acute infarction, masses or hemorrhage is seen. No acute intracranialabnormality is identified. No abnormal contrast enhancement is seen.3. Stable craniotomy changes are noted in the left parietal bone.Thank you for allowing us to participate in the care of your patient.Dictated and Authenticated by: John Mcnally MD 01/19/2020 12:49 PMEastern Time ([place] & [place])VradV/jmcThank you for referring MADDIE ARGUETA to our office. Electronically Signed - [facility] 01/19/20 13:28 Name Value Range Interpretation Code Description Data Patricia rce(s) Supporting Document(s) Procedure Social History Code Duration Value Status Description Data Source(s ) Smoking 12/27/2020 12:00:00 AM EDT Patient is a former smoker completed Patient is a former smoker [facility]) Smoking 01/18/2020 01:38:37 PM EDT Ex-smoker (finding) complet ed Ex-smoker (finding) [place] (Juliocesar Cuellar MD [facility]) Vital Signs ID Date Data Source UNK Name Value Range Interpretation Code Description Data Source(s) Heart rate 51 /min 51 /min [facility] ([facility]) Body height 63 [in_i] 63 [in_i] [facility] ([facility]) 5'3" Oxygen saturation in Arterial blood by Pulse oximetry 96 % 96 % [facility] ([facility]) RM Air Body mass index (BMI) [Ratio] 26.2 kg/m2 26.2 k g/m2 [facility] ([facility]) Diastolic blood pressure 60 mm[Hg] 60 mm[Hg] [facility] ([facility]) Systolic blood pressure 137 mm[Hg] 137 mm[Hg] M [facility] ([facility]) Diastolic blood pressure 68 mm[Hg] 68 mm[Hg] [facility] ([facility]) Systolic blood pressure 150 mm[Hg] 150 mm[Hg] M [facility] ([facility]) Body weight 148.00 [lb_av] 148.00 [lb_av] [facility] ([facility]) Body height 64 [in_i] 64 [in_i] [facility] ([facility]) 5'4" Body weight 147.00 [lb_av] 147.00 [lb_av] [facility] ([facility]) Heart rate 76 /min 76 /min [facility] ([facility]) Irregular Respiratory rate 16 /min 16 /min [facility] ( [facility]) Systolic blood pressure 128 mm[Hg] 128 mm[Hg] M [facility] ([facility]) sitting, regular cuff Diastolic blood pressure 76 mm[Hg] 76 mm[Hg] [facility] ([facility]) sitting, regular cuff Body mass index (BMI) [Ratio] 25.2 kg/m2 25.2 k g/m2 [facility] ([facility]) Heart rate 78 /min 78 /min [facility] ([facility]) irregular Body height 63 [in_i] 63 [in_i] [facility] ([facility]) 5'3" Body weight 152.00 [lb_av] 152.00 [lb_av] [facility] ([facility]) Body mass index (BMI) [Ratio] 26.9 kg/m2 26.9 k g/m2 [facility] ([facility]) Systolic blood pressure 160 mm[Hg] 160 mm[Hg] [facility] ([facility]) Diastolic blood pressure 72 mm[Hg] 72 mm[Hg] [facility] ([facility]) Body height 64 [in_i] 64 [in_i] [facility] 5'4" Body mass index (BMI) [Ratio] 25.6 kg/m2 25.6 k g/m2 [facility] ([facility]) Heart rate 56 /min 56 /min [facility] ([facility]) Irregular Respiratory rate 16 /min 16 /min [facility] ( [facility]) Systolic blood pressure 136 mm[Hg] 136 mm[Hg] M [facility] ([facility]) sitting, regular cuff Systolic blood pressure 132 mm[Hg] 132 mm[Hg] M [facility] ([facility]) sitting Diastolic blood pressure 64 mm[Hg] 64 mm[Hg] [facility] ([facility]) sitting Body weight 149.00 [lb_av] 149.00 [lb_av] [facility] ([facility]) Diastolic blood pressure 64 mm[Hg] 64 mm[Hg] [facility] ([facility]) sitting, regular cuff Body weight 152.00 [lb_av] 152.00 [lb_av] [facility] ([facility]) Body height 64 [in_i] 64 [in_i] [facility] ([facility]) 5'4" Body mass index (BMI) [Ratio] 26.1 kg/m2 26.1 k g/m2 [facility] ([facility]) Heart rate 76 /min 76 /min [facility] ([facility]) Irregular Respiratory rate 16 /min 16 /min [facility] ( [facility]) Systolic blood pressure 138 mm[Hg] 138 mm[Hg] M [facility] ([facility]) sitting, regular cuff Diastolic blood pressure 70 mm[Hg] 70 mm[Hg] [facility] ([facility]) sitting, regular cuff Body weight 150.00 [lb_av] 150.00 [lb_av] [facility] ([facility]) Body height 64 [in_i] 64 [in_i] [facility] ([facility]) 5'4" Body mass index (BMI) [Ratio] 25.7 kg/m2 25.7 k g/m2 [facility] ([facility]) Heart rate 72 /min 72 /min [facility] ([facility]) Regular Respiratory rate 16 /min 16 /min [facility] ( [facility]) Systolic blood pressure 128 mm[Hg] 128 mm[Hg] M [facility] ([facility]) sitting, regular cuff Diastolic blood pressure 70 mm[Hg] 70 mm[Hg] [facility] ([facility]) sitting, regular cuff Systolic blood pressure 154 mm[Hg] 154 mm[Hg] M [facility] ([facility]) Diastolic blood pressure 90 mm[Hg] 90 mm[Hg] [facility] ([facility]) Systolic blood pressure 130 mm[Hg] 130 mm[Hg] [facility] ([facility]) Diastolic blood pressure 65 mm[Hg] 65 mm[Hg] [facility] ([facility]) Heart rate 86 /min 86 /min [facility] ([facility]) Body height 63 [in_i] 63 [in_i] [facility] ([facility]) 5'3" Body weight 154.00 [lb_av] 154.00 [lb_av] [facility] ([facility]) Body mass index (BMI) [Ratio] 27.3 kg/m2 27.3 k g/m2 [facility] ([facility]) Body weight 156.00 [lb_av] 156.00 [lb_av] [facility] ([facility]) Body height 64 [in_i] 64 [in_i] [facility] ([facility]) 5'4" Body mass index (BMI) [Ratio] 26.8 kg/m2 26.8 k g/m2 [facility] ([facility]) Heart rate 72 /min 72 /min [facility] ([facility]) Regular Respiratory rate 16 /min 16 /min [facility] ( [facility]) Systolic blood pressure 126 mm[Hg] 126 mm[Hg] M [facility] ([facility]) sitting, regular cuff Diastolic blood pressure 68 mm[Hg] 68 mm[Hg] [facility] ([facility]) sitting, regular cuff Body weight 159.00 [lb_av] 159.00 [lb_av] [facility] ([facility]) Body height 64 [in_i] 64 [in_i] [facility] 5'4" Body mass index (BMI) [Ratio] 27.3 kg/m2 27.3 k g/m2 [facility] ([facility]) Heart rate 72 /min 72 /min [facility] ([facility]) Irregular Respiratory rate 16 /min 16 /min [facility] ( [facility]) Systolic blood pressure 126 mm[Hg] 126 mm[Hg] M [facility] ([facility]) sitting, regular cuff Diastolic blood pressure 64 mm[Hg] 64 mm[Hg] [facility] ([facility]) sitting, regular cuff Body weight 165.00 [lb_av] 165.00 [lb_av] [facility] ([facility]) Body mass index (BMI) [Ratio] 28.3 kg/m2 28.3 k g/m2 [facility] ([facility]) Body height 64 [in_i] 64 [in_i] [facility] ([facility]) 5'4" Heart rate 76 /min 76 /min [facility] Irregular Respiratory rate 16 /min 16 /min [facility] ( [facility]) Systolic blood pressure 126 mm[Hg] 126 mm[Hg] M [facility] ([facility]) sitting, regular cuff Diastolic blood pressure 66 mm[Hg] 66 mm[Hg] [facility] ([facility]) sitting, regular cuff Respiratory rate 16 /min 16 /min [facility] ( [facility]) Heart rate 104 /min 104 /min [facility] Irregular Body weight 166.00 [lb_av] 166.00 [lb_av] [facility] ([facility]) Body height 64 [in_i] 64 [in_i] [facility] ([facility]) 5'4" Body mass index (BMI) [Ratio] 28.5 kg/m2 28.5 k g/m2 [facility] ([facility]) Body weight 160.00 [lb_av] 160.00 [lb_av] [facility] ([facility]) Systolic blood pressure 146 mm[Hg] 146 mm[Hg] M [facility] ([facility]) Diastolic blood pressure 80 mm[Hg] 80 mm[Hg] [facility] ([facility]) Heart rate 100 /min 100 /min [facility] ([facility]) Body height 63 [in_i] 63 [in_i] [facility] ([facility]) 5'3" Body mass index (BMI) [Ratio] 28.3 kg/m2 28.3 k g/m2 [facility] ([facility])
[2021-03-13] MEDS: HumaLOG INSULIN (NovoLOG) PER UNIT SC SCH (21:00)
[2021-03-13 21:07] LABS: BASO # 0.1 10^3/uL (0.0-0.2); BASO % 0.6 % (0.0-1.0); EOS # 0.1 10^3/uL (0.0-0.5); EOS % 1.2 % (0.0-3.0); HEMATOCRIT 36.6 % (36.0-47.0); HEMOGLOBIN 11.8 g/dl (12.0-15.5); LYMPH # 1.5 10^3/uL (1.5-5.0); LYMPH % 18.1 % (24.0-44.0); MEAN CORPUSCULAR HEMOGLOBIN 30.9 pg (27.0-33.0); MEAN CORPUSCULAR HGB CONC 32.2 g/dl (32.0-36.5); MEAN CORPUSCULAR VOLUME 95.8 fl (80.0-96.0); MONO # 0.9 10^3/uL (0.0-0.8); MONO % 11.4 % (2.0-8.0); NEUTROPHILS # 5.5 10^3/uL (1.5-8.5); NEUTROPHILS % 68.3 % (36.0-66.0); PLATELET COUNT, AUTOMATED 225 10^3/uL (150-450); RED BLOOD COUNT 3.82 10^6/uL (4.00-5.40)
[2021-03-13 21:16] LABS: ABG BASE EXCESS 4.4 (-2.0-2.0); ABG HCO3 28.9 MEQ/L (22.0-26.0); ABG O2 SATURATION 91.1 % (95.0-99.0); ABG PARTIAL PRESSURE CO2 42.4 mmHg (35.0-45.0); ABG PARTIAL PRESSURE O2 62.9 mmHg (75.0-100.0); ABG STANDARD HCO3 28.3 MEQ/L (22.0-26.0); ABG TOTAL CO2 30.2 MEQ/L (23.0-31.0); ABG pH (ARTERIAL) 7.451 UNITS (7.350-7.450)
[2021-03-13 21:17] LABS: INR 1.15; PROTHROMBIN TIME 15.1 SECONDS (12.7-14.5)
[2021-03-13 21:18] LABS: PARTIAL THROMBOPLASTIN TIME 31.2 SECONDS (25.9-37.0)
--- OUTSIDE RECORDS SUMMARY | 2021-03-13 21:24 | CCD ---
Author Author [facility] Organization [facility] Address Unknown Phone Unavailable Care Team Providers Care Email Administrator Name Role Phone Claudette Boston MD Unavailable [...] Unavailable Unavailable Claudette Boston MD Unavailable Unavailable White, F Freddy MD Unavailable Unavailable White F Freddy Unavailable Unavailable White F Freddy Unavailable Unavailable White, F Freddy MD Unavailable Unavailable White, F Freddy MD Unavailable [...] Cuellar, Johnnie Gandara MD, FACS Unavailable Unavailable Hlolis Cuellar, Jonhnie Gandara MD, FACS Unavailable Unavailable Hollis Cuellar, [...] is protected by Article 27-F of the [facility] Public Health law. If you continue you may have access to information: Regarding HIV / AIDS; Provided by facilities licensed or operated by the [facility] Office of Mental Health; or Provided by the [facility] Office for People With Developmental Disabilities. If such information is present, then the following [facility] mandated warning applies: This information has been [...] law may result in a fine or correction sentence or both. A general authorization for the release of medical or other information is NOT sufficient authorization for further disc losure. Allergies and Adverse Reactions Type Description Substance Reaction Status Data Source(s ) Allergy to substance No Known Allergies No known allergies (situation ) ANGIE (Juliocesar Cuellar MD [facility]) Family History Family Member Name Family Member Gender Family Member Status Date o f Status Description Data Source(s) Unknown Unknown Problem [facility] ([facility]) Unknown Male Problem [facility] ([facility] Encounters Encounter Providers Location Date Indications Data Source(s ) Outpatient Attender: Freddy Cohn 02/22 11:00:00 AM EDT MEDENT ([facility] ) Outpatient Attender: Delia MENDENHALL Main Office 12/27/2020 09:30:00 AM EDT MED[facility] ([facility]) Office Visit Attender: Smith Will MD Main office - [place] 12/22/2020 10:00:00 AM EDT MED[facility] ([facility] ) Outpatient Attender: Freddy Cohn 10/09 11:00:00 AM EDT MEDENT ([facility] ) Outpatient Attender: Delia MENDENHALL Main Office 09/26/2020 12:30:00 PM EDT MED[facility] ([facility]) Outpatient Attender: Delia MENDENHALL Main Office 08/23/2020 11:15:00 AM EDT MED[facility] ([facility]) Outpatient Attender: Delia MENDENHALL Main Office 07/25/2020 10:15:00 AM EST MED[facility] ([facility]) Outpatient Attender: Delia MENDENHALL Main Office 06/28/2020 10:15:00 AM EST MED[facility] ([facility]) Outpatient Attender: Freddy Cohn 05/31 12:00:00 PM EST MEDENT ([facility] ) Outpatient Attender: Delia MENDENHALL Main Office 05/24/2020 11:30:00 AM EST MED[facility] ([facility]) Outpatient Attender: Delia MENDENHALL Main Office 03/15/2020 08:00:00 AM EDT MED[facility] ([facility]) Outpatient Attender: Delia MENDENHALL Main Office 02/29/2020 08:45:00 AM EDT MED[facility] ([facility]) Outpatient Attender: Delia MENDENHALL Main Office 02/15/2020 08:45:00 AM EDT MED[facility] ([facility]) Outpatient<td ID="encounterTypeDescripti onID0">1 Year Follow-Up</td><td>Juliocesar Stewart MD, MALCOLM</td><td>Juliocesar Stewart MD [facility]</td><td>01/18/2020</td><td>12:18PM</td><td>01/15/2019 11:59PM</td><td><content ID="encounterDiagnosisID0-0">Essential Hypertension</content>, <content ID="encounterDiagnosisID0-1">Pseudophakia</content>, <content ID="encounterDiagnosisID0-2">Assessment of Taking Medication For Diabetes Long- term Use of Oral Hypoglycemics</content>, <content ID="encounterDiagnosisID0-3"> Posterior Capsule Opacification Eccentric Capsule Right Eye</content>, <content ID="encounterDiagnosisID0-4">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</content>, <content ID="encounterDiagnosisID0-5">Macular Degeneration Nonexudative Bilateral Early Dry Stage</content></td> Attender: Juliocesar Cuellar MD, MALCOLM Stewart MD [facility] 01/18/2020 12:18:00 PM EDT - 01/15/2019 11:59:00 PM EDT Macular Degeneration Nonexudative Bilate ral Early Dry StagePosterior Capsule Opacification Eccentric Capsule Right EyeAssessment of Taking Medication For Diabetes Long-term Use of Oral HypoglycemicsP seudophakiaEssential Hypertension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 ANGIE (Juliocesar Cuellar MD [facility]) Macular Degeneration Nonexudative Bilate ral Early Dry [...] vaccination card) 02/22/2021 11:02:00 AM EDT completed NARCISA Amaya ([facility]) COVID-19 VACCINE Moderna 08/07/2020 12:00:00 AM EDT completed [facility] Vaccine Series Complete: YESThis Data wa s Submitted to [facility] Via [employer]. COVID-19 VACCINE, MRNA-1273, LNP-S (MODERNA)/PF 08/07/2020 1 2:00:00 AM EDT completed [facility] COVID-19 VACCINE, MRNA-1273, LNP-S (MODERNA)/PF 07/06/2020 1 2:00:00 AM EST completed [facility] COVID-19 VACCINE Moderna 07/05/2020 12:00:00 AM EST completed [facility] Vaccine Series Complete: NOThis Data was Submitted to [facility] Via [employer]. Medications Medication Brand Name Start Date Product [...] AM EDT ORAL active [facility] ([facility]) 20 mg 08/22/2020 12:00:00 AM EDT tablet [...] Unspecified 08/07/2020 12:00:00 AM EDT completed [facility] ([place] [facility]) Medication administered onsite 10 mg 07/20/2020 12:00:00 [...] Unspecified 07/05/2020 12:00:00 AM EST completed [facility] ([place] [facility]) Medication administered onsite torsemide 10 MG Oral Tablet Torsemide 06/28/2020 12:00:00 AM EST ORAL completed MEDENT ([facility]) 24-26 mg 05/26/2020 12:00:00 AM EST tablet [...] EST ORAL active M EDENT ([facility]) 500 mg 03/26/2020 12:00:00 AM EST tablet [...] EDT ORAL active M EDENT ([facility]) 10 mg 02/29/2020 12:00:00 AM EDT tablet 60 TAKE TWO TABLETS BY MOUTH EVERY MORNING TAKE TWO TABLETS BY MOUTH EVERY MORNING SOLD: 03/01/2020 [facility] torsemide 10 MG Oral Tablet Torsemide 02/29/2020 12:00:00 AM EDT ORAL completed [facility] ([facility]) 10 mg 02/29/2020 12:00:00 AM EDT tablet [...] NEEDED FOR CHEST PAIN SOLD: 03/01/2020 [facility] 10 mg 02/29/2020 12:00:00 AM EDT tablet 60 TAKE TWO TABLETS BY MOUTH EVERY MORNING TAKE TWO TABLETS BY MOUTH EVERY MORNING SOLD: 05/26/2020 [facility] Digoxin 0.125 MG Oral Tablet 125 mcg (0.125 mg) DIGOXIN 02/15/2020 12:00:00 AM EDT tablet 30 TAKE ONE TABLET BY MOUTH MEGA RY DAY TAKE ONE TABLET BY MOUTH EVERY DAY SOLD: 09/22/2020 [facility] Digoxin 0.125 MG Oral Tablet [...] tablet 30 TAKE ONE TABLET BY MOUTH TAKE ONE TABLET BY MOUTH EVERY DAY SOLD: 10/23/2020 [facility] Digoxin 0.125 MG Oral Tablet 125 mcg (0.125 mg) DIGOXIN 02/15/2020 12:00:00 AM EDT tablet 30 TAKE ONE TABLET BY MOUTH TAKE ONE TABLET BY MOUTH EVERY DAY SOLD: 06/22/2020 [facility] 50 mg 02/15/2020 12:00:00 AM EDT tablet 30 TAKE ONE TABLET BY MOUTH EVERY DAY TAKE ONE TABLET BY MOUTH EVERY DAY SOLD: 11/22/2020 [facility] Digoxin 0.125 MG Oral Tablet Digoxin 02/15/2020 12:00:00 AM EDT ORAL active MEDENT ([facility]) Digoxin 0.125 MG Oral Tablet 125 mcg (0.125 mg) DIGOXIN 02/15/2020 12:00:00 AM EDT tablet 30 TAKE ONE TABLET BY MOUTH TAKE ONE TABLET BY MOUTH EVERY DAY [...] TABLET BY MOUTH EVERY DAY SOLD: 02/15/2020 [facility] Atenolol 50 MG Oral Tablet ATENOLOL 02/15/2020 12:00:00 AM EDT tablet 18 TAKE ONE TABLET BY MOUTH EVERY DAY TAKE ONE TABLET BY MOUTH EVERY DAY SOLD: 02/15/2020 [facility] Docusate Sodium 100 MG Oral Capsule Stool Softener 02/14/2020 12:00 :00 AM EDT ORAL active [facility] Aten[facility]ol 50 MG Oral Tablet Atenolol 02/07/2020 12:00:00 AM EDT ORAL active MED[facility] ([facility]) 5 mg 02/03/2020 12:00:00 AM EDT tablet [...] DT ORAL active [facility] ([facility]) Aspirin 81 MG Delayed Release Oral Tablet Aspirin 81 2019 12:00:00 AM EDT ORAL active MED[facility] ( [facility]) 5 mg 02/03/2020 12:00:00 AM EDT tablet [...] EDT ORAL completed [facility] ([facility]) 4 mg 01/04/2020 12:00:00 AM EDT capsule,extended [...] TWICE A DAY SOLD: 03/01/2020 [facility] 20 mg 09/09/2019 12:00:00 AM [...] MOUTH TWICE A DAY SOLD: 03/31/2020 [facility] 20 mg 09/09/2019 12:00:00 [...] BY MOUTH TWICE A DAY SOLD: 07/26/2020 [facility] 4 mg 09/09/2019 12:00:00 AM EDT tablet 60 TAKE ONE TABLET BY MOUTH TWICE A DAY TAKE ONE TABLET BY MOUTH TWICE A DAY SOLD: 03/31/2020 [facility] 20 mg 09/09/2019 12:00:00 AM EDT tablet 30 TAKE ONE TABLET BY MOUTH EVERY DAY TAKE ONE TABLET BY MOUTH EVERY DAY SOLD: 06/22/2020 [facility] Metformin hydrochloride 1000 MG Oral Tablet 1,000 mg METFORM IN HCL 09/09/2019 12:00:00 AM EDT tablet 60 TAKE ONE TABLET BY MOUTH TWICE A DAY TAKE ONE TABLET BY MOUTH TWICE A DAY SOLD: 03/01/2020 [facility] 20 mg 09/09/2019 12:00:00 AM EDT tablet 30 TAKE ONE TABLET BY MOUTH EVERY DAY TAKE ONE TABLET BY MOUTH EVERY DAY SOLD: 05/02/2020 [facility] 20 mg 09/09/2019 12:00:00 AM EDT tablet 30 TAKE ONE TABLET BY MOUTH EVERY DAY TAKE ONE TABLET BY MOUTH EVERY DAY SOLD: 02/03/2020 [facility] Insurance Providers Payer name Policy type / Coverage type Policy ID Covered alliance party ID Covered alliance party's relationship to dominguez Policy Dominguez Plan Information MEDICARE A [id number] Self [id number] Medicare (Part B) Medicare Primary [id number] Self [id number] MEDICARE [id number] SP [id number] [id number] Medicare (Part B) Medicare Primary [id number] Self [id number] Medicare (Part B) Medicare Primary [id number] Self Medicare Natl Govt Servic Medicare Primary [id number] Self Medicare (Part B) Medicare Primary [id number] Self [id number] Medicare (Part B) Medicare Primary [id number] Self [id number] Medicare Medicare Primary [id number] Self Medicare Medicare Primary [id number] Self [id number] Medicare (Part B) Medicare Primary [id number] Self [id number] Medicare Natl Govt Servic Medicare Primary [id number] Self [id number] MEDICARE A [id number] Self [id number] A Medicare Natl Govt Servic Medicare Primary [id number] Self [id number] Medicare (Part B) Medicare Primary [id number] Self [id number] Medicare Natl Govt Servic Medicare Primary [id number] Self 0 [id number] MEDICARE [id number] SP [id number] A Medicare Natl Govt Serv Medicare Primary [id number] Self [id number] Medicare (Part B) Medicare Primary [id number] Self [id number] Medicare Natl Govt Servic Medicare Primary [id number] Self [id number] Medicare Natl Govt Serv Medicare Primary [id number] Self [id number] BC/BS [place] Medigap Part B [id number] Self BCBS Excell[place] Ppo U/W Medigap Part B [id number] Self [id number] [id number] BCBS Excellus Ppo U/W Medigap Part B [id number] Self BCBS Excellus U/W Medigap Part B [id number] Self [id number] BS [place] Trad/MX Commercial [id number] Self [id number] BS [place] Trad/MX Medigap Part B [id number] Self V [id number] Excellus BCBS Medigap Part B [id number] Self BCBS [place] PPO 302/307 [id number] SP [id number] EXCELLUS C [id number] Self [id number] BCBS [place] PPO 302/307 [id number] SP [id number] MEDICARE P [id number] S [id number] A BCBS OF [place] 306/806 [id number] SP [id number] A MEDICARE C [id number] S [id number] EXCELLUS BCBS B [id number] S [id number] BCBS of [facility] Other 0 [id number] Self 0 Medicare Part B of [place] Other 0 [id number] Self 0 BCBS Excell MCR Supp U/W Medigap Part B [id number] Self [id number] BCBS Excellus U/W Medigap Part B [id number] Self [id number] BCBS Excell MCR Supp U/W Medigap Part B [id number] Self [id number] BCBS Excell MCR Supp U/W Medigap Part B [id number] Self VY [id number] BS [place] Medigap Part B [id number] Self V [id number] BCBS [place] PPO 302/307 [id number] SP [id number] Aetna [facility] Medigap Part B [id number] Self [id number] BCBS Excell MCR Supp U/W Medigap Part B [id number] Self [id number] [id number] BCBS Excell MCR Supp U/W Medigap Part B [id number] Self VY [id number] BCBS Excellus Ppo U/W Medigap Part B [id number] Self YO [id number] BCBS Excell MCR Supp U/W Medigap Part B [id number] Self VY [id number] MEDICARE C [id number] S [id number] A [facility]na [place] [facility] [id number] Self [id number] A[facility]na [place] [facility] [id number] Self [id number] A[facility]na [place] [facility] [id number] Self [id number] A[facility]na [place] [facility] B [id number] Self [id number] Aetna [place] [facility] B [id number] Self [id number] BCBS [place] PPO 302/307 [id number] SP [id number] BCBS Excell MCR Supp U/W Medigap Part B [id number] Self VY [id number] BCBS Excell MCR Supp U/W Medigap Part B [id number] Self BCBS Excellus Ppo U/W Medigap Part B [id number] Self Aetna [place] Medigap Part B [id number] Self BLUE CROSS BLUE SHIELD-O/P [id number] 18 [id number] MEDICARE -O/P [id number] 18 [id number] BC/BS [place] Medigap Part B [id number] Self EXCELLUS BCBS S [id number] S [id number] Problems, Conditions, and Diagnoses Code Display Name Description Problem Type Effective Dates Data Source(s) 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 Problem 09/26/2020 12:00:00 AM EDT [facility] ([facility]) I48.11 Persistent atrial fibrillation Persistent atrial fibri llation Problem 09/26/2020 12:00:00 AM EDT [facility] Surgeries/Procedures Procedure Description Date Indications Data Source(s) OFFICE OUTPATIENT VISIT 25 MINUTES 02/22/2021 12:00:00 AM EDT [facility] ([facility]) 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 EVAL IN PERSON 1/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/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 PM 2020 12:00:00 AM EDT [facility] OFFICE OUTPATIENT VISIT 15 MINUTES 12/27/2020 12:00:00 AM EDT [facility] PHYSICIAN TELEPHONE EVALUATION 11-20 MIN 12/22/2020 12 :00:00 AM EDT MEDENT ([facility]) OFFICE OUTPATIENT VISIT 25 MINUTES 10/09/2020 12:00:00 AM EDT [facility]) ECHO TTHRC R-T 2D W/WOM-MODE COMPL SPEC&COLR DOP 09/26 12:00:00 AM EDT MEDENT ([facility]) OFFICE OUTPATIENT VISIT 25 MINUTES 09/26/2020 12:00:00 AM EDT MEDENT ([facility]) PROGRAM EVAL IMPLANTABLE IN PERSN DUAL LD PACER 2020 12:00:00 AM EDT MED[facility] ([facility]) ECG ROUTINE ECG W/LEAST 12 LDS W/I&R 08/23/2020 12:00: 00 AM EDT MED[facility] ([facility]) ECHO TTHRC R-T 2D W/WOM-MODE COMPL SPEC&COLR DOP 08/23 12:00:00 AM EDT MED[facility] ([facility]) OFFICE OUTPATIENT VISIT 25 MINUTES 08/23/2020 12:00:00 AM EDT MED[facility] ([facility]) OFFICE OUTPATIENT VISIT 15 MINUTES 07/25/2020 12:00:00 AM EST MED[facility] ([facility]) 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 EVAL IN PERSON 1/DUAL/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 PM 2020 12:00:00 AM EST MED[facility] ([facility]) OFFICE OUTPATIENT VISIT 25 MINUTES 05/31/2020 12:00:00 AM EST MEDENT ([facility]) ECHO TTHRC R-T 2D W/WOM-MODE COMPL SPEC&COLR DOP 05/22 12:00:00 AM EST MED[facility] ([facility]) XTRNL ECG < 48 HR RECORDING 02/24/2020 12:00:00 AM EDT MED[facility] ([facility]) XTRNL ECG CONTINUOUS RHYTHM PHYS REVIEW&INTERPJ 2019 12:00:00 AM EDT MED[facility] ([facility]) ECG ROUTINE ECG W/LEAST 12 LDS W/I&R 02/15/2020 12:00: 00 AM EDT MED[facility] ([facility]) ECHO TTHRC R-T 2D W/WOM-MODE COMPL SPEC&COLR DOP 02/03 12:00:00 AM EDT MED[facility] ([facility]) ECG ROUTINE ECG W/LEAST 12 LDS W/I&R 02/02/2020 12:00: 00 AM EDT MEDENT ([facility]) Diabetic Retinal Eye Exam 01/18/2020 12:00:00 AM EDT MEDENT ([facility]) Surgical / procedural history 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, 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, Pacemaker Surgical / procedural history Removal of brain tumor November 2014, 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, Pacemaker 01/18/2020 12:00:00 AM EDT ANGIE (Gustavo id A Telma Cuellar MD [facility]) Intermediate Eye Exam Established Patient Intermediate Eye Exam Established Patient 01/18/2020 12:00:00 AM EDT BRISTOL (Gustavo id A Telma Cuellar MD [facility]) Results ID Date Data Source [id number] 02/22/2021 11:56:00 AM EDT MEDENT ([facility]) Name Value Range Interpretation Code Description Data Patricia rce(s) Supporting Document(s) Urea nitrogen [Mass/volume] in Serum or Plasma 22 mg/dL 7-18 MED[facility] ([facility]) Glucose [Mass/volume] in Serum or Plasma 94 mg/dL 74-99 MED[facility] ([facility]) 100-125 mg/dL PRE-DIABETES/FASTING >126 mg/dL DIABETES/FASTING Sodium [Moles/volume] in Serum or Plasma 143 meq/L 136-145 MED[facility] ([facility]) Creatinine 1.3 mg/dL 0.6-1.3 [facility] ([facility] Potassium [Moles/volume] in Serum or Plasma 3.7 meq/L 3.5-5.1 MED[facility] ([facility]) Chloride [Moles/volume] in Serum or Plasma 101 meq/L 98-107 MED[facility] ([facility]) Carbon dioxide, total [Moles/volume] in Serum or Plasma 36 meq/L 21 -32 MED[facility] ([facility]) Total Bilirubin 0.5 mg/dL 0.2-1.0 MED[facility] ([facility]) Alkaline phosphatase isoenzyme [Units/volume] in Serum or Pl asma 63 mg/dL 46-116 MED[facility] ([facility]) Calcium [Mass/volume] in Serum or Plasma 9.8 mg/dL 8.5-10.1 MED[facility] ([facility]) Proteinase 3 Ab [Units/volume] in Serum 6.3 g/dL 6.4-8.2 MED[facility] ([facility]) Aspartate aminotransferase [Enzymatic activity/volume] in Serum or Plasma 22 U/L 15-37 MED[facility] ([facility] ) Alanine aminotransferase [Enzymatic activity/volume] in Seru m or Plasma 23 U/L 12-78 MED[facility] ([facility]) Albumin [Mass/volume] in Serum or Plasma 3.6 g/dL 3.4-5.0 [facility] ([facility]) Glomerular filtration rate/1.73 sq M pre dicted among non-blacks [Volume Rate/Area] in Serum or Plasma by Creatinine-based formula (MDRD) 39 mL/min MED[facility] ([facility]) A/G Ratio 1.33 CALC 1.00-1.90 [facility] [facility] Glomerular filtration rate/1.73 sq M pre dicted among blacks [Volume Rate/Area] in Serum or Plasma by Creatinine-based formula (MDRD) 47 mL/min [facility] <content>CHRONIC KIDNEY DISEASE STAGING PER NKF</content>
<content></content>
<content>STAGE I & II GFR >= 60 NORMAL TO MILDLY DECREASED</content>
<content>STAGE III GFR 30-59 MODERATELY DECREASED</content>
<content>STAGE IV GFR 15-29 SEVERELY DECREASED</content>
<content>STAGE V GFR <15 VERY LITTLE GFR LEFT</content>
<content>ESRD GFR <15 ON MEDICAL SERVICES ASSISTANT</content>
<content></content> ID Date Data Source [id number] 02/22/2021 11:56:00 AM EDT MED[facility] ([facility]) Name Value Range Interpretation Code Description Data Patricia rce(s) Supporting Document(s) Hemoglobin [Mass/volume] in Blood 12.7 g/dL 12.0-18.0 [facility] ([facility]) Leukocytes [#/volume] in Blood by Automated count 8.6 x10*3/UL 4.1-10 .9 [facility] ([facility]) Erythrocytes [#/volume] in Blood by Automated count 4.08 x10*6/UL 4.2 0-6.30 [facility] MCV 92.8 fL 80.0-97.0 [facility] ([facility]) Hematocrit [Volume Fraction] of Blood by Automated count 37.9 % 3 7.0-51.0 [facility] MCH 31.0 pg 26.0-32.0 [facility] ([facility]) MCHC 33.4 g/dL 31.0-38.0 [facility] ([facility]) Erythrocyte distribution width [Ratio] by Automated count 17.1 % 11.6-13.7 [facility] Lymph % 20.6 % 10.0-58.5 [facility] ([facility]) Platelets [#/volume] in Blood by Automated count 290 x10*3/UL 140-440 [facility] MPV 9.3 FL 7.8-11.0 [facility] ([facility]) Lymph # 1.7 x10*3/UL 0.6-4.1 [facility] ([facility]) Neut % 73.7 % 37.0-92.0 [facility] ([facility]) Mid % 5.7 % 1.7-9.3 [facility] ([facility]) Neut # 6.4 x10*3/UL 2.0-7.8 [facility] ([facility]) Mid # 0.5 x10*3/UL 0.1-0.6 [facility] ID Date Data Source [id number] 02/22/2021 11:56:00 AM EDT [facility] Name Value Range Interpretation Code Description Data Patricia rce(s) Supporting Document(s) Hemoglobin A1c/Hemoglobin.total in Blood 6.5 % [facility] Lab Result Notes: Pre-Diabetes 5.7 - 6.4 % Diabetes = or > 6.5% Glucose mean value [Mass/volume] in Blood Estimated fr om glycated hemoglobin 140 mg/dL 60-110 [facility] ([facility] ) ID Date Data Source [id number] 02/22/2021 11:56:00 AM EDT [facility] ([facility]) Name Value Range Interpretation Code Description Data Patricia rce(s) Supporting Document(s) Urine Creatinine 89.5 mg/dL 30.0-125.0 [facility] ([facility]) Microalbumin Urine 271.5 mg/L 1.3-20.0 [facility] ([facility]) Microalb/Creat Ratio 303.4 ug/mg 0.0-30.0 MEDENT ([facility]) ID Date Data Source [id number] 02/22/2021 11:56:00 AM EDT [facility] ([facility]) Name Value Range Interpretation Code Description Data Patricia rce(s) Supporting Document(s) Hemoglobin A1c/Hemoglobin.total in Blood Laboratory test result [facility] Natriuretic peptide B [Mass/volume] in Serum or Plasma 1840.0 pg/mL 0.0-100.0 [facility] ([facility]) ID Date Data Source [id number] 02/22/2021 11:56:00 AM EDT [facility] ([facility]) Name Value Range Interpretation Code Description Data Patricia rce(s) Supporting Document(s) Glucose [Mass/volume] in Serum or Plasma 94 mg/dL 74-99 [facility] ([facility]) 100-125 mg/dL PRE-DIABETES/FASTING >126 mg/dL DIABETES/FASTING Creatinine 1.3 mg/dL 0.6-1.3 [facility] ([facility]) Sodium [Moles/volume] in Serum or Plasma 143 meq/L 136-145 [facility] ([facility]) Urea nitrogen [Mass/volume] in Serum or Plasma 22 mg/dL 7-18 [facility] ([facility]) Carbon dioxide, total [Moles/volume] in Serum or Plasma 36 meq/L 21 -32 [facility] ([facility]) Potassium [Moles/volume] in Serum or Plasma 3.7 meq/L 3.5-5.1 [facility] ([facility]) Chloride [Moles/volume] in Serum or Plasma 101 meq/L 98-107 [facility] ([facility]) Calcium [Mass/volume] in Serum or Plasma 9.8 mg/dL 8.5-10.1 [facility] ([facility]) Alkaline phosphatase isoenzyme [Units/volume] in Serum or Pl asma 63 mg/dL 46-116 [facility] ([facility]) Total Bilirubin 0.5 mg/dL 0.2-1.0 [facility] ([facility]) Aspartate aminotransferase [Enzymatic activity/volume] in Serum or Plasma 22 U/L 15-37 [facility] ([facility] [employer] [facility]) Alanine aminotransferase [Enzymatic activity/volume] in Seru m or Plasma 23 U/L 12-78 [facility] ([facility]) Proteinase 3 Ab [Units/volume] in Serum 6.3 g/dL 6.4-8.2 [facility] ([facility]) Albumin [Mass/volume] in Serum or Plasma 3.6 g/dL 3.4-5.0 [facility] ([facility]) Glomerular filtration rate/1.73 sq M pre dicted among non-blacks [Volume Rate/Area] in Serum or Plasma by Creatinine-based formula (MDRD) 39 mL/min [facility] ([facility]) Glomerular filtration rate/1.73 sq M pre dicted among blacks [Volume Rate/Area] in Serum or Plasma by Creatinine-based formula (MDRD) 47 mL/min [facility] ([facility]) <content>CHRONIC KIDNEY DISEASE STAGING PER NKF</content>
<content></content>
<content>STAGE I & II GFR >= 60 NORMAL TO MILDLY DECREASED</content>
<content>STAGE III GFR 30-59 MODERATELY DECREASED</content>
<content>STAGE IV GFR 15-29 SEVERELY DECREASED</content>
<content>STAGE V GFR <15 VERY LITTLE GFR LEFT</content>
<content>ESRD GFR <15 ON MEDICAL SERVICES ASSISTANT</content>
<content></content>
<content></content> A/G Ratio 1.33 CALC 1.00-1.90 [facility] ([facility]) ID Date Data Source [id number] 02/22/2021 11:56:00 AM EDT [facility] ([facility]) Name Value Range Interpretation Code Description Data Patricia rce(s) Supporting Document(s) Microalbumin Urine 271.5 mg/L 1.3-20.0 [facility] ([facility]) Urine Creatinine 89.5 mg/dL 30.0-125.0 [facility] ( [facility]) Microalb/Creat Ratio 303.4 ug/mg 0.0-30.0 MED ENT ([facility]) ID Date Data Source [id number] 12/26/2020 09:15:00 AM EDT [facility] ([facility]) Name Value Range Interpretation Code Description Data Patricia rce(s) Supporting Document(s) Glucose, Fasting 131 mg/dL 70-100 [facility] ([facility]) Blood Urea Nitrogen 20 mg/dL 7-18 [facility] ([facility]) Creatinine For GFR 1.02 mg/dL 0.55-1.30 [facility] ([facility]) Glomerular Filtration Rate 54.8 MED ENT ([facility]) <content>Units are mL/min/1.73 m2</content>
<content></content>
<content>Chronic Kidney Disease Staging per NKF:</content>
<content></content>
<content>Stage I & II GFR >=60 Normal to Mildly Decreased</content>
<content>Stage III GFR 30-59 Moderately Decreased</content>
<content>Stage IV GFR 15-29 Severely Decreased</content>
<content>Stage V GFR <15 Very Little GFR Left</content>
<content>ESRD GFR <15 on MEDICAL SERVICES ASSISTANT</content>
<content></content> Sodium Level 140 meq/L 136-145 [facility] ([facility]) Potassium Serum 4.5 meq/L 3.5-5.1 [facility] ([facility]) Carbon Dioxide Level 30 meq/L 21-32 [facility] ( [facility] Chloride Level 105 meq/L 98-107 [facility] ([facility]) Anion Gap 5 meq/L 8-16 [facility]) Calcium Level 9.3 mg/dL 8.8-10.2 [facility] ([facility]) ID Date Data Source [id number] 12/26/2020 09:15:00 AM EDT [facility] ([facility]) Name Value Range Interpretation Code Description Data Patricia rce(s) Supporting Document(s) Natriuretic peptide.B prohormone N-Terminal [Mass/volu me] in Serum or Plasma 6360 pg/mL MED[facility] ([facility] ) Magnesium [Moles/volume] in Serum or Plasma 2.3 mg/dL 1.8-2.4 [facility] ([facility]) ID Date Data Source [id number] 12/26/2020 09:15:00 AM EDT [facility] ([facility]) Name Value Range Interpretation Code Description Data Patricia rce(s) Supporting Document(s) Magnesium [Mass/volume] in Serum or Plasma 2.3 mg/dL 1.8-2.4 [facility] ([facility]) Natriuretic peptide.B prohormone N-Terminal [Mass/volu me] in Serum or Plasma 6360 pg/mL MED[facility] ([employer] [facility]) ID Date Data Source [id number] 12/26/2020 09:15:00 AM EDT MED[facility] ([facility]) Name Value Range Interpretation Code Description Data Patricia rce(s) Supporting Document(s) Blood Urea Nitrogen 20 mg/dL 7-18 [facility] ([facility]) Glucose, Fasting 131 mg/dL 70-100 [facility] Creatinine For GFR 1.02 mg/dL 0.55-1.30 [facility] ([facility]) Glomerular Filtration Rate 54.8 MED ENT ([facility]) <content>Units are mL/min/1.73 m2</content>
<content></content>
<content>Chronic Kidney Disease Staging per NKF:</content>
<content></content>
<content>Stage I & II GFR >=60 Normal to Mildly Decreased</content>
<content>Stage III GFR 30- 59 Moderately Decreased</content>
<content>Stage IV GFR 15-29 Severely Decreased</content>
<content>Stage V GFR <15 Very Little GFR Left</content>
<content>ESRD GFR <15 on MEDICAL SERVICES ASSISTANT</content>
<content></content> Potassium Serum 4.5 meq/L 3.5-5.1 [facility] ([facility]) Sodium Level 140 meq/L 136-145 [facility] ([facility]) Chloride Level 105 meq/L 98-107 [facility] ([facility]) Carbon Dioxide Level 30 meq/L 21-32 [facility] ([facility]) Anion Gap 5 meq/L 8-16 [facility] Calcium Level 9.3 mg/dL 8.8-10.2 [facility] ([facility]) ID Date Data Source [id number] 11/06/2020 11:44:00 AM EDT [facility] ([facility]) Name Value Range Interpretation Code Description Data Patricia rce(s) Supporting Document(s) Viscosity of Serum 1.6 rel.saline 1.4-2.1 [facility] ([facility]) Values above 2.7 may indicate paraprotei nemia is present. Performed at: [address] [id number] 61 Wellness Program Coordinator: Ananya Gauthier MD, Phone: [phone] ID Date Data Source [id number] 11/06/2020 11:44:00 AM EDT [facility] Name Value Range Interpretation Code Description Data Patricia rce(s) Supporting Document(s) Albumin % 65.1 % 55.8-66.1 [facility]) Vdgzl-5-Zrbeuiye % 5.7 % 2.9-4.9 [facility] ([facility]) Njuzy-0-Rfxmzvicz % 12.5 % 7.1-11.8 [facility] ([facility] Zurt-0-Jzsjxkilt % 7.4 % 4.7-7.2 [facility] ([facility]) Blad-6-Ydmyrcevc % 3.9 % 3.2-6.5 [facility] ([facility]) Gamma Globulin % 5.4 % 11.1-18.8 [facility] ([facility]) Albumin 3.84 GM/DL 3.29-5.55 [facility] ([facility] Xmdfi-0-Yxhgzhoqf 0.74 GM/DL 0.42-0.99 [facility] ([facility]) Yabux-6-Gmbvrdomc 0.34 GM/DL 0.17-0.41 [facility] ([facility]) Gamma Globulins 0.32 GM/DL 0.65-1.58 [facility] ([facility]) Nfgn-5-Huvvsempp 0.44 GM/DL 0.28-0.60 [facility] ([facility]) Zxsp-5-Wlzdzwvbv 0.23 GM/DL 0.19-0.55 [facility] ([facility]) Spep Interpretation Laboratory test result MEDENT ([facility]) M-SPIKE NOTED IN EARLY GAMMA REGION. CONCENTRATION = 0.08 GM/DL SUGGEST SERUM AND URINE IMMUNOTYPING. Laboratory test finding (navigational concept) Laboratory test result MEDENT ([facility]) Total Protein 5.9 GM/DL 6.4-8.2 [facility] ([facility]) ID Date Data Source [id number] 11/06/2020 11:44:00 AM EDT MED[facility] ([facility]) Name Value Range Interpretation Code Description Data Patricia rce(s) Supporting Document(s) Immunoglobulin A 79.0 mg/dL 70-400 [facility] ([facility]) Immunoglobulin G 271 mg/dL [id number] MED[facility] ([facility]) Immunoglobulin M 108.0 mg/dL 40-230 [facility] ([facility]) ID Date Data Source [id number] 11/06/2020 11:44:00 AM EDT [facility] ([facility]) Name Value Range Interpretation Code Description Data Patricia rce(s) Supporting Document(s) Lactate dehydrogenase [Enzymatic activit y/volume] in Serum or Plasma by Lactate to pyruvate reaction 239 U/L 84-246 [facility] ([facility]) ID Date Data Source [id number] 11/06/2020 11:44:00 AM EDT MED[facility] ([facility]) Name Value Range Interpretation Code Description Data Patricia rce(s) Supporting Document(s) Glucose, Fasting 103 mg/dL 70-100 [facility] ([facility]) Blood Urea Nitrogen 19 mg/dL 7-18 [facility] ([facility]) Creatinine For GFR 1.10 mg/dL 0.55-1.30 [facility] Glomerular Filtration Rate 50.3 MED ENT ([facility]) <content>Units are mL/min/1.73 m2</content>
<content></content>
<content>Chronic Kidney Disease Staging per NKF:</content>
<content></content>
<content>Stage I & II GFR >=60 Normal to Mildly Decreased</content>
<content>Stage III GFR 30-59 Moderately Decreased</content>
<content>Stage IV GFR 15-29 Severely Decreased</content>
<content>Stage V GFR <15 Very Little GFR Left</content>
<content>ESRD GFR <15 on MEDICAL SERVICES ASSISTANT</content>
<content></content> Sodium Level 143 meq/L 136-145 MED[facility] ([facility]) Chloride Level 104 meq/L 98-107 [facility] ([facility]) Potassium Serum 4.0 meq/L 3.5-5.1 [facility] ([facility]) Anion Gap 7 meq/L 8-16 [facility] ([facility]) Carbon Dioxide Level 32 meq/L 21-32 [facility] ([facility]) Calcium Level 10.0 mg/dL 8.8-10.2 [facility] ([facility]) Alt/SGPT 29 U/L 12-78 [facility] ([facility]) Alkaline Phosphatase 66 U/L 45-117 [facility] ([facility]) Ast/Sgot 24 U/L 7-37 [facility] ([facility]) Total Protein 5.9 GM/DL 6.4-8.2 [facility] ([facility]) Bilirubin,Total 0.5 mg/dL 0.2-1.0 [facility] ([facility]) Albumin 3.6 GM/DL 3.2-5.2 [facility]) Albumin/Globulin Ratio 1.6 1.2-2.2 [facility] ([facility]) ID Date Data Source [id number] 11/06/2020 11:44:00 AM EDT MED[facility] ([facility]) Name Value Range Interpretation Code Description Data Patricia rce(s) Supporting Document(s) White Blood Count 9.6 10 4.0-10.0 [facility] ([facility]) Red Blood Count 3.88 10 4.00-5.40 [facility] ([facility]) Hematocrit 38.2 % 36.0-47.0 [facility]) Mean Corpuscular Volume 98.5 fl 80.0-96.0 [facility] ([facility]) Hemoglobin 13.2 g/dL 12.0-15.5 [facility]) Mean Corpuscular Hemoglobin 34.0 pg 27.0-33.0 ME DENT ([facility]) Mean Corpuscular HGB Conc 34.6 g/dL 32.0-36.5 MEDE NT ([facility]) Red Cell Distribution Width 17.6 % 11.5-14.5 ME DENT ([facility]) Platelet Count, Automated 251 10 150-450 MEDE NT ([facility]) Neutrophils % 67.2 % 36.0-66.0 [facility] ([facility]) Door % 9.2 % 2.0-8.0 [facility]) Eos % 2.7 % 0.0-3.0 [facility]) Lymph % 19.9 % 24.0-44.0 [facility]) Baso % 0.7 % 0.0-1.0 [facility]) Nucleated Red Blood Cell % 0.0 % 0-0 MED ENT ([facility]) Immature Granulocyte % 0.3 % 0-3.0 [facility] ([facility]) Door # 0.9 10 0.0-0.8 [facility]) Neutrophils # 6.4 10 1.5-8.5 [facility] ([facility]) Lymph # 1.9 10 1.5-5.0 [facility]) Eos # 0.3 10 0.0-0.5 [facility]) Baso # 0.1 10 0.0-0.2 [facility]) ID Date Data Source [id number] 10/06/2020 09:03:00 AM EDT [facility] ([facility]) Name Value Range Interpretation Code Description Data Patricia rce(s) Supporting Document(s) Thyrotropin [Units/volume] in Serum or Plasma by Detec tion limit <= 0.05 mIU/L 1.61 uIU/mL 0.36-3.74 [facility] ([facility] ) ID Date Data Source [id number] 10/06/2020 09:03:00 AM EDT MED[facility] ([facility]) Name Value Range Interpretation Code Description Data Patricia rce(s) Supporting Document(s) Cholesterol in HDL [Mass/volume] in Serum or Plasma 67 mg/dL 35-60 [facility] ([facility]) Triglyceride [Mass/volume] in Serum or Plasma 88 mg/dL 30-150 [facility] ([facility]) Cholesterol [Mass/volume] in Serum or Plasma 189 mg/dL 131-200 [facility] ([facility]) Cholesterol in LDL [Mass/volume] in Serum or Plasma by calcu lation 104 CALC 50-159 [facility] ([facility]) ID Date Data Source [id number] 10/06/2020 09:03:00 AM EDT [facility] ([facility]) Name Value Range Interpretation Code Description Data Patricia rce(s) Supporting Document(s) Creatinine 1.2 mg/dL 0.6-1.3 [facility] Urea nitrogen [Mass/volume] in Serum or Plasma 25 mg/dL 7-18 [facility] ([facility]) Glucose [Mass/volume] in Serum or Plasma 140 mg/dL 74-99 [facility] ([facility]) 100-125 mg/dL PRE-DIABETES/FASTING >126 mg/dL DIABETES/FASTING Potassium [Moles/volume] in Serum or Plasma 3.9 meq/L 3.5-5.1 [facility] ([facility]) Sodium [Moles/volume] in Serum or Plasma 142 meq/L 136-145 [facility] ([facility]) Carbon dioxide, total [Moles/volume] in Serum or Plasma 30 meq/L 21 -32 [facility] ([facility]) Chloride [Moles/volume] in Serum or Plasma 105 meq/L 98-107 [facility] ([facility]) Calcium [Mass/volume] in Serum or Plasma 9.3 mg/dL 8.5-10.1 [facility] ([facility]) Total Bilirubin 0.6 mg/dL 0.2-1.0 [facility] ([facility]) Alkaline phosphatase isoenzyme [Units/volume] in Serum or Pl asma 70 mg/dL 46-116 [facility] ([facility]) Albumin [Mass/volume] in Serum or Plasma 3.7 g/dL 3.4-5.0 [facility] ([facility]) Alanine aminotransferase [Enzymatic activity/volume] in Seru m or Plasma 41 U/L 12-78 [facility] ([facility]) Aspartate aminotransferase [Enzymatic activity/volume] in Serum or Plasma 34 U/L 15-37 [facility] ([facility] ) A/G Ratio 1.68 CALC 1.00-1.90 [facility]) Proteinase 3 Ab [Units/volume] in Serum 5.9 g/dL 6.4-8.2 [facility] ([facility]) Glomerular filtration rate/1.73 sq M pre dicted among blacks [Volume Rate/Area] in Serum or Plasma by Creatinine-based formula (MDRD) 52 mL/min [facility] <content>CHRONIC KIDNEY DISEASE STAGING PER NKF</content>
<content></content>
<content>STAGE I & II GFR >= 60 NORMAL TO MILDLY DECREASED</content>
<content>STAGE III GFR 30-59 MODERATELY DECREASED</content>
<content>STAGE IV GFR 15-29 SEVERELY DECREASED</content>
<content>STAGE V GFR <15 VERY LITTLE GFR LEFT</content>
<content>ESRD GFR <15 ON MEDICAL SERVICES ASSISTANT</content>
<content></content> Glomerular filtration rate/1.73 sq M pre dicted among non-blacks [Volume Rate/Area] in Serum or Plasma by Creatinine-based formula (MDRD) 43 mL/min [facility] ID Date Data Source [id number] 10/06/2020 09:03:00 AM EDT [facility] Name Value Range Interpretation Code Description Data Patricia rce(s) Supporting Document(s) Hemoglobin A1c/Hemoglobin.total in Blood 6.4 % [facility] ([facility]) Lab Result Notes: Pre-Diabetes 5.7 - 6.4 % Diabetes = or > 6.5% Glucose mean value [Mass/volume] in Blood Estimated fr om glycated hemoglobin 137 mg/dL 60-110 [facility] ([facility] ) ID Date Data Source [id number] 10/06/2020 09:03:00 AM EDT [facility] ([facility]) Name Value Range Interpretation Code Description Data Patricia rce(s) Supporting Document(s) Leukocytes [#/volume] in Blood by Automated count 9.1 x10*3/UL 4.1-10 .9 [facility] ([facility]) Erythrocytes [#/volume] in Blood by Automated count 3.72 x10*6/UL 4.2 0-6.30 [facility] ([facility]) Hemoglobin [Mass/volume] in Blood 11.6 g/dL 12.0-18.0 [facility] ([facility]) NOTE: RESULT VERIFIED. MCV 94.9 fL 80.0-97.0 [facility] Hematocrit [Volume Fraction] of Blood by Automated count 35.3 % 3 7.0-51.0 [facility] ([facility]) MCH 31.3 pg 26.0-32.0 [facility] Erythrocyte distribution width [Ratio] by Automated count 17.3 % 11.6-13.7 [facility] ([facility]) MCHC 32.9 g/dL 31.0-38.0 [facility] MPV 9.1 FL 7.8-11.0 [facility] Platelets [#/volume] in Blood by Automated count 229 x10*3/UL 140-440 [facility] ([facility]) Mid % 5.8 % 1.7-9.3 [facility] Neut % 75.1 % 37.0-92.0 [facility] Lymph % 19.1 % 10.0-58.5 [facility] Mid # 0.6 x10*3/UL 0.1-0.6 [facility] ([facility]) Lymph # 1.7 x10*3/UL 0.6-4.1 [facility] ([facility]) Neut # 6.8 x10*3/UL 2.0-7.8 [facility] ([facility]) ID Date Data Source [id number] 10/06/2020 09:03:00 AM EDT [facility] ([facility]) Name Value Range Interpretation Code Description Data Patricia rce(s) Supporting Document(s) Hemoglobin A1c/Hemoglobin.total in Blood [facility] ID Date Data Source [id number] 09/18/2020 10:15:00 AM EDT [facility] ([facility]) Name Value Range Interpretation Code Description Data Patricia rce(s) Supporting Document(s) Hemoglobin 11.8 g/dL 12.0-15.5 [facility] ([facility]) White Blood Count 8.0 10 4.0-10.0 [facility] ([facility]) Red Blood Count 3.79 10 4.00-5.40 [facility] ([facility]) Mean Corpuscular Volume 100.0 fl 80.0-96.0 [facility] ([facility]) Hematocrit 37.9 % 36.0-47.0 [facility] Mean Corpuscular Hemoglobin 31.1 pg 27.0-33.0 ME [facility]ENT ([facility]) Mean Corpuscular HGB Conc 31.1 g/dL 32.0-36.5 [facility] Red Cell Distribution Width 17.2 % 11.5-14.5 ME [facility] ([facility]) Platelet Count, Automated 209 10 150-450 [facility] Nucleated Red Blood Cell % 0.0 % 0-0 [facility] ([facility]) ID Date Data Source [id number] 09/18/2020 10:15:00 AM EDT [facility] ([facility]) Name Value Range Interpretation Code Description Data Patricia rce(s) Supporting Document(s) Magnesium [Moles/volume] in Serum or Plasma 2.0 mg/dL 1.8-2.4 [facility] Natriuretic peptide.B prohormone N-Terminal [Mass/volu me] in Serum or Plasma 4551 pg/mL [facility] ID Date Data Source [id number] 09/18/2020 10:15:00 AM EDT [facility] Name Value Range Interpretation Code Description Data Patricia rce(s) Supporting Document(s) Glucose, Fasting 92 mg/dL 70-100 [facility] ([facility]) Blood Urea Nitrogen 22 mg/dL 7-18 [facility] ([facility]) Creatinine For GFR 1.06 mg/dL 0.55-1.30 [facility] ([facility]) Glomerular Filtration Rate 52.4 [facility] <content>Units are mL/min/1.73 m2</content>
<content></content>
<content>Chronic Kidney Disease Staging per NKF:</content>
<content></content>
<content>Stage I & II GFR >=60 Normal to Mildly Decreased</content>
<content>Stage III GFR 30- 59 Moderately Decreased</content>
<content>Stage IV GFR 15-29 Severely Decreased</content>
<content>Stage V GFR <15 Very Little GFR Left</content>
<content>ESRD GFR <15 on MEDICAL SERVICES ASSISTANT</content>
<content></content> Sodium Level 144 meq/L 136-145 [facility] ([facility]) Chloride Level 105 meq/L 98-107 [facility] ([facility]) Carbon Dioxide Level 33 meq/L 21-32 [facility]) Potassium Serum 4.0 meq/L 3.5-5.1 [facility]) Calcium Level 9.9 mg/dL 8.8-10.2 [facility]) Anion Gap 6 meq/L 8-16 [facility]) ID Date Data Source [id number] 09/18/2020 10:15:00 AM EDT [facility] ([facility]) Name Value Range Interpretation Code Description Data Patricia rce(s) Supporting Document(s) White Blood Count 8.0 10 4.0-10.0 [facility] ([facility]) Hematocrit 37.9 % 36.0-47.0 [facility] ([facility]) Hemoglobin 11.8 g/dL 12.0-15.5 [facility] ([facility]) Red Blood Count 3.79 10 4.00-5.40 [facility] ([facility]) Mean Corpuscular Volume 100.0 fl 80.0-96.0 M EDENT ([facility]) Mean Corpuscular Hemoglobin 31.1 pg 27.0-33.0 [facility] ([facility]) Mean Corpuscular HGB Conc 31.1 g/dL 32.0-36.5 [facility] ([facility]) Platelet Count, Automated 209 10 150-450 [facility] ([facility]) Nucleated Red Blood Cell % 0.0 % 0-0 MED [facility] ([facility]) Red Cell Distribution Width 17.2 % 11.5-14.5 [facility] ([facility]) ID Date Data Source [id number] 09/18/2020 10:15:00 AM EDT [facility] Name Value Range Interpretation Code Description Data Patricia rce(s) Supporting Document(s) Magnesium [Mass/volume] in Serum or Plasma 2.0 mg/dL 1.8-2.4 [facility] ([facility]) Natriuretic peptide.B prohormone N-Terminal [Mass/volu me] in Serum or Plasma 4551 pg/mL MEDENT ([employer] [facility]) ID Date Data Source [id number] 09/18/2020 10:15:00 AM EDT MEDENT ([facility]) Name Value Range Interpretation Code Description Data Patricia rce(s) Supporting Document(s) Glucose, Fasting 92 mg/dL 70-100 MEDENT ([facility]) Creatinine For GFR 1.06 mg/dL 0.55-1.30 MED[facility] ([facility]) Blood Urea Nitrogen 22 mg/dL 7-18 MEDENT (Ca [facility]diology [facility]) Sodium Level 144 meq/L 136-145 MEDENT ([facility]iolog y [facility]) Glomerular Filtration Rate 52.4 MED ENT ([facility]) <content>Units are mL/min/1.73 m2</content>
<content></content>
<content>Chronic Kidney Disease Staging per NKF:</content>
<content></content>
<content>Stage I & II GFR >=60 Normal to Mildly Decreased</content>
<content>Stage III GFR 30- 59 Moderately Decreased</content>
<content>Stage IV GFR 15-29 Severely Decreased</content>
<content>Stage V GFR <15 Very Little GFR Left</content>
<content>ESRD GFR <15 on MEDICAL SERVICES ASSISTANT</content>
<content></content> Chloride Level 105 meq/L 98-107 MEDENT (Cardiol [facility]gy [facility]) Potassium Serum 4.0 meq/L 3.5-5.1 MEDENT (Cardio logy [facility]) Carbon Dioxide Level 33 meq/L 21-32 MEDENT (C ardiology [facility]) Anion Gap 6 meq/L 8-16 MEDENT (Cardiology A [facility]) Calcium Level 9.9 mg/dL 8.8-10.2 MEDENT ([facility]iolo gy [facility]) ID Date Data Source [id number] 08/23/2020 01:10:00 PM EDT MEDENT ([facility]) Name Value Range Interpretation Code Description Data Patricia rce(s) Supporting Document(s) Natriuretic peptide.B prohormone N-Terminal [Mass/volu me] in Serum or Plasma 8524 pg/mL MEDENT ([facility] ) Magnesium [Moles/volume] in Serum or Plasma 1.7 mg/dL 1.8-2.4 MEDENT ([facility]) ID Date Data Source [id number] 08/23/2020 01:10:00 PM EDT MEDENT ([facility]) Name Value Range Interpretation Code Description Data Patricia rce(s) Supporting Document(s) Glucose, Fasting 106 mg/dL 70-100 MEDENT ([facility]) Creatinine For GFR 0.99 mg/dL 0.55-1.30 MEDENT ([facility]) Blood Urea Nitrogen 19 mg/dL 7-18 MEDENT ([facility]) Sodium Level 144 meq/L 136-145 MEDENT ([facility]) Glomerular Filtration Rate 56.8 MED ENT ([facility]) <content>Units are mL/min/1.73 m2</content>
<content></content>
<content>Chronic Kidney Disease Staging per NKF:</content>
<content></content>
<content>Stage I & II GFR >=60 Normal to Mildly Decreased</content>
<content>Stage III GFR 30- 59 Moderately Decreased</content>
<content>Stage IV GFR 15-29 Severely Decreased</content>
<content>Stage V GFR <15 Very Little GFR Left</content>
<content>ESRD GFR <15 on MEDICAL SERVICES ASSISTANT</content>
<content></content> Chloride Level 107 meq/L 98-107 [facility] Potassium Serum 4.7 meq/L 3.5-5.1 [facility] ([facility]) Anion Gap 6 meq/L 8-16 [facility] ([facility]) Carbon Dioxide Level 31 meq/L 21-32 [facility] ([facility]) Calcium Level 9.6 mg/dL 8.8-10.2 [facility] ([facility]) ID Date Data Source [id number] 08/23/2020 01:10:00 PM EDT [facility] Name Value Range Interpretation Code Description Data Patricia rce(s) Supporting Document(s) Natriuretic peptide.B prohormone N-Terminal [Mass/volu me] in Serum or Plasma 8524 pg/mL MEDENT ([employer] [facility]) Magnesium [Mass/volume] in Serum or Plasma 1.7 mg/dL 1.8-2.4 MED[facility] ([facility]) ID Date Data Source [id number] 08/23/2020 01:10:00 PM EDT MEDENT ([facility]) Name Value Range Interpretation Code Description Data Patricia rce(s) Supporting Document(s) Glucose, Fasting 106 mg/dL 70-100 [facility] Creatinine For GFR 0.99 mg/dL 0.55-1.30 MED[facility] ([facility]) Blood Urea Nitrogen 19 mg/dL 7-18 MED[facility] ([facility]) Glomerular Filtration Rate 56.8 MED ENT ([facility]) <content>Units are mL/min/1.73 m2</content>
<content></content>
<content>Chronic Kidney Disease Staging per NKF:</content>
<content></content>
<content>Stage I & II GFR >=60 Normal to Mildly Decreased</content>
<content>Stage III GFR 30- 59 Moderately Decreased</content>
<content>Stage IV GFR 15-29 Severely Decreased</content>
<content>Stage V GFR <15 Very Little GFR Left</content>
<content>ESRD GFR <15 on MEDICAL SERVICES ASSISTANT</content>
<content></content> Sodium Level 144 meq/L 136-145 MED[facility] ([facility]) Potassium Serum 4.7 meq/L 3.5-5.1 MED[facility] ([facility]io [facility]) Carbon Dioxide Level 31 meq/L 21-32 MEDENT ([facility]) Chloride Level 107 meq/L 98-107 MED[facility] ([facility]iol [facility]) Calcium Level 9.6 mg/dL 8.8-10.2 MED[facility] ([facility]iolo gy [facility]) Anion Gap 6 meq/L 8-16 [facility] ID Date Data Source [id number] 07/26/2020 10:20:00 AM EST MEDENT ([facility]) Name Value Range Interpretation Code Description Data Patricia rce(s) Supporting Document(s) Natriuretic peptide.B prohormone N-Terminal [Mass/volu me] in Serum or Plasma 5967 pg/mL MEDENT ([employer] [facility]) Magnesium [Mass/volume] in Serum or Plasma 1.8 mg/dL 1.8-2.4 MED[facility] ([facility]) ID Date Data Source [id number] 07/26/2020 10:20:00 AM EST MEDENT ([facility]) Name Value Range Interpretation Code Description Data Patricia rce(s) Supporting Document(s) Glucose, Fasting 119 mg/dL 70-100 MEDENT (Cardi ology [facility]) Blood Urea Nitrogen 22 mg/dL 7-18 MED[facility] ([facility]) Glomerular Filtration Rate 46.8 MED ENT ([facility]) <content>Units are mL/min/1.73 m2</content>
<content></content>
<content>Chronic Kidney Disease Staging per NKF:</content>
<content></content>
<content>Stage I & II GFR >=60 Normal to Mildly Decreased</content>
<content>Stage III GFR 30- 59 Moderately Decreased</content>
<content>Stage IV GFR 15-29 Severely Decreased</content>
<content>Stage V GFR <15 Very Little GFR Left</content>
<content>ESRD GFR <15 on MEDICAL SERVICES ASSISTANT</content>
<content></content> Creatinine For GFR 1.17 mg/dL 0.55-1.30 MED[facility] ([facility]) Sodium Level 142 meq/L 136-145 MED[facility] ([facility]) Potassium Serum 3.9 meq/L 3.5-5.1 MED[facility] ([facility]io [facility]) Chloride Level 102 meq/L 98-107 MEDENT ([facility]iol [facility]) Anion Gap 4 meq/L 8-16 [facility] Carbon Dioxide Level 36 meq/L 21-32 MEDENT ([facility]) Calcium Level 9.6 mg/dL 8.8-10.2 MED[facility] ([facility]iolo [facility]) ID Date Data Source [id number] 06/12/2020 11:30:00 AM EST MEDENT ([facility]) Name Value Range Interpretation Code Description Data Patricia rce(s) Supporting Document(s) Magnesium [Moles/volume] in Serum or Plasma 1.6 mg/dL 1.8-2.4 MEDENT ([facility]) Natriuretic peptide.B prohormone N-Terminal [Mass/volu me] in Serum or Plasma 6163 pg/mL MEDENT ([facility] ) ID Date Data Source [id number] 06/12/2020 11:30:00 AM EST MEDENT ([facility]) Name Value Range Interpretation Code Description Data Patricia rce(s) Supporting Document(s) Glucose, Fasting 89 mg/dL 70-100 MEDENT ([facility]) Blood Urea Nitrogen 21 mg/dL 7-18 MEDENT ([facility]) Creatinine For GFR 1.02 mg/dL 0.55-1.30 MEDENT ([facility]) Potassium Serum 4.0 meq/L 3.5-5.1 MEDENT ([facility]) Sodium Level 143 meq/L 136-145 MEDENT ([facility]) Glomerular Filtration Rate 55.0 MED ENT ([facility]) <content>Units are mL/min/1.73 m2</content>
<content></content>
<content>Chronic Kidney Disease Staging per NKF:</content>
<content></content>
<content>Stage I & II GFR >=60 Normal to Mildly Decreased</content>
<content>Stage III GFR 30- 59 Moderately Decreased</content>
<content>Stage IV GFR 15-29 Severely Decreased</content>
<content>Stage V GFR <15 Very Little GFR Left</content>
<content>ESRD GFR <15 on MEDICAL SERVICES ASSISTANT</content>
<content></content> Chloride Level 105 meq/L 98-107 [facility] ([facility]) Carbon Dioxide Level 34 meq/L 21-32 [facility] Anion Gap 4 meq/L 8-16 [facility] Calcium Level 10.4 mg/dL 8.8-10.2 MED[facility] ([facility]) ID Date Data Source [id number] 06/12/2020 11:30:00 AM EST MEDENT ([facility]) Name Value Range Interpretation Code Description Data Patricia rce(s) Supporting Document(s) Magnesium [Mass/volume] in Serum or Plasma 1.6 mg/dL 1.8-2.4 MED[facility] ([facility]) Natriuretic peptide.B prohormone N-Terminal [Mass/volu me] in Serum or Plasma 6163 pg/mL MEDENT ([employer] [facility]) ID Date Data Source [id number] 06/12/2020 11:30:00 AM EST MEDENT ([facility]) Name Value Range Interpretation Code Description Data Patricia rce(s) Supporting Document(s) Glucose, Fasting 89 mg/dL 70-100 [facility] Blood Urea Nitrogen 21 mg/dL 7-18 MEDENT (Al [facility]diology [facility]) Creatinine For GFR 1.02 mg/dL 0.55-1.30 MED[facility] ([facility]) Glomerular Filtration Rate 55.0 MED ENT ([facility]) <content>Units are mL/min/1.73 m2</content>
<content></content>
<content>Chronic Kidney Disease Staging per NKF:</content>
<content></content>
<content>Stage I & II GFR >=60 Normal to Mildly Decreased</content>
<content>Stage III GFR 30- 59 Moderately Decreased</content>
<content>Stage IV GFR 15-29 Severely Decreased</content>
<content>Stage V GFR <15 Very Little GFR Left</content>
<content>ESRD GFR <15 on MEDICAL SERVICES ASSISTANT</content>
<content></content> Sodium Level 143 meq/L 136-145 MEDENT ([facility]) Potassium Serum 4.0 meq/L 3.5-5.1 MED[facility] ([facility]io [facility]y [facility]) Chloride Level 105 meq/L 98-107 MEDENT ([facility]iol [facility]gy [facility]) Anion Gap 4 meq/L 8-16 MEDENT ([facility]) Carbon Dioxide Level 34 meq/L 21-32 MEDENT ([facility]) Calcium Level 10.4 mg/dL 8.8-10.2 MED[facility] ([facility]iol [facility]) ID Date Data Source [id number] 05/31/2020 12:42:00 PM EST MEDENT ([facility]) Name Value Range Interpretation Code Description Data Patricia rce(s) Supporting Document(s) Glucose [Mass/volume] in Serum or Plasma 95 mg/dL 74-99 MEDENT ([facility]) 100-125 mg/dL PRE-DIABETES/FASTING >126 mg/dL DIABETES/FASTING Urea nitrogen [Mass/volume] in Serum or Plasma 13 mg/dL 7-18 MEDENT ([facility]) Sodium [Moles/volume] in Serum or Plasma 143 meq/L 136-145 MEDENT ([facility]) Potassium [Moles/volume] in Serum or Plasma 4.0 meq/L 3.5-5.1 MEDENT ([facility]) Creatinine 1.0 mg/dL 0.6-1.3 [facility] ([facility] Chloride [Moles/volume] in Serum or Plasma 103 meq/L 98-107 MEDENT ([facility]) Calcium [Mass/volume] in Serum or Plasma 10.4 mg/dL 8.5-10.1 MEDENT ([facility]) NOTE: RESULT VERIFIED. Carbon dioxide, total [Moles/volume] in Serum or Plasma 28 meq/L 21 -32 MEDENT ([facility]) Alkaline phosphatase isoenzyme [Units/volume] in Serum or Pl asma 65 mg/dL 46-116 MEDENT ([facility]) Total Bilirubin 0.6 mg/dL 0.2-1.0 MED[facility] ([facility]) Aspartate aminotransferase [Enzymatic activity/volume] in Serum or Plasma 20 U/L 15-37 MEDENT ([facility] ) Albumin [Mass/volume] in Serum or Plasma 3.5 g/dL 3.4-5.0 MEDENT ([facility]) Alanine aminotransferase [Enzymatic activity/volume] in Seru m or Plasma 23 U/L 12-78 MEDENT ([facility]) Proteinase 3 Ab [Units/volume] in Serum 6.0 g/dL 6.4-8.2 MEDENT ([facility]) A/G Ratio 1.40 CALC 1.00-1.90 MEDENT ([facility]) Glomerular filtration rate/1.73 sq M pre dicted among blacks [Volume Rate/Area] in Serum or Plasma by Creatinine-based formula (MDRD) Laboratory test result [facility] <content>CHRONIC KIDNEY DISEASE STAGING PER NKF</content>
<content></content>
<content>STAGE I & II GFR >= 60 NORMAL TO MILDLY DECREASED</content>
<content>STAGE III GFR 30-59 MODERATELY DECREASED</content>
<content>STAGE IV GFR 15-29 SEVERELY DECREASED</content>
<content>STAGE V GFR <15 VERY LITTLE GFR LEFT</content>
<content>ESRD GFR <15 ON MEDICAL SERVICES ASSISTANT</content>
<content></content> Glomerular filtration rate/1.73 sq M pre dicted among non-blacks [Volume Rate/Area] in Serum or Plasma by Creatinine-based formula (MDRD) 53 mL/min MEDENT ([facility]) ID Date Data Source [id number] 05/31/2020 12:42:00 PM EST MEDENT ([facility]) Name Value Range Interpretation Code Description Data Patricia rce(s) Supporting Document(s) Hemoglobin [Mass/volume] in Blood 12.2 g/dL 12.0-18.0 MEDENT ([facility]) Leukocytes [#/volume] in Blood by Automated count 8.5 x10*3/UL 4.1-10 .9 MEDENT ([facility]) Erythrocytes [#/volume] in Blood by Automated count 4.14 x10*6/UL 4.2 0-6.30 [facility] MCV 91.2 fL 80.0-97.0 [facility] Hematocrit [Volume Fraction] of Blood by Automated count 37.8 % 3 7.0-51.0 MEDENT ([facility]) MCHC 32.3 g/dL 31.0-38.0 [facility] ([facility]) MCH 29.5 pg 26.0-32.0 MEDENT ([facility]) Erythrocyte distribution width [Ratio] by Automated count 18.9 % 11.6-13.7 [facility] MPV 9.2 FL 7.8-11.0 [facility] ([facility]) Platelets [#/volume] in Blood by Automated count 258 x10*3/UL 140-440 MEDENT ([facility]) Mid % 6.5 % 1.7-9.3 [facility] ([facility] Lymph % 27.2 % 10.0-58.5 [facility] ([facility] Neut % 66.3 % 37.0-92.0 [facility] ([facility] Lymph # 2.3 x10*3/UL 0.6-4.1 MED[facility] ([facility]) Neut # 5.6 x10*3/UL 2.0-7.8 MED[facility] ([facility]) Mid # 0.6 x10*3/UL 0.1-0.6 MEDENT ([facility]) ID Date Data Source [id number] 05/31/2020 12:42:00 PM EST MEDENT ([facility]) Name Value Range Interpretation Code Description Data Patricia rce(s) Supporting Document(s) Leukocytes [#/volume] in Blood by Automated count 8.5 x10*3/UL 4.1-10 .9 MED[facility] ([facility]) Hemoglobin [Mass/volume] in Blood 12.2 g/dL 12.0-18.0 MED[facility] ([facility]) Hematocrit [Volume Fraction] of Blood by Automated count 37.8 % 3 7.0-51.0 MED[facility] ([facility]) Erythrocytes [#/volume] in Blood by Automated count 4.14 x10*6/UL 4.2 0-6.30 MED[facility] ([facility]) MCH 29.5 pg 26.0-32.0 MED[facility] ([facility]) MCV 91.2 fL 80.0-97.0 MED[facility] ([facility]) Platelets [#/volume] in Blood by Automated count 258 x10*3/UL 140-440 MED[facility] ([facility]) Erythrocyte distribution width [Ratio] by Automated count 18.9 % 11.6-13.7 MED[facility] ([facility]) MCHC 32.3 g/dL 31.0-38.0 MED[facility] ([facility]) Lymphocytes/100 leukocytes in Blood by Automated count 27.2 % 10. 0-58.5 MED[facility] ([facility]) Platelet mean volume [Entitic volume] in Blood by [place] 9.2 FL 7.8-11.0 MEDENT ([facility]) Mid % 6.5 % 1.7-9.3 MED[facility] ([facility]) Lymph # 2.3 x10*3/UL 0.6-4.1 MED[facility] ([facility]) Neut % 66.3 % 37.0-92.0 MEDENT (Cardiology A [facility]) Neutrophils [#/volume] in [place] by Manual count 5.6 x10*3/UL 2.0-7.8 MED[facility] ([facility]) Mid # 0.6 x10*3/UL 0.1-0.6 MED[facility] ([facility]iolog [facility]) ID Date Data Source [id number] 05/31/2020 12:42:00 PM EST MEDENT ([facility]i [facility]y [facility]) Name Value Range Interpretation Code Description Data Patricia rce(s) Supporting Document(s) Urea nitrogen [Mass/volume] in Serum or Plasma 13 mg/dL 7-18 MED[facility] ([facility]) Glucose [Mass/volume] in Serum or Plasma 95 mg/dL 74-99 MED[facility] ([facility]) 100-125 mg/dL PRE-DIABETES/FASTING >126 mg/dL DIABETES/FASTING Sodium [Moles/volume] in Serum or Plasma 143 meq/L 136-145 MED[facility] ([facility]) Creatinine 1.0 mg/dL 0.6-1.3 MED[facility] ([facility]) Chloride [Moles/volume] in Serum or Plasma 103 meq/L 98-107 MED[facility] ([facility]) Potassium [Moles/volume] in Serum or Plasma 4.0 meq/L 3.5-5.1 MED[facility] ([facility]) Calcium [Mass/volume] in Serum or Plasma 10.4 mg/dL 8.5-10.1 MED[facility] ([facility]) NOTE: RESULT VERIFIED. Carbon dioxide, total [Moles/volume] in Serum or Plasma 28 meq/L 21 -32 MED[facility] ([facility]) Aspartate aminotransferase [Enzymatic activity/volume] in Serum or Plasma 20 U/L 15-37 MEDENT ([employer] [facility]) Total Bilirubin 0.6 mg/dL 0.2-1.0 MED[facility] ([facility]io [facility]y [facility]) Alkaline phosphatase isoenzyme [Units/volume] in Serum or Pl asma 65 mg/dL 46-116 MED[facility] ([facility]) Alanine aminotransferase [Enzymatic activity/volume] in Seru m or Plasma 23 U/L 12-78 MED[facility] ([facility]) Albumin [Mass/volume] in Serum or Plasma 3.5 g/dL 3.4-5.0 [facility] Proteinase 3 Ab [Units/volume] in Serum 6.0 g/dL 6.4-8.2 [facility] ([facility]) A/G Ratio 1.40 CALC 1.00-1.90 [facility] ([facility]) Glomerular filtration rate/1.73 sq M pre dicted among non-blacks [Volume Rate/Area] in Serum or Plasma by Creatinine-based formula (MDRD) 53 mL/min [facility] (Cardiology [facility]) Glomerular filtration rate/1.73 sq M pre dicted among blacks [Volume Rate/Area] in Serum or Plasma by Creatinine-based formula (MDRD) Laboratory test result [facility] ([facility]iology [facility]) <content>CHRONIC KIDNEY DISEASE STAGING PER NKF</content>
<content></content>
<content>STAGE I & II GFR >= 60 NORMAL TO MILDLY DECREASED</content>
<content>STAGE III GFR 30-59 MODERATELY DECREASED</content>
<content>STAGE IV GFR 15-29 SEVERELY DECREASED</content>
<content>STAGE V GFR <15 VERY LITTLE GFR LEFT</content>
<content>ESRD GFR <15 ON MEDICAL SERVICES ASSISTANT</content>
<content></content>
<content></content> ID Date Data Source [id number] 05/16/2020 01:10:00 PM EST MEDENT ([facility]) Name Value Range Interpretation Code Description Data Patricia rce(s) Supporting Document(s) Natriuretic peptide.B prohormone N-Terminal [Mass/volu me] in Serum or Plasma 5869 pg/mL [facility] Magnesium [Moles/volume] in Serum or Plasma 1.7 mg/dL 1.8-2.4 [facility] ([facility]) ID Date Data Source [id number] 05/16/2020 01:10:00 PM EST [facility] Name Value Range Interpretation Code Description Data Patricia rce(s) Supporting Document(s) Blood Urea Nitrogen 15 mg/dL 7-18 [facility] ([facility]) Glucose, Fasting 120 mg/dL 70-100 [facility] ([facility]) Creatinine For GFR 1.16 mg/dL 0.55-1.30 MED[facility] ([facility]) Sodium Level 140 meq/L 136-145 MED[facility] ([facility]) Glomerular Filtration Rate 47.4 MED ENT ([facility]) <content>Units are mL/min/1.73 m2</content>
<content></content>
<content>Chronic Kidney Disease Staging per NKF:</content>
<content></content>
<content>Stage I & II GFR >=60 Normal to Mildly Decreased</content>
<content>Stage III GFR 30- 59 Moderately Decreased</content>
<content>Stage IV GFR 15-29 Severely Decreased</content>
<content>Stage V GFR <15 Very Little GFR Left</content>
<content>ESRD GFR <15 on MEDICAL SERVICES ASSISTANT</content>
<content></content> Potassium Serum 3.9 meq/L 3.5-5.1 MED[facility] ([facility]) Chloride Level 101 meq/L 98-107 [facility] ([facility]) Carbon Dioxide Level 34 meq/L 21-32 [facility] ([facility]) Anion Gap 5 meq/L 8-16 [facility] ([place] [facility] Calcium Level 10.3 mg/dL 8.8-10.2 [facility] ([facility]) ID Date Data Source [id number] 05/16/2020 01:10:00 PM EST [facility] Name Value Range Interpretation Code Description Data Patricia rce(s) Supporting Document(s) Magnesium [Mass/volume] in Serum or Plasma 1.7 mg/dL 1.8-2.4 [facility] ([facility]) Natriuretic peptide.B prohormone N-Terminal [Mass/volu me] in Serum or Plasma 5869 pg/mL MED[facility] ([employer] [facility]) ID Date Data Source [id number] 05/16/2020 01:10:00 PM EST MED[facility] ([facility]i [facility]y [facility]) Name Value Range Interpretation Code Description Data Patricia rce(s) Supporting Document(s) Blood Urea Nitrogen 15 mg/dL 7-18 [facility] ([facility]) Glucose, Fasting 120 mg/dL 70-100 [facility] ([facility]i [facility]) Creatinine For GFR 1.16 mg/dL 0.55-1.30 [facility] ([facility]) Glomerular Filtration Rate 47.4 MED [facility] ([facility]) <content>Units are mL/min/1.73 m2</content>
<content></content>
<content>Chronic Kidney Disease Staging per NKF:</content>
<content></content>
<content>Stage I & II GFR >=60 Normal to Mildly Decreased</content>
<content>Stage III GFR 30- 59 Moderately Decreased</content>
<content>Stage IV GFR 15-29 Severely Decreased</content>
<content>Stage V GFR <15 Very Little GFR Left</content>
<content>ESRD GFR <15 on MEDICAL SERVICES ASSISTANT</content>
<content></content> Sodium Level 140 meq/L 136-145 [facility] ([facility]) Chloride Level 101 meq/L 98-107 [facility] ([facility]) Potassium Serum 3.9 meq/L 3.5-5.1 [facility] ([facility]io [facility]) Calcium Level 10.3 mg/dL 8.8-10.2 [facility] ([facility]) Carbon Dioxide Level 34 meq/L 21-32 [facility] (C [facility]diology [facility]) Anion Gap 5 meq/L 8-16 [facility] ID Date Data Source [id number] 03/13/2020 10:32:00 AM EDT [facility] ([facility]) Name Value Range Interpretation Code Description Data Patricia rce(s) Supporting Document(s) Glucose 116 mg/dL 65-99 [facility] ([facility]) Urea nitrogen [Mass/volume] in Serum or Plasma 16 mg/dL 8-27 [facility] ([facility]) Creatinine 1.11 mg/dL 0.57-1.00 [facility] ([facility]) eGFR If NonAfricn Am 46 mL/min/1.73 MED[facility] NT ([facility]) eGFR If Africn Am 53 mL/min/1.73 [facility] ([facility]) Urea nitrogen/Creatinine [Mass Ratio] in Serum or Plasma 14 1 2-28 [facility] ([facility]) Sodium 138 mmol/L 134-144 [facility] ([facility]) Potassium [Moles/volume] in Serum or Plasma 4.1 mmol/L 3.5-5.2 [facility] ([facility]) Carbon dioxide, total [Moles/volume] in Serum or Plasma 27 mmol/L 20 -29 [facility] ([facility]) Chloride [Moles/volume] in Serum or Plasma 96 mmol/L 96-106 [facility] ([facility]) Calcium [Mass/volume] in Serum or Plasma 9.5 mg/dL 8.7-10.3 [facility] ([facility]) ID Date Data Source [id number] 03/13/2020 10:32:00 AM EDT [facility] ([facility]) Name Value Range Interpretation Code Description Data Patricia rce(s) Supporting Document(s) Magnesium [Mass/volume] in Serum or Plasma 1.8 mg/dL 1.6-2.3 [facility] ([facility]) Natriuretic peptide.B prohormone N-Terminal [Mass/volu me] in Serum or Plasma 5080 pg/mL 0-738 [facility] (Digital Hardware Design Engineer [facility]) <content>The following cut-points have b een suggested [...] concept) Laboratory test result [facility] ([facility]) ID Date Data Source [id number] 03/14/2020 08:06:00 AM EDT [facility] Name Value [...] mg/dL 8.7-10.3 [facility] ID Date Data Source [id number] 03/15/2020 06:05:00 AM EDT [facility] Name Value [...] independent 300 pg/mL ID Date Data Source [id number] 03/14/2020 08:06:00 AM EDT [facility] Name Value Range Interpretation Code Description Data Patricia rce(s) Supporting Document(s) Magnesium 1.8 mg/dL 1.6-2.3 [facility] ID Date Data Source [id number] 02/29/2020 09:59:00 AM EDT [facility] ([facility]) Name Value Range Interpretation Code Description Data Patricia rce(s) Supporting Document(s) Laboratory test finding (navigational concept) Laboratory test result [facility] ([facility]) ID Date Data Source [id number] 02/29/2020 09:59:00 AM EDT [facility] ([facility]) Name Value Range Interpretation Code Description Data Patricia rce(s) Supporting Document(s) Glucose 142 mg/dL 65-99 [facility] ([facility]iology [facility]) Urea nitrogen [Mass/volume] in Serum or Plasma 17 mg/dL 8-27 [facility] ([facility]) Creatinine 1.12 mg/dL 0.57-1.00 [facility] ([facility]) eGFR If NonAfricn Am 45 mL/min/1.73 [facility] NT ([facility]) eGFR If Africn Am 52 mL/min/1.73 [facility] ([facility]) Urea nitrogen/Creatinine [Mass Ratio] in Serum or Plasma 15 1 2-28 [facility] ([facility]) Sodium 137 mmol/L 134-144 [facility] ([facility]) Potassium [Moles/volume] in Serum or Plasma 4.1 mmol/L 3.5-5.2 [facility] ([facility]) Chloride [Moles/volume] in Serum or Plasma 94 mmol/L 96-106 [facility] ([facility]) Carbon dioxide, total [Moles/volume] in Serum or Plasma 28 mmol/L 20 -29 [facility] ([facility]) ID Date Data Source [id number] 02/29/2020 09:59:00 AM EDT [facility] ([facility]) Name Value Range Interpretation Code Description Data Patricia rce(s) Supporting Document(s) WBC 9.6 x10E3/uL 3.4-10.8 [facility] ([facility]) RBC 3.89 x10E6/uL 3.77-5.28 [facility] ([facility]) Hemoglobin [Mass/volume] in Blood 11.3 g/dL 11.1-15.9 [facility] ([facility]) Hematocrit [Volume Fraction] of Blood by Automated count 35.0 % 3 4.0-46.6 [facility] ([facility]) Erythrocyte mean corpuscular volume [Entitic volume] by Auto mated count 90 fL 79-97 [facility] ([facility]) Erythrocyte mean corpuscular hemoglobin [Entitic mass] by Automated count 29.0 pg 26.6-33.0 [facility] ([employer] [facility]) Erythrocyte mean corpuscular hemoglobin concentration [Mass/volume] by Automated count 32.3 g/dL 31.5-35.7 [facility] ([facility]) Erythrocyte distribution width [Ratio] by Automated count 16.4 % 11.7-15.4 [facility] ([facility]) Platelets [#/volume] in Blood by Automated count 232 x10E3/uL 150-450 [facility] ([facility]) Neutrophils/100 leukocytes in Blood by Automated count 73 % [facility] ([facility]) Lymphocytes/100 leukocytes in Blood by Automated count 15 % [facility] ([facility]) Monocytes/100 leukocytes in Blood by Automated count 10 % [facility] ([facility]) Eosinophils/100 leukocytes in Blood by Automated count 1 % [facility] ([facility]) Basophils/100 leukocytes in Blood by Automated count 1 % [facility] ([facility]) Immature cells [#/volume] in Blood Laboratory test result [facility] ([facility]) Neutrophils [#/volume] in Blood by Automated count 7.0 x10E3/uL 1.4-7 .0 [facility] ([facility]) Lymphocytes [#/volume] in Blood 1.4 x10E3/uL 0.7-3.1 [facility] ([facility]) Eosinophils [#/volume] in Blood by Automated count 0.1 x10E3/uL 0.0-0 .4 [facility] ([facility]) Monocytes [#/volume] in Blood 0.9 x10E3/uL 0.1-0.9 [facility] ([facility]) Basophils [#/volume] in Blood by Automated count 0.1 x10E3/uL 0.0-0.2 [facility] ([facility]) Immature granulocytes/100 leukocytes in Blood by Automated count 0 % [facility] ([facility]) Immature granulocytes [#/volume] in Blood by Automated count 0.0 x10E3/uL 0.0-0.1 [facility] ([facility]) Nucleated erythrocytes/100 leukocytes [Ratio] in Blood by Automated count Laboratory test result [facility] ([facility]) Morphology [Interpretation] in Blood Narrative Laboratory test result [facility] ([facility]) ID Date Data Source [id number] 02/29/2020 09:59:00 AM EDT [facility] ([facility]) Name Value Range Interpretation Code Description Data Patricia rce(s) Supporting Document(s) Magnesium [Mass/volume] in Serum or Plasma 1.2 mg/dL 1.6-2.3 [facility] ([facility]) Natriuretic peptide.B prohormone N-Terminal [Mass/volu me] in Serum or Plasma 8182 pg/mL 0-738 [facility] (Digital Hardware Design Engineer [facility]) <content>The following cut-points have b een suggested for the</content>
<content>use of proBNP for the diagnostic evaluation of heart</content>
<content>failure (HF) in patients with acute dy spnea:</content>
<content>Modality Age Optimal Cut</content>
<content>(years) Point</content>
<content> ---</content>
<content>Diagnosis (rule in HF) <50 450 pg/mL</content>
<content>50 - 75 900 pg/mL</content>
<content>>75 1800 pg/mL</content>
<content> Exclusion (rule out HF) Age independent 300 pg/mL</content>
<content></content> ID Date Data Source [id number] 03/01/2020 08:06:00 AM EDT [facility] Name Value [...] 0.0-0.1 [facility] ID Date Data Source [id number] 03/02/2020 08:06:00 AM EDT [facility] Name Value [...] independent 300 pg/mL ID Date Data Source [id number] 03/01/2020 08:06:00 AM EDT [facility] Name Value [...] mmol/L 20-29 [facility] ID Date Data Source [id number] 03/01/2020 08:06:00 AM EDT [facility] Name Value Range Interpretation Code Description Data Patricia rce(s) Supporting Document(s) Magnesium 1.2 mg/dL 1.6-2.3 Below low normal [facility] ID Date Data Source [id number] 01/27/2020 11:44:00 AM EDT [facility] ([facility]) Name Value Range Interpretation Code Description Data Patricia rce(s) Supporting Document(s) Albumin [Mass/volume] in Serum or Plasma 3.8 [facility] ([facility]) Alanine aminotransferase [Enzymatic activity/volume] in Serum or Pl asma 15 [facility] ([facility]) Calcium [Mass/volume] in Serum or Plasma 9.8 [facility] ([facility]) Carbon dioxide, total [Moles/volume] in Serum or Plasma 26 [facility] ([facility]) Chloride [Moles/volume] in Serum or Plasma 104 [facility] ([facility]) Alkaline phosphatase [Enzymatic activity/volume] in Serum or Plasma 4 9 [facility] ([facility]) Protein [Mass/volume] in Serum or Plasma 6.4 [facility] ([facility]) Potassium [Moles/volume] in Serum or Plasma 3.8 [facility] ([facility]) Sodium 143 [facility] ([facility]) Aspartate aminotransferase [Enzymatic activity/volume] in Serum or Plasma 18 [facility] ([facility]) Urea nitrogen [Mass/volume] in Serum or Plasma 29 [facility] ([facility]) Creatinine For GFR 1.3 [facility] (Car diology [facility]) Glucose 112 74-106 [facility] ([facility]) ID Date Data Source [id number] 01/27/2020 11:44:00 AM EDT [facility] ([facility]) Name Value Range Interpretation Code Description Data Patricia rce(s) Supporting Document(s) White Blood Count 7.2 4.1-10.9 [facility] ([facility]) Red Blood Count 3.81 4.2-6.30 [facility] ([facility]io [facility]y [facility]) Platelets 244 140-440 [facility] ([facility]) Hemoglobin 11.6 12.0-18.0 [facility] ([facility]) Hematocrit 34.2 37.0-51.0 [facility] ([facility]) ID Date Data Source [id number] 01/27/2020 11:44:00 AM EDT [facility] ([facility]) Name Value Range Interpretation Code Description Data Patricia rce(s) Supporting Document(s) Thyroid Stimulating Hormone 2.35 0.34-4.82 [facility] ([facility]) ID Date Data Source [id number] 01/27/2020 11:44:00 AM EDT [facility] ([facility]) Name Value Range Interpretation Code Description Data Patricia rce(s) Supporting Document(s) Cholesterol 210 131-200 [facility] ([facility]) Triglycerides 90 30-150 [facility] ([facility]) HDL 73 35-60 [facility] Chol/HDL Ratio Laboratory test result [facility] ([facility]) Cholesterol in LDL [Mass/volume] in Serum or Plasma by calculati on 119 50-159 [facility] ([facility]) ID Date Data Source [id number] 01/27/2020 08:08:00 AM EDT [facility] ([facility]) Name Value Range Interpretation Code Description Data Patricia rce(s) Supporting Document(s) Microalbumin Urine 61.2 mg/L 1.3-20.0 [facility] ([facility]) Microalb/Creat Ratio 81.7 ug/mg 0.0-30.0 [facility] ( [facility]) Urine Creatinine 74.9 mg/dL 30.0-125.0 [facility] ([facility]) ID Date Data Source [id number] 01/27/2020 08:08:00 AM EDT [facility] Name Value Range Interpretation Code Description Data Patricia rce(s) Supporting Document(s) Thyrotropin [Units/volume] in Serum or Plasma by Detec tion limit <= 0.05 mIU/L 2.35 uIU/mL 0.36-3.74 [facility] ([facility] ) ID Date Data Source [id number] 01/27/2020 08:08:00 AM EDT [facility] Name Value Range Interpretation Code Description Data Patricia rce(s) Supporting Document(s) Cholesterol [Mass/volume] in Serum or Plasma 210 mg/dL 131-200 [facility] ([facility]) Triglyceride [Mass/volume] in Serum or Plasma 90 mg/dL 30-150 [facility] ([facility]) Cholesterol in HDL [Mass/volume] in Serum or Plasma 73 mg/dL 35-60 [facility] ([facility]) Cholesterol in LDL [Mass/volume] in Serum or Plasma by calcu lation 119 CALC 50-159 [facility] ID Date Data Source [id number] 01/27/2020 08:08:00 AM EDT [facility] ([facility]) Name Value Range Interpretation Code Description Data Patricia rce(s) Supporting Document(s) Urea nitrogen [Mass/volume] in Serum or Plasma 29 mg/dL 7-18 [facility] ([facility]) Glucose [Mass/volume] in Serum or Plasma 112 mg/dL 74-99 [facility] ([facility]) 100-125 mg/dL PRE-DIABETES/FASTING >126 mg/dL DIABETES/FASTING Creatinine 1.3 mg/dL 0.6-1.3 [facility] ([facility]) Sodium [Moles/volume] in Serum or Plasma 143 meq/L 136-145 [facility] ([facility]) Potassium [Moles/volume] in Serum or Plasma 3.8 meq/L 3.5-5.1 [facility] ([facility]) Carbon dioxide, total [Moles/volume] in Serum or Plasma 26 meq/L 21 -32 [facility] ([facility]) Chloride [Moles/volume] in Serum or Plasma 104 meq/L 98-107 [facility] ([facility]) Total Bilirubin 0.5 mg/dL 0.2-1.0 [facility] ([facility]) Alkaline phosphatase isoenzyme [Units/volume] in Serum or Pl asma 49 mg/dL 46-116 [facility] ([facility]) Aspartate aminotransferase [Enzymatic activity/volume] in Serum or Plasma 18 U/L 15-37 [facility] ([facility] ) Calcium [Mass/volume] in Serum or Plasma 9.8 mg/dL 8.5-10.1 [facility] ([facility]) Alanine aminotransferase [Enzymatic activity/volume] in Seru m or Plasma 15 U/L 12-78 [facility] ([facility]) Proteinase 3 Ab [Units/volume] in Serum 6.4 g/dL 6.4-8.2 [facility] ([facility]) Albumin [Mass/volume] in Serum or Plasma 3.8 g/dL 3.4-5.0 [facility] ([facility]) Glomerular filtration rate/1.73 sq M pre dicted among blacks [Volume Rate/Area] in Serum or Plasma by Creatinine-based formula (MDRD) 47 mL/min [facility] <content>CHRONIC KIDNEY DISEASE STAGING PER NKF</content>
<content></content>
<content>STAGE I & II GFR >= 60 NORMAL TO MILDLY DECREASED</content>
<content>STAGE III GFR 30-59 MODERATELY DECREASED</content>
<content>STAGE IV GFR 15-29 SEVERELY DECREASED</content>
<content>STAGE V GFR <15 VERY LITTLE GFR LEFT</content>
<content>ESRD GFR <15 ON MEDICAL SERVICES ASSISTANT</content>
<content></content> Glomerular filtration rate/1.73 sq M pre dicted among non-blacks [Volume Rate/Area] in Serum or Plasma by Creatinine-based formula (MDRD) 39 mL/min [facility] A/G Ratio 1.46 CALC 1.00-1.90 [facility] [facility] ID Date Data Source [id number] 01/27/2020 08:08:00 AM EDT [facility] Name Value Range Interpretation Code Description Data Patricia rce(s) Supporting Document(s) Hemoglobin A1c/Hemoglobin.total in Blood 6.0 g/dL 4.8-5.6 [facility] Lab Result Notes: Pre-Diabetes 5.7 - 6.4 % Diabetes = or > 6.5% Glucose mean value [Mass/volume] in Blood Estimated fr om glycated hemoglobin 125 mg/dL 60-110 [facility] ID Date Data Source [id number] 01/27/2020 08:08:00 AM EDT [facility] Name Value Range Interpretation Code Description Data Patricia rce(s) Supporting Document(s) Leukocytes [#/volume] in Blood by Automated count 7.2 x10*3/UL 4.1-10 .9 [facility] Erythrocytes [#/volume] in Blood by Automated count 3.81 x10*6/UL 4.2 0-6.30 [facility] Hemoglobin [Mass/volume] in Blood 11.6 g/dL 12.0-18.0 [facility] ([facility]) NOTE: RESULT VERIFIED. Hematocrit [Volume Fraction] of Blood by Automated count 34.2 % 3 7.0-51.0 [facility] ([facility]) MCV 89.8 fL 80.0-97.0 [facility] [facility]) MCHC 34.0 g/dL 31.0-38.0 [facility]) Erythrocyte distribution width [Ratio] by Automated count 17.0 % 11.6-13.7 [facility] ([facility]) MCH 30.5 pg 26.0-32.0 [facility]) Lymph % 42.5 % 10.0-58.5 [facility] [facility]) MPV 9.1 FL 7.8-11.0 [facility] [facility] Platelets [#/volume] in Blood by Automated count 244 x10*3/UL 140-440 [facility] ([facility]) Mid % 7.6 % 1.7-9.3 [facility] [facility]) Lymph # 3.0 x10*3/UL 0.6-4.1 [facility] ([facility]) Neut % 49.9 % 37.0-92.0 [facility] [facility] Mid # 0.6 x10*3/UL 0.1-0.6 [facility] ([facility]) Neut # 3.6 x10*3/UL 2.0-7.8 [facility] ([facility]) ID Date Data Source [id number] 01/19/2020 12:00:00 AM EDT [facility] Smith Will MD Patient Name: REYNALDO ARGUETA [facility] 1935[facility] [place] [id number] Date of Exam: 01/19/2020#: Fax: [phone] EXAM: [...] contrast. Radiation optimization: All CT scans at [facility] use at least one of these dose [...] smoker completed Patient is a former smoker [facility] ([facility]) Smoking 01/18/2020 01:38:37 PM EDT Ex-smoker (finding) complet ed Ex-smoker (finding) ANGIE (Juliocesar Cuellar MD [facility]) Vital Signs ID Date Data Source [id number] Name Value Range Interpretation Code Description Data Source(s) Diastolic blood pressure 60 mm[Hg] 60 mm[Hg] [facility] ([facility]) Systolic blood pressure 137 mm[Hg] 137 mm[Hg] [facility] ([facility]) Diastolic blood pressure 68 mm[Hg] 68 mm[Hg] [facility] ([facility]) Heart rate 51 /min 51 /min [facility] ([facility]) Body height 63 [in_i] 63 [in_i] [facility] ([facility]) 5'3" Oxygen saturation in Arterial blood by Pulse oximetry 96 % 96 % [facility] ([facility]) RM Air Body mass index (BMI) [Ratio] 26.2 kg/m2 26.2 k g/m2 [facility] ([facility]) Systolic blood pressure 150 mm[Hg] 150 mm[Hg] [facility] ([facility]) Body weight 148.00 [lb_av] 148.00 [lb_av] [facility] T ([facility]) Body weight 147.00 [lb_av] 147.00 [lb_av] [facility] T ([facility]) Body height 64 [in_i] 64 [in_i] [facility] ([facility]) 5'4" Body mass index (BMI) [Ratio] 25.2 kg/m2 25.2 k g/m2 [facility] ([facility]) Heart rate 76 /min 76 /min [facility] (Cardio [facility]y [facility]) Irregular Respiratory rate 16 /min 16 /min [facility] ( [facility]) Systolic blood pressure 128 mm[Hg] 128 mm[Hg] M [facility] ([facility]) sitting, regular cuff Diastolic blood pressure 76 mm[Hg] 76 mm[Hg] [facility] ([facility]) sitting, regular cuff Heart rate 78 /min 78 /min [facility] ([facility]) irregular Body height 63 [in_i] 63 [in_i] [facility] ([facility]) 5'3" Body weight 152.00 [lb_av] 152.00 [lb_av] [facility] T ([facility]) Body mass index (BMI) [Ratio] 26.9 kg/m2 26.9 k g/m2 [facility] ([facility]) Systolic blood pressure 160 mm[Hg] 160 mm[Hg] M EDENT ([facility]) Diastolic blood pressure 72 mm[Hg] 72 mm[Hg] [facility] ([facility]) Body height 64 [in_i] 64 [in_i] [facility] ([facility]) 5'4" Body mass index (BMI) [Ratio] 25.6 kg/m2 25.6 k g/m2 [facility] ([facility]) Heart rate 56 /min 56 /min [facility] (Cardio [facility]y [facility]) Irregular Respiratory rate 16 /min 16 /min [facility] ( [facility]) Systolic blood pressure 136 mm[Hg] 136 mm[Hg] M [facility] ([facility]) sitting, regular cuff Systolic blood pressure 132 mm[Hg] 132 mm[Hg] M [facility] ([facility]) sitting Diastolic blood pressure 64 mm[Hg] 64 mm[Hg] [facility] ([facility]) sitting Body weight 149.00 [lb_av] 149.00 [lb_av] [facility] T ([facility]) Diastolic blood pressure 64 mm[Hg] 64 mm[Hg] [facility] ([facility]) sitting, regular cuff Body weight 152.00 [lb_av] 152.00 [lb_av] [facility] T ([facility]) Body height 64 [in_i] 64 [in_i] [facility] ([facility]) 5'4" Body mass index (BMI) [Ratio] 26.1 kg/m2 26.1 k g/m2 [facility] ([facility]) Heart rate 76 /min 76 /min [facility] (Cardio [facility]y [facility]) Irregular Respiratory rate 16 /min 16 /min [facility] ( [facility]) Systolic blood pressure 138 mm[Hg] 138 mm[Hg] M [facility] ([facility]) sitting, regular cuff Diastolic blood pressure 70 mm[Hg] 70 mm[Hg] [facility] ([facility]) sitting, regular cuff Body weight 150.00 [lb_av] 150.00 [lb_av] [facility] T ([facility]) Body height 64 [in_i] 64 [in_i] [facility] ([facility]) 5'4" Body mass index (BMI) [Ratio] 25.7 kg/m2 25.7 k g/m2 [facility] ([facility]) Heart rate 72 /min 72 /min [facility] ([facility]) Regular Respiratory rate 16 /min 16 /min [facility] ( [facility]) Systolic blood pressure 128 mm[Hg] 128 mm[Hg] M EDENT ([facility]) sitting, regular cuff Diastolic blood pressure 70 mm[Hg] 70 mm[Hg] [facility] ([facility] sitting, regular cuff Systolic blood pressure 154 mm[Hg] 154 mm[Hg] [facility] Diastolic blood pressure 90 mm[Hg] 90 mm[Hg] [facility] ([facility]) Systolic blood pressure 130 mm[Hg] 130 mm[Hg] EDENT ([facility]) Diastolic blood pressure 65 mm[Hg] 65 mm[Hg] [facility] ([facility]) Heart rate 86 /min 86 /min [facility] ([facility]) Body height 63 [in_i] 63 [in_i] [facility] ([facility]) 5'3" Body weight 154.00 [lb_av] 154.00 [lb_av] MEDEN T ([facility]) Body mass index (BMI) [Ratio] 27.3 kg/m2 27.3 k g/m2 [facility] ([facility]) Body weight 156.00 [lb_av] 156.00 [lb_av] [facility] T ([facility]) Body height 64 [in_i] 64 [in_i] [facility] 5'4" Body mass index (BMI) [Ratio] 26.8 kg/m2 26.8 k g/m2 [facility] ([facility] Heart rate 72 /min 72 /min [facility] ([facility] Regular Respiratory rate 16 /min 16 /min [facility] ( [facility] Systolic blood pressure 126 mm[Hg] 126 mm[Hg] M EDENT ([facility]) sitting, regular cuff Diastolic blood pressure 68 mm[Hg] 68 mm[Hg] [facility] ([facility]) sitting, regular cuff Body weight 159.00 [lb_av] 159.00 [lb_av] [facility] T ([facility] Body height 64 [in_i] 64 [in_i] [facility] 5'4" Body mass index (BMI) [Ratio] 27.3 kg/m2 27.3 k g/m2 [facility] ([facility]) Heart rate 72 /min 72 /min [facility] ([facility] Irregular Respiratory rate 16 /min 16 /min [facility] ( [facility]) Systolic blood pressure 126 mm[Hg] 126 mm[Hg] M EDENT ([facility]) sitting, regular cuff Diastolic blood pressure 64 mm[Hg] 64 mm[Hg] [facility] ([facility]) sitting, regular cuff Body weight 165.00 [lb_av] 165.00 [lb_av] MEDEN T ([facility]) Body mass index (BMI) [Ratio] 28.3 kg/m2 28.3 k g/m2 [facility] ([facility]) Body height 64 [in_i] 64 [in_i] [facility] ([facility]) 5'4" Heart rate 76 /min 76 /min [facility] ([facility]) Irregular Respiratory rate 16 /min 16 /min [facility] ( [facility]) Systolic blood pressure 126 mm[Hg] 126 mm[Hg] M EDENT ([facility]) sitting, regular cuff Diastolic blood pressure 66 mm[Hg] 66 mm[Hg] [facility] ([facility]) sitting, regular cuff Heart rate 104 /min 104 /min [facility] ([facility]) Irregular Respiratory rate 16 /min 16 /min [facility] ( [facility]) Body weight 166.00 [lb_av] 166.00 [lb_av] MEDEN T ([facility]) Body height 64 [in_i] 64 [in_i] [facility] ([facility]) 5'4" Body mass index (BMI) [Ratio] 28.5 kg/m2 28.5 k g/m2 [facility] ([facility]) Systolic blood pressure 146 mm[Hg] 146 mm[Hg] M EDENT ([facility]) Diastolic blood pressure 80 mm[Hg] 80 mm[Hg] [facility] ([facility]) Body weight 160.00 [lb_av] 160.00 [lb_av] MEDEN T ([facility]) Heart rate 100 /min 100 /min [facility] ([facility]) Body height 63 [in_i] 63 [in_i] [facility] ([facility]) 5'3" Body mass index (BMI) [Ratio] 28.3 kg/m2 28.3 k g/m2 [facility] ([facility])
--- NOTE | 2021-03-13 21:34 | REPVR ---
PROCEDURE INFORMATION: Exam: XR Chest Exam date and time: 03/13/2021 8:34 PM Age: 85 years old Clinical indication: Cough and dyspnea; Additional info: Dyspnea/cough TECHNIQUE: Imaging protocol: XR of the chest. Views: 1 view. COMPARISON: CT Chest without contrast 03/09/2021 12:39 PM FINDINGS: Tubes, catheters and devices: Dual lead cardiac pacer demonstrated with intact pacer wires. Lungs: Increased interstitial markings demonstrated bilaterally without segmental or lobar infiltrates. Pleural spaces: Right pleural effusion. Heart/Mediastinum: Unremarkable. No cardiomegaly. Bones/joints: Osteoporosis. IMPRESSION: 1. Right pleural effusion. 2. Increased interstitial markings demonstrated bilaterally without segmental or lobar infiltrates. Electronically signed by: Santos Nails On 03/13/2021 21:34:16 PM
[2021-03-13 21:39] LABS: RSV AMPLIFICATION NEGATIVE (NEGATIVE)
[2021-03-13 21:42] LABS: ALBUMIN 3.4 GM/DL (3.2-5.2); ALT/SGPT 24 U/L (12-78); BILIRUBIN,DIRECT 0.1 MG/DL (0.0-0.2); BILIRUBIN,TOTAL 0.5 MG/DL (0.2-1.0); BLOOD UREA NITROGEN 21 MG/DL (7-18); CALCIUM LEVEL 9.6 MG/DL (8.8-10.2); CARBON DIOXIDE LEVEL 34 MEQ/L (21-32); CHLORIDE LEVEL 101 MEQ/L (98-107); CK-MB VALUE MASS 1.3 NG/ML (<3.6); CPK CREATINE PHOSPHOKINASE 35 U/L (26-192); CREATININE FOR GFR 1.31 MG/DL (0.55-1.30); DIGOXIN LEVEL 1.5 NG/ML (0.5-2.0); GLOMERULAR FILTRATION RATE 41.1 (>32); GLUCOSE, FASTING 134 MG/DL (70-100); MB/CK RELATIVE INDEX 3.71 (< OR =4); NT-PRO BNP 12661 PG/ML (<450); POTASSIUM SERUM 3.6 MEQ/L (3.5-5.1); SODIUM LEVEL 139 MEQ/L (136-145); TOTAL PROTEIN 6.1 GM/DL (6.4-8.2); TROPONIN I < 0.02 NG/ML (< 0.10)
[2021-03-13] MEDS ORDERED: FUROSEMIDE 100MG/10ML VIAL (J1940) IV ONE (21:45)
[2021-03-13] MEDS ORDERED: MOM 30ML SUSPENSION UDC PO PRN (22:05)
[2021-03-13] MEDS ORDERED: ACETAMINOPHEN TAB 650MG DOSE (2X325MG) PO PRN (22:05)
[2021-03-13] MEDS ORDERED: MAALOX 30 ML SUSP *UDC PO PRN (22:05)
--- OUTSIDE RECORDS SUMMARY | 2021-03-13 22:21 | CCD ---
Author Author [facility] Organization [facility] Address Unknown Phone Unavailable Care Team Providers Care Environmental Auditor Name Role Phone Claudette Boston MD Unavailable [...] Unavailable Unavailable Claudette Boston MD Unavailable Unavailable Clauedtte Boston MD Unavailable Unavailable White, F Freddy [...] F Freddy TIM Unavailable Unavailable Symenow, Gris Deila PA Unavailable Unavailable Symenow, Gris Delia PA [...] Unavailable Unavailable Smith Will MD Unavailable Unavailable mSith Will MD Unavailable Unavailable Smith Will MD [...] is protected by Article 27-F of the [place] [facility] Public [facility] law. If you continue you may have access to information: Regarding HIV / AIDS; Provided by facilities licensed or operated by the [facility] Office of Mental Health; or Provided by the [facility] Office for People With Developmental Disabilities. If such information is present, then the following [facility] mandated warning applies: This information has been [...] law may result in a fine or intermediate sentence or both. A general authorization for the release of medical or other information is NOT sufficient authorization for further disc losure. Allergies and Adverse Reactions Type Description Substance Reaction Status Data Source(s ) Allergy to substance No Known Allergies No known allergies (situation ) ANGIE (Juliocesar Cuellar MD [facility]) Family History Family Member Name Family Member Gender Family Member Status Date o f Status Description Data Source(s) Unknown Unknown Problem [facility] ([facility]) Unknown Male Problem MEDENT ([facility] Encounters Encounter Providers Location Date Indications Data Source(s ) Outpatient Attender: Freddy Cohn 02/22 11:00:00 AM EDT MEDENT ([facility] ) Outpatient Attender: Delia MENDENHALL Main Office 12/27/2020 09:30:00 AM EDT MED[facility] ([facility]) Office Visit Attender: Smith Will MD Main office - [place] 12/22/2020 10:00:00 AM EDT MEDENT ([facility] ) Outpatient Attender: Freddy Cohn 10/09 11:00:00 AM EDT MEDENT ([facility] ) Outpatient Attender: Delia MENDENHALL Main Office 09/26/2020 12:30:00 PM EDT MED[facility] ([facility]) Outpatient Attender: Delia MENDENHALL Main Office 08/23/2020 11:15:00 AM EDT MED[facility] ([facility]) Outpatient Attender: Delia MENDENHALL Main Office 07/25/2020 10:15:00 AM EST MED[facility] ([facility]) Outpatient Attender: Delia MENDENHALL Main Office 06/28/2020 10:15:00 AM EST MED[facility] ([facility]) Outpatient Attender: Freddy Cohn 05/31 12:00:00 PM EST MEDENT ([facility] ) Outpatient Attender: Delia MENDENHALL Main Office 05/24/2020 11:30:00 AM EST MED[facility] ([facility]) Outpatient Attender: Delia MENDENHALL Main Office 03/15/2020 08:00:00 AM EDT MED[facility] ([facility]) Outpatient Attender: Delia MENDENHALL Main Office 02/29/2020 08:45:00 AM EDT MED[facility] ([facility]) Outpatient Attender: Delia MENDENHALL Main Office 02/15/2020 08:45:00 AM EDT MED[facility] ([facility]) <td ID="encounterTypeDescriptionID0">1 Y ear Follow-Up</td><td>Juliocesar Cuellar MD, MAL[place]</td><td>Juliocesar Stewart MD [facility]</td><td>01/18/2020</td><td>12:18PM</td><td>01/15/2019 11:59PM</td><td> <content ID="encounterDiagnosisID0-0">Essential Hypertension</content>, <content ID="encounterDiagnosisID0-1">Pseudophakia</content>, <content ID="encounterDiagnosisID0-2">Assessment of Taking Medication For Diabetes Long- term Use of Oral Hypoglycemics</content>, <content ID="encounterDiagnosisID0- 3">Posterior Capsule Opacification Eccentric Capsule Right Eye</content>, <content ID="encounterDiagnosisID0-4">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</content>, <content ID="encounterDiagnosisID0-5">Macular Degeneration Nonexudative Bilateral Early Dry Stage</content></td>Outpatient Attender: Juliocesar Cuellar MD, FACS Juliocesar Stewart MD [facility] 01/18/2020 12:18:00 PM EDT - 01/15/2019 11:59:00 PM ED T Macular Degeneration Nonexudative Bilateral Early Dry StagePosterior Capsule Opacification Eccentric Capsule Right EyeAssessment of Taking Medication For Diabetes Long-term Use of Oral HypoglycemicsPseudophakiaEssential Hypertension 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 COVID-19 VACCINE, MRNA-1273, LNP-S (MODERNA)/PF 08/07/2020 1 2:00:00 AM EDT completed [facility] COVID-19 VACCINE, MRNA-1273, LNP-S (MODERNA)/PF 07/06/2020 1 2:00:00 AM EST completed [facility] COVID-19 VACCINE Moderna 07/05/2020 12:00:00 AM EST completed [facility] Vaccine Series Complete: NOThis Data was Submitted to [facility] Via [employer]. Medications Medication Brand Name Start Date Product [...] AM EDT ORAL active MED[facility] ([facility]) 20 mg 08/22/2020 12:00:00 AM EDT tablet [...] Unspecified 08/07/2020 12:00:00 AM EDT completed [facility] ([place] [facility]) Medication administered onsite 10 mg [...] Unspecified 07/05/2020 12:00:00 AM EST completed [facility] ([place] [facility]) Medication administered onsite torsemide 10 MG Oral Tablet Torsemide 06/28/2020 12:00:00 AM EST ORAL completed [facility] ([facility]) 24-26 mg 05/26/2020 12:00:00 AM EST [...] EST ORAL active M EDENT ([facility]) 500 mg 03/26/2020 12:00:00 AM EST tablet [...] EDT ORAL active M EDENT ([facility]) 10 mg 02/29/2020 12:00:00 AM EDT tablet 60 TAKE TWO TABLETS BY MOUTH EVERY MORNING TAKE TWO TABLETS BY MOUTH EVERY MORNING SOLD: 03/01/2020 [facility] torsemide 10 MG Oral Tablet Torsemide 02/29/2020 12:00:00 AM EDT ORAL completed MED[facility] ([facility]) 10 mg 02/29/2020 12:00:00 AM EDT tablet 60 TAKE TWO TABLETS BY MOUTH EVERY MORNING TAKE TWO TABLETS BY MOUTH EVERY MORNING SOLD: 05/02/2020 [facility] 10 mg 02/29/2020 12:00:00 AM [...] BY MOUTH EVERY MORNING SOLD: 05/26/2020 [facility] [place] Digoxin 0.125 MG Oral Tablet 125 mcg [...] AM EDT ORAL active MEDENT ([facility]) Digoxin 0.125 MG Oral Tablet 125 mcg [...] 12:00 :00 AM EDT ORAL active [facility] Atenolol 50 MG Oral Tablet Atenolol 02/07/2020 12:00:00 AM EDT ORAL active MED[facility] ([facility]) 5 mg 02/03/2020 12:00:00 AM EDT tablet [...] DT ORAL active [facility] ([facility]) Aspirin 81 MG Delayed Release Oral Tablet Aspirin 81 2019 12:00:00 AM EDT ORAL active MED[facility] ( [facility]) 5 mg 02/03/2020 12:00:00 AM EDT tablet [...] EDT ORAL completed [facility] ([facility]) 4 mg 01/04/2020 12:00:00 AM EDT capsule,extended [...] BY MOUTH TWICE A DAY SOLD: 05/02/2020 [facility] 20 mg [...] MOUTH TWICE A DAY SOLD: 07/26/2020 [facility] 4 mg 09/09/2019 12:00:00 [...] type / Coverage type Policy ID Covered green party ID Covered green party's relationship to dominguez Policy Dominguez Plan Information MEDICARE A [id number] Self [id number] Medicare (Part B) Medicare Primary [id number] Self [id number] MEDICARE [id number] SP [id number] [id number] Medicare (Part B) Medicare Primary [id number] Self [id number] Medicare (Part B) Medicare Primary [id number] Self Medicare Natl Govt Servic Medicare Primary [id number] Self Medicare (Part B) Medicare Primary [id number] Self [id number] Medicare (Part B) Medicare Primary [id number] Self [id number] Medicare Medicare Primary [id number] Self Medicare Medicare Primary [id number] Self [id number] Medicare (Part B) Medicare Primary [id number] Self [id number] Medicare Natl Govt Servic Medicare Primary [id number] Self 0 [id number] MEDICARE A [id number] Self [id number] A Medicare Natl Govt Servic Medicare Primary [id number] Self 0 [id number] Medicare (Part B) Medicare Primary [id number] Self [id number] Medicare Natl Govt Servic Medicare Primary [id number] Self 0 [id number] MEDICARE [id number] SP [id number] A Medicare Natl Govt Serv Medicare Primary [id number] Self 0 [id number] Medicare (Part B) Medicare Primary [id number] Self [id number] Medicare Natl Govt Serv Medicare Primary [id number] Self 0 [id number] Medicare Natl Govt Serv Medicare Primary [id number] Self [id number] BC/BS [place] Medigap Part B [id number] Self BCBS [place] Ppo U/W Medigap Part B [id number] Self YO [id number] BCBS [place] Ppo U/W Medigap Part B [id number] Self BCBS [place] U/W Medigap Part B [id number] Self [id number] BS [place] Trad/MX Commercial [id number] Self [id number] BS [place] Trad/MX Medigap Part B [id number] Self V [id number] Excellus BCBS Medigap Part B [id number] Self BCBS [place] PPO 302/307 [id number] SP [id number] EXCELLUS C [id number] Self [id number] BCBS [place] PPO 302/307 [id number] SP [id number] MEDICARE P [id number] S [id number] A BCBS OF [place]AT[place] 306/806 [id number] SP [id number] A MEDICARE C [id number] S [id number] Y33 EXCELLUS BCBS B [id number] S [id number] BCBS of [facility] Other 0 [id number] Self 0 Medicare Part B of [place] Other 0 [id number] Self 0 BCBS Excell MCR Supp U/W Medigap Part B [id number] Self [id number] BCBS Excellus U/W Medigap Part B [id number] Self [id number] BCBS Excell MCR Supp U/W Medigap Part B [id number] Self [id number] BCBS Excell MCR Supp U/W Medigap Part B [id number] [id number] Self VY [id number] BS [place] Medigap Part B [id number] 2...[id number] Self V [id number] BCBS [place] PPO 302/307 [id number] SP [id number] Aetna [facility] Medigap Part B [id number] 2...[id number] Self [id number] BCBS Excell MCR Supp U/W Medigap Part B [id number] Self [id number] [id number] BCBS Excell MCR Supp U/W Medigap Part B [id number] Self VY [id number] BCBS Excell[place] Ppo U/W Medigap Part B [id number] Self YO [id number] BCBS Excell MCR Supp U/W Medigap Part B [id number] Self VY [id number] MEDICARE C [id number] S [id number] A [facility]na [facility] [id number] Self [id number] [facility] B [id number] Self 0 [id number] A[facility]na [facility] B [id number] Self 0 [id number] A[facility]na [facility] Part B [id number] Self 0 [id number] A[facility]na [facility] B [id number] Self 0 [id number] BCBS [place] PPO 302/307 [id number] SP [id number] BCBS Excell MCR Supp U/W Medigap Part B [id number] Self VY [id number] BCBS Excell MCR Supp U/W Medigap Part B [id number] Self BCBS [place] Ppo U/W Medigap Part B [id number] Self Aetna [place] Medigap Part B [id number] Self BLUE CROSS BLUE SHIELD-O/P [id number] 18 [id number] MEDICARE -O/P [id number] 18 [id number] BC/BS [place] Medigap Part B [id number] Self EXCELLUS BCBS S [id number] S [id number] Problems, Conditions, and Diagnoses Code Display Name Description Problem Type Effective Dates Data Source(s) 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 Problem 09/26/2020 12:00:00 AM EDT MED[facility] ([facility]) I48.11 Persistent atrial fibrillation Persistent atrial fibri llation Problem 09/26/2020 12:00:00 AM EDT [facility] Surgeries/Procedures Procedure Description Date Indications Data Source(s) OFFICE OUTPATIENT VISIT 25 MINUTES 02/22/2021 12:00:00 AM EDT [facility] ([facility]) 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 EVAL IN PERSON 1/DUAL/WELDER GAS TUNGSTEN ARC LEAD PM 2020 12:00:00 AM EDT MEDENT ([facility]) OFFICE OUTPATIENT VISIT 15 MINUTES 12/27/2020 12:00:00 AM EDT [facility] PHYSICIAN TELEPHONE EVALUATION 11-20 MIN 12/22/2020 12 :00:00 AM EDT MEDENT ([facility]) OFFICE OUTPATIENT VISIT 25 MINUTES 10/09/2020 12:00:00 AM EDT MEDENT ([facility]) ECHO TTHRC R-T 2D W/WOM-MODE COMPL SPEC&COLR DOP 09/26 12:00:00 AM EDT MED[facility] ([facility]) OFFICE OUTPATIENT VISIT 25 MINUTES 09/26/2020 12:00:00 AM EDT MED[facility] ([facility]) PROGRAM EVAL IMPLANTABLE IN PERSN DUAL LD PACER 2020 12:00:00 AM EDT MED[facility] ([facility]) ECG ROUTINE ECG W/LEAST 12 LDS W/I&R 08/23/2020 12:00: 00 AM EDT MED[facility] ([facility]) ECHO TTHRC R-T 2D W/WOM-MODE COMPL SPEC&COLR DOP 08/23 12:00:00 AM EDT MED[facility] ([facility]) OFFICE OUTPATIENT VISIT 25 MINUTES 08/23/2020 12:00:00 AM EDT MED[facility] ([facility]) OFFICE OUTPATIENT VISIT 15 MINUTES 07/25/2020 12:00:00 AM EST MED[facility] ([facility]) 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 EVAL IN PERSON 1/DUAL/WELDER GAS TUNGSTEN ARC LEAD PM 2020 12:00:00 AM EST MED[facility] ([facility]) OFFICE OUTPATIENT VISIT 25 MINUTES 05/31/2020 12:00:00 AM EST MEDENT ([facility]) ECHO TTHRC R-T 2D W/WOM-MODE COMPL SPEC&COLR DOP 05/22 12:00:00 AM EST MED[facility] ([facility]) XTRNL ECG < 48 HR RECORDING 02/24/2020 12:00:00 AM EDT MED[facility] ([facility]) XTRNL ECG CONTINUOUS RHYTHM PHYS REVIEW&INTERPJ 2019 12:00:00 AM EDT MED[facility] ([facility]) ECG ROUTINE ECG W/LEAST 12 LDS W/I&R 02/15/2020 12:00: 00 AM EDT MED[facility] ([facility]) ECHO TTHRC R-T 2D W/WOM-MODE COMPL SPEC&COLR DOP 02/03 12:00:00 AM EDT MED[facility] ([facility]) ECG ROUTINE ECG W/LEAST 12 LDS W/I&R 02/02/2020 12:00: 00 AM EDT MEDENT ([facility]) Diabetic Retinal Eye Exam 01/18/2020 12:00:00 AM EDT MEDENT ([facility]) Surgical / procedural history 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, 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, Pacemaker Surgical / procedural history Removal of brain tumor November 2014, 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, Pacemaker 01/18/2020 12:00:00 AM EDT ANGIE (Gustavo id A Telma Cuellar MD [facility]) Intermediate Eye Exam Established Patient Intermediate Eye Exam Established Patient 01/18/2020 12:00:00 AM EDT [place] (Gustavo id A Telma Cuellar MD [facility]) Results ID Date Data Source [id number] 02/22/2021 11:56:00 AM EDT MEDENT ([facility]) Name Value Range Interpretation Code Description Data Patricia rce(s) Supporting Document(s) Urea nitrogen [Mass/volume] in Serum or Plasma 22 mg/dL 7-18 MEDENT ([facility]) Glucose [Mass/volume] in Serum or Plasma 94 mg/dL 74-99 MEDENT ([facility]) 100-125 mg/dL PRE-DIABETES/FASTING >126 mg/dL DIABETES/FASTING Sodium [Moles/volume] in Serum or Plasma 143 meq/L 136-145 MEDENT ([facility]) Creatinine 1.3 mg/dL 0.6-1.3 MED[facility] ([facility]) Potassium [Moles/volume] in Serum or Plasma 3.7 meq/L 3.5-5.1 MEDENT ([facility]) Chloride [Moles/volume] in Serum or Plasma 101 meq/L 98-107 MEDENT ([facility]) Carbon dioxide, total [Moles/volume] in Serum or Plasma 36 meq/L 21 -32 MEDENT ([facility]) Total Bilirubin 0.5 mg/dL 0.2-1.0 MEDENT ([facility]) Alkaline phosphatase isoenzyme [Units/volume] in Serum or Pl asma 63 mg/dL 46-116 MEDENT ([facility]) Calcium [Mass/volume] in Serum or Plasma 9.8 mg/dL 8.5-10.1 MEDENT ([facility]) Proteinase 3 Ab [Units/volume] in Serum 6.3 g/dL 6.4-8.2 MEDENT ([facility]) Aspartate aminotransferase [Enzymatic activity/volume] in Serum or Plasma 22 U/L 15-37 MEDENT ([facility] ) Alanine aminotransferase [Enzymatic activity/volume] in Seru m or Plasma 23 U/L 12-78 MEDENT ([facility]) Albumin [Mass/volume] in Serum or Plasma 3.6 g/dL 3.4-5.0 MEDENT ([facility]) Glomerular filtration rate/1.73 sq M pre dicted among non-blacks [Volume Rate/Area] in Serum or Plasma by Creatinine-based formula (MDRD) 39 mL/min [facility] ([place] [facility] A/G Ratio 1.33 CALC 1.00-1.90 [facility] ([place] [facility]) Glomerular filtration rate/1.73 sq M pre dicted among blacks [Volume Rate/Area] in Serum or Plasma by Creatinine-based formula (MDRD) 47 mL/min [facility] ([place] [facility] <content>CHRONIC KIDNEY DISEASE STAGING PER NKF</content>
<content></content>
<content>STAGE I & II GFR >= 60 NORMAL TO MILDLY DECREASED</content>
<content>STAGE III GFR 30-59 MODERATELY DECREASED</content>
<content>STAGE IV GFR 15-29 SEVERELY DECREASED</content>
<content>STAGE V GFR <15 VERY LITTLE GFR LEFT</content>
<content>ESRD GFR <15 ON ARMORED VEHICLE OFFICER</content>
<content></content> ID Date Data Source [id number] 02/22/2021 11:56:00 AM EDT MEDENT ([facility]) Name Value Range Interpretation Code Description Data Patricia rce(s) Supporting Document(s) Hemoglobin [Mass/volume] in Blood 12.7 g/dL 12.0-18.0 MEDENT ([facility]) Leukocytes [#/volume] in Blood by Automated count 8.6 x10*3/UL 4.1-10 .9 MED[facility] ([facility]) Erythrocytes [#/volume] in Blood by Automated count 4.08 x10*6/UL 4.2 0-6.30 [facility] ([place] [facility] MCV 92.8 fL 80.0-97.0 MED[facility] ([facility]) Hematocrit [Volume Fraction] of Blood by Automated count 37.9 % 3 7.0-51.0 [facility] ([place] [facility] MCH 31.0 pg 26.0-32.0 MED[facility] ([facility]) MCHC 33.4 g/dL 31.0-38.0 MED[facility] ([facility]) Erythrocyte distribution width [Ratio] by Automated count 17.1 % 11.6-13.7 [facility] ([place] [facility] Lymph % 20.6 % 10.0-58.5 MED[facility] ([facility]) Platelets [#/volume] in Blood by Automated count 290 x10*3/UL 140-440 [facility] ([place] [facility] MPV 9.3 FL 7.8-11.0 MED[facility] ([facility]) Lymph # 1.7 x10*3/UL 0.6-4.1 [facility] ([place] [facility] Neut % 73.7 % 37.0-92.0 MED[facility] ([facility]) Mid % 5.7 % 1.7-9.3 MED[facility] ([facility]) Neut # 6.4 x10*3/UL 2.0-7.8 MED[facility] ([facility]) Mid # 0.5 x10*3/UL 0.1-0.6 [facility] ([place] [facility] ID Date Data Source [id number] 02/22/2021 11:56:00 AM EDT [facility] ([facility] Name Value Range Interpretation Code Description Data Patricia rce(s) Supporting Document(s) Hemoglobin A1c/Hemoglobin.total in Blood 6.5 % [facility] [facility] Lab Result Notes: Pre-Diabetes 5.7 - 6.4 % Diabetes = or > 6.5% Glucose mean value [Mass/volume] in Blood Estimated fr om glycated hemoglobin 140 mg/dL 60-110 [facility] ([place] [facility] ID Date Data Source [id number] 02/22/2021 11:56:00 AM EDT MED[facility] ([facility]) Name Value Range Interpretation Code Description Data Patricia rce(s) Supporting Document(s) Urine Creatinine 89.5 mg/dL 30.0-125.0 MED[facility] ([facility]) Microalbumin Urine 271.5 mg/L 1.3-20.0 MED[facility] ([facility]) Microalb/Creat Ratio 303.4 ug/mg 0.0-30.0 MED[facility] ([facility]) ID Date Data Source [id number] 02/22/2021 11:56:00 AM EDT MED[facility] ([facility]) Name Value Range Interpretation Code Description Data Patricia rce(s) Supporting Document(s) Hemoglobin A1c/Hemoglobin.total in Blood Laboratory test result [facility] ([place] [facility] Natriuretic peptide B [Mass/volume] in Serum or Plasma 1840.0 pg/mL 0.0-100.0 [facility] ([facility]) ID Date Data Source [id number] 02/22/2021 11:56:00 AM EDT MED[facility] ([facility]) Name Value Range Interpretation Code Description Data Patricia rce(s) Supporting Document(s) Glucose [Mass/volume] in Serum or Plasma 94 mg/dL 74-99 [facility] ([facility]) 100-125 mg/dL PRE-DIABETES/FASTING >126 mg/dL DIABETES/FASTING Creatinine 1.3 mg/dL 0.6-1.3 [facility] ([facility]) Sodium [Moles/volume] in Serum or Plasma 143 meq/L 136-145 [facility] ([facility]) Urea nitrogen [Mass/volume] in Serum or Plasma 22 mg/dL 7-18 [facility] ([facility]) Carbon dioxide, total [Moles/volume] in Serum or Plasma 36 meq/L 21 -32 [facility] ([facility]) Potassium [Moles/volume] in Serum or Plasma 3.7 meq/L 3.5-5.1 [facility] ([facility]) Chloride [Moles/volume] in Serum or Plasma 101 meq/L 98-107 [facility] ([facility]) Calcium [Mass/volume] in Serum or Plasma 9.8 mg/dL 8.5-10.1 [facility] ([facility]) Alkaline phosphatase isoenzyme [Units/volume] in Serum or Pl asma 63 mg/dL 46-116 [facility] ([facility]) Total Bilirubin 0.5 mg/dL 0.2-1.0 [facility] ([facility]) Aspartate aminotransferase [Enzymatic activity/volume] in Serum or Plasma 22 U/L 15-37 [facility] Alanine aminotransferase [Enzymatic activity/volume] in Seru m or Plasma 23 U/L 12-78 [facility] ([facility]) Proteinase 3 Ab [Units/volume] in Serum 6.3 g/dL 6.4-8.2 [facility] ([facility]) Albumin [Mass/volume] in Serum or Plasma 3.6 g/dL 3.4-5.0 [facility] ([facility]) Glomerular filtration rate/1.73 sq M pre dicted among non-blacks [Volume Rate/Area] in Serum or Plasma by Creatinine-based formula (MDRD) 39 mL/min [facility] ([facility]) Glomerular filtration rate/1.73 sq M pre dicted among blacks [Volume Rate/Area] in Serum or Plasma by Creatinine-based formula (MDRD) 47 mL/min [facility] ([facility]) <content>CHRONIC KIDNEY DISEASE STAGING PER NKF</content>
<content></content>
<content>STAGE I & II GFR >= 60 NORMAL TO MILDLY DECREASED</content>
<content>STAGE III GFR 30-59 MODERATELY DECREASED</content>
<content>STAGE IV GFR 15-29 SEVERELY DECREASED</content>
<content>STAGE V GFR <15 VERY LITTLE GFR LEFT</content>
<content>ESRD GFR <15 ON ARMORED VEHICLE OFFICER</content>
<content></content>
<content></content> A/G Ratio 1.33 CALC 1.00-1.90 [facility] ID Date Data Source [id number] 02/22/2021 11:56:00 AM EDT [facility] ([facility]) Name Value Range Interpretation Code Description Data Patricia rce(s) Supporting Document(s) Microalbumin Urine 271.5 mg/L 1.3-20.0 [facility] ([facility]) Urine Creatinine 89.5 mg/dL 30.0-125.0 [facility] ( [facility]) Microalb/Creat Ratio 303.4 ug/mg 0.0-30.0 [facility] (Cardiology [facility]) ID Date Data Source [id number] 12/26/2020 09:15:00 AM EDT [facility] ([facility]) Name Value Range Interpretation Code Description Data Patricia rce(s) Supporting Document(s) Glucose, Fasting 131 mg/dL 70-100 [facility] ([facility]) Blood Urea Nitrogen 20 mg/dL 7-18 [facility] ([facility]) Creatinine For GFR 1.02 mg/dL 0.55-1.30 [facility] ([facility]) Glomerular Filtration Rate 54.8 [facility] ([facility]) <content>Units are mL/min/1.73 m2</content>
<content></content>
<content>Chronic Kidney Disease Staging per NKF:</content>
<content></content>
<content>Stage I & II GFR >=60 Normal to Mildly Decreased</content>
<content>Stage III GFR 30-59 Moderately Decreased</content>
<content>Stage IV GFR 15-29 Severely Decreased</content>
<content>Stage V GFR <15 Very Little GFR Left</content>
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
<content></content> Sodium Level 140 meq/L 136-145 [facility] ([facility]) Potassium Serum 4.5 meq/L 3.5-5.1 [facility] ([facility]) Carbon Dioxide Level 30 meq/L 21-32 [facility] Chloride Level 105 meq/L 98-107 [facility] ([facility]) Anion Gap 5 meq/L 8-16 [facility] ([place] [facility]) Calcium Level 9.3 mg/dL 8.8-10.2 [facility] ([facility]) ID Date Data Source [id number] 12/26/2020 09:15:00 AM EDT [facility] ([facility]) Name Value Range Interpretation Code Description Data Patricia rce(s) Supporting Document(s) Natriuretic peptide.B prohormone N-Terminal [Mass/volu me] in Serum or Plasma 6360 pg/mL [facility] ([facility] ) Magnesium [Moles/volume] in Serum or Plasma 2.3 mg/dL 1.8-2.4 [facility] ([facility]) ID Date Data Source [id number] 12/26/2020 09:15:00 AM EDT [facility] Name Value Range Interpretation Code Description Data Patricia rce(s) Supporting Document(s) Magnesium [Mass/volume] in Serum or Plasma 2.3 mg/dL 1.8-2.4 [facility] ([facility]) Natriuretic peptide.B prohormone N-Terminal [Mass/volu me] in Serum or Plasma 6360 pg/mL [facility] ([facility]) ID Date Data Source [id number] 12/26/2020 09:15:00 AM EDT [facility] ([facility]) Name Value Range Interpretation Code Description Data Patricia rce(s) Supporting Document(s) Blood Urea Nitrogen 20 mg/dL 7-18 [facility] ([facility]) Glucose, Fasting 131 mg/dL 70-100 [facility] Creatinine For GFR 1.02 mg/dL 0.55-1.30 [facility] ([facility]) Glomerular Filtration Rate 54.8 [facility] ([facility]) <content>Units are mL/min/1.73 m2</content>
<content></content>
<content>Chronic Kidney Disease Staging per NKF:</content>
<content></content>
<content>Stage I & II GFR >=60 Normal to Mildly Decreased</content>
<content>Stage III GFR 30- 59 Moderately Decreased</content>
<content>Stage IV GFR 15-29 Severely Decreased</content>
<content>Stage V GFR <15 Very Little GFR Left</content>
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
<content></content> Potassium Serum 4.5 meq/L 3.5-5.1 [facility] ([facility]) Sodium Level 140 meq/L 136-145 [facility] ([facility]) Chloride Level 105 meq/L 98-107 [facility] ([facility]) Carbon Dioxide Level 30 meq/L 21-32 [facility] ([facility]) Anion Gap 5 meq/L 8-16 [facility] Calcium Level 9.3 mg/dL 8.8-10.2 [facility] ([facility]) ID Date Data Source [id number] 11/06/2020 11:44:00 AM EDT [facility] ([facility]) Name Value Range Interpretation Code Description Data Patricia rce(s) Supporting Document(s) Viscosity of Serum 1.6 rel.saline 1.4-2.1 [facility] ([facility]) Values above 2.7 may indicate paraprotei nemia is present. Performed at: [address] [id number] Member Of Congress: Ananya Gauthier MD, Phone: [phone] ID Date Data Source [id number] 11/06/2020 11:44:00 AM EDT [facility] ([facility] Name Value Range Interpretation Code Description Data Patricia rce(s) Supporting Document(s) Albumin % 65.1 % 55.8-66.1 [facility] ([place] [facility]) Xmpvf-1-Kimjvbjp % 5.7 % 2.9-4.9 [facility] ([facility]) Yzoae-8-Zomhzuqhd % 12.5 % 7.1-11.8 [facility] ([facility] Bzpa-7-Dqalopviq % 7.4 % 4.7-7.2 [facility] ([facility] Banc-0-Ojngowahz % 3.9 % 3.2-6.5 [facility] ([facility]) Gamma Globulin % 5.4 % 11.1-18.8 [facility] ([facility]) Albumin 3.84 GM/DL 3.29-5.55 [facility] ([facility]) Erwfn-0-Emvvuuxzh 0.74 GM/DL 0.42-0.99 [facility] ([facility]) Azfcu-6-Hkrmfyqxp 0.34 GM/DL 0.17-0.41 [facility] ([facility]) Gamma Globulins 0.32 GM/DL 0.65-1.58 [facility] ([facility]) Sopo-5-Wujozccel 0.44 GM/DL 0.28-0.60 [facility] ([facility]) Gacc-3-Uszwqzbqy 0.23 GM/DL 0.19-0.55 [facility] ([facility]) Spep Interpretation Laboratory test result [facility] ([facility]) M-SPIKE NOTED IN EARLY GAMMA REGION. CONCENTRATION = 0.08 GM/DL SUGGEST SERUM AND URINE IMMUNOTYPING. Laboratory test finding (navigational concept) Laboratory test result [facility] ([facility]) Total Protein 5.9 GM/DL 6.4-8.2 [facility] ([facility]) ID Date Data Source [id number] 11/06/2020 11:44:00 AM EDT [facility] ([facility]) Name Value Range Interpretation Code Description Data Patricia rce(s) Supporting Document(s) Immunoglobulin A 79.0 mg/dL 70-400 [facility] ([facility]) Immunoglobulin G 271 mg/dL 681-1648 [facility] ([facility]) Immunoglobulin M 108.0 mg/dL 40-230 [facility] ([facility]) ID Date Data Source [id number] 11/06/2020 11:44:00 AM EDT [facility] ([facility]) Name Value Range Interpretation Code Description Data Patricia rce(s) Supporting Document(s) Lactate dehydrogenase [Enzymatic activit y/volume] in Serum or Plasma by Lactate to pyruvate reaction 239 U/L 84-246 [facility] ([facility]) ID Date Data Source [id number] 11/06/2020 11:44:00 AM EDT [facility] ([facility]) Name Value Range Interpretation Code Description Data Patricia rce(s) Supporting Document(s) Glucose, Fasting 103 mg/dL 70-100 [facility] ([facility]) Blood Urea Nitrogen 19 mg/dL 7-18 [facility] ([facility]) Creatinine For GFR 1.10 mg/dL 0.55-1.30 [facility] ([facility] Glomerular Filtration Rate 50.3 MED E[facility] ([facility]) <content>Units are mL/min/1.73 m2</content>
<content></content>
<content>Chronic Kidney Disease Staging per NKF:</content>
<content></content>
<content>Stage I & II GFR >=60 Normal to Mildly Decreased</content>
<content>Stage III GFR 30-59 Moderately Decreased</content>
<content>Stage IV GFR 15-29 Severely Decreased</content>
<content>Stage V GFR <15 Very Little GFR Left</content>
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
<content></content> Sodium Level 143 meq/L 136-145 [facility] ([facility]) Chloride Level 104 meq/L 98-107 [facility] ([facility]) Potassium Serum 4.0 meq/L 3.5-5.1 [facility] ([facility]) Anion Gap 7 meq/L 8-16 [facility] ([facility]) Carbon Dioxide Level 32 meq/L 21-32 [facility] ([facility]) Calcium Level 10.0 mg/dL 8.8-10.2 [facility] ([facility]) Alt/SGPT 29 U/L 12-78 [facility] ([facility]) Alkaline Phosphatase 66 U/L 45-117 [facility] ([facility]) Ast/Sgot 24 U/L 7-37 [facility] ([facility]) Total Protein 5.9 GM/DL 6.4-8.2 [facility] ([facility]) Bilirubin,Total 0.5 mg/dL 0.2-1.0 [facility] ([facility]) Albumin 3.6 GM/DL 3.2-5.2 [facility] [facility] Albumin/Globulin Ratio 1.6 1.2-2.2 [facility] ([facility]) ID Date Data Source [id number] 11/06/2020 11:44:00 AM EDT [facility] ([facility]) Name Value Range Interpretation Code Description Data Patricia rce(s) Supporting Document(s) White Blood Count 9.6 10 4.0-10.0 [facility] ([facility]) Red Blood Count 3.88 10 4.00-5.40 [facility] ([facility]) Hematocrit 38.2 % 36.0-47.0 [facility] [facility] Mean Corpuscular Volume 98.5 fl 80.0-96.0 [facility] ([facility]) Hemoglobin 13.2 g/dL 12.0-15.5 [facility] ([place] [facility] Mean Corpuscular Hemoglobin 34.0 pg 27.0-33.0 ME DENT ([facility]) Mean Corpuscular HGB Conc 34.6 g/dL 32.0-36.5 MEDE NT ([facility]) Red Cell Distribution Width 17.6 % 11.5-14.5 CT DENT ([facility]) Platelet Count, Automated 251 10 150-450 MEDE NT ([facility]) Neutrophils % 67.2 % 36.0-66.0 [facility] ([facility]) Fajardo % 9.2 % 2.0-8.0 [facility] ([place] [facility]) Eos % 2.7 % 0.0-3.0 [facility] [facility]) Lymph % 19.9 % 24.0-44.0 [facility] [facility]) Baso % 0.7 % 0.0-1.0 [facility] [facility]) Nucleated Red Blood Cell % 0.0 % 0-0 [facility] ([facility]) Immature Granulocyte % 0.3 % 0-3.0 [facility] ([facility]) Fajardo # 0.9 10 0.0-0.8 [facility] ([place] [facility]) Neutrophils # 6.4 10 1.5-8.5 [facility] ([facility]) Lymph # 1.9 10 1.5-5.0 [facility] ([place] [facility]) Eos # 0.3 10 0.0-0.5 [facility] ([place] [facility]) Baso # 0.1 10 0.0-0.2 [facility] ([place] [facility]) ID Date Data Source [id number] 10/06/2020 09:03:00 AM EDT [facility] ([facility]) Name Value Range Interpretation Code Description Data Patricia rce(s) Supporting Document(s) Thyrotropin [Units/volume] in Serum or Plasma by Detec tion limit <= 0.05 mIU/L 1.61 uIU/mL 0.36-3.74 [facility] ([facility] ) ID Date Data Source [id number] 10/06/2020 09:03:00 AM EDT [facility] ([facility]) Name Value Range Interpretation Code Description Data Patricia rce(s) Supporting Document(s) Cholesterol in HDL [Mass/volume] in Serum or Plasma 67 mg/dL 35-60 [facility] ([facility]) Triglyceride [Mass/volume] in Serum or Plasma 88 mg/dL 30-150 [facility] ([facility]) Cholesterol [Mass/volume] in Serum or Plasma 189 mg/dL 131-200 [facility] ([facility]) Cholesterol in LDL [Mass/volume] in Serum or Plasma by calcu lation 104 CALC 50-159 [facility] ([facility]) ID Date Data Source [id number] 10/06/2020 09:03:00 AM EDT [facility] ([facility]) Name Value Range Interpretation Code Description Data Patricia rce(s) Supporting Document(s) Creatinine 1.2 mg/dL 0.6-1.3 [facility] ([place] [facility]) Urea nitrogen [Mass/volume] in Serum or Plasma 25 mg/dL 7-18 [facility] ([facility]) Glucose [Mass/volume] in Serum or Plasma 140 mg/dL 74-99 [facility] ([facility]) 100-125 mg/dL PRE-DIABETES/FASTING >126 mg/dL DIABETES/FASTING Potassium [Moles/volume] in Serum or Plasma 3.9 meq/L 3.5-5.1 [facility] ([facility]) Sodium [Moles/volume] in Serum or Plasma 142 meq/L 136-145 [facility] ([facility]) Carbon dioxide, total [Moles/volume] in Serum or Plasma 30 meq/L 21 -32 [facility] ([facility]) Chloride [Moles/volume] in Serum or Plasma 105 meq/L 98-107 [facility] ([facility]) Calcium [Mass/volume] in Serum or Plasma 9.3 mg/dL 8.5-10.1 [facility] ([facility]) Total Bilirubin 0.6 mg/dL 0.2-1.0 [facility] ([facility]) Alkaline phosphatase isoenzyme [Units/volume] in Serum or Pl asma 70 mg/dL 46-116 [facility] ([facility]) Albumin [Mass/volume] in Serum or Plasma 3.7 g/dL 3.4-5.0 [facility] ([facility]) Alanine aminotransferase [Enzymatic activity/volume] in Seru m or Plasma 41 U/L 12-78 [facility] ([facility]) Aspartate aminotransferase [Enzymatic activity/volume] in Serum or Plasma 34 U/L 15-37 [facility] ([facility] ) A/G Ratio 1.68 CALC 1.00-1.90 [facility] ([place] [facility]) Proteinase 3 Ab [Units/volume] in Serum 5.9 g/dL 6.4-8.2 [facility] ([facility]) Glomerular filtration rate/1.73 sq M pre dicted among blacks [Volume Rate/Area] in Serum or Plasma by Creatinine-based formula (MDRD) 52 mL/min [facility] ([place] [facility] <content>CHRONIC KIDNEY DISEASE STAGING PER NKF</content>
<content></content>
<content>STAGE I & II GFR >= 60 NORMAL TO MILDLY DECREASED</content>
<content>STAGE III GFR 30-59 MODERATELY DECREASED</content>
<content>STAGE IV GFR 15-29 SEVERELY DECREASED</content>
<content>STAGE V GFR <15 VERY LITTLE GFR LEFT</content>
<content>ESRD GFR <15 ON ARMORED VEHICLE OFFICER</content>
<content></content> Glomerular filtration rate/1.73 sq M pre dicted among non-blacks [Volume Rate/Area] in Serum or Plasma by Creatinine-based formula (MDRD) 43 mL/min [facility] ([facility]) ID Date Data Source [id number] 10/06/2020 09:03:00 AM EDT [facility]) Name Value Range Interpretation Code Description Data Patricia rce(s) Supporting Document(s) Hemoglobin A1c/Hemoglobin.total in Blood 6.4 % [facility] ([facility]) Lab Result Notes: Pre-Diabetes 5.7 - 6.4 % Diabetes = or > 6.5% Glucose mean value [Mass/volume] in Blood Estimated fr om glycated hemoglobin 137 mg/dL 60-110 [facility] ([facility] ) ID Date Data Source [id number] 10/06/2020 09:03:00 AM EDT [facility]) Name Value Range Interpretation Code Description Data Patricia rce(s) Supporting Document(s) Leukocytes [#/volume] in Blood by Automated count 9.1 x10*3/UL 4.1-10 .9 [facility] ([place] [facility] Erythrocytes [#/volume] in Blood by Automated count 3.72 x10*6/UL 4.2 0-6.30 [facility] ([place] [facility] Hemoglobin [Mass/volume] in Blood 11.6 g/dL 12.0-18.0 [facility] ([place] [facility] NOTE: RESULT VERIFIED. MCV 94.9 fL 80.0-97.0 [facility] ([place] [facility]) Hematocrit [Volume Fraction] of Blood by Automated count 35.3 % 3 7.0-51.0 [facility] ([facility]) MCH 31.3 pg 26.0-32.0 [facility] ([place] [facility]) Erythrocyte distribution width [Ratio] by Automated count 17.3 % 11.6-13.7 [facility] ([facility]) MCHC 32.9 g/dL 31.0-38.0 [facility] ([place] [facility]) MPV 9.1 FL 7.8-11.0 [facility] ([place] [facility]) Platelets [#/volume] in Blood by Automated count 229 x10*3/UL 140-440 [facility] ([facility]) Mid % 5.8 % 1.7-9.3 [facility] ([place] [facility]) Neut % 75.1 % 37.0-92.0 [facility] ([place] [facility]) Lymph % 19.1 % 10.0-58.5 [facility] ([place] [facility]) Mid # 0.6 x10*3/UL 0.1-0.6 [facility] ([facility]) Lymph # 1.7 x10*3/UL 0.6-4.1 [facility] ([facility]) Neut # 6.8 x10*3/UL 2.0-7.8 [facility] ([facility]) ID Date Data Source [id number] 10/06/2020 09:03:00 AM EDT [facility] Name Value Range Interpretation Code Description Data Patricia rce(s) Supporting Document(s) Hemoglobin A1c/Hemoglobin.total in Blood Laboratory test result [facility] ([facility]) ID Date Data Source [id number] 09/18/2020 10:15:00 AM EDT [facility] ([facility]) Name Value Range Interpretation Code Description Data Patricia rce(s) Supporting Document(s) Hemoglobin 11.8 g/dL 12.0-15.5 [facility] ([facility]) White Blood Count 8.0 10 4.0-10.0 [facility] ([facility]) Red Blood Count 3.79 10 4.00-5.40 [facility] ([facility]) Mean Corpuscular Volume 100.0 fl 80.0-96.0 [facility] ([facility]) Hematocrit 37.9 % 36.0-47.0 [facility] [employer]) Mean Corpuscular Hemoglobin 31.1 pg 27.0-33.0 ME D[facility] ([facility]) Mean Corpuscular HGB Conc 31.1 g/dL 32.0-36.5 MEDE NT ([place] [facility] Red Cell Distribution Width 17.2 % 11.5-14.5 ME [facility] ([facility]) Platelet Count, Automated 209 10 150-450 MEDE NT ([place] [facility] Nucleated Red Blood Cell % 0.0 % 0-0 [facility] ([facility] [place] [facility]) ID Date Data Source [id number] 09/18/2020 10:15:00 AM EDT [facility] ([facility]) Name Value Range Interpretation Code Description Data Patricia rce(s) Supporting Document(s) Magnesium [Moles/volume] in Serum or Plasma 2.0 mg/dL 1.8-2.4 [facility] ([place] [facility] Natriuretic peptide.B prohormone N-Terminal [Mass/volu me] in Serum or Plasma 4551 pg/mL [facility] ([place] [facility] ID Date Data Source [id number] 09/18/2020 10:15:00 AM EDT [facility] ([facility] Name Value Range Interpretation Code Description Data Patricia rce(s) Supporting Document(s) Glucose, Fasting 92 mg/dL 70-100 [facility] ([facility]) Blood Urea Nitrogen 22 mg/dL 7-18 [facility] ([facility]) Creatinine For GFR 1.06 mg/dL 0.55-1.30 [facility] ([facility]) Glomerular Filtration Rate 52.4 MED [facility] ([facility] [place] [facility]) <content>Units are mL/min/1.73 m2</content>
<content></content>
<content>Chronic Kidney Disease Staging per NKF:</content>
<content></content>
<content>Stage I & II GFR >=60 Normal to Mildly Decreased</content>
<content>Stage III GFR 30- 59 Moderately Decreased</content>
<content>Stage IV GFR 15-29 Severely Decreased</content>
<content>Stage V GFR <15 Very Little GFR Left</content>
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
<content></content> Sodium Level 144 meq/L 136-145 [facility] ([facility] [place] [facility]) Chloride Level 105 meq/L 98-107 [facility] ([facility]) Carbon Dioxide Level 33 meq/L 21-32 [facility]) Potassium Serum 4.0 meq/L 3.5-5.1 [facility]) Calcium Level 9.9 mg/dL 8.8-10.2 [facility]) Anion Gap 6 meq/L 8-16 [facility] ([place] [facility]) ID Date Data Source [id number] 09/18/2020 10:15:00 AM EDT [facility] ([facility] Name Value Range Interpretation Code Description Data Patricia rce(s) Supporting Document(s) White Blood Count 8.0 10 4.0-10.0 [facility] ([facility]) Hematocrit 37.9 % 36.0-47.0 [facility] ([facility]) Hemoglobin 11.8 g/dL 12.0-15.5 [facility] ([facility]) Red Blood Count 3.79 10 4.00-5.40 [facility] ([facility]) Mean Corpuscular Volume 100.0 fl 80.0-96.0 M ED[facility] ([facility]) Mean Corpuscular Hemoglobin 31.1 pg 27.0-33.0 [facility] ([facility]) Mean Corpuscular HGB Conc 31.1 g/dL 32.0-36.5 [facility] ([facility]) Platelet Count, Automated 209 10 150-450 [facility] ([facility]) Nucleated Red Blood Cell % 0.0 % 0-0 [facility] ([facility]) Red Cell Distribution Width 17.2 % 11.5-14.5 [facility] ([facility]) ID Date Data Source [id number] 09/18/2020 10:15:00 AM EDT [facility] ([facility]) Name Value Range Interpretation Code Description Data Patricia rce(s) Supporting Document(s) Magnesium [Mass/volume] in Serum or Plasma 2.0 mg/dL 1.8-2.4 [facility] ([facility]) Natriuretic peptide.B prohormone N-Terminal [Mass/volu me] in Serum or Plasma 4551 pg/mL [facility]) ID Date Data Source [id number] 09/18/2020 10:15:00 AM EDT [facility] ([facility]) Name Value Range Interpretation Code Description Data Patricia rce(s) Supporting Document(s) Glucose, Fasting 92 mg/dL 70-100 [facility] ([facility]) Creatinine For GFR 1.06 mg/dL 0.55-1.30 [facility] ([facility]) Blood Urea Nitrogen 22 mg/dL 7-18 [facility] ([facility]) Sodium Level 144 meq/L 136-145 [facility] ([facility]) Glomerular Filtration Rate 52.4 [facility] ([facility]) <content>Units are mL/min/1.73 m2</content>
<content></content>
<content>Chronic Kidney Disease Staging per NKF:</content>
<content></content>
<content>Stage I & II GFR >=60 Normal to Mildly Decreased</content>
<content>Stage III GFR 30- 59 Moderately Decreased</content>
<content>Stage IV GFR 15-29 Severely Decreased</content>
<content>Stage V GFR <15 Very Little GFR Left</content>
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
<content></content> Chloride Level 105 meq/L 98-107 [facility] ([facility]) Potassium Serum 4.0 meq/L 3.5-5.1 [facility] ([facility]) Carbon Dioxide Level 33 meq/L 21-32 [facility] ([facility] Anion Gap 6 meq/L 8-16 [facility] ([facility]) Calcium Level 9.9 mg/dL 8.8-10.2 [facility] ([facility] ID Date Data Source [id number] 08/23/2020 01:10:00 PM EDT [facility] ([facility]) Name Value Range Interpretation Code Description Data Patricia rce(s) Supporting Document(s) Natriuretic peptide.B prohormone N-Terminal [Mass/volu me] in Serum or Plasma 8524 pg/mL [facility] ([facility] ) Magnesium [Moles/volume] in Serum or Plasma 1.7 mg/dL 1.8-2.4 [facility] ([facility]) ID Date Data Source [id number] 08/23/2020 01:10:00 PM EDT [facility] ([facility]) Name Value Range Interpretation Code Description Data Patricia rce(s) Supporting Document(s) Glucose, Fasting 106 mg/dL 70-100 [facility] ([facility]) Creatinine For GFR 0.99 mg/dL 0.55-1.30 [facility] ([facility]) Blood Urea Nitrogen 19 mg/dL 7-18 [facility] ([facility]) Sodium Level 144 meq/L 136-145 [facility] ([facility]) Glomerular Filtration Rate 56.8 MED [facility] ([place] [facility] <content>Units are mL/min/1.73 m2</content>
<content></content>
<content>Chronic Kidney Disease Staging per NKF:</content>
<content></content>
<content>Stage I & II GFR >=60 Normal to Mildly Decreased</content>
<content>Stage III GFR 30- 59 Moderately Decreased</content>
<content>Stage IV GFR 15-29 Severely Decreased</content>
<content>Stage V GFR <15 Very Little GFR Left</content>
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
<content></content> Chloride Level 107 meq/L 98-107 [facility] ([facility] Potassium Serum 4.7 meq/L 3.5-5.1 [facility] ([facility]) Anion Gap 6 meq/L 8-16 [facility] ([place] [facility]) Carbon Dioxide Level 31 meq/L 21-32 [facility] ([facility]) Calcium Level 9.6 mg/dL 8.8-10.2 [facility] ([facility]) ID Date Data Source [id number] 08/23/2020 01:10:00 PM EDT [facility]) Name Value Range Interpretation Code Description Data Patricia rce(s) Supporting Document(s) Natriuretic peptide.B prohormone N-Terminal [Mass/volu me] in Serum or Plasma 8524 pg/mL [facility] ([facility]) Magnesium [Mass/volume] in Serum or Plasma 1.7 mg/dL 1.8-2.4 [facility] ([facility]) ID Date Data Source [id number] 08/23/2020 01:10:00 PM EDT [facility] ([facility]) Name Value Range Interpretation Code Description Data Patricia rce(s) Supporting Document(s) Glucose, Fasting 106 mg/dL 70-100 [facility] Creatinine For GFR 0.99 mg/dL 0.55-1.30 [facility] ([facility]) Blood Urea Nitrogen 19 mg/dL 7-18 [facility] ([facility]) Glomerular Filtration Rate 56.8 MED ENT ([facility]) <content>Units are mL/min/1.73 m2</content>
<content></content>
<content>Chronic Kidney Disease Staging per NKF:</content>
<content></content>
<content>Stage I & II GFR >=60 Normal to Mildly Decreased</content>
<content>Stage III GFR 30- 59 Moderately Decreased</content>
<content>Stage IV GFR 15-29 Severely Decreased</content>
<content>Stage V GFR <15 Very Little GFR Left</content>
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
<content></content> Sodium Level 144 meq/L 136-145 [facility] ([facility]) Potassium Serum 4.7 meq/L 3.5-5.1 [facility] ([facility]) Carbon Dioxide Level 31 meq/L 21-32 [facility] ([facility]) Chloride Level 107 meq/L 98-107 [facility] ([facility]) Calcium Level 9.6 mg/dL 8.8-10.2 [facility] ([facility]) Anion Gap 6 meq/L 8-16 [facility] ID Date Data Source [id number] 07/26/2020 10:20:00 AM EST [facility] ([facility]) Name Value Range Interpretation Code Description Data Patricia rce(s) Supporting Document(s) Natriuretic peptide.B prohormone N-Terminal [Mass/volu me] in Serum or Plasma 5967 pg/mL [facility] ([facility]) Magnesium [Mass/volume] in Serum or Plasma 1.8 mg/dL 1.8-2.4 [facility] ([facility]) ID Date Data Source [id number] 07/26/2020 10:20:00 AM EST [facility] ([facility]) Name Value Range Interpretation Code Description Data Patricia rce(s) Supporting Document(s) Glucose, Fasting 119 mg/dL 70-100 [facility] ([facility]i o[facility]) Blood Urea Nitrogen 22 mg/dL 7-18 [facility] ([facility]) Glomerular Filtration Rate 46.8 MED ENT ([facility]) <content>Units are mL/min/1.73 m2</content>
<content></content>
<content>Chronic Kidney Disease Staging per NKF:</content>
<content></content>
<content>Stage I & II GFR >=60 Normal to Mildly Decreased</content>
<content>Stage III GFR 30- 59 Moderately Decreased</content>
<content>Stage IV GFR 15-29 Severely Decreased</content>
<content>Stage V GFR <15 Very Little GFR Left</content>
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
<content></content> Creatinine For GFR 1.17 mg/dL 0.55-1.30 [facility] ([facility]) Sodium Level 142 meq/L 136-145 [facility] ([facility]) Potassium Serum 3.9 meq/L 3.5-5.1 [facility] ([facility]) Chloride Level 102 meq/L 98-107 [facility] ([facility]) Anion Gap 4 meq/L 8-16 [facility] Carbon Dioxide Level 36 meq/L 21-32 [facility] ([facility]) Calcium Level 9.6 mg/dL 8.8-10.2 [facility] ([facility]) ID Date Data Source [id number] 06/12/2020 11:30:00 AM EST MED[facility] ([facility]) Name Value Range Interpretation Code Description Data Patricia rce(s) Supporting Document(s) Magnesium [Moles/volume] in Serum or Plasma 1.6 mg/dL 1.8-2.4 [facility] ([facility] [place] [facility]) Natriuretic peptide.B prohormone N-Terminal [Mass/volu me] in Serum or Plasma 6163 pg/mL [facility] ([facility] [place] [facility] ) ID Date Data Source [id number] 06/12/2020 11:30:00 AM EST [facility] ([facility] Name Value Range Interpretation Code Description Data Patricia rce(s) Supporting Document(s) Glucose, Fasting 89 mg/dL 70-100 [facility] ([facility]) Blood Urea Nitrogen 21 mg/dL 7-18 [facility] ([facility]) Creatinine For GFR 1.02 mg/dL 0.55-1.30 [facility] ([facility]) Potassium Serum 4.0 meq/L 3.5-5.1 [facility] ([facility]) Sodium Level 143 meq/L 136-145 [facility] ([facility] [facility]) Glomerular Filtration Rate 55.0 MED ENT ([facility] [facility]) <content>Units are mL/min/1.73 m2</content>
<content></content>
<content>Chronic Kidney Disease Staging per NKF:</content>
<content></content>
<content>Stage I & II GFR >=60 Normal to Mildly Decreased</content>
<content>Stage III GFR 30- 59 Moderately Decreased</content>
<content>Stage IV GFR 15-29 Severely Decreased</content>
<content>Stage V GFR <15 Very Little GFR Left</content>
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
<content></content> Chloride Level 105 meq/L 98-107 [facility] ([facility]) Carbon Dioxide Level 34 meq/L 21-32 [facility] Anion Gap 4 meq/L 8-16 [facility] ([place] [facility]) Calcium Level 10.4 mg/dL 8.8-10.2 [facility] ([facility]) ID Date Data Source [id number] 06/12/2020 11:30:00 AM EST [facility] ([facility]) Name Value Range Interpretation Code Description Data Patricia rce(s) Supporting Document(s) Magnesium [Mass/volume] in Serum or Plasma 1.6 mg/dL 1.8-2.4 [facility] ([facility]) Natriuretic peptide.B prohormone N-Terminal [Mass/volu me] in Serum or Plasma 6163 pg/mL [facility] ([facility]) ID Date Data Source [id number] 06/12/2020 11:30:00 AM EST MED[facility] ([facility]) Name Value Range Interpretation Code Description Data Patricia rce(s) Supporting Document(s) Glucose, Fasting 89 mg/dL 70-100 [facility] ([facility]) Blood Urea Nitrogen 21 mg/dL 7-18 [facility] ([facility]) Creatinine For GFR 1.02 mg/dL 0.55-1.30 [facility] ([facility]) Glomerular Filtration Rate 55.0 MED ENT ([facility]) <content>Units are mL/min/1.73 m2</content>
<content></content>
<content>Chronic Kidney Disease Staging per NKF:</content>
<content></content>
<content>Stage I & II GFR >=60 Normal to Mildly Decreased</content>
<content>Stage III GFR 30- 59 Moderately Decreased</content>
<content>Stage IV GFR 15-29 Severely Decreased</content>
<content>Stage V GFR <15 Very Little GFR Left</content>
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
<content></content> Sodium Level 143 meq/L 136-145 [facility] ([facility]) Potassium Serum 4.0 meq/L 3.5-5.1 [facility] ([facility]) Chloride Level 105 meq/L 98-107 [facility] ([facility]) Anion Gap 4 meq/L 8-16 [facility] Carbon Dioxide Level 34 meq/L 21-32 [facility] ([facility]) Calcium Level 10.4 mg/dL 8.8-10.2 [facility] ([facility]) ID Date Data Source [id number] 05/31/2020 12:42:00 PM EST MED[facility] ([facility]) Name Value Range Interpretation Code Description Data Patricia rce(s) Supporting Document(s) Glucose [Mass/volume] in Serum or Plasma 95 mg/dL 74-99 [facility] ([facility] [facility]) 100-125 mg/dL PRE-DIABETES/FASTING >126 mg/dL DIABETES/FASTING Urea nitrogen [Mass/volume] in Serum or Plasma 13 mg/dL 7-18 [facility] ([facility] [facility]) Sodium [Moles/volume] in Serum or Plasma 143 meq/L 136-145 [facility] ([facility] [facility]) Potassium [Moles/volume] in Serum or Plasma 4.0 meq/L 3.5-5.1 [facility] ([place] [facility]) Creatinine 1.0 mg/dL 0.6-1.3 [facility] ([place] [facility]) Chloride [Moles/volume] in Serum or Plasma 103 meq/L 98-107 [facility] ([place] [facility]) Calcium [Mass/volume] in Serum or Plasma 10.4 mg/dL 8.5-10.1 [facility] ([facility] [facility]) NOTE: RESULT VERIFIED. Carbon dioxide, total [Moles/volume] in Serum or Plasma 28 meq/L 21 -32 [facility] ([facility] [facility]) Alkaline phosphatase isoenzyme [Units/volume] in Serum or Pl asma 65 mg/dL 46-116 [facility] ([place] [facility]) Total Bilirubin 0.6 mg/dL 0.2-1.0 [facility] ([facility]) Aspartate aminotransferase [Enzymatic activity/volume] in Serum or Plasma 20 U/L 15-37 MED[facility] ([place] [facility] ) Albumin [Mass/volume] in Serum or Plasma 3.5 g/dL 3.4-5.0 [facility] ([place] [facility]) Alanine aminotransferase [Enzymatic activity/volume] in Seru m or Plasma 23 U/L 12-78 [facility] ([place] [facility]) Proteinase 3 Ab [Units/volume] in Serum 6.0 g/dL 6.4-8.2 [facility] ([place] [facility]) A/G Ratio 1.40 CALC 1.00-1.90 MED[facility] ([facility]) Glomerular filtration rate/1.73 sq M pre dicted among blacks [Volume Rate/Area] in Serum or Plasma by Creatinine-based formula (MDRD) Laboratory test result [facility] ([place] [facility] <content>CHRONIC KIDNEY DISEASE STAGING PER NKF</content>
<content></content>
<content>STAGE I & II GFR >= 60 NORMAL TO MILDLY DECREASED</content>
<content>STAGE III GFR 30-59 MODERATELY DECREASED</content>
<content>STAGE IV GFR 15-29 SEVERELY DECREASED</content>
<content>STAGE V GFR <15 VERY LITTLE GFR LEFT</content>
<content>ESRD GFR <15 ON ARMORED VEHICLE OFFICER</content>
<content></content> Glomerular filtration rate/1.73 sq M pre dicted among non-blacks [Volume Rate/Area] in Serum or Plasma by Creatinine-based formula (MDRD) 53 mL/min MED[facility] ([facility] [facility]) ID Date Data Source [id number] 05/31/2020 12:42:00 PM EST MED[facility] ([facility]) Name Value Range Interpretation Code Description Data Patricia rce(s) Supporting Document(s) Hemoglobin [Mass/volume] in Blood 12.2 g/dL 12.0-18.0 [facility] ([facility] [place] [facility]) Leukocytes [#/volume] in Blood by Automated count 8.5 x10*3/UL 4.1-10 .9 [facility] ([facility] [facility]) Erythrocytes [#/volume] in Blood by Automated count 4.14 x10*6/UL 4.2 0-6.30 [facility] ([place] [facility] MCV 91.2 fL 80.0-97.0 [facility] ([place] [facility]) Hematocrit [Volume Fraction] of Blood by Automated count 37.8 % 3 7.0-51.0 [facility] ([place] [facility]) MCHC 32.3 g/dL 31.0-38.0 [facility] ([place] [facility]) MCH 29.5 pg 26.0-32.0 [facility] ([place] [facility]) Erythrocyte distribution width [Ratio] by Automated count 18.9 % 11.6-13.7 [facility] ([facility] [facility]) MPV 9.2 FL 7.8-11.0 [facility] ([place] [facility]) Platelets [#/volume] in Blood by Automated count 258 x10*3/UL 140-440 [facility] ([place] [facility]) Mid % 6.5 % 1.7-9.3 [facility] [facility] Lymph % 27.2 % 10.0-58.5 [facility] [facility] Neut % 66.3 % 37.0-92.0 [facility] ([place] [facility]) Lymph # 2.3 x10*3/UL 0.6-4.1 [facility] ([facility] [facility]) Neut # 5.6 x10*3/UL 2.0-7.8 [facility] ([place] [facility]) Mid # 0.6 x10*3/UL 0.1-0.6 [facility] ([place] [facility]) ID Date Data Source [id number] 05/31/2020 12:42:00 PM EST [facility] ([facility]) Name Value Range Interpretation Code Description Data Patricia rce(s) Supporting Document(s) Leukocytes [#/volume] in Blood by Automated count 8.5 x10*3/UL 4.1-10 .9 [facility] ([facility]) Hemoglobin [Mass/volume] in Blood 12.2 g/dL 12.0-18.0 [facility] ([facility]) Hematocrit [Volume Fraction] of Blood by Automated count 37.8 % 3 7.0-51.0 [facility] ([facility]) Erythrocytes [#/volume] in Blood by Automated count 4.14 x10*6/UL 4.2 0-6.30 [facility] ([facility]) MCH 29.5 pg 26.0-32.0 [facility] ([facility]) MCV 91.2 fL 80.0-97.0 [facility] ([facility]) Platelets [#/volume] in Blood by Automated count 258 x10*3/UL 140-440 [facility] ([facility]) Erythrocyte distribution width [Ratio] by Automated count 18.9 % 11.6-13.7 [facility] ([facility]) MCHC 32.3 g/dL 31.0-38.0 [facility] ([facility]) Lymphocytes/100 leukocytes in Blood by Automated count 27.2 % 10. 0-58.5 [facility] ([facility]) Platelet mean volume [Entitic volume] in Blood by [place] 9.2 FL 7.8-11.0 [facility] ([facility]) Mid % 6.5 % 1.7-9.3 [facility] ([facility]) Lymph # 2.3 x10*3/UL 0.6-4.1 [facility] ([facility]) Neut % 66.3 % 37.0-92.0 [facility] ([facility]) Neutrophils [#/volume] in [place] by Manual count 5.6 x10*3/UL 2.0-7.8 [facility] ([facility]) Mid # 0.6 x10*3/UL 0.1-0.6 [facility] ([facility]) ID Date Data Source [id number] 05/31/2020 12:42:00 PM EST [facility] ([facility]) Name Value Range Interpretation Code Description Data Patricia rce(s) Supporting Document(s) Urea nitrogen [Mass/volume] in Serum or Plasma 13 mg/dL 7-18 [facility] ([facility]) Glucose [Mass/volume] in Serum or Plasma 95 mg/dL 74-99 [facility] ([facility]) 100-125 mg/dL PRE-DIABETES/FASTING >126 mg/dL DIABETES/FASTING Sodium [Moles/volume] in Serum or Plasma 143 meq/L 136-145 [facility] ([facility]) Creatinine 1.0 mg/dL 0.6-1.3 [facility] ([facility]) Chloride [Moles/volume] in Serum or Plasma 103 meq/L 98-107 [facility] ([facility]) Potassium [Moles/volume] in Serum or Plasma 4.0 meq/L 3.5-5.1 [facility] ([facility]) Calcium [Mass/volume] in Serum or Plasma 10.4 mg/dL 8.5-10.1 [facility] ([facility]) NOTE: RESULT VERIFIED. Carbon dioxide, total [Moles/volume] in Serum or Plasma 28 meq/L 21 -32 [facility] ([facility]) Aspartate aminotransferase [Enzymatic activity/volume] in Serum or Plasma 20 U/L 15-37 [facility] ([facility]) Total Bilirubin 0.6 mg/dL 0.2-1.0 [facility] ([facility]) Alkaline phosphatase isoenzyme [Units/volume] in Serum or Pl asma 65 mg/dL 46-116 [facility] ([facility]) Alanine aminotransferase [Enzymatic activity/volume] in Seru m or Plasma 23 U/L 12-78 [facility] ([facility]) Albumin [Mass/volume] in Serum or Plasma 3.5 g/dL 3.4-5.0 [facility] Proteinase 3 Ab [Units/volume] in Serum 6.0 g/dL 6.4-8.2 [facility]Cardiology [facility]) A/G Ratio 1.40 CALC 1.00-1.90 [facility] Glomerular filtration rate/1.73 sq M pre dicted among non-blacks [Volume Rate/Area] in Serum or Plasma by Creatinine-based formula (MDRD) 53 mL/min [facility]Cardiology [facility]) Glomerular filtration rate/1.73 sq M pre dicted among blacks [Volume Rate/Area] in Serum or Plasma by Creatinine-based formula (MDRD) Laboratory test result [facility] (Cardiology [facility]) <content>CHRONIC KIDNEY DISEASE STAGING PER NKF</content>
<content></content>
<content>STAGE I & II GFR >= 60 NORMAL TO MILDLY DECREASED</content>
<content>STAGE III GFR 30-59 MODERATELY DECREASED</content>
<content>STAGE IV GFR 15-29 SEVERELY DECREASED</content>
<content>STAGE V GFR <15 VERY LITTLE GFR LEFT</content>
<content>ESRD GFR <15 ON ARMORED VEHICLE OFFICER</content>
<content></content>
<content></content> ID Date Data Source [id number] 05/16/2020 01:10:00 PM EST MED[facility]) Name Value Range Interpretation Code Description Data Patricia rce(s) Supporting Document(s) Natriuretic peptide.B prohormone N-Terminal [Mass/volu me] in Serum or Plasma 5869 pg/mL [facility] ([place] [facility] Magnesium [Moles/volume] in Serum or Plasma 1.7 mg/dL 1.8-2.4 [facility] [facility]) ID Date Data Source [id number] 05/16/2020 01:10:00 PM EST [facility] ([facility] Name Value Range Interpretation Code Description Data Patricia rce(s) Supporting Document(s) Blood Urea Nitrogen 15 mg/dL 7-18 [facility] ([facility]) Glucose, Fasting 120 mg/dL 70-100 [facility] ([facility]) Creatinine For GFR 1.16 mg/dL 0.55-1.30 [facility] ([facility]) Sodium Level 140 meq/L 136-145 [facility] ([place] [facility]) Glomerular Filtration Rate 47.4 MED E[facility] ([place] [facility]) <content>Units are mL/min/1.73 m2</content>
<content></content>
<content>Chronic Kidney Disease Staging per NKF:</content>
<content></content>
<content>Stage I & II GFR >=60 Normal to Mildly Decreased</content>
<content>Stage III GFR 30- 59 Moderately Decreased</content>
<content>Stage IV GFR 15-29 Severely Decreased</content>
<content>Stage V GFR <15 Very Little GFR Left</content>
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
<content></content> Potassium Serum 3.9 meq/L 3.5-5.1 [facility] ([facility]) Chloride Level 101 meq/L 98-107 [facility] ([facility]) Carbon Dioxide Level 34 meq/L 21-32 [facility] ([facility]) Anion Gap 5 meq/L 8-16 [facility] ([place] [facility]) Calcium Level 10.3 mg/dL 8.8-10.2 [facility] ([facility]) ID Date Data Source [id number] 05/16/2020 01:10:00 PM EST [facility] Name Value Range Interpretation Code Description Data Patricia rce(s) Supporting Document(s) Magnesium [Mass/volume] in Serum or Plasma 1.7 mg/dL 1.8-2.4 [facility] ([facility]) Natriuretic peptide.B prohormone N-Terminal [Mass/volu me] in Serum or Plasma 5869 pg/mL [facility] ([facility]) ID Date Data Source [id number] 05/16/2020 01:10:00 PM EST [facility] ([facility]) Name Value Range Interpretation Code Description Data Patricia rce(s) Supporting Document(s) Blood Urea Nitrogen 15 mg/dL 7-18 [facility] ([facility]) Glucose, Fasting 120 mg/dL 70-100 [facility] ([facility]) Creatinine For GFR 1.16 mg/dL 0.55-1.30 [facility] ([facility]) Glomerular Filtration Rate 47.4 MED [facility] ([facility]) <content>Units are mL/min/1.73 m2</content>
<content></content>
<content>Chronic Kidney Disease Staging per NKF:</content>
<content></content>
<content>Stage I & II GFR >=60 Normal to Mildly Decreased</content>
<content>Stage III GFR 30- 59 Moderately Decreased</content>
<content>Stage IV GFR 15-29 Severely Decreased</content>
<content>Stage V GFR <15 Very Little GFR Left</content>
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
<content></content> Sodium Level 140 meq/L 136-145 [facility] ([facility]) Chloride Level 101 meq/L 98-107 [facility] ([facility]) Potassium Serum 3.9 meq/L 3.5-5.1 [facility] ([facility]) Calcium Level 10.3 mg/dL 8.8-10.2 [facility] ([facility]) Carbon Dioxide Level 34 meq/L 21-32 [facility] ([facility]) Anion Gap 5 meq/L 8-16 [facility] ID Date Data Source [id number] 03/13/2020 10:32:00 AM EDT [facility] ([facility]) Name Value Range Interpretation Code Description Data Patricia rce(s) Supporting Document(s) Glucose 116 mg/dL 65-99 [facility] Urea nitrogen [Mass/volume] in Serum or Plasma 16 mg/dL 8-27 [facility] ([facility]) Creatinine 1.11 mg/dL 0.57-1.00 [facility] ([facility]) eGFR If NonAfricn Am 46 mL/min/1.73 [facility] ([facility]) eGFR If Africn Am 53 mL/min/1.73 [facility] ([facility]) Urea nitrogen/Creatinine [Mass Ratio] in Serum or Plasma 14 1 2-28 [facility] ([facility]) Sodium 138 mmol/L 134-144 [facility] ([facility]) Potassium [Moles/volume] in Serum or Plasma 4.1 mmol/L 3.5-5.2 [facility] ([facility]) Carbon dioxide, total [Moles/volume] in Serum or Plasma 27 mmol/L 20 -29 [facility] ([facility]) Chloride [Moles/volume] in Serum or Plasma 96 mmol/L 96-106 [facility] ([facility]) Calcium [Mass/volume] in Serum or Plasma 9.5 mg/dL 8.7-10.3 [facility] ([facility]) ID Date Data Source [id number] 03/13/2020 10:32:00 AM EDT [facility] ([facility]) Name Value Range Interpretation Code Description Data Patricia rce(s) Supporting Document(s) Magnesium [Mass/volume] in Serum or Plasma 1.8 mg/dL 1.6-2.3 [facility] ([facility]) Natriuretic peptide.B prohormone N-Terminal [Mass/volu me] in Serum or Plasma 5080 pg/mL 0-738 [facility] ([facility] <content>The following cut-points have b een suggested [...] concept) Laboratory test result [facility] ([facility]) ID Date Data Source [id number] 03/14/2020 08:06:00 AM EDT [facility] Name Value [...] mg/dL 8.7-10.3 [facility] ID Date Data Source [id number] 03/15/2020 06:05:00 AM EDT [facility] Name Value [...] independent 300 pg/mL ID Date Data Source [id number] 03/14/2020 08:06:00 AM EDT [facility] Name Value Range Interpretation Code Description Data Patricia rce(s) Supporting Document(s) Magnesium 1.8 mg/dL 1.6-2.3 [facility] ID Date Data Source [id number] 02/29/2020 09:59:00 AM EDT [facility] ([facility]) Name Value Range Interpretation Code Description Data Patricia rce(s) Supporting Document(s) Laboratory test finding (navigational concept) Laboratory test result [facility] ([facility]) ID Date Data Source [id number] 02/29/2020 09:59:00 AM EDT [facility] ([facility]) Name Value Range Interpretation Code Description Data Patricia rce(s) Supporting Document(s) Glucose 142 mg/dL 65-99 [facility] ([facility]) Urea nitrogen [Mass/volume] in Serum or Plasma 17 mg/dL 8-27 [facility] ([facility]) Creatinine 1.12 mg/dL 0.57-1.00 [facility] ([facility]) eGFR If NonAfricn Am 45 mL/min/1.73 [facility] NT ([facility]) eGFR If Africn Am 52 mL/min/1.73 [facility] ([facility]) Urea nitrogen/Creatinine [Mass Ratio] in Serum or Plasma 15 1 2-28 [facility] ([facility]) Sodium 137 mmol/L 134-144 [facility] ([facility]) Potassium [Moles/volume] in Serum or Plasma 4.1 mmol/L 3.5-5.2 [facility] ([facility]) Chloride [Moles/volume] in Serum or Plasma 94 mmol/L 96-106 [facility] ([facility]) Carbon dioxide, total [Moles/volume] in Serum or Plasma 28 mmol/L 20 -29 [facility] ([facility]) ID Date Data Source [id number] 02/29/2020 09:59:00 AM EDT [facility] ([facility]) Name Value Range Interpretation Code Description Data Patricia rce(s) Supporting Document(s) WBC 9.6 x10E3/uL 3.4-10.8 [facility] ([facility]) RBC 3.89 x10E6/uL 3.77-5.28 [facility] ([facility]) Hemoglobin [Mass/volume] in Blood 11.3 g/dL 11.1-15.9 [facility] ([facility]) Hematocrit [Volume Fraction] of Blood by Automated count 35.0 % 3 4.0-46.6 [facility] ([facility]) Erythrocyte mean corpuscular volume [Entitic volume] by Auto mated count 90 fL 79-97 [facility] ([facility]) Erythrocyte mean corpuscular hemoglobin [Entitic mass] by Automated count 29.0 pg 26.6-33.0 [facility] ([facility]) Erythrocyte mean corpuscular hemoglobin concentration [Mass/volume] by Automated count 32.3 g/dL 31.5-35.7 [facility] ([facility]) Erythrocyte distribution width [Ratio] by Automated count 16.4 % 11.7-15.4 [facility] ([facility]) Platelets [#/volume] in Blood by Automated count 232 x10E3/uL 150-450 [facility] ([facility]) Neutrophils/100 leukocytes in Blood by Automated count 73 % [facility] ([facility]) Lymphocytes/100 leukocytes in Blood by Automated count 15 % [facility] ([facility]) Monocytes/100 leukocytes in Blood by Automated count 10 % [facility] ([facility]) Eosinophils/100 leukocytes in Blood by Automated count 1 % [facility] ([facility]) Basophils/100 leukocytes in Blood by Automated count 1 % [facility] ([facility]) Immature cells [#/volume] in Blood Laboratory test result [facility] ([facility]) Neutrophils [#/volume] in Blood by Automated count 7.0 x10E3/uL 1.4-7 .0 [facility] ([facility]) Lymphocytes [#/volume] in Blood 1.4 x10E3/uL 0.7-3.1 [facility] ([facility]) Eosinophils [#/volume] in Blood by Automated count 0.1 x10E3/uL 0.0-0 .4 [facility] ([facility]) Monocytes [#/volume] in Blood 0.9 x10E3/uL 0.1-0.9 [facility] ([facility]) Basophils [#/volume] in Blood by Automated count 0.1 x10E3/uL 0.0-0.2 [facility] ([facility]) Immature granulocytes/100 leukocytes in Blood by Automated count 0 % [facility] ([facility]) Immature granulocytes [#/volume] in Blood by Automated count 0.0 x10E3/uL 0.0-0.1 [facility] ([facility]) Nucleated erythrocytes/100 leukocytes [Ratio] in Blood by Automated count Laboratory test result [facility] ([facility]) Morphology [Interpretation] in Blood Narrative Laboratory test result [facility] ([facility]) ID Date Data Source [id number] 02/29/2020 09:59:00 AM EDT [facility] ([facility]) Name Value Range Interpretation Code Description Data Patricia rce(s) Supporting Document(s) Magnesium [Mass/volume] in Serum or Plasma 1.2 mg/dL 1.6-2.3 [facility] ([facility]) Natriuretic peptide.B prohormone N-Terminal [Mass/volu me] in Serum or Plasma 8182 pg/mL 0-738 [facility] ([facility]) <content>The following cut-points have b een suggested for the</content>
<content>use of proBNP for the diagnostic evaluation of heart</content>
<content>failure (HF) in patients with acute dy spnea:</content>
<content>Modality Age Optimal Cut</content>
<content>(years) Point</content>
<content> ---</content>
<content>Diagnosis (rule in HF) <50 450 pg/mL</content>
<content>50 - 75 900 pg/mL</content>
<content>>75 1800 pg/mL</content>
<content> Exclusion (rule out HF) Age independent 300 pg/mL</content>
<content></content> ID Date Data Source [id number] 03/01/2020 08:06:00 AM EDT [facility] Name Value [...] 0.0-0.1 [facility] ID Date Data Source [id number] 03/02/2020 08:06:00 AM EDT [facility] Name Value [...] independent 300 pg/mL ID Date Data Source [id number] 03/01/2020 08:06:00 AM EDT [facility] Name Value [...] mmol/L 20-29 [facility] ID Date Data Source [id number] 03/01/2020 08:06:00 AM EDT [facility] Name Value Range Interpretation Code Description Data Patricia rce(s) Supporting Document(s) Magnesium 1.2 mg/dL 1.6-2.3 Below low normal [facility] ID Date Data Source [id number] 01/27/2020 11:44:00 AM EDT [facility] ([facility]) Name Value Range Interpretation Code Description Data Patricia rce(s) Supporting Document(s) Albumin [Mass/volume] in Serum or Plasma 3.8 [facility] ([facility]) Alanine aminotransferase [Enzymatic activity/volume] in Serum or Pl asma 15 [facility] ([facility]) Calcium [Mass/volume] in Serum or Plasma 9.8 [facility] ([facility]) Carbon dioxide, total [Moles/volume] in Serum or Plasma 26 [facility] ([facility]) Chloride [Moles/volume] in Serum or Plasma 104 [facility] ([facility]) Alkaline phosphatase [Enzymatic activity/volume] in Serum or Plasma 4 9 [facility] ([facility]) Protein [Mass/volume] in Serum or Plasma 6.4 [facility] ([facility]) Potassium [Moles/volume] in Serum or Plasma 3.8 [facility] ([facility]) Sodium 143 [facility] Aspartate aminotransferase [Enzymatic activity/volume] in Serum or Plasma 18 [facility] ([facility]) Urea nitrogen [Mass/volume] in Serum or Plasma 29 [facility] ([facility]) Creatinine For GFR 1.3 [facility] ([facility]) Glucose 112 74-106 [facility] ID Date Data Source [id number] 01/27/2020 11:44:00 AM EDT [facility] ([facility]) Name Value Range Interpretation Code Description Data Patricia rce(s) Supporting Document(s) White Blood Count 7.2 4.1-10.9 [facility] ([facility]) Red Blood Count 3.81 4.2-6.30 [facility] ([facility]) Platelets 244 140-440 [facility] Hemoglobin 11.6 12.0-18.0 [facility] ([facility]) Hematocrit 34.2 37.0-51.0 [facility] ([facility]) ID Date Data Source [id number] 01/27/2020 11:44:00 AM EDT [facility] ([facility]) Name Value Range Interpretation Code Description Data Patricia rce(s) Supporting Document(s) Thyroid Stimulating Hormone 2.35 0.34-4.82 [facility] ([facility]) ID Date Data Source [id number] 01/27/2020 11:44:00 AM EDT [facility] ([facility]) Name Value Range Interpretation Code Description Data Patricia rce(s) Supporting Document(s) Cholesterol 210 131-200 [facility] ([facility]) Triglycerides 90 30-150 [facility] ([facility]) HDL 73 35-60 [facility] ([facility]) Chol/HDL Ratio Laboratory test result [facility] ([facility]) Cholesterol in LDL [Mass/volume] in Serum or Plasma by calculati on 119 50-159 [facility] ([facility]) ID Date Data Source [id number] 01/27/2020 08:08:00 AM EDT [facility] ([facility]) Name Value Range Interpretation Code Description Data Patricia rce(s) Supporting Document(s) Microalbumin Urine 61.2 mg/L 1.3-20.0 [facility] ([facility]) Microalb/Creat Ratio 81.7 ug/mg 0.0-30.0 [facility] ( [facility]) Urine Creatinine 74.9 mg/dL 30.0-125.0 [facility] ([facility]) ID Date Data Source [id number] 01/27/2020 08:08:00 AM EDT [facility] ([facility] Name Value Range Interpretation Code Description Data Patricia rce(s) Supporting Document(s) Thyrotropin [Units/volume] in Serum or Plasma by Detec tion limit <= 0.05 mIU/L 2.35 uIU/mL 0.36-3.74 [facility] ([facility] ) ID Date Data Source [id number] 01/27/2020 08:08:00 AM EDT [facility] ([facility] Name Value Range Interpretation Code Description Data Patricia rce(s) Supporting Document(s) Cholesterol [Mass/volume] in Serum or Plasma 210 mg/dL 131-200 [facility] ([facility]) Triglyceride [Mass/volume] in Serum or Plasma 90 mg/dL 30-150 [facility] ([facility]) Cholesterol in HDL [Mass/volume] in Serum or Plasma 73 mg/dL 35-60 [facility] ([facility]) Cholesterol in LDL [Mass/volume] in Serum or Plasma by calcu lation 119 CALC 50-159 [facility] ([facility]) ID Date Data Source [id number] 01/27/2020 08:08:00 AM EDT [facility] ([facility]) Name Value Range Interpretation Code Description Data Patricia rce(s) Supporting Document(s) Urea nitrogen [Mass/volume] in Serum or Plasma 29 mg/dL 7-18 [facility] ([facility]) Glucose [Mass/volume] in Serum or Plasma 112 mg/dL 74-99 [facility] ([facility]) 100-125 mg/dL PRE-DIABETES/FASTING >126 mg/dL DIABETES/FASTING Creatinine 1.3 mg/dL 0.6-1.3 [facility] ([facility]) Sodium [Moles/volume] in Serum or Plasma 143 meq/L 136-145 [facility] ([facility]) Potassium [Moles/volume] in Serum or Plasma 3.8 meq/L 3.5-5.1 [facility] ([facility]) Carbon dioxide, total [Moles/volume] in Serum or Plasma 26 meq/L 21 -32 [facility] ([facility]) Chloride [Moles/volume] in Serum or Plasma 104 meq/L 98-107 [facility] ([facility]) Total Bilirubin 0.5 mg/dL 0.2-1.0 [facility] ([facility]) Alkaline phosphatase isoenzyme [Units/volume] in Serum or Pl asma 49 mg/dL 46-116 [facility] ([facility]) Aspartate aminotransferase [Enzymatic activity/volume] in Serum or Plasma 18 U/L 15-37 [facility] ([facility] ) Calcium [Mass/volume] in Serum or Plasma 9.8 mg/dL 8.5-10.1 [facility] ([facility]) Alanine aminotransferase [Enzymatic activity/volume] in Seru m or Plasma 15 U/L 12-78 [facility] ([facility]) Proteinase 3 Ab [Units/volume] in Serum 6.4 g/dL 6.4-8.2 [facility] ([facility]) Albumin [Mass/volume] in Serum or Plasma 3.8 g/dL 3.4-5.0 [facility] ([facility]) Glomerular filtration rate/1.73 sq M pre dicted among blacks [Volume Rate/Area] in Serum or Plasma by Creatinine-based formula (MDRD) 47 mL/min [facility] ([place] [facility] <content>CHRONIC KIDNEY DISEASE STAGING PER NKF</content>
<content></content>
<content>STAGE I & II GFR >= 60 NORMAL TO MILDLY DECREASED</content>
<content>STAGE III GFR 30-59 MODERATELY DECREASED</content>
<content>STAGE IV GFR 15-29 SEVERELY DECREASED</content>
<content>STAGE V GFR <15 VERY LITTLE GFR LEFT</content>
<content>ESRD GFR <15 ON ARMORED VEHICLE OFFICER</content>
<content></content> Glomerular filtration rate/1.73 sq M pre dicted among non-blacks [Volume Rate/Area] in Serum or Plasma by Creatinine-based formula (MDRD) 39 mL/min [facility] ([place] [facility] A/G Ratio 1.46 CALC 1.00-1.90 [facility] ([place] [facility]) ID Date Data Source [id number] 01/27/2020 08:08:00 AM EDT [facility] Name Value Range Interpretation Code Description Data Patricia rce(s) Supporting Document(s) Hemoglobin A1c/Hemoglobin.total in Blood 6.0 g/dL 4.8-5.6 [facility] ([place] [facility] Lab Result Notes: Pre-Diabetes 5.7 - 6.4 % Diabetes = or > 6.5% Glucose mean value [Mass/volume] in Blood Estimated fr om glycated hemoglobin 125 mg/dL 60-110 [facility] ([place] [facility] ID Date Data Source [id number] 01/27/2020 08:08:00 AM EDT [facility] ([facility] Name Value Range Interpretation Code Description Data Patricia rce(s) Supporting Document(s) Leukocytes [#/volume] in Blood by Automated count 7.2 x10*3/UL 4.1-10 .9 [facility] ([place] [facility] Erythrocytes [#/volume] in Blood by Automated count 3.81 x10*6/UL 4.2 0-6.30 [facility] ([place] [facility] Hemoglobin [Mass/volume] in Blood 11.6 g/dL 12.0-18.0 [facility] ([facility]) NOTE: RESULT VERIFIED. Hematocrit [Volume Fraction] of Blood by Automated count 34.2 % 3 7.0-51.0 [facility] ([facility]) MCV 89.8 fL 80.0-97.0 [facility] ([place] [facility]) MCHC 34.0 g/dL 31.0-38.0 [facility] ([place] [facility]) Erythrocyte distribution width [Ratio] by Automated count 17.0 % 11.6-13.7 [facility] ([facility]) MCH 30.5 pg 26.0-32.0 [facility] ([place] [facility]) Lymph % 42.5 % 10.0-58.5 [facility] [facility] MPV 9.1 FL 7.8-11.0 [facility] [facility] Platelets [#/volume] in Blood by Automated count 244 x10*3/UL 140-440 [facility] ([facility]) Mid % 7.6 % 1.7-9.3 [facility] ([place] [facility]) Lymph # 3.0 x10*3/UL 0.6-4.1 [facility] ([facility]) Neut % 49.9 % 37.0-92.0 [facility] [facility] Mid # 0.6 x10*3/UL 0.1-0.6 [facility] ([facility]) Neut # 3.6 x10*3/UL 2.0-7.8 [facility] ([facility]) ID Date Data Source [id number] 01/19/2020 12:00:00 AM EDT [facility] Smith Will MD Patient Name: REYNALDO ARGUETA [facility] Date of : [address] [address] Date of Exam: 01/19/2020#: Fax: [phone] EXAM: [...] contrast. Radiation optimization: [facility] one of these dose [...] smoker completed Patient is a [facility] Smoking 01/18/2020 01:38:37 PM EDT Ex-smoker (finding) complet ed Ex-smoker (finding) [place] (Juliocesar Cuellar MD [facility]) Vital Signs ID Date Data Source [id number] Name Value Range Interpretation Code Description Data Source(s) Heart rate 51 /min 51 /min [facility] ([facility]) Body height 63 [in_i] 63 [in_i] [facility] ([facility]) 5'3" Oxygen saturation in Arterial blood by Pulse oximetry 96 % 96 % [facility] ([facility]) Air Body mass index (BMI) [Ratio] 26.2 kg/m2 26.2 k g/m2 [facility] ([facility]) Diastolic blood pressure 60 mm[Hg] 60 mm[Hg] [facility] ([facility]) Systolic blood pressure 137 mm[Hg] 137 mm[Hg] M [facility] ([facility]) Diastolic blood pressure 68 mm[Hg] 68 mm[Hg] [facility] ([facility]) Systolic blood pressure 150 mm[Hg] 150 mm[Hg] M [facility] ([facility]) Body weight 148.00 [lb_av] 148.00 [lb_av] [employer] [facility] ([facility]) Body height 64 [in_i] 64 [in_i] [facility] ([facility]) 5'4" Body weight 147.00 [lb_av] 147.00 [lb_av] [facility] T ([facility]) Heart rate 76 /min 76 /min [facility] ([facility]) Irregular Respiratory rate 16 /min 16 /min [facility] ( [facility]) Systolic blood pressure 128 mm[Hg] 128 mm[Hg] M [facility] ([facility]) sitting, regular cuff Diastolic blood pressure 76 mm[Hg] 76 mm[Hg] [facility] ([facility]) sitting, regular cuff Body mass index (BMI) [Ratio] 25.2 kg/m2 25.2 k g/m2 [facility] ([facility]) Heart rate 78 /min 78 /min [facility] ([facility]) irregular Body height 63 [in_i] 63 [in_i] [facility] ([facility]) 5'3" Body weight 152.00 [lb_av] 152.00 [lb_av] MED[facility] T ([facility]) Body mass index (BMI) [Ratio] 26.9 kg/m2 26.9 k g/m2 [facility] ([facility]) Systolic blood pressure 160 mm[Hg] 160 mm[Hg] [facility] ([facility]) Diastolic blood pressure 72 mm[Hg] 72 mm[Hg] [facility] ([facility]) Body height 64 [in_i] 64 [in_i] [facility] 5'4" Body mass index (BMI) [Ratio] 25.6 kg/m2 25.6 k g/m2 [facility] ([facility]) Heart rate 56 /min 56 /min [facility] ([facility]) Irregular Respiratory rate 16 /min 16 /min [facility] ( [facility]) Systolic blood pressure 136 mm[Hg] 136 mm[Hg] M [facility] ([facility]) sitting, regular cuff Systolic blood pressure 132 mm[Hg] 132 mm[Hg] M [facility] ([facility]) sitting Diastolic blood pressure 64 mm[Hg] 64 mm[Hg] [facility] ([facility]) sitting Body weight 149.00 [lb_av] 149.00 [lb_av] [facility] T ([facility]) Diastolic blood pressure 64 mm[Hg] 64 mm[Hg] [facility] ([facility]) sitting, regular cuff Body weight 152.00 [lb_av] 152.00 [lb_av] [facility] T ([facility]) Body height 64 [in_i] 64 [in_i] [facility] 5'4" Body mass index (BMI) [Ratio] 26.1 kg/m2 26.1 k g/m2 [facility] ([facility]) Heart rate 76 /min 76 /min [facility] ([facility]) Irregular Respiratory rate 16 /min 16 /min [facility] ( [facility]) Systolic blood pressure 138 mm[Hg] 138 mm[Hg] M [facility] ([facility]) sitting, regular cuff Diastolic blood pressure 70 mm[Hg] 70 mm[Hg] [facility] ([facility]) sitting, regular cuff Body weight 150.00 [lb_av] 150.00 [lb_av] [facility] T ([facility]) Body height 64 [in_i] 64 [in_i] [facility] ([facility] 5'4" Body mass index (BMI) [Ratio] 25.7 kg/m2 25.7 k g/m2 [facility] ([facility]) Heart rate 72 /min 72 /min [facility] ([facility]) Regular Respiratory rate 16 /min 16 /min [facility] ( [facility]) Systolic blood pressure 128 mm[Hg] 128 mm[Hg] M [facility] ([facility]) sitting, regular cuff Diastolic blood pressure 70 mm[Hg] 70 mm[Hg] [facility] ([facility]) sitting, regular cuff Systolic blood pressure 154 mm[Hg] 154 mm[facility]Hg] [facility] Diastolic blood pressure 90 mm[Hg] 90 mm[Hg] [facility] ([facility]) Systolic blood pressure 130 mm[Hg] 130 mm[Hg] [facility] ([facility]) Diastolic blood pressure 65 mm[Hg] 65 mm[Hg] [facility] ([facility]) Heart rate 86 /min 86 /min [facility] ([facility]) Body height 63 [in_i] 63 [in_i] [facility] ([facility]) 5'3" Body weight 154.00 [lb_av] 154.00 [lb_av] MED[facility] T ([facility]) Body mass index (BMI) [Ratio] 27.3 kg/m2 27.3 k g/m2 [facility] ([facility]) Body weight 156.00 [lb_av] 156.00 [lb_av] [facility] T ([facility] [facility] Body height 64 [in_i] 64 [in_i] [facility] ([facility]) 5'4" Body mass index (BMI) [Ratio] 26.8 kg/m2 26.8 k g/m2 [facility] ([facility]) Heart rate 72 /min 72 /min [facility] ([facility]) Regular Respiratory rate 16 /min 16 /min [facility] ( [facility]) Systolic blood pressure 126 mm[Hg] 126 mm[Hg] M EDENT ([facility]) sitting, regular cuff Diastolic blood pressure 68 mm[Hg] 68 mm[Hg] MED[facility] ([facility]) sitting, regular cuff Body weight 159.00 [lb_av] 159.00 [lb_av] MEDEN T ([facility]) Body height 64 [in_i] 64 [in_i] [facility] ([facility] 5'4" Body mass index (BMI) [Ratio] 27.3 kg/m2 27.3 k g/m2 [facility] ([facility]) Heart rate 72 /min 72 /min [facility] ([facility]) Irregular Respiratory rate 16 /min 16 /min MED[facility] ( [facility]) Systolic blood pressure 126 mm[Hg] 126 mm[Hg] M EDENT ([facility]) sitting, regular cuff Diastolic blood pressure 64 mm[Hg] 64 mm[Hg] MED[facility] ([facility]) sitting, regular cuff Body mass index (BMI) [Ratio] 28.3 kg/m2 28.3 k g/m2 [facility] ([facility]) Body weight 165.00 [lb_av] 165.00 [lb_av] MEDEN T ([facility]) Body height 64 [in_i] 64 [in_i] [facility] ([facility]) 5'4" Heart rate 76 /min 76 /min MED[facility] ([facility]) Irregular Respiratory rate 16 /min 16 /min MED[facility] ( [facility]) Systolic blood pressure 126 mm[Hg] 126 mm[Hg] M EDENT ([facility]) sitting, regular cuff Diastolic blood pressure 66 mm[Hg] 66 mm[Hg] MED[facility] ([facility]) sitting, regular cuff Respiratory rate 16 /min 16 /min MED[facility] ( [facility]) Heart rate 104 /min 104 /min MED[facility] ([facility]) Irregular Body weight 166.00 [lb_av] 166.00 [lb_av] MEDEN T ([facility]) Body height 64 [in_i] 64 [in_i] [facility] ([facility] 5'4" Body mass index (BMI) [Ratio] 28.5 kg/m2 28.5 k g/m2 [facility] ([facility]) Systolic blood pressure 146 mm[Hg] 146 mm[Hg] M EDENT ([facility]) Body weight 160.00 [lb_av] 160.00 [lb_av] MEDEN T ([facility]) Diastolic blood pressure 80 mm[Hg] 80 mm[Hg] MEDENT ([facility]) Heart rate 100 /min 100 /min MED[facility] ([facility]) Body height 63 [in_i] 63 [in_i] MEDENT ([facility]) 5'3" Body mass index (BMI) [Ratio] 28.3 kg/m2 28.3 k g/m2 MEDENT ([facility])
[2021-03-13] MEDS ORDERED: D3 S20002 PO (22:45)
[2021-03-13] MEDS ORDERED: PRAV20TA2 PO (22:45)
[2021-03-13] MEDS ORDERED: ATEN50TA2 PO (22:46)
[2021-03-13] MEDS ORDERED: OYST500T92 PO (22:46)
[2021-03-13] MEDS ORDERED: MAGN400T2 PO (22:46)
[2021-03-13] MEDS ORDERED: ENTR1TAB PO (22:46)
[2021-03-13] MEDS ORDERED: VITMTA PO (22:46)
[2021-03-13] MEDS ORDERED: DOCU100C16 PO (22:46)
[2021-03-13] MEDS ORDERED: DIGO0.123 PO (22:46)
[2021-03-13] MEDS ORDERED: ASPI-161 PO (22:46)
[2021-03-13] MEDS ORDERED: ELIQ5TAB PO (22:46)
[2021-03-13] MEDS ORDERED: HOME MED LIST COMPLETE! XX SCH (22:50)
[2021-03-13] MEDS ORDERED: GLUCAGON INJ 1MG VIAL SC PRN (23:40)
[2021-03-13] MEDS ORDERED: GLUCOSE 4GM CHEW TABLET PO PRN (23:40)
[2021-03-13] MEDS ORDERED: DEXTROSE 50% 50 ML SYRINGE IV PRN (23:40)
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
[2021-03-14 00:41] VITALS: BP 160/64
[2021-03-14] MEDS: levETIRAcetam 250MG TABLET (KEPPRA) PO SCH ×3 (01:47→21:06)
[2021-03-14] MEDS: APIXABAN 5 MG TAB (ELIQUIS) PO SCH ×3 (01:47→21:07)
[2021-03-14] MEDS: PRAVASTATIN 20 MG TAB PO SCH ×2 (01:48→21:08)
[2021-03-14] MEDS: ENTRESTO 24-26MG TABLET (SACUBITRIL/VALSARTAN) PO SCH ×3 (01:48→21:08)
[2021-03-14 06:00] VITALS: BP 151/75
[2021-03-14] MEDS: FUROSEMIDE 100MG/10ML VIAL (J1940) IV SCH ×3 (06:05→21:09)
[2021-03-14 06:13] LABS: HEMATOCRIT 33.2 % (36.0-47.0); HEMOGLOBIN 10.5 g/dl (12.0-15.5); MEAN CORPUSCULAR HEMOGLOBIN 29.9 pg (27.0-33.0); MEAN CORPUSCULAR HGB CONC 31.6 g/dl (32.0-36.5); MEAN CORPUSCULAR VOLUME 94.6 fl (80.0-96.0); PLATELET COUNT, AUTOMATED 205 10^3/uL (150-450); RED BLOOD COUNT 3.51 10^6/uL (4.00-5.40); WHITE BLOOD COUNT 7.4 10^3/uL (4.0-10.0)
[2021-03-14 06:33] LABS: CALCIUM LEVEL 8.9 MG/DL (8.8-10.2); CREATININE FOR GFR 1.15 MG/DL (0.55-1.30); GLOMERULAR FILTRATION RATE 47.7 (>32); MAGNESIUM LEVEL 1.7 MG/DL (1.8-2.4); POTASSIUM SERUM 3.4 MEQ/L (3.5-5.1)
[2021-03-14] MEDS: HumaLOG INSULIN (NovoLOG) PER UNIT SC SCH ×4 (08:20→21:09)
[2021-03-14] MEDS: ASPIRIN 81MG ENTERIC TABLET PO SCH (08:20)
[2021-03-14] MEDS: MAGNESIUM OXIDE 400MG TAB (MAG-OX) PO SCH ×2 (08:20→21:08)
[2021-03-14] MEDS: DOCUSATE SODIUM 100MG CAPSULE PO SCH ×2 (08:20→21:07)
[2021-03-14] MEDS: DIGOXIN 0.125 MG TAB PO SCH (08:52)
[2021-03-14] MEDS: atenoloL 50 MG TAB PO SCH (08:54)
[2021-03-14 09:42] VITALS: O2SAT 96
[2021-03-14] MEDS ORDERED: POTASSIUM CHLORIDE 10MEQ SR TABLET PO ONE (11:00)
[2021-03-14 14:00] VITALS: BP 118/58
[2021-03-14 14:43] VITALS: BP 118/58
--- NOTE | 2021-03-14 17:31 | IPNPDOC ---
Text Note Date of Service The patient was seen on 03/14/21. NOTE S: Pt states she is feeling much better today compared to yesterday as her breathing has improved. Pt denies any chest tightness, chest pain, palpitations, cough, dizziness, SOB, dyspnea, or orthopnea. Pt states her lower extremity edema has gotten much better today. Pt states her diuretics make her go to the bathroom every few hours. ROS: CONSTITUTIONAL: Denies fevers, chills, headaches. HEENT: Denies sore throat, lymphadenopathy. CARDIOPULMONARY: Denies chest pain, chest tightness, palpitations, cough, dizziness, SOB, dyspnea. GASTROINTESTINAL: Denies abd pain, n/v/d/c. GENITOURINARY: Denies dysuria. MUSCULOSKELETAL: Denies muscle pain, weakness. O: Physical Examination: VITAL SIGNS: See below GENERAL: Pt was sitting comfortably in bed, awake and alert. Pt is a pleasant elderly woman who looks her stated age and in NAD. HEENT: Head NC and AT. Moist mucous membranes NECK: No tracheal deviation, adenopathy, nares patent. LUNGS: CTA bilaterally with diminished breath sounds at the bases. No wheezes, rhonchi, rales. HEART: RRR. S1S2. No m/r/g. ABDOMEN: Soft and non-tender. No masses or organomegaly. EXTREMITIES: 1+ LE edema bilaterally. Pedal pulses 2+. MUSCULOSKELETAL: Moves all extremities, equal strength b/l. SKIN: Well healed scar in left upper chest from pacemaker placed under skin Imaging: Chest x-ray 03/13: IMPRESSION: -Right pleural effusion. -Increased interstitial markings demonstrated bilaterally without segmental or lobar infiltrates. A/P: Mrs. 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 # Acute decompensated CHF -Pt improved symptomatically -BNP 03/13 was 11078, baseline around 5000 -s/p 80mg IV Lasix bolus -c/t 60mg IV Lasix q8hr -c/t daily weighs, I/O's, 1500cc fluid restriction, 2gm sodium diet -I/O net -1600 mL -Follows with Dr. Humphrey, states her last echocardiogram was done within the past 6 months but is uncertain -Echocardiogram 03/14 pending # Bilateral pleural effusions 2/2 above -CXR 03/14 results as above -Chest CT from 03/09/21 showed bilateral pleural effusions -Repeat chest x-ray ordered for AM -Pt clinically improving. Less likely need to consult IR for thoracentesis. # Hypomagnesium -Mg 1.7 today -Will continue home Magnesium oxide # Hypokalemia -K 3.4 today -Will replete with KCl # Chronic Afib controlled with AC -EKG 03/13 show rate controlled atrial fibrillation (63) with occasional ventricular paced complexes. QT 347 -c/t home eliquis, atenolol, digoxin #NIDDMT2 -FSBG AC/HS -c/t ISS with Lispro and hypoglycemic protocol # CAD s/p myocardial infarction in 1987 -c/t home ASA and pravastatin # s/p left parietal benign meningioma resection (2014) -continue levetiracetam -Follows with Dr. 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 Attending Attestation: I personally performed the physical exam and medical decision making and discussed the management with the medical student. I reviewed the medical student's note and I hereby verify the history, physical exam, and medical decision-making documented by the medical student, the documented findings, and plan of care. VS,Fishbone, I+O VS, Fishbone, I+O Laboratory Tests 03/13/21 20:40 03/14/21 05:37 Vital Signs Date Time Temp Pulse Resp B/P (MAP) Pulse Ox O2 Delivery O2 Flow Rate FiO2 03/14/21 09:42 96 Nasal Cannula 1.0 03/14/21 08:52 58 03/14/21 06:00 98.3 20 151/75 (100) I&O- Last 24 Hours up to 6 AM 03/14/21 06:00 Output Total 450 ml Balance -450 ml MOE HOLLIDAY OMS-4 Mar 14, 2021 11:31 LEONILA KIRK D.O. Mar 14, 2021 17:43 ELIZABET MCGEE MD Mar 15, 2021 06:25
[2021-03-14 22:00] VITALS: BP 150/65
[2021-03-15] MEDS: FUROSEMIDE 100MG/10ML VIAL (J1940) IV SCH ×3 (05:48→21:17)
[2021-03-15 06:00] VITALS: BP 137/62
[2021-03-15 06:43] LABS: HEMATOCRIT 33.2 % (36.0-47.0); HEMOGLOBIN 10.7 g/dl (12.0-15.5); MEAN CORPUSCULAR HEMOGLOBIN 30.7 pg (27.0-33.0); MEAN CORPUSCULAR HGB CONC 32.2 g/dl (32.0-36.5); MEAN CORPUSCULAR VOLUME 95.4 fl (80.0-96.0); PLATELET COUNT, AUTOMATED 197 10^3/uL (150-450); RED BLOOD COUNT 3.48 10^6/uL (4.00-5.40); WHITE BLOOD COUNT 6.3 10^3/uL (4.0-10.0)
[2021-03-15 06:57] LABS: CALCIUM LEVEL 8.5 MG/DL (8.8-10.2); CREATININE FOR GFR 1.21 MG/DL (0.55-1.30); MAGNESIUM LEVEL 1.8 MG/DL (1.8-2.4); POTASSIUM SERUM 3.7 MEQ/L (3.5-5.1)
[2021-03-15] MEDS: atenoloL 50 MG TAB PO SCH (09:00)
[2021-03-15] MEDS: DIGOXIN 0.125 MG TAB PO SCH (09:17)
[2021-03-15] MEDS: ASPIRIN 81MG ENTERIC TABLET PO SCH (09:17)
[2021-03-15] MEDS: MAGNESIUM OXIDE 400MG TAB (MAG-OX) PO SCH ×2 (09:17→21:17)
[2021-03-15] MEDS: APIXABAN 5 MG TAB (ELIQUIS) PO SCH ×2 (09:17→21:16)
[2021-03-15] MEDS: ENTRESTO 24-26MG TABLET (SACUBITRIL/VALSARTAN) PO SCH ×2 (09:17→21:16)
[2021-03-15] MEDS: DOCUSATE SODIUM 100MG CAPSULE PO SCH ×2 (09:17→21:16)
[2021-03-15] MEDS: levETIRAcetam 250MG TABLET (KEPPRA) PO SCH ×2 (09:17→21:17)
[2021-03-15] MEDS: HumaLOG INSULIN (NovoLOG) PER UNIT SC SCH ×4 (09:18→21:00)
--- NOTE | 2021-03-15 10:27 | IPNPDOC ---
Text Note Date of Service The patient was seen on 03/15/21. NOTE S: Pt states she is feeling "great" today and is feels better compared to yesterday. Pt denies any chest tightness, chest pain, palpitations, cough, dizziness, SOB, dyspnea, or orthopnea. Pt states she is happy to get a longer nasal canula so then she could go to the bathroom easier by herself. When informed her about her desaturation overnight, pt states she slept so well she didn't even know they placed a nasal canula on her overnight. Pt states she does not normally sleep with oxygen and she usually sleeps on her back or right side. Pt has no other complaints and is wondering when she could go home. ROS: CONSTITUTIONAL: Denies fevers, chills, headaches. HEENT: Denies sore throat, lymphadenopathy. CARDIOPULMONARY: Denies chest pain, chest tightness, palpitations, cough, dizziness, SOB, dyspnea. GASTROINTESTINAL: Denies abd pain, n/v/d/c. GENITOURINARY: Denies dysuria. MUSCULOSKELETAL: Denies muscle pain or weakness. Acute events overnight include pt desaturated to spO2 76% overnight and was placed on a NC which was titrated up to 3L O2. Pt now sating at spO2 >92% on 2L. O: Physical Examination: VITAL SIGNS: See below GENERAL: Pt was standing at doorway but went to go but sat comfortably at side of bed upon examination wearing a nasal canula at 2L. Pt awake and alert. Pt is a pleasant energetic elderly woman who looks her stated age and in NAD. HEENT: Head NC and AT. Moist mucous membranes. EOIM. NECK: No tracheal deviation, adenopathy, nares patent. LUNGS: CTA bilaterally with diminished breath sounds at the bases, R>L. No wheezes, rhonchi, rales. HEART: RRR. S1S2. No m/r/g. ABDOMEN: Soft and non-tender. No masses or organomegaly. EXTREMITIES: 1+ LE edema bilaterally up to below knee, 2+ bilaterally at the ankles. Pedal pulses 2+. MUSCULOSKELETAL: Moves all extremities, equal strength b/l. SKIN: Well healed scar in left upper chest from pacemaker placed under skin Imaging: CXR 03/13 IMPRESSION: -Right pleural effusion. -Increased interstitial markings demonstrated bilaterally without segmental or lobar infiltrates. CXR 03/15 IMPRESSION: -No significant change other than technique. -Persistent right basilar abnormalities as described above and previously. ECHO 03/14: -LVEF 60% -Underlying atrial fibrillation with controlled ventricular response. Appropriate intermittent ventricular paced beats -Borderline left ventricular hypertrophy with normal left ventricular cavity size. Localized proximal inferior hypo- to akinesis, but other left ventricular wall segments moved normally. Preserved global resting systolic function. -Moderately dilated left atrium as visualized from the apical projections with current estimated mean left atrial pressure upper limits of normal. Normal right ventricular size and motion with Doppler evidence of a mild pulmonary hypertension. -Normal aortic dimensions. -Mild aortic valvular sclerosis without stenosis or apparent insufficiency. -Moderate degenerative changes of the mitral valvular apparatus with adequate leaflet excursion and no posterior systolic buckling. Moderately severe mitral insufficiency. -Normal appearing tricuspid valve with mild to moderate insufficiency. -No apparent intracardiac mass of pericardial effusion. -Large left pleural effusion. A/P: Mrs. 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 # Acute decompensated CHF with preserved ejection fraction -Possibly due to decompensation from previous NE vs sinus sick syndrome vs valvular deficiency. Less likely infection or malignancy -Pt improved symptomatically -BNP 03/13 was 75033, baseline around 5000 -s/p 80mg IV Lasix bolus -c/t 60mg IV Lasix q8hr -c/t daily weighs, I/O's, 1500cc fluid restriction, 2gram sodium diet -I/O net -2320 mL yesterday -Follows with Dr. Humphrey, states her last echocardiogram was done within the past 6 months but is uncertain -Echocardiogram 03/14 findings as described above. # Bilateral pleural effusions 2/2 above, improving -Chest CT from 03/09/21 showed bilateral pleural effusions -Repeat CXR 03/15 show improvement in infiltration compared to 03/13. Still have some pleural effusion present. Will c/t IV diuresis. -Will start incentive spirometry to improve breathing -Pt clinically improving. Less likely need to consult IR for thoracentesis. # YADI present on admission, improving -Likely due to pre-renal 2/2 decreased perfusion from CHF exacerbation. -Cr elevated at 1.31 upon admission. Trending down to 1.21. -Baseline Cr ~1.0 -Will hold of IVF due to pt's CHF. Will continue to monitor. # Hypomagnesemia, resolved -Likely due to diuretic use -Mg 1.8 today -Will continue home Magnesium oxide # Hypokalemia, resolved -Likely due to diuretic use -K 3.7 today. Will continue to monitor. -s/p KCl # Chronic Afib controlled with AC, stable -EKG 03/13 show rate controlled atrial fibrillation (63) with occasional ventricular paced complexes. QT 347 -c/t home eliquis, atenolol, digoxin (levels WNL at 1.5) -Pt in normal sinus rhythm # NIDDMT2 -FSBG AC/HS -c/t ISS with Lispro and hypoglycemic protocol # CAD s/p myocardial infarction in 1987 -c/t home ASA and pravastatin # s/p left parietal benign meningioma resection (2014) -c/t levetiracetam -Follows with Dr. Will # Stage III lymphoplasmacytic B cell non-Hodgkin lymphoma -Treated with 5 cycles of CHOP and 1 cycle of R CHOP 1998 -Recurrence in 2001 and treated with 6 cycles of FCR -No evidence of disease since 2001 # Sinus sick syndrome s/p dual chamber pacemaker implantation (2016) -Dual pacemaker placed #HTN - as above, receiving entresto, lasix DVT Ppx: Pt on home Eliquis Diet: 2 gram sodium diet Code: DNR/DNI Disposition: Anticipate discharge home pending clinical improvement Attending Attestation: I personally performed the physical exam and medical decision making and discussed the management with the medical student. I reviewed the medical student's note and I hereby verify the history, physical exam, and medical decision-making documented by the medical student, the documented findings, and plan of care. VS,Fishbone, I+O VS, Fishbone, I+O Laboratory Tests 03/15/21 05:18 Vital Signs Date Time Temp Pulse Resp B/P (MAP) Pulse Ox O2 Delivery O2 Flow Rate FiO2 03/15/21 09:17 64 03/15/21 06:00 97.9 18 137/62 (87) 95 Nasal Cannula 2.0 I&O- Last 24 Hours up to 6 AM 03/15/21 06:00 Intake Total 780 ml Output Total 2950 ml Balance -2170 ml MOE HOLLIDAY OMS-4 Mar 15, 2021 10:26 LEONILA KIRK D.O. Mar 15, 2021 19:18 ELIZABET MCGEE MD Mar 16, 2021 06:36
--- NOTE | 2021-03-15 10:44 | REP ---
INDICATION: pleural effusion. COMPARISON: Multiple the latest 03/13/2021 at 8:28 p.m. a portable exam TECHNIQUE: PA and lateral FINDINGS: Cardiomediastinal silhouette is stable. The dual chamber bipolar pacemaker device is stable. Right basilar opacities and right pleural effusion are unchanged. No new abnormal opacities have developed. IMPRESSION: No significant change other than technique. Persistent right basilar abnormalities as described above and previously. <Electronically signed by Rehan Duran > 03/15/21 1370
--- NOTE | 2021-03-15 12:57 | ECHO ---
ECHOCARDIOGRAM DATE OF PROCEDURE: 03/14/2021 Age: 85 Gender: Female Height: 62 inches Weight: 147 pounds Body Surface Area: 1.68 m2 PATIENT LOCATION: Inpatient, [address] [place] [address], Room 4204. REFERRING PHYSICIAN: Alysha Guan D.O. INDICATION: Heart Failure (unspecified). MEASUREMENTS: 2D Measurements: RV - 3.9 cm LV - 4.6 cm Septum 1.2 cm Posterior wall 1.2 cm Aortic root 3.2 cm LA - 4.2 cm LVEF 60% Doppler Measurements: AV - 1.47 m/sec LVOT - 0.84 m/sec LVOT diameter 1.9 cm MV-E 96 Early mitral deceleration time 140 msec E prime medial 6.9 E prime lateral 9.9 Average E/E prime ratio 11.4/PCWP 16.2 mmHg PV - 0.8 m/sec Pulmonary artery acceleration time 109 msec RVSP - 34 mmHg IVC - 1.4 cm COMMENTS: Underlying atrial fibrillation with controlled ventricular response. Appropriate intermittent ventricular paced beats. M-mode and 2-dimensional cardiography was performed with pulse, continuous wave, color flow and tissue Doppler studies. Borderline left ventricular hypertrophy with normal left ventricular cavity size. Localized proximal inferior hypo- to akinesis, but other left ventricular wall segments moved normally. Preserved global resting systolic function. Moderately dilated left atrium as visualized from the apical projections with current estimated mean left atrial pressure upper limits of normal. Normal right ventricular size and motion with Doppler evidence of a mild pulmonary hypertension. At least mildly dilated right atrium, but normal to slightly reduced inferior vena cava (IVC) size with adequate respiratory collapse against an elevated central venous pressure at this time. Normal aortic dimensions. Mild aortic valvular sclerosis without stenosis or apparent insufficiency. Moderate degenerative changes of the mitral valvular apparatus with adequate leaflet excursion and no posterior systolic buckling. Moderately severe mitral insufficiency. Normal appearing tricuspid valve with mild to moderate insufficiency. No apparent intracardiac mass of pericardial effusion. Large left pleural effusion.
[2021-03-15 14:00] VITALS: BP 132/56
--- NOTE | 2021-03-15 19:58 | ECGEPIP ---
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
[2021-03-15] MEDS: PRAVASTATIN 20 MG TAB PO SCH (21:16)
[2021-03-15 22:00] VITALS: BP 126/60
[2021-03-16 06:00] VITALS: BP 120/50
[2021-03-16] MEDS: FUROSEMIDE 100MG/10ML VIAL (J1940) IV SCH (06:00)
[2021-03-16 06:35] LABS: HEMATOCRIT 32.7 % (36.0-47.0); HEMOGLOBIN 10.6 g/dl (12.0-15.5); MEAN CORPUSCULAR HEMOGLOBIN 30.3 pg (27.0-33.0); MEAN CORPUSCULAR HGB CONC 32.4 g/dl (32.0-36.5); MEAN CORPUSCULAR VOLUME 93.4 fl (80.0-96.0); PLATELET COUNT, AUTOMATED 197 10^3/uL (150-450); WHITE BLOOD COUNT 7.2 10^3/uL (4.0-10.0)
[2021-03-16 07:04] LABS: CALCIUM LEVEL 8.4 MG/DL (8.8-10.2); CREATININE FOR GFR 1.32 MG/DL (0.55-1.30); GLOMERULAR FILTRATION RATE 40.7 (>32); MAGNESIUM LEVEL 2.1 MG/DL (1.8-2.4); POTASSIUM SERUM 3.4 MEQ/L (3.5-5.1)
[2021-03-16] MEDS ORDERED: POTASSIUM CHLORIDE 10MEQ SR TABLET PO ONE (09:00)
[2021-03-16] MEDS: HumaLOG INSULIN (NovoLOG) PER UNIT SC SCH ×2 (09:50→12:00)
[2021-03-16] MEDS: DOCUSATE SODIUM 100MG CAPSULE PO SCH (09:51)
[2021-03-16 09:53] VITALS: BP 140/70
[2021-03-16] MEDS: MAGNESIUM OXIDE 400MG TAB (MAG-OX) PO SCH (09:53)
[2021-03-16] MEDS: atenoloL 50 MG TAB PO SCH (09:53)
[2021-03-16] MEDS: levETIRAcetam 250MG TABLET (KEPPRA) PO SCH (09:53)
[2021-03-16] MEDS: APIXABAN 5 MG TAB (ELIQUIS) PO SCH (09:53)
[2021-03-16] MEDS: ASPIRIN 81MG ENTERIC TABLET PO SCH (09:53)
[2021-03-16] MEDS: DIGOXIN 0.125 MG TAB PO SCH (09:53)
[2021-03-16] MEDS: ENTRESTO 24-26MG TABLET (SACUBITRIL/VALSARTAN) PO SCH (09:57)
[2021-03-16] MEDS ORDERED: TORS10TA3 PO (10:25)
--- NOTE | 2021-03-16 11:01 | DS.PDOC ---
Discharge Summary General Date of Admission Mar 13, 2021 at 22:00 Date of Discharge March 16, 2021 Attending Physician: ELIZABET MCGEE MD Discharge Summary PROCEDURES PERFORMED DURING STAY: None. ADMITTING DIAGNOSES: 1. Pleural effusions 2. Chronic atrial fibrillation controlled with anticoagulation 3. Diabetes mellitus DISCHARGE DIAGNOSES: 1. Acute decompensated congestive heart failure with preserved ejection fraction 2. Chronic atrial fibrillation controlled with anticoagulation 3. NIDDMT2 4. HTN COMPLICATIONS/CHIEF COMPLAINT: Chf Exacerbation. HISTORY OF PRESENT ILLNESS: Mrs. Lopez is a pleasant 85 year old female who presented to the Emergency Department after receiving a call 03/13/2021 from her PCP advising her to present to the emergency room immediately because she had "fluid on her lungs" on recent imaging. She had an outpatient chest CT on 03/09/2021 that showed bilateral pleural effusions. Patient states she has been feeling short of breath with exertion for "the last few months" and has had swelling in her legs on and off since April 2020. According to the patient, she was started on torsemide around April 2020 soon after the swelling in her legs started by Dr. Humphrey's office. Her PCP increased her dose of torsemide to 10mg QID (20mg AM and 20mg PM) over the last few months in the hopes of managing her symptoms in an outpatient setting. Patient states she becomes short of breath from walking around her home but denies difficulty breathing at rest. Patient denies chest pain, palpitations, cough, dizziness, loss of consciousness, or recent falls, PND, orthopnea and has no difficulty sleeping flat. Patient states she urinates every 15 minutes for 3-4 hours after taking her torsemide in the morning and evening. Upon arrive in the ED, patient was found to have an elevated BNP of 12,661 (baseline ~5,000). Chest X-ray obtained 03/13/2021 showed a "right pleural effusion and increased interstitial markings demonstrated bilaterally without segmental or lobar infiltrates." Pt was sating at 93% on room air but was found to de-saturate to 89% with movement and was placed on on 1L NS. A bolus of IV Lasix 80 mg was given to help with diuresis and was admitted for CHF exacerbation. HOSPITAL COURSE: Upon arrival to the floor, patient was switched to IV Lasix 60 mg q8hr and diuresed more than 2L of urine. Echocardiogram 03/14/2021 showed LVEF of 60% with preserved global resting systolic function and no apparent intracardiac mass of pericardial effusion and a large left pleural effusion. Patient continued to improve symptomatically on 03/14/2021 and was taken off NC. Patient's potassium and magnesium were found to be low and was repeated with KCl and magnesium oxide with patient responding well to treatment. The patient was found to be hypoxic over the night of 03/14/2021 and was placed on NC of 3L. Patient stated she "slept so well that she didn't even notice they placed the nasal canula on her overnight." Patient states she does not normally sleep with oxygen. A repeat chest X-ray was done on 03/15/2021 and showed persistent right basilar abnormalities which were similar to seen previously. Patients oxygen de cesar was weaned off to room air and the patient continued to deny SOB or dyspnea and was walking around out of bed. Patient's home Eliquis, atenolol, and digoxin were continued throughout the hospital stay and had no acute changes in her atrial fibrillation. Patient is medically cleared and no longer requires hospitalization. On discharge, patient's home torsemide dose was increased. DISCHARGE MEDICATIONS: Please see below. ALLERGIES: Please see below. PHYSICAL EXAMINATION ON DISCHARGE: VITAL SIGNS: Please see below. GENERAL: Pt is a pleasant and energetic elderly woman who looks her stated age sitting at side up bed AAO x4 and in NAD. HEENT: Head NC and AT. EOIM, moist mucous membranes, no JVD or adenopathy, trachea midline. CARDIOVASCULAR EXAMINATION: CTA bilaterally with diminished breath sounds at the bases with R>L. No wheezes, rhonchi, rales. RESPIRATORY EXAMINATION: RRR. S1S2. No murmurs, rubs, gallops. ABDOMINAL EXAMINATION: Soft, non-tender, non-distended. No masses or or ganomegaly. Bowel sounds appreciated. EXTREMITIES: Trace edema at the ankles, pedal pulses 2+. SKIN: Well healed scar in left upper chest from previous pacemaker placement. No erythema or rashes. NEUROLOGICAL EXAMINATION: Strength 5/5 with and equal bilaterally in both upper and lower extremities PSYCHIATRIC EXAMINATION: Mood and affect appropriate. LABORATORY DATA: Please see below. IMAGING: CXR 03/13/2021 IMPRESSION: -Right pleural effusion. -Increased interstitial markings demonstrated bilaterally without segmental or lobar infiltrates. CXR 03/15/2021 IMPRESSION: -No significant change other than technique. -Persistent right basilar abnormalities as described above and previously. ECHO 03/14/2021 -LVEF 60% -Underlying atrial fibrillation with controlled ventricular response. Appropriate intermittent ventricular paced beats -Borderline left ventricular hypertrophy with normal left ventricular cavity size. Localized proximal inferior hypo- to akinesis, but other left ventricular wall segments moved normally. Preserved global resting systolic function. -Moderately dilated left atrium as visualized from the apical projections with current estimated mean left atrial pressure upper limits of normal. Normal right ventricular size and motion with Doppler evidence of a mild pulmonary hypertension. -Normal aortic dimensions. -Mild aortic valvular sclerosis without stenosis or apparent insufficiency. -Moderate degenerative changes of the mitral valvular apparatus with adequate leaflet excursion and no posterior systolic buckling. Moderately severe mitral insufficiency. -Normal appearing tricuspid valve with mild to moderate insufficiency. -No apparent intracardiac mass of pericardial effusion. -Large left pleural effusion. PROGNOSIS: Good ACTIVITY: As tolerated. DIET: 2 gram sodium diet DISCHARGE PLAN: 1. Start home torsemide 10 mg PO TID 2. Continue home med Entresto 24-26 mg PO BID 3. Continue other home meds as prescribed. DISPOSITION: Home DISCHARGE INSTRUCTIONS: Follow-up with your PCP in 7-10 days Follow-up with cardiology in 2 weeks Please note higher dosing of torsemide on your medication list. You will take 3 tablets of torsemide twice a day. If your symptoms return or your condition worsens, please call your PCP or return to the ED for further evaluation. DISCHARGE CONDITION: Stable. TIME SPENT ON DISCHARGE: 35 minutes. Attending Attestation: I personally performed the physical exam and medical decision making and discussed the management with the medical student. I reviewed the medical student's note and I hereby verify the history, physical exam, and medical decision-making documented by the medical student, the documented findings, and plan of care. Vital Signs/I&Os Vital Signs Date Time Temp Pulse Resp B/P (MAP) Pulse Ox O2 Delivery O2 Flow Rate FiO2 03/16/21 09:53 76 03/16/21 09:53 140/70 03/16/21 06:00 98.0 16 92 Room Air 03/15/21 14:00 2.0 I&O- Last 24 Hours up to 6 AM 03/16/21 06:00 Intake Total 970 ml Output Total 600 ml Balance 370 ml Laboratory Data Labs 24H Laboratory Tests 2 03/15/21 11:41: Bedside Glucose (Misc Panel) 118H 03/15/21 17:07: Bedside Glucose (Misc Panel) 117H 03/15/21 20:13: Bedside Glucose (Misc Panel) 237H 03/16/21 05:38: Nucleated Red Blood Cells % (auto) 0.0, Anion Gap 9, Glomerular Filtration Rate 40.7, Calcium Level 8.4L, Magnesium Level 2.1 CBC/BMP Laboratory Tests 03/16/21 05:38 FSBS Laboratory Tests Test 03/15/21 11:41 03/15/21 17:07 03/15/21 20:13 Range/Units Bedside Glucose (Misc Panel) 118 117 237 83-110 MG/DL Discharge Medications Scheduled Apixaban (Eliquis) 5 Mg Tablet, 5 MG PO BID, (Reported) Aspirin (Aspirin EC) 81 Mg Tablet.dr, 81 MG PO DAILY, (Reported) Atenolol (Atenolol) 50 Mg Tablet, 50 MG PO DAILY, (Reported) Calcium Carbonate/Vitamin D3 (Calcium 500-Vit D3 200 Tablet) 1 Each Tablet, 1 TAB PO DAILY, (Reported) Cholecalciferol (Vitamin D3) (Vitamin D3) 50 Mcg Capsule, 50 MCG PO DAILY, (Reported) Digoxin (Digoxin) 125 Mcg Tablet, 125 MCG PO DAILY, (Reported) Magnesium Oxide (Magnesium Oxide) 400 Mg Tablet, 400 MG PO BID, (Reported) Metformin HCl (Metformin HCl) 1,000 Mg Tab, 1,000 MG PO BID, (Reported) Multivitamins (Thera M Plus Tablet) 1 Each Tablet, 1 TAB PO DAILY, (Reported) Pravastatin Sodium (Pravastatin Sodium) 20 Mg Tablet, 20 MG PO QHS, (Reported) Sacubitril/Valsartan (Entresto 24 mg-26 mg Tablet) 1 Each Tablet, 1 TAB PO BID, (Reported) Torsemide (Torsemide) 10 Mg Tablet, 30 MG PO BID levETIRAcetam (levETIRAcetam) 500 Mg Tablet, 500 MG PO BID, (Reported) Scheduled PRN Docusate Sodium (Docusate Sodium) 100 Mg Capsule, 100 MG PO BID PRN for CONSTIPATION, (Reported) Nitroglycerin (Nitrostat) 0.4 Mg Subl, 0.4 MG SL NITRO PRN for CHEST PAIN, (Reported) Allergies Coded Allergies: No Known Allergies (Unverified , 09/07/18) MOE HOLLIDAY OMS-4 Mar 16, 2021 11:00 ELIZABET MCGEE MD Mar 16, 2021 16:23 LEONILA KIRK D.O. Mar 16, 2021 17:35
== END 2021-03-16 12:43 | disposition home or self-care (01) | DRG 291 ==
LOC: M ED 19:36 → M ED INP 22:00 → M MSPAV 03-14 00:40
PROVIDERS: ADMIT Family Medicine; ATTEND Internal Medicine
DX: I11.0 Hypertensive heart disease with heart failure (principal); I50.33 Acute on chronic diastolic (congestive) heart failure; I48.20 Chronic atrial fibrillation, unspecified; N17.9 Acute kidney failure, unspecified; E11.9 Type 2 diabetes mellitus without complications; E87.6 Hypokalemia; E83.42 Hypomagnesemia; Z79.01 Long term (current) use of anticoagulants; Z79.82 Long term (current) use of aspirin; Z79.899 Other long term (current) drug therapy; Z87.891 Personal history of nicotine dependence; I25.2 Old myocardial infarction; I25.10 Atherosclerotic heart disease of native coronary artery without angina pectoris; Z66 Do not resuscitate

== ENCOUNTER → 2021-03-26 | Outpatient (REF) | payer MEDICARE, BC ==
[~2021-03-26] MED LIST changes: +ASPI-161 PO; +D3 S20002 PO; +DOCU100C16 PO; +MAGN400T2 PO; +OYST500T92 PO; +PRAV20TA2 PO; +VITMTA PO
[2021-03-26 13:29] LABS: CALCIUM LEVEL 9.4 MG/DL (8.8-10.2); CREATININE FOR GFR 1.47 MG/DL (0.55-1.30); MAGNESIUM LEVEL 2.3 MG/DL (1.8-2.4); POTASSIUM SERUM 4.6 MEQ/L (3.5-5.1)
== END ==
LOC: M LABDRWAD 12:14
PROVIDERS: ATTEND Physician Assistant
DX: I48.0 Paroxysmal atrial fibrillation (principal); I50.42 Chronic combined systolic (congestive) and diastolic (congestive) heart failure; Z79.01 Long term (current) use of anticoagulants

== ENCOUNTER → 2021-03-29 | Outpatient (CLI) | payer MEDICARE, BC ==
--- NOTE | 2021-03-29 15:15 | REP ---
INDICATION: CHRONIC COMBINED SYSTOLIC AND DIASTOLIC HRT FAIL, PLEURAL EF. COMPARISON: Multiple the latest 03/07/2021 TECHNIQUE: PA and lateral FINDINGS: The cardiomediastinal silhouette and pacemaker device are unchanged. There are chronic bibasilar opacities with chronic bilateral CP angle blunting status quo. No new abnormal opacities have developed. There is no change in the osseous structures. IMPRESSION: Stable appearing chronic changes as described above. <Electronically signed by Rehan Duran > 03/29/21 [id number]
== END ==
LOC: M ADAMS 14:21
PROVIDERS: ATTEND Physician Assistant
DX: I50.42 Chronic combined systolic (congestive) and diastolic (congestive) heart failure (principal); J90 Pleural effusion, not elsewhere classified; Z95.0 Presence of cardiac pacemaker

== ENCOUNTER → 2021-04-11 | Outpatient (REF) | payer MEDICARE, BC ==
[2021-04-11 13:42] LABS: CALCIUM LEVEL 9.4 MG/DL (8.8-10.2); CREATININE FOR GFR 1.41 MG/DL (0.55-1.30); GLOMERULAR FILTRATION RATE 37.7 (>32); POTASSIUM SERUM 4.3 MEQ/L (3.5-5.1)
== END ==
LOC: M LABDRWAD 13:15
PROVIDERS: ATTEND Physician Assistant
DX: I50.42 Chronic combined systolic (congestive) and diastolic (congestive) heart failure (principal)

== ENCOUNTER → 2021-04-26 | Outpatient (CLI) | payer MEDICARE, BC ==
--- NOTE | 2021-04-26 16:45 | REP ---
INDICATION: CHF, EFFUSION COMPARISON: 03/29/2021. TECHNIQUE: PA/Lateral FINDINGS: The moderate right pleural effusion has slightly increased in size. There is mild adjacent parenchymal opacity which is stable. There is mild stable interstitial opacity in the left lung base. The heart and mediastinum are unchanged. Left 2 lead pacemaker is unchanged. There are degenerative changes of the spine. IMPRESSION: Mild increase in size of moderate right effusion. Mild stable adjacent right base parenchymal opacity. <Electronically signed by Jose A Curry > 04/26/21 [id number]
== END ==
LOC: M ADAMS 13:16
PROVIDERS: ATTEND Family Medicine
DX: I50.9 Heart failure, unspecified (principal)

== ENCOUNTER → 2021-05-10 | Outpatient (REF) | payer MEDICARE, BC ==
[2021-05-10 13:15] LABS: CALCIUM LEVEL 9.5 MG/DL (8.8-10.2); CREATININE FOR GFR 1.46 MG/DL (0.55-1.30); GLOMERULAR FILTRATION RATE 36.2 (>32); MAGNESIUM LEVEL 2.3 MG/DL (1.8-2.4)
== END ==
LOC: M LABDRWAD 12:30
PROVIDERS: ATTEND Physician Assistant
DX: I50.42 Chronic combined systolic (congestive) and diastolic (congestive) heart failure (principal)

== ENCOUNTER → 2021-06-22 | Outpatient (REF) | payer MEDICARE, BC ==
[2021-06-22 17:44] LABS: CALCIUM LEVEL 9.4 MG/DL (8.8-10.2); CREATININE FOR GFR 1.48 MG/DL (0.55-1.30); GLOMERULAR FILTRATION RATE 35.6 (>32); POTASSIUM SERUM 3.9 MEQ/L (3.5-5.1)
[2021-06-23 17:14] LABS: MAGNESIUM LEVEL 2.2 MG/DL (1.7-2.2)
== END ==
LOC: M LABDRWAD 16:42
PROVIDERS: ATTEND Physician Assistant
DX: I50.42 Chronic combined systolic (congestive) and diastolic (congestive) heart failure (principal)

== ENCOUNTER → 2021-06-29 | Outpatient (CLI) | payer MEDICARE, BC | LOC: M ADAMS 10:15 | PROVIDERS: ATTEND Family Medicine | DX: J98.11 Atelectasis (principal); J91.8 Pleural effusion in other conditions classified elsewhere ==

== ENCOUNTER → 2021-09-25 | Outpatient (CLI) | payer MEDICARE, BC ==
[2021-09-25 13:18] LABS: CALCIUM LEVEL 9.6 MG/DL (8.8-10.2); CREATININE FOR GFR 1.66 MG/DL (0.55-1.30); GLOMERULAR FILTRATION RATE 31.2 (>32); MAGNESIUM LEVEL 2.3 MG/DL (1.8-2.4); POTASSIUM SERUM 4.5 MEQ/L (3.5-5.1)
== END ==
LOC: M ADAMS 10:43
PROVIDERS: ATTEND Physician Assistant
DX: I50.42 Chronic combined systolic (congestive) and diastolic (congestive) heart failure (principal)

== ENCOUNTER → 2021-10-25 | Outpatient (CLI) | payer MEDICARE, BC | LOC: M ADAMS 13:31 | PROVIDERS: ATTEND Family Medicine | DX: J90 Pleural effusion, not elsewhere classified (principal) ==

== ENCOUNTER → 2021-11-21 | Outpatient (CLI) | payer MEDICARE, BC ==
[~2021-11-21] MED LIST changes: +FERR325T3 PO
== END ==
LOC: M RAD 07:13
PROVIDERS: ATTEND Internal Medicine Medical Oncology
DX: N28.9 Disorder of kidney and ureter, unspecified (principal)

== ENCOUNTER → 2022-01-01 | Outpatient (CLI) | payer MEDICARE, BC ==
[~2022-01-01] MED LIST changes: +INDA1.253 PO; -INDA125TA PO
[2022-01-01 13:16] LABS: HEMATOCRIT 36.9 % (36.0-47.0); HEMOGLOBIN 11.6 g/dl (12.0-15.5); MEAN CORPUSCULAR HEMOGLOBIN 32.4 pg (27.0-33.0); MEAN CORPUSCULAR HGB CONC 31.4 g/dl (32.0-36.5); MEAN CORPUSCULAR VOLUME 103.1 fl (80.0-96.0); PLATELET COUNT, AUTOMATED 219 10^3/uL (150-450); RED BLOOD COUNT 3.58 10^6/uL (4.00-5.40); WHITE BLOOD COUNT 7.2 10^3/uL (4.0-10.0)
[2022-01-01 13:53] LABS: CALCIUM LEVEL 10.1 MG/DL (8.8-10.2); CREATININE FOR GFR 1.56 MG/DL (0.55-1.30); GLOMERULAR FILTRATION RATE 33.5 (>32); MAGNESIUM LEVEL 2.1 MG/DL (1.8-2.4); POTASSIUM SERUM 4.5 MEQ/L (3.5-5.1)
== END ==
LOC: M ADAMS 09:44
PROVIDERS: ATTEND Physician Assistant
DX: I50.42 Chronic combined systolic (congestive) and diastolic (congestive) heart failure (principal)

== ENCOUNTER → 2022-01-09 | Outpatient (CLI) | payer MEDICARE, BC | LOC: M PLAIMG 12:46 | PROVIDERS: ATTEND Psychiatry & Neurology Neurology | DX: G40.209 Localization-related (focal) (partial) symptomatic epilepsy and epileptic syndromes with complex partial seizures, not intractable, without status epilepticus (principal); D32.0 Benign neoplasm of cerebral meninges ==

== ENCOUNTER → 2022-08-23 | Outpatient (REF) | payer MEDICARE, BC ==
[~2022-08-23] MED LIST changes: +FARX1TAB3; +SPIR-10
== END ==
LOC: M LAB REF 12:00
PROVIDERS: ATTEND Family Medicine
DX: I50.32 Chronic diastolic (congestive) heart failure (principal); I48.91 Unspecified atrial fibrillation

== ENCOUNTER → 2023-01-03 | Outpatient (CLI) | payer MEDICARE, BC ==
[~2023-01-03] MED LIST changes: +GLIM1TAB4 PO
== END ==
LOC: M RAD 17:23
PROVIDERS: ATTEND Psychiatry & Neurology Neurology
DX: D32.0 Benign neoplasm of cerebral meninges (principal); G40.209 Localization-related (focal) (partial) symptomatic epilepsy and epileptic syndromes with complex partial seizures, not intractable, without status epilepticus

== ENCOUNTER → 2023-01-23 | Outpatient (REF) | payer MEDICARE, BC | LOC: M LAB REF 09:35 | PROVIDERS: ATTEND Family Medicine | DX: I50.32 Chronic diastolic (congestive) heart failure (principal) ==

== ENCOUNTER → 2023-03-04 | Outpatient (CLI) | payer MEDICARE, BC | LOC: M RAD 14:21 | PROVIDERS: ATTEND Family Medicine | DX: I73.9 Peripheral vascular disease, unspecified (principal) ==

== ENCOUNTER → 2023-06-10 | Outpatient (REF) | payer MEDICARE, BC | LOC: M LAB REF 16:20 | PROVIDERS: ATTEND Family Medicine | DX: I50.32 Chronic diastolic (congestive) heart failure (principal) ==

== ENCOUNTER → 2023-07-17 | Outpatient (REF) | payer MEDICARE, BC ==
[~2023-07-17] MED LIST changes: -ASPI-161 PO; +ASPI-615 PO
== END ==
LOC: M LAB REF 12:23
PROVIDERS: ATTEND Family Medicine
DX: I50.32 Chronic diastolic (congestive) heart failure (principal)

== ENCOUNTER 2024-07-23 07:09 | Inpatient (IN) | payer MEDICARE, BC ==
[~2024-07-23 07:09] MED LIST changes: -CYCL5TAB PO; +CYCL5TAB4 PO; -FARX1TAB3; +FARX1TAB3 PO; +GABA-1172 PO; -GABA-282 PO; -GLIM1TAB4 PO; +GLIM1TAB84 PO
[2024-07-23] MEDS ORDERED: ELIQ2.5T PO (07:40)
[2024-07-23] MEDS ORDERED: CLOP75TA2 PO (07:40)
[2024-07-23 07:47] LABS: BASO # 0.1 10^3/uL (0.0-0.2); BASO % 0.4 % (0.0-1.0); EOS % 0.3 % (0.0-3.0); HEMOGLOBIN 12.8 g/dl (12.0-15.5); LYMPH # 0.8 10^3/uL (1.5-5.0); LYMPH % 5.7 % (24.0-44.0); MEAN CORPUSCULAR HEMOGLOBIN 32.4 pg (27.0-33.0); MEAN CORPUSCULAR HGB CONC 32.8 g/dl (32.0-36.5); MEAN CORPUSCULAR VOLUME 98.7 fl (80.0-96.0); MONO # 0.8 10^3/uL (0.0-0.8); NEUTROPHILS # 12.1 10^3/uL (1.5-8.5); NEUTROPHILS % 86.9 % (36.0-66.0); PLATELET COUNT, AUTOMATED 220 10^3/uL (150-450); RED BLOOD COUNT 3.95 10^6/uL (4.00-5.40); WHITE BLOOD COUNT 13.9 10^3/uL (4.0-10.0)
[2024-07-23 08:16] LABS: ALBUMIN 3.8 G/DL (3.2-5.2); BILIRUBIN,DIRECT 0.4 MG/DL (<0.4); BILIRUBIN,TOTAL 1.2 MG/DL (0.3-1.2); CALCIUM LEVEL 9.4 MG/DL (8.3-10.6); CREATININE FOR GFR 1.12 MG/DL (0.55-1.30); GLOMERULAR FILTRATION RATE 48.8 (>32); TOTAL PROTEIN 6.4 G/DL (5.7-8.2)
[2024-07-23] MEDS ORDERED: MULTTAB61 PO (08:31)
[2024-07-23] MEDS ORDERED: TORS10TA3 PO (08:31)
[2024-07-23 08:34] LABS: FREE THYROXINE INDEX 2.1 % (1.3-4.8); T UPTAKE 36.7 % (22.5-37.0); THYROID STIMULATING HORMONE 1.438 uIU/ML (0.55-4.78); THYROXINE (T4) 5.6 UG/DL (4.5-10.9)
[2024-07-23] MEDS ORDERED: HOME MED LIST COMPLETE! XX SCH (08:35)
[2024-07-23] MEDS ORDERED: ISOVUE-370 76% 100ML VIAL As Ordered ONE (08:41)
[2024-07-23 08:53] LABS: DIGOXIN LEVEL 0.4 NG/ML (0.8-2.0)
[2024-07-23] MEDS: TORSEMIDE 10 MG TABLET PO STA (09:03)
[2024-07-23] MEDS: DIGOXIN 0.125 MG TAB PO ONE (09:04)
[2024-07-23] MEDS: ENTRESTO 24-26MG TABLET (SACUBITRIL/VALSARTAN) PO STA (09:04)
[2024-07-23] MEDS: FUROSEMIDE 40MG/4ML VIAL IV ONE (10:39)
[2024-07-23] MEDS ORDERED: GLUCAGON INJ 1MG VIAL SC PRN (11:15)
[2024-07-23] MEDS ORDERED: DEXTROSE 50% 50ML SYRINGE IV PRN (11:15)
[2024-07-23] MEDS ORDERED: MAALOX 30 ML SUSP *UDC PO PRN (11:15)
[2024-07-23] MEDS ORDERED: HEPARIN SOD (PORCINE) 5000UNITS/ML 1ML VIAL/SYRINGE SC SCH (11:15)
[2024-07-23] MEDS ORDERED: MOM 30ML SUSPENSION UDC PO PRN (11:15)
[2024-07-23] MEDS ORDERED: ACETAMINOPHEN 325 MG TAB PO PRN (11:15)
[2024-07-23] MEDS ORDERED: NITROGLYCERIN 0.4MG SUBL TABLET SL PRN (11:15)
[2024-07-23] MEDS ORDERED: GLUCOSE 4 GM CHEW PO PRN (11:15)
[2024-07-23] MEDS: CLOPIDOGREL 75 MG TAB PO SCH (12:13)
[2024-07-23] MEDS: PRAVASTATIN 20 MG TAB PO SCH (12:13)
[2024-07-23] MEDS: DAPAGLIFLOZIN PROPANEDIOL 10MG TABLET (FARXIGA) PO SCH (12:14)
[2024-07-23] MEDS: APIXABAN 2.5 MG TAB (ELIQUIS) PO SCH (12:14)
[2024-07-23] MEDS: levETIRAcetam 250MG TABLET (KEPPRA) PO SCH (12:14)
[2024-07-23] MEDS: INSULIN LISPRO (NovoLOG) PER UNIT SC SCH ×2 (13:48→20:15)
[2024-07-23 14:20] VITALS: BP 138/70; TEMP 97.5; O2SAT 93
[2024-07-23 15:41] LABS: CALCIUM LEVEL 9.4 MG/DL (8.3-10.6); CREATININE FOR GFR 1.24 MG/DL (0.55-1.30); GLOMERULAR FILTRATION RATE 43.4 (>32); POTASSIUM SERUM 3.8 MMOL/L (3.5-5.1)
[2024-07-23 16:02] VITALS: BP 147/67; TEMP 97.5; O2SAT 95
[2024-07-23 19:22] VITALS: BP 138/61; TEMP 97.4; O2SAT 93
[2024-07-23] MEDS: DOCUSATE SODIUM 100MG CAPSULE PO SCH (20:16)
[2024-07-23] MEDS: guaiFENesin ER TABLET 600 MG TAB PO SCH (20:16)
[2024-07-23] MEDS: ENTRESTO 24-26MG TABLET (SACUBITRIL/VALSARTAN) PO SCH (20:16)
[2024-07-23 23:22] VITALS: BP 155/67; TEMP 97.8; O2SAT 93
[2024-07-24 03:27] VITALS: BP 123/59; TEMP 98.7; O2SAT 90
[2024-07-24 05:31] LABS: BASO # 0.1 10^3/uL (0.0-0.2); BASO % 0.7 % (0.0-1.0); EOS # 0.2 10^3/uL (0.0-0.5); EOS % 2.7 % (0.0-3.0); HEMATOCRIT 33.6 % (36.0-47.0); LYMPH % 26.6 % (24.0-44.0); MEAN CORPUSCULAR HEMOGLOBIN 31.8 pg (27.0-33.0); MEAN CORPUSCULAR HGB CONC 32.7 g/dl (32.0-36.5); MEAN CORPUSCULAR VOLUME 97.1 fl (80.0-96.0); MONO # 0.8 10^3/uL (0.0-0.8); MONO % 11.5 % (2.0-8.0); NEUTROPHILS # 4.3 10^3/uL (1.5-8.5); NEUTROPHILS % 58.2 % (36.0-66.0); PLATELET COUNT, AUTOMATED 193 10^3/uL (150-450); RED BLOOD COUNT 3.46 10^6/uL (4.00-5.40); WHITE BLOOD COUNT 7.3 10^3/uL (4.0-10.0)
[2024-07-24 05:55] LABS: CALCIUM LEVEL 8.4 MG/DL (8.3-10.6); CREATININE FOR GFR 1.38 MG/DL (0.55-1.30); GLOMERULAR FILTRATION RATE 38.3 (>32); MAGNESIUM LEVEL 1.9 MG/DL (1.8-2.4); POTASSIUM SERUM 3.5 MMOL/L (3.5-5.1)
[2024-07-24 07:52] VITALS: BP 138/60; TEMP 98.6; O2SAT 94
[2024-07-24] MEDS: CALCIUM/VITAMIN D 500 MG TAB PO SCH (08:39)
[2024-07-24] MEDS: MULTIVITAMINS/MINERALS THERAP 1 TAB PO SCH (08:39)
[2024-07-24] MEDS: VITAMIN D 1,000 INTERNATIONAL UNITS TABLET PO SCH (08:40)
[2024-07-24] MEDS ORDERED: TORS20TA2 PO (09:47)
[2024-07-26] MEDS ORDERED: DIGOXIN 0.125 MG TAB PO SCH (09:00)
== END 2024-07-24 11:12 | disposition home health service (06) | DRG 291 ==
LOC: M ED 07:09 → EDBD 07:09 → M ED INP 11:15 → OBSVTOIN 11:15 → M PCU 14:16
PROVIDERS: ADMIT Internal Medicine; ATTEND Internal Medicine
DX: I11.0 Hypertensive heart disease with heart failure (principal); I50.33 Acute on chronic diastolic (congestive) heart failure; J98.11 Atelectasis; E11.51 Type 2 diabetes mellitus with diabetic peripheral angiopathy without gangrene; I48.91 Unspecified atrial fibrillation; I25.10 Atherosclerotic heart disease of native coronary artery without angina pectoris; I25.2 Old myocardial infarction; Z79.01 Long term (current) use of anticoagulants; Z95.0 Presence of cardiac pacemaker; Z85.72 Personal history of non-Hodgkin lymphomas; Z98.41 Cataract extraction status, right eye; Z98.42 Cataract extraction status, left eye; Z79.899 Other long term (current) drug therapy

== ENCOUNTER → 2025-03-22 | Outpatient (REF) | payer MEDICARE, BC ==
[~2025-03-22] MED LIST changes: +CLOP75TA2 PO; +ELIQ2.5T PO; +MULTTAB61 PO; -PRAV20TA2 PO; +PRAV20TA78 PO; -PRAV40TA2 PO; +PRAV40TA85 PO; +TORS20TA2 PO
== END ==
LOC: M LAB REF 12:01
PROVIDERS: ATTEND Family Medicine
DX: N18.32 Chronic kidney disease, stage 3b (principal)